=== PATIENT | female | born 1930 | race Caucasian/White ===

== ENCOUNTER → 2017-01-12 | Outpatient (CLI) | payer MEDICARE, BC | LOC: MW.CHIM 09:27 | PROVIDERS: ATTEND Internal Medicine | DX: I10 Essential (primary) hypertension (principal); E11.9 Type 2 diabetes mellitus without complications; E78.5 Hyperlipidemia, unspecified; F41.9 Anxiety disorder, unspecified | CPT/HCPCS: 36415; 80053; 80061; 83036; 85025; 99214 ==

== ENCOUNTER 2018-12-24 08:25 | Emergency (ER) | payer MEDICARE, BC ==
--- NOTE | 2018-12-24 08:47 | EDM.PDOC ---
ED HPI GENERAL MEDICAL PROBLEM - General Stated Complaint: BACK PAIN Time Seen by Provider: 12/24/18 08:33 Source of Information: Reports: Patient History Limitations: Reports: No Limitations - History of Present Illness INITIAL COMMENTS - FREE TEXT/NARRATIVE: History of present illness: []Patient changed her clock during the daylight savings change and accidentally set her alarm for midnight. She woke up when it went off and stood up to get to her alarm clock and fell backwards. Patient did not lose consciousness states she has right hip pain, bruising of her back and pain in her mid back upwards. Numbness or tingling or any other injuries. Patient takes a baby aspirin daily. Review of systems: As per history of present illness and below otherwise all systems reviewed and negative. Past medical history: As per history of present illness and as reviewed below otherwise noncontributory. Surgical history: As per history of present illness and as reviewed below otherwise noncontributory. Social history: No reported history of drug or alcohol abuse. Family history: As per history of present illness and as reviewed below otherwise noncontributory. Physical exam: General: Well developed, well nourished in NAD HEENT: Atraumatic, normocephalic, pupils reactive, negative for conjunctival pallor or scleral icterus, mucous membranes moist, throat clear, neck supple, nontender, trachea midline. Lungs: Clear to auscultation, breath sounds equal bilaterally, chest nontender. Heart: S1S2, regular, negative for clicks, rubs, or JVD. Abdomen: NABS, Soft, nondistended, nontender no rebound or guarding. Negative for masses or hepatosplenomegaly. Negative for costovertebral tenderness. Back has tenderness throughout there is a large ecchymotic area of the right lateral abdomen and multiple ecchymotic areas on her anterior lower abdomen from insulin injections Pelvis: Stable nontender. Genitourinary: Deferred. Rectal: Deferred. Extremities: Right hip tenderness to palpation she has full range of motion, right thigh with 4 x 4 ecchymotic area there is thigh tenderness, negative for cords or calf pain. Neurovascular unremarkable. Neuro: Awake, alert, oriented. Cranial nerves II through XII unremarkable. Cerebellum unremarkable. Motor and sensory unremarkable throughout. Exam nonfocal. Skin:warm and dry Diagnostics: T, L-spine and hip x-rays all negative, CBC, chemistry Therapeutics: None ED Course: Impression: Fall with right hip, mid and low back contusions Prescriptions: None Plan: Tylenol for pain Definitive disposition and diagnosis as appropriate pending reevaluation and review of above. Right Hip Pain Score (Numeric/FACES): 9 - Related Data Allergies Allergy/AdvReac Type Severity Reaction Status Date / Time No Known Allergies Allergy Verified 12/24/18 08:38 Home Meds: Home Meds Aspirin [[place] Aspirin EC] 81 mg PO DAILY 10/13/16 [History] Losartan/Hydrochlorothiazide [Losartan-HCTZ 100-12.5 MG] 1 tab PO DAILY [History] Sertraline HCl 100 mg PO DAILY 10/13/16 [History] Simvastatin [Zocor] 20 mg PO BEDTIME 10/13/16 [History] Spironolactone [Aldactone] 25 mg PO DAILY 10/13/16 [History] metFORMIN HCl [Metformin HCl] 1,000 mg PO BID 10/13/16 [History] traMADol [Ultram] 50 mg PO Q4H PRN #20 tablet 10/18/16 [Rx] Insulin Aspart [NovoLOG] 16 units SUBCUT TID 12/24/18 [History] Insulin Detemir [Levemir Flextouch] 30 units SUBCUT BEDTIME 12/24/18 [History] Naproxen Sodium [Aleve] 220 mg PO ASDIRECTED 12/24/18 [History] Past Medical History HEENT History: Reports: Other (See Below) Other HEENT History: wears glasses Cardiovascular History: Reports: High Cholesterol, Hypertension [employer]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: Musculoskeletal History: Reports: Osteoarthritis Psychiatric History: Reports: Depression Endocrine/Metabolic History: Reports: Diabetes, Type II Oncologic (Cancer) History: Reports: Basal Cell Carcinoma Dermatologic History: Reports: Other (See Below) Other Dermatologic History: basal cell carcinoma to face - Infectious Disease History Infectious Disease History: Reports: Chicken Pox - Past Surgical History Head Surgeries/Procedures: Reports: None HEENT Surgical History: Reports: Cataract Surgery, Tonsillectomy GI Surgical History: Reports: Appendectomy Female Surgical History: Reports: Hysterectomy Neurological Surgical History: Reports: Lumbar Spine Musculoskeletal Surgical History: Reports: Arthroscopic Knee Social & Family History - Family History Family Medical History: Noncontributory - Caffeine Use Caffeine Use: Reports: Coffee ED ROS GENERAL - Review of Systems Review Of Systems: ROS reveals no pertinent complaints other than HPI. ED EXAM,LOWER BACK PAIN/INJURY - Physical Exam Exam: See Below (See history of present illness) Course - Vital Signs Last Recorded V/S: Last Vital Signs Temp 97.7 F 12/24/18 08:41 Pulse 90 12/24/18 08:41 Resp 16 12/24/18 08:41 BP 140/89 12/24/18 08:41 Pulse Ox 95 12/24/18 08:41 - Orders/Labs/Meds Labs: Laboratory Tests 12/24/18 12/24/18 12/24/18 Range/Units 09:00 09:00 09:00 WBC 8.54 (4.0-11.0) K/uL RBC 4.23 L (4.30-5.90) M/uL Hgb 12.9 (12.0-16.0) g/dL Hct 36.8 (36.0-46.0) % MCV 87.0 (80.0-98.0) fL MCH 30.5 (27.0-32.0) pg MCHC 35.1 (31.0-37.0) g/dL RDW Std Deviation 44.3 (28.0-62.0) fl RDW Coeff of Renard 14 (11.0-15.0) % Plt Count 136 L (150-400) K/uL MPV 9.30 (7.40-12.00) fL Neut % (Auto) 68.8 (48.0-80.0) % Lymph % (Auto) 17.6 (16.0-40.0) % Rooks % (Auto) 11.0 (0.0-15.0) % Eos % (Auto) 2.5 (0.0-7.0) % Baso % (Auto) 0.1 (0.0-1.5) % Neut # (Auto) 5.9 H (1.4-5.7) K/uL Lymph # (Auto) 1.5 (0.6-2.4) K/uL Rooks # (Auto) 0.9 H (0.0-0.8) K/uL Eos # (Auto) 0.2 (0.0-0.7) K/uL Baso # (Auto) 0.0 (0.0-0.1) K/uL Nucleated RBC % 0.0 /100WBC Nucleated RBCs # 0 K/uL INR 1.02 APTT 26.6 (18.6-31.3) SEC Sodium 133 L (136-145) mmol/L Potassium 4.3 (3.5-5.1) mmol/L Chloride 97 L (98-107) mmol/L Carbon Dioxide 27.4 (21.0-32.0) mmol/L BUN 24 H (7.0-18.0) mg/dL Creatinine 1.0 (0.6-1.0) mg/dL Est Cr Clr Drug Dosing 29.91 mL/min Estimated GFR (MDRD) 52.4 ml/min Glucose 125 H (74-106) mg/dL Calcium 9.6 (8.5-10.1) mg/dL Total Bilirubin 0.4 (0.2-1.0) mg/dL AST 19 (15-37) IU/L ALT 26 (14-63) IU/L Alkaline Phosphatase 95 (46-116) U/L Total Protein 7.2 (6.4-8.2) g/dL Albumin 3.8 (3.4-5.0) g/dL Globulin 3.4 (2.6-4.0) g/dL Albumin/Globulin Ratio 1.1 (0.9-1.6) Departure - Departure Time of Disposition: 10:16 Disposition: Home, Self-Care 01 Condition: Good Clinical Impression: Fall Qualifiers: Encounter type: initial encounter Qualified Code(s): W19.XXXA - Unspecified fall, initial encounter Contusion of right hip Qualifiers: Encounter type: initial encounter Qualified Code(s): S70.01XA - Contusion of right hip, initial encounter Back contusion Qualifiers: Encounter type: initial encounter Laterality: unspecified laterality Qualified Code(s): S20.229A - Contusion of unspecified back wall of thorax, initial encounter - Discharge Information *PRESCRIPTION DRUG MONITORING PROGRAM REVIEWED*: No *COPY OF PRESCRIPTION DRUG MONITORING REPORT IN PATIENT MEGHA[place]: No Instructions: Back Pain, Adult, [id number] Referrals: PCP,Unknown [Primary Care Provider] - Forms: ED Department Discharge Additional Instructions: The following information is given to patients seen in the emergency department who are being discharged to home. This information is to outline your options for follow-up care. We provide all patients seen in our emergency department with a follow-up referral. The need for follow-up, as well as the timing and circumstances, are variable depending upon the specifics of your emergency department visit. If you don't have a primary care physician on staff, we will provide you with a referral. We always advise you to contact your personal physician following an emergency department visit to inform them of the circumstance of the visit and for follow-up with them and/or the need for any referrals to a consulting specialist. The emergency department will also refer you to a specialist when appropriate. This referral assures that you have the opportunity for follow-up care with a specialist. All of these measure are taken in an effort to provide you with optimal care, which includes your follow-up. Under all circumstances we always encourage you to contact your private physician who remains a resource for coordinating your care. When calling for follow-up care, please make the office aware that this follow-up is from your recent emergency room visit. If for any reason you are refused follow-up, please contact the [facility] Emergency Department at and asked to speak to the emergency department charge nurse. Tylenol or ibuprofen for pain, follow up with primary care [facility] [address] [place] [id number]
--- NOTE | 2018-12-24 10:09 | CR ---
EXAMINATION: Pelvis and right hip HISTORY: Fall COMPARISON: CT dated 02/02/2013 TECHNIQUE: AP and lateral views FINDINGS: The visualized osseous structures appear osteopenic. Severe joint space narrowing noted at the left hip and moderately at the right hip most prominent at the superior medial axis. Mild subchondral sclerosis and cystic change noted bilaterally. Mild sclerotic and degenerative changes noted at the SI joints. Iliopectineal lines appear intact. No definite fracture or acute osseous abnormality is noted. Pelvic phleboliths. IMPRESSION: 1. Moderate degenerative changes within the hips bilaterally without acute findings. 2. Osteopenia.
--- NOTE | 2018-12-24 10:11 | CR ---
EXAMINATION: Thoracic and lumbar spine HISTORY: Pain COMPARISON: None TECHNIQUE: AP and lateral views FINDINGS: Thoracic spine: Mild kyphosis of the thoracic spine. Several minimal wedge deformities are noted within the midthoracic spine. No definite evidence of a fracture or acute osseous abnormality. Bone mineralization is notably osteopenic. Osteophyte formation is noted. Lumbar spine: Minimal anterolisthesis is noted of L2 on L3, L3 on L4, and L4 on L5. 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 Vertebral body heights otherwise appear maintained. Bone mineralization is osteopenic. Mild marginal osteophytes are noted. Facet arthritic changes noted throughout the lumbar spine. Mild vascular calcifications. IMPRESSION: 1. Moderate degenerative changes noted within the thoracic and lumbar spine without definite acute osseous abnormality. 2. Osteopenia.
[2018-12-24 10:33] VITALS: BP 103/83
== END 2018-12-24 10:27 | disposition home or self-care (01) ==
LOC: MW.ED 08:25
DX: S70.01XA Contusion of right hip, initial encounter (principal); S20.229A Contusion of unspecified back wall of thorax, initial encounter; E11.9 Type 2 diabetes mellitus without complications; Z79.4 Long term (current) use of insulin; I10 Essential (primary) hypertension; E78.00 Pure hypercholesterolemia, unspecified; F32.9 Major depressive disorder, single episode, unspecified; Z79.899 Other long term (current) drug therapy; Z79.82 Long term (current) use of aspirin; W19.XXXA Unspecified fall, initial encounter
CPT/HCPCS: 36415; 72070; 72070-26; 72100; 72100-26; 73502-26-RT; 73502-RT; 80053; 85025; 85610; 85730; 99283-25

== ENCOUNTER 2019-03-11 09:00 | Emergency (ER) | payer MEDICARE, BC ==
--- NOTE | 2019-03-11 09:33 | EDM.PDOC ---
ED HPI GENERAL MEDICAL PROBLEM - General Chief Complaint: ENT Problem Stated Complaint: BLOODY NOSE FOR 20+ MINS Time Seen by Provider: 03/11/19 09:30 - History of Present Illness INITIAL COMMENTS - FREE TEXT/NARRATIVE: HISTORY AND PHYSICAL: History of present illness: Patient's an 88-year-old white female with multiple medical problems including hypertension presents with a concern of left-sided epistaxis patient has had this intermittently in the past. No Reported trauma patient is currently on aspirin she denies any other anticoagulants or bleeding diastases Review of systems: As per history of present illness and below otherwise all systems reviewed and negative. Past medical history: As per history of present illness and as reviewed below otherwise noncontributory. Surgical history: As per history of present illness and as reviewed below otherwise noncontributory. Social history: No reported history of drug or alcohol abuse. Family history: As per history of present illness and as reviewed below otherwise noncontributory. Physical exam: HEENT: Atraumatic, normocephalic, pupils reactive, negative for conjunctival pallor or scleral icterus, mucous membranes moist, throat clear, neck supple, nontender, trachea midline. Small active bleeding from her left nares noted source not identified Lungs: Clear to auscultation, breath sounds equal bilaterally, chest nontender. Heart: S1S2, regular, negative for clicks, rubs, or JVD. Abdomen: Soft, nondistended, nontender. Negative for masses or hepatosplenomegaly. Negative for costovertebral tenderness. Pelvis: Stable nontender. Genitourinary: Deferred. Rectal: Deferred. Extremities: Atraumatic, negative for cords or calf pain. Neurovascular unremarkable. Neuro: Awake, alert, oriented. Cranial nerves II through XII unremarkable. Cerebellum unremarkable. Motor and sensory unremarkable throughout. Exam nonfocal. Diagnostics: None Therapeutics: Clots were cleared via blowing 5.5 cm Rhino Rocket was placed in her left nares with good hemostasis no evidence of posterior bleeding the patient tolerated procedure well mustache dressing was applied Impression: #1 hypertension #2 left-sided epistaxis status post Rhino Rocket placement Definitive disposition and diagnosis as appropriate pending reevaluation and review of above. - Related Data Allergies Allergy/AdvReac Type Severity Reaction Status Date / Time No Known Allergies Allergy Verified 03/11/19 09:05 Home Meds: Home Meds Aspirin [[place] Aspirin EC] 81 mg PO DAILY 10/13/16 [History] Losartan/Hydrochlorothiazide [Losartan-HCTZ 100-12.5 MG] 1 tab PO DAILY [History] Sertraline HCl 100 mg PO DAILY 10/13/16 [History] Simvastatin [Zocor] 20 mg PO BEDTIME 10/13/16 [History] Spironolactone [Aldactone] 25 mg PO DAILY 10/13/16 [History] metFORMIN HCl [Metformin HCl] 1,000 mg PO BID 10/13/16 [History] Insulin Aspart [NovoLOG] 12 units SUBCUT TID 12/24/18 [History] Insulin Detemir [Levemir Flextouch] 26 units SUBCUT BEDTIME 12/24/18 [History] Naproxen Sodium [Aleve] 220 mg PO ASDIRECTED 12/24/18 [History] Past Medical History HEENT History: Reports: Other (See Below) Other HEENT History: wears glasses Cardiovascular History: Reports: High Cholesterol, Hypertension [employer]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: Musculoskeletal History: Reports: Osteoarthritis Psychiatric History: Reports: Depression Endocrine/Metabolic History: Reports: Diabetes, Type II Oncologic (Cancer) History: Reports: Basal Cell Carcinoma Dermatologic History: Reports: Other (See Below) Other Dermatologic History: basal cell carcinoma to face - Infectious Disease History Infectious Disease History: Reports: Chicken Pox, Measles, Mumps - Past Surgical History Head Surgeries/Procedures: Reports: None HEENT Surgical History: Reports: Cataract Surgery, Tonsillectomy GI Surgical History: Reports: Appendectomy Female Surgical History: Reports: Hysterectomy Neurological Surgical History: Reports: Lumbar Spine Musculoskeletal Surgical History: Reports: Arthroscopic Knee Social & Family History - Family History Family Medical History: Noncontributory - Tobacco Use Smoking Status *Q: Never Smoker - Caffeine Use Caffeine Use: Reports: Coffee - Recreational Drug Use Recreational Drug Use: No ED ROS GENERAL - Review of Systems Review Of Systems: ROS reveals no pertinent complaints other than HPI. ED EXAM, GENERAL - Physical Exam Exam: See Below (See dictation) Course - Vital Signs Last Recorded V/S: Last Vital Signs Temp 36.3 C 03/11/19 09:03 Pulse 95 03/11/19 09:49 Resp 20 03/11/19 09:03 BP 169/79 H 03/11/19 09:49 Pulse Ox 95 03/11/19 09:49 Departure - Departure Time of Disposition: 10:09 Disposition: Home, Self-Care 01 Condition: Good Clinical Impression: Epistaxis Hypertension Qualifiers: Hypertension type: essential hypertension Qualified Code(s): I10 - Essential ( primary) hypertension - Discharge Information Referrals: PCP,Unknown [Primary Care Provider] - Forms: ED Department Discharge Additional Instructions: The following information is given to patients seen in the emergency department who are being discharged to home. This information is to outline your options for follow-up care. We provide all patients seen in our emergency department with a follow-up referral. The need for follow-up, as well as the timing and circumstances, are variable depending upon the specifics of your emergency department visit. If you don't have a primary care physician on staff, we will provide you with a referral. We always advise you to contact your personal physician following an emergency department visit to inform them of the circumstance of the visit and for follow-up with them and/or the need for any referrals to a consulting specialist. The emergency department will also refer you to a specialist when appropriate. This referral assures that you have the opportunity for followup care with a specialist. All of these measure are taken in an effort to provide you with optimal care, which includes your followup. Under all circumstances we always encourage you to contact your private physician who remains a resource for coordinating your care. When calling for followup care, please make the office aware that this follow-up is from your recent emergency room visit. If for any reason you are refused follow-up, please contact the [facility] emergency department at and asked to speak to the emergency department charge nurse. Bernice Enriquez as directed reevaluation 24-48 hours as discussed for removal Augmentin as prescribed continue current medications and return as needed as discussed
[2019-03-11 09:51] VITALS: BP 169/79
== END 2019-03-11 10:29 | disposition home or self-care (01) ==
LOC: MW.ED 09:00
DX: R04.0 Epistaxis (principal); I10 Essential (primary) hypertension; E78.00 Pure hypercholesterolemia, unspecified; F32.9 Major depressive disorder, single episode, unspecified; E11.9 Type 2 diabetes mellitus without complications; Z79.4 Long term (current) use of insulin; Z79.899 Other long term (current) drug therapy
CPT/HCPCS: 99283

== ENCOUNTER 2019-03-12 20:30 | Emergency (ER) | payer MEDICARE, BC ==
--- NOTE | 2019-03-12 20:50 | EDM.PDOC ---
ED HPI GENERAL MEDICAL PROBLEM - General Chief Complaint: General Stated Complaint: DIZZINESS Time Seen by Provider: 03/12/19 20:49 Source of Information: Reports: Patient History Limitations: Reports: No Limitations - History of Present Illness INITIAL COMMENTS - FREE TEXT/NARRATIVE: HISTORY AND PHYSICAL: History of present illness: Patient is an 88-year-old female who presents to the emergency room with complaints of dizziness x 24 hours. She was seen in the emergency room yesterday on 03/11/19 for left naris epistaxis. She did have a Rhino Rocket placed at that time for manage bleeding. Patient is vague with her symptoms. Denies any injury, trauma or falls. Also mentions concern of some mild erythema that she has noticed to her lower extremities over the past several years. She denies any numbness, tingling or paresthesias. Patient is a type II diabetic, history of hypertension and basal cell carcinoma. Patient denies any fever, chills, headache, change in vision, syncope or near syncope. Denies any chest pain, back pain, shortness of breath or cough. Denies any abdominal pain, nausea, vomiting, diarrhea, constipation or dysuria. Has not noted any blood in urine or stool. Patient has been eating and drinking appropriately. Review of systems: As per history of present illness and below otherwise all systems reviewed and negative. Past medical history: As per history of present illness and as reviewed below otherwise noncontributory. Surgical history: As per history of present illness and as reviewed below otherwise noncontributory. Social history: See social history for further information Family history: As per history of present illness and as reviewed below otherwise noncontributory. Physical exam: General: Well-developed and well-nourished 88-year-old female. Alert and oriented. Nontoxic appearing and in no acute distress. HEENT: Atraumatic, normocephalic, pupils equal and reactive bilaterally, negative for conjunctival pallor or scleral icterus, mucous membranes moist, TMs normal bilaterally, throat clear, neck supple, nontender, trachea midline. No drooling or trismus noted. No meningeal signs. No hot potato voice noted. Lungs: Clear to auscultation, breath sounds equal bilaterally, chest nontender. Heart: S1S2, regular rate and rhythm without overt murmur Abdomen: Soft, nondistended, nontender. Skin: Intact, warm, dry. No lesions or rashes noted. Extremities: Atraumatic, moves all extremities per self without difficulty or deficits, negative for cords or calf pain. Strong pedal pulses bilaterally. Mild pitting LE edema bilaterally. Neurovascular unremarkable. Neuro: Awake, alert, oriented. Cranial nerves II through XII unremarkable. Cerebellum unremarkable. Motor and sensory unremarkable throughout. Exam nonfocal. Notes: Rhino Rocket was placed over 24 hours ago. This was removed without any difficulty. No post removal bleeding noted. Patient is agreeable to lab work and imaging at this time. Physical examination is within normal limits. She does have some mild erythema to her bilateral shins/ankle. Does not appear to be cellulitic, more diabetic related. No diabetic foot ulcers or open sores noted to either foot. EKG shows sinus rhythm, rate of 87. Patient reports that since the Rhino Rocket was removed the dizziness has improved. She states "it still comes and goes" but is very nonspecific. Dr Caballero reviewed diagnostics. Disposition accordingly. Diagnostics: CBC, CMP, UA, troponin, EKG, one view chest, head CT Therapeutics: IV fluids Impression: Encounter for nasal packing removal Dizziness Plan: 1. Increase your oral fluids. Change positions slowly. 2. Take your prescribed medications as directed. 3. Follow-up with your primary care provider as we discussed. Return to the ED as needed and as discussed. Definitive disposition and diagnosis as appropriate pending reevaluation and review of above. no pain Pain Score (Numeric/FACES): 0 - Related Data Allergies Allergy/AdvReac Type Severity Reaction Status Date / Time No Known Allergies Allergy Verified 03/13/19 20:50 Home Meds: Home Meds Aspirin [[place] Aspirin EC] 81 mg PO DAILY 10/13/16 [History] Losartan/Hydrochlorothiazide [Losartan-HCTZ 100-12.5 MG] 1 tab PO DAILY [History] Sertraline HCl 100 mg PO DAILY 10/13/16 [History] Simvastatin [Zocor] 20 mg PO BEDTIME 10/13/16 [History] Spironolactone [Aldactone] 25 mg PO DAILY 10/13/16 [History] metFORMIN HCl [Metformin HCl] 1,000 mg PO BID 10/13/16 [History] Insulin Aspart [NovoLOG] 12 units SUBCUT TID 12/24/18 [History] Insulin Detemir [Levemir Flextouch] 26 units SUBCUT BEDTIME 12/24/18 [History] Naproxen Sodium [Aleve] 220 mg PO ASDIRECTED 12/24/18 [History] Past Medical History HEENT History: Reports: Impaired Vision, Other (See Below) Other HEENT History: wears glasses Cardiovascular History: Reports: High Cholesterol, 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: Musculoskeletal History: Reports: Osteoarthritis Psychiatric History: Reports: Depression Endocrine/Metabolic History: Reports: Diabetes, Type II Oncologic (Cancer) History: Reports: Basal Cell Carcinoma Dermatologic History: Reports: Other (See Below) Other Dermatologic History: basal cell carcinoma to face - Infectious Disease History Infectious Disease History: Reports: Chicken Pox, Measles, Mumps - Past Surgical History Head Surgeries/Procedures: Reports: None HEENT Surgical History: Reports: Cataract Surgery, Tonsillectomy GI Surgical History: Reports: Appendectomy Female Surgical History: Reports: Hysterectomy Neurological Surgical History: Reports: Lumbar Spine Musculoskeletal Surgical History: Reports: Arthroscopic Knee Social & Family History - Family History Family Medical History: Noncontributory - Tobacco Use Smoking Status *Q: Never Smoker - Caffeine Use Caffeine Use: Reports: Coffee - Recreational Drug Use Recreational Drug Use: No ED ROS GENERAL - Review of Systems Review Of Systems: ROS reveals no pertinent complaints other than HPI. ED EXAM, GENERAL - Physical Exam Exam: See Below (See dictation) Course - Vital Signs Last Recorded V/S: Last Vital Signs Temp 97.2 F 03/12/19 22:35 Pulse 83 03/12/19 22:35 Resp 18 03/12/19 22:35 BP 166/68 H 03/12/19 22:35 Pulse Ox 96 03/12/19 22:35 - Orders/Labs/Meds Labs: Laboratory Tests 03/12/19 03/12/19 Range/Units 20:50 20:50 WBC 9.75 (4.0-11.0) K/uL RBC 4.23 L (4.30-5.90) M/uL Hgb 12.9 (12.0-16.0) g/dL Hct 37.3 (36.0-46.0) % MCV 88.2 (80.0-98.0) fL MCH 30.5 (27.0-32.0) pg MCHC 34.6 (31.0-37.0) g/dL RDW Std Deviation 47.0 (28.0-62.0) fl RDW Coeff of Renard 15 (11.0-15.0) % Plt Count 138 L (150-400) K/uL MPV 9.40 (7.40-12.00) fL Neut % (Auto) 60.5 (48.0-80.0) % Lymph % (Auto) 22.5 (16.0-40.0) % [place] % (Auto) 14.7 (0.0-15.0) % Eos % (Auto) 2.2 (0.0-7.0) % Baso % (Auto) 0.1 (0.0-1.5) % Neut # (Auto) 5.9 H (1.4-5.7) K/uL Lymph # (Auto) 2.2 (0.6-2.4) K/uL [place] # (Auto) 1.4 H (0.0-0.8) K/uL Eos # (Auto) 0.2 (0.0-0.7) K/uL Baso # (Auto) 0.0 (0.0-0.1) K/uL Nucleated RBC % 0.0 /100WBC Nucleated RBCs # 0 K/uL Sodium 130 L (136-145) mmol/L Potassium 4.9 (3.5-5.1) mmol/L Chloride 94 L (98-107) mmol/L Carbon Dioxide 28.8 (21.0-32.0) mmol/L BUN 36 H (7.0-18.0) mg/dL Creatinine 1.4 H (0.6-1.0) mg/dL Est Cr Clr Drug Dosing TNP Estimated GFR (MDRD) 35.6 ml/min Glucose 100 (74-106) mg/dL Calcium 10.4 H (8.5-10.1) mg/dL Total Bilirubin 0.4 (0.2-1.0) mg/dL AST 16 (15-37) IU/L ALT 19 (14-63) IU/L Alkaline Phosphatase 62 (46-116) U/L Troponin I < 0.050 (0.000-0.056) ng/mL Total Protein 7.5 (6.4-8.2) g/dL Albumin 3.9 (3.4-5.0) g/dL Globulin 3.6 (2.6-4.0) g/dL Albumin/Globulin Ratio 1.1 (0.9-1.6) Meds: Medications Discontinued Medications Generic Name Dose Route Start Last Admin Trade Name Dionisioq PRN Reason Stop Dose Admin Sodium Chloride 1,000 mls @ 125 mls/hr 03/12/19 20:55 03/12/19 21:07 Normal Saline IV 03/13/19 04:54 125 mls/hr STAT ONE Administration Departure - Departure Time of Disposition: 22:30 Disposition: Home, Self-Care 01 Clinical Impression: Encounter for removal of nasal packing, Dizziness - Discharge Information Instructions: Dehydration, Elderly, [id number] Referrals: PCP,None [Primary Care Provider] - Forms: ED Department Discharge Additional Instructions: The following information is given to patients seen in the emergency department who are being discharged to home. This information is to outline your options for follow-up care. We provide all patients seen in our emergency department with a follow-up referral. The need for follow-up, as well as the timing and circumstances, are variable depending upon the specifics of your emergency department visit. If you don't have a primary care physician on staff, we will provide you with a referral. We always advise you to contact your personal physician following an emergency department visit to inform them of the circumstance of the visit and for follow-up with them and/or the need for any referrals to a consulting specialist. The emergency department will also refer you to a specialist when appropriate. This referral assures that you have the opportunity for follow-up care with a specialist. All of these measure are taken in an effort to provide you with optimal care, which includes your follow-up. Under all circumstances we always encourage you to contact your private physician who remains a resource for coordinating your care. When calling for follow-up care, please make the office aware that this follow-up is from your recent emergency room visit. If for any reason you are refused follow-up, please contact the [facility] Emergency Department at and asked to speak to the emergency department charge nurse. [facility] [address] [place] [id number] [facility] [address] [place] [id number] 1. Increase your oral fluids. Change positions slowly. 2. Take your prescribed medications as directed. 3. Follow-up with your primary care provider as we discussed. Return to the ED as needed and as discussed.
[2019-03-12] MEDS ORDERED: Sodium Chloride 0.9% 1,000 ML IV ONE (20:55)
[2019-03-12 21:22] LABS: CHLORIDE,CL 94 mmol/L (98-107); SODIUM,NA 130 mmol/L (136-145)
--- NOTE | 2019-03-12 21:40 | CR ---
INDICATION: lightheaded/dizziness TECHNIQUE: Chest 1 view. COMPARISON: None. FINDINGS: Cardiovascular and mediastinum: Heart size and vasculature are normal in caliber and appearance. Mediastinum is within normal limits. Lungs and pleural space: Lungs are clear. No sign of infiltrate or mass. No sign of pleural effusion. No pneumothorax. Bones and soft tissues: No significant findings. IMPRESSION: Unremarkable chest. Dictated by: Lokehs Mojica MD @ 03/12/2019 21:39:09 (Electronically Signed)
--- NOTE | 2019-03-12 21:55 | CT ---
INDICATION: Lightheaded, dizziness TECHNIQUE: Head CT without contrast. COMPARISON: None FINDINGS: CSF spaces: Within normal limits for age. Brain parenchyma: There are nonspecific low attenuation white matter changes consistent with chronic microvascular disease. No sign of mass, hemorrhage, or midline shift. Skull base and calvarium: Partial opacification of the left maxillary sinus. Mastoid air cells are normally aerated. The visualized orbits are grossly unremarkable. No skull fractures. There is intracranial atherosclerosis. IMPRESSION: 1. No acute findings. 2. Nonspecific white matter disease, typical of chronic microvascular disease. 3. Partial opacification left maxillary sinus. Consider sinus CT for further evaluation if clinically indicated. Please note that all CT scans at this facility use dose modulation, iterative reconstruction, and/or weight-based dosing when appropriate to reduce radiation dose to as low as reasonably achievable. Dictated by Mere Hopper MD @ Mar 12 2019 9:50PM Signed by Dr. Mere Hopper @ Mar 12 2019 9:53PM
[2019-03-12 22:43] VITALS: BP 166/68
== END 2019-03-12 22:35 | disposition home or self-care (01) ==
LOC: MW.ED 20:30
DX: R42 Dizziness and giddiness (principal); Z48.00 Encounter for change or removal of nonsurgical wound dressing; E11.9 Type 2 diabetes mellitus without complications; I10 Essential (primary) hypertension; E78.00 Pure hypercholesterolemia, unspecified; Z79.4 Long term (current) use of insulin; Z79.899 Other long term (current) drug therapy; Z79.82 Long term (current) use of aspirin
CPT/HCPCS: 36415; 70450; 71045; 80053; 84484; 85025; 93005; 96360; 96361; 99284; J7040

== ENCOUNTER 2019-03-13 20:39 | Observation (INO) | payer MEDICARE, BC ==
--- NOTE | 2019-03-13 21:30 | EDM.PDOC ---
ED HPI GENERAL MEDICAL PROBLEM - General Chief Complaint: General Stated Complaint: NAUSIA,LIGHT HEADED Time Seen by Provider: 03/13/19 20:53 - History of Present Illness INITIAL COMMENTS - FREE TEXT/NARRATIVE: HISTORY AND PHYSICAL: History of present illness: Patient is an 88-year-old white female who presents for the third time in 3 days to the emergency department her initial visit was for epistaxis she received a Rhino Rocket at that time with good bleeding control and return the following day with vague symptoms including generalized weakness restless legs insomnia but was without chest pain shortness of breath or other complaints she had an extensive workup including CT scan and comprehensive labs she was discharged home with IV fluids. She presents today with similar symptoms yesterday particularly related to these restless legs and difficulty sleeping no reported fever chills she does complain of some vague weakness in dizziness that is hard to qualify. There's been no chest pain shortness of breath palpitations other concerns reported today Review of systems: As per history of present illness and below otherwise all systems reviewed and negative. Past medical history: As per history of present illness and as reviewed below otherwise noncontributory. Surgical history: As per history of present illness and as reviewed below otherwise noncontributory. Social history: No reported history of drug or alcohol abuse. Family history: As per history of present illness and as reviewed below otherwise noncontributory. Physical exam: HEENT: Atraumatic, normocephalic, pupils reactive, negative for conjunctival pallor or scleral icterus, mucous membranes moist, throat clear, neck supple, nontender, trachea midline. Lungs: Clear to auscultation, breath sounds equal bilaterally, chest nontender. Heart: S1S2, regular, negative for clicks, rubs, or JVD. Abdomen: Soft, nondistended, nontender. Negative for masses or hepatosplenomegaly. Negative for costovertebral tenderness. Pelvis: Stable nontender. Genitourinary: Deferred. Rectal: Deferred. Extremities: Atraumatic, negative for cords or calf pain. Neurovascular unremarkable. Neuro: Awake, alert, oriented. Cranial nerves II through XII unremarkable. Cerebellum unremarkable. Motor and sensory unremarkable throughout. Exam nonfocal. Diagnostics: CBC CMP UA EKG Therapeutics: None Impression: #1 medical screening exam #2 rule restless leg syndrome Definitive disposition and diagnosis as appropriate pending reevaluation and review of above. Generalized Pain Score (Numeric/FACES): 2 - Related Data Allergies Allergy/AdvReac Type Severity Reaction Status Date / Time No Known Allergies Allergy Verified 03/13/19 20:50 Home Meds: Home Meds Aspirin [[place] Aspirin EC] 81 mg PO DAILY 10/13/16 [History] Losartan/Hydrochlorothiazide [Losartan-HCTZ 100-12.5 MG] 1 tab PO DAILY [History] Sertraline HCl 100 mg PO DAILY 10/13/16 [History] Simvastatin [Zocor] 20 mg PO BEDTIME 10/13/16 [History] Spironolactone [Aldactone] 25 mg PO DAILY 10/13/16 [History] metFORMIN HCl [Metformin HCl] 1,000 mg PO BID 10/13/16 [History] Insulin Aspart [NovoLOG] 12 units SUBCUT TID 12/24/18 [History] Insulin Detemir [Levemir Flextouch] 26 units SUBCUT BEDTIME 12/24/18 [History] Naproxen Sodium [Aleve] 220 mg PO ASDIRECTED 12/24/18 [History] Past Medical History HEENT History: Reports: Impaired Vision, Other (See Below) Other HEENT History: wears glasses Cardiovascular History: Reports: High Cholesterol, 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: Musculoskeletal History: Reports: Osteoarthritis Psychiatric History: Reports: Depression Endocrine/Metabolic History: Reports: Diabetes, Type II Oncologic (Cancer) History: Reports: Basal Cell Carcinoma Dermatologic History: Reports: Other (See Below) Other Dermatologic History: basal cell carcinoma to face - Infectious Disease History Infectious Disease History: Reports: Chicken Pox, Measles, Mumps - Past Surgical History Head Surgeries/Procedures: Reports: None HEENT Surgical History: Reports: Cataract Surgery, Tonsillectomy GI Surgical History: Reports: Appendectomy Female Surgical History: Reports: Hysterectomy Neurological Surgical History: Reports: Lumbar Spine Musculoskeletal Surgical History: Reports: Arthroscopic Knee Social & Family History - Family History Family Medical History: Noncontributory - Tobacco Use Smoking Status *Q: Never Smoker - Caffeine Use Caffeine Use: Reports: Coffee - Recreational Drug Use Recreational Drug Use: No ED ROS GENERAL - Review of Systems Review Of Systems: ROS reveals no pertinent complaints other than HPI. ED EXAM, GENERAL - Physical Exam Exam: See Below (See dictation) Course - Vital Signs Last Recorded V/S: Last Vital Signs Temp 36.6 C 03/13/19 20:50 Pulse 136 H 03/13/19 20:50 Resp 18 03/13/19 20:50 BP 122/77 03/13/19 20:50 Pulse Ox 91 L 03/13/19 20:50 - Orders/Labs/Meds Orders: Active Orders 24 hr Category Date Time Status EKG 12 Lead [EKG Documentation Completion] [RC] STAT Care 03/13/19 21:05 Active Sodium Chloride 0.9% [Normal Saline] 1,000 ml Med 03/13/19 22:15 Active IV ASDIRECTED Medication Orders Sodium Chloride (Normal Saline) 1,000 mls @ 125 mls/hr IV ASDIRECTED SHEYLA Labs: Laboratory Tests 03/13/19 03/13/19 03/13/19 Range/Units 21:13 21:18 21:18 WBC 7.37 (4.0-11.0) K/uL RBC 3.96 L (4.30-5.90) M/uL Hgb 11.8 L (12.0-16.0) g/dL Hct 34.4 L (36.0-46.0) % MCV 86.9 (80.0-98.0) fL MCH 29.8 (27.0-32.0) pg MCHC 34.3 (31.0-37.0) g/dL RDW Std Deviation 44.7 (28.0-62.0) fl RDW Coeff of Renard 14 (11.0-15.0) % Plt Count 113 L (150-400) K/uL MPV 9.10 (7.40-12.00) fL Neut % (Auto) 61.9 (48.0-80.0) % Lymph % (Auto) 23.2 (16.0-40.0) % [place] % (Auto) 12.5 (0.0-15.0) % Eos % (Auto) 2.3 (0.0-7.0) % Baso % (Auto) 0.1 (0.0-1.5) % Neut # (Auto) 4.6 (1.4-5.7) K/uL Lymph # (Auto) 1.7 (0.6-2.4) K/uL [place] # (Auto) 0.9 H (0.0-0.8) K/uL Eos # (Auto) 0.2 (0.0-0.7) K/uL Baso # (Auto) 0.0 (0.0-0.1) K/uL Nucleated RBC % 0.0 /100WBC Nucleated RBCs # 0 K/uL Sodium 124 L (136-145) mmol/L Potassium 4.5 (3.5-5.1) mmol/L Chloride 90 L (98-107) mmol/L Carbon Dioxide 26.8 (21.0-32.0) mmol/L BUN 29 H (7.0-18.0) mg/dL Creatinine 1.1 H (0.6-1.0) mg/dL Est Cr Clr Drug Dosing 32.42 mL/min Estimated GFR (MDRD) 47.0 ml/min Glucose 147 H (74-106) mg/dL Calcium 9.7 (8.5-10.1) mg/dL Total Bilirubin 0.5 (0.2-1.0) mg/dL AST 18 (15-37) IU/L ALT 21 (14-63) IU/L Alkaline Phosphatase 58 (46-116) U/L Total Protein 7.1 (6.4-8.2) g/dL Albumin 4.1 (3.4-5.0) g/dL Globulin 3.0 (2.6-4.0) g/dL Albumin/Globulin Ratio 1.4 (0.9-1.6) Urine Color YELLOW Urine Appearance CLEAR Urine pH 5.5 (5.0-8.0) Ur Specific [place] 1.010 (1.001-1.035) Urine Protein NEGATIVE (NEGATIVE) mg/dL Urine Glucose (UA) NEGATIVE (NEGATIVE) mg/dL Urine Ketones NEGATIVE (NEGATIVE) mg/dL Urine Occult Blood NEGATIVE (NEGATIVE) Urine Nitrite NEGATIVE (NEGATIVE) Urine Bilirubin NEGATIVE (NEGATIVE) Urine Urobilinogen 0.2 (<2.0) EU/dL Ur Leukocyte Esterase NEGATIVE (NEGATIVE) Urine RBC 0-1 (0-2/HPF) Urine WBC 0-1 (0-5/HPF) Ur Epithelial Cells RARE (NONE-FEW) Urine Bacteria RARE (NEGATIVE) Urine Mucus LIGHT (NONE-MOD) Meds: Medications Generic Name Dose Route Start Last Admin Trade Name Freq PRN Reason Stop Dose Admin Sodium Chloride 1,000 mls @ 125 mls/hr 03/13/19 22:15 Normal Saline IV ASDIRECTED SHEYLA Departure - Departure Time of Disposition: 22:12 Disposition: Refer to Observation Condition: Good Clinical Impression: Hyponatremia - Discharge Information Referrals: Kat Chung DO [Primary Care Provider] - Forms: ED Department Discharge - My Orders Last 24 Hours: My Active Orders 03/13/19 21:05 EKG 12 Lead [EKG Documentation Completion] [RC] STAT 03/13/19 22:15 Sodium Chloride 0.9% [Normal Saline] 1,000 ml IV ASDIRECTED - Assessment/Plan Last 24 Hours: My Active Orders 03/13/19 21:05 EKG 12 Lead [EKG Documentation Completion] [RC] STAT 03/13/19 22:15 Sodium Chloride 0.9% [Normal Saline] 1,000 ml IV ASDIRECTED
[2019-03-13] MEDS: Sodium Chloride 0.9% 1,000 ML IV SCH (22:23)
--- NOTE | 2019-03-13 23:54 | PCM.HP ---
H&P History of Present Illness - General Date of Service: 03/13/19 Admit Problem/Dx: Admission Diagnosis/Problem Admission Diagnosis/Problem Hyponatremia - History of Present Illness Initial Comments - Free Text/Narative: 88 yo female with pmh of DM, HTN who presents to the ED with complaint of legs having unusual sensation with bugs crawling on them as well as feeling of unsteadiness. She denies any fevers, shortness of breath or chills. Patient reports the symptoms stopped like someone turned on a light switch once she got IV fluids. Generalized Pain Score (Numeric/FACES): 2 - Related Data Allergies/Adverse Reactions: Allergies Allergy/AdvReac Type Severity Reaction Status Date / Time No Known Allergies Allergy Verified 03/13/19 20:50 Home Medications: Home Meds Aspirin [[place] Aspirin EC] 81 mg PO DAILY 10/13/16 [History] Losartan/Hydrochlorothiazide [Losartan-HCTZ 100-12.5 MG] 1 tab PO DAILY [History] Sertraline HCl 100 mg PO DAILY 10/13/16 [History] Simvastatin [Zocor] 20 mg PO BEDTIME 10/13/16 [History] Spironolactone [Aldactone] 25 mg PO DAILY 10/13/16 [History] metFORMIN HCl [Metformin HCl] 1,000 mg PO BID 10/13/16 [History] Insulin Aspart [NovoLOG] 12 units SUBCUT TID 12/24/18 [History] Insulin Detemir [Levemir Flextouch] 26 units SUBCUT BEDTIME 12/24/18 [History] Naproxen Sodium [Aleve] 220 mg PO ASDIRECTED 12/24/18 [History] Past Medical History HEENT History: Reports: Impaired Vision, Other (See Below) Other HEENT History: wears glasses Cardiovascular History: Reports: High Cholesterol, Hypertension 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: Musculoskeletal History: Reports: Osteoarthritis Psychiatric History: Reports: Depression Endocrine/Metabolic History: Reports: Diabetes, Type II Oncologic (Cancer) History: Reports: Basal Cell Carcinoma Dermatologic History: Reports: Other (See Below) Other Dermatologic History: basal cell carcinoma to face - Infectious Disease History Infectious Disease History: Reports: Chicken Pox, Measles, Mumps - Past Surgical History Head Surgeries/Procedures: Reports: None HEENT Surgical History: Reports: Cataract Surgery, Tonsillectomy GI Surgical History: Reports: Appendectomy Female Surgical History: Reports: Hysterectomy Neurological Surgical History: Reports: Lumbar Spine Musculoskeletal Surgical History: Reports: Arthroscopic Knee Social & Family History - Family History Family Medical History: Noncontributory - Tobacco Use Smoking Status *Q: Never Smoker - Caffeine Use Caffeine Use: Reports: Coffee - Recreational Drug Use Recreational Drug Use: No H&P Review of Systems - Review of Systems: Review Of Systems: ROS reveals no pertinent complaints other than HPI. Exam - Exam Exam: See Below - Vital Signs Vital Signs: Last Vital Signs Temp 36.1 C 03/13/19 23:00 Pulse 89 03/13/19 23:00 Resp 18 03/13/19 23:00 BP 208/81 H 03/13/19 23:00 Pulse Ox 96 03/13/19 23:00 Weight: 65.771 kg - Exam General: Alert, Oriented HEENT: Mucosa Moist & [place] Neck: Supple Lungs: Clear to Auscultation, Normal Respiratory Effort Cardiovascular: Regular Rate, Regular Rhythm GI/Abdominal Exam: Normal Bowel Sounds, Soft, Non-Tender Extremities: Normal Inspection, Non-Tender, No Pedal Edema Neurological: Cranial Nerves Intact, Strength Equal Bilateral. No: Focal Deficit - Patient Data Lab Results Last 24 hrs: Laboratory Results - last 24 hr 03/13/19 03/13/19 03/13/19 Range/Units 21:13 21:18 21:18 WBC 7.37 (4.0-11.0) K/uL RBC 3.96 L (4.30-5.90) M/uL Hgb 11.8 L (12.0-16.0) g/dL Hct 34.4 L (36.0-46.0) % MCV 86.9 (80.0-98.0) fL MCH 29.8 (27.0-32.0) pg MCHC 34.3 (31.0-37.0) g/dL RDW Std Deviation 44.7 (28.0-62.0) fl RDW Coeff of [place] 14 (11.0-15.0) % Plt Count 113 L (150-400) K/uL MPV 9.10 (7.40-12.00) fL Neut % (Auto) 61.9 (48.0-80.0) % Lymph % (Auto) 23.2 (16.0-40.0) % [place] % (Auto) 12.5 (0.0-15.0) % Eos % (Auto) 2.3 (0.0-7.0) % Baso % (Auto) 0.1 (0.0-1.5) % Neut # (Auto) 4.6 (1.4-5.7) K/uL Lymph # (Auto) 1.7 (0.6-2.4) K/uL [place] # (Auto) 0.9 H (0.0-0.8) K/uL Eos # (Auto) 0.2 (0.0-0.7) K/uL Baso # (Auto) 0.0 (0.0-0.1) K/uL Nucleated RBC % 0.0 /100WBC Nucleated RBCs # 0 K/uL Sodium 124 L (136-145) mmol/L Potassium 4.5 (3.5-5.1) mmol/L Chloride 90 L (98-107) mmol/L Carbon Dioxide 26.8 (21.0-32.0) mmol/L BUN 29 H (7.0-18.0) mg/dL Creatinine 1.1 H (0.6-1.0) mg/dL Est Cr Clr Drug Dosing 32.42 mL/min Estimated GFR (MDRD) 47.0 ml/min Glucose 147 H (74-106) mg/dL Calcium 9.7 (8.5-10.1) mg/dL Total Bilirubin 0.5 (0.2-1.0) mg/dL AST 18 (15-37) IU/L ALT 21 (14-63) IU/L Alkaline Phosphatase 58 (46-116) U/L Total Protein 7.1 (6.4-8.2) g/dL Albumin 4.1 (3.4-5.0) g/dL Globulin 3.0 (2.6-4.0) g/dL Albumin/Globulin Ratio 1.4 (0.9-1.6) Urine Color YELLOW Urine Appearance CLEAR Urine pH 5.5 (5.0-8.0) Ur Specific [place] 1.010 (1.001-1.035) Urine Protein NEGATIVE (NEGATIVE) mg/dL Urine Glucose (UA) NEGATIVE (NEGATIVE) mg/dL Urine Ketones NEGATIVE (NEGATIVE) mg/dL Urine Occult Blood NEGATIVE (NEGATIVE) Urine Nitrite NEGATIVE (NEGATIVE) Urine Bilirubin NEGATIVE (NEGATIVE) Urine Urobilinogen 0.2 (<2.0) EU/dL Ur Leukocyte Esterase NEGATIVE (NEGATIVE) Urine RBC 0-1 (0-2/HPF) Urine WBC 0-1 (0-5/HPF) Ur Epithelial Cells RARE (NONE-FEW) Urine Bacteria RARE (NEGATIVE) Urine Mucus LIGHT (NONE-MOD) Result Diagrams: 03/14/19 05:35 03/15/19 06:00 Problem List Initiated/Reviewed/Updated: Yes Orders Last 24hrs: Active Orders 24 hr Category Date Time Status Patient Status [ADT] Stat ADT 03/13/19 22:14 Active EKG 12 Lead [EKG Documentation Completion] [RC] STAT Care 03/13/19 21:05 Active Sodium Chloride 0.9% [Normal Saline] 1,000 ml Med 03/13/19 22:15 Active IV ASDIRECTED Medication Orders Sodium Chloride (Normal Saline) 1,000 mls @ 125 mls/hr IV ASDIRECTED SHEYLA Last Admin: 03/13/19 22:23 Dose: 125 mls/hr Assessment/Plan Comment:: 88 yo female admitted with hyponatremia. We will d/c HCTZ and hydrate with IV fluids. Will trend BMPs.
[2019-03-14] MEDS: Insulin Detemir 100 Units/ML 3 ML Pen SUBCUT SCH ×2 (01:08→20:35)
[2019-03-14] MEDS: Sodium Chloride 0.9% 1,000 ML IV SCH ×3 (06:41→22:35)
[2019-03-14] MEDS: Insulin Aspart 100 Units/ML 3 ML Pen SUBCUT SCH ×2 (06:43→13:16)
[2019-03-14] MEDS: Spironolactone 25 MG Tab PO SCH (08:24)
[2019-03-14] MEDS: Losartan 50 MG Tab PO SCH (08:24)
[2019-03-14] MEDS ORDERED: Ondansetron 4 MG/2 ML SDV IVPUSH ONE (08:28)
[2019-03-14] MEDS: Sertraline 100 MG Tab PO SCH (08:57)
--- NOTE | 2019-03-14 10:41 | PCM.PN ---
- General Info Date of Service: 03/14/19 Subjective Update: States that her "butterfly" sensation in her legs has improved. She endorses nausea, but no vomiting or pain. - Review of Systems General: Reports: Other (see hpi) - Patient Data Vitals - Most Recent: Last Vital Signs Temp 36.3 C 03/14/19 08:00 Pulse 87 03/14/19 08:00 Resp 14 03/14/19 08:00 BP 130/80 03/14/19 08:24 Pulse Ox 97 03/14/19 08:00 Weight - Most Recent: 65.771 kg I&O - Last 24 Hours: Intake & Output 03/13/19 03/14/19 03/14/19 22:59 06:59 14:59 Intake Total 1017 Output Total 1900 Balance -883 Lab Results Last 24 Hours: Laboratory Results - last 24 hr 03/13/19 03/13/19 03/13/19 Range/Units 21:13 21:18 21:18 WBC 7.37 (4.0-11.0) K/uL RBC 3.96 L (4.30-5.90) M/uL Hgb 11.8 L (12.0-16.0) g/dL Hct 34.4 L (36.0-46.0) % MCV 86.9 (80.0-98.0) fL MCH 29.8 (27.0-32.0) pg MCHC 34.3 (31.0-37.0) g/dL RDW Std Deviation 44.7 (28.0-62.0) fl RDW Coeff of [place] 14 (11.0-15.0) % Plt Count 113 L (150-400) K/uL MPV 9.10 (7.40-12.00) fL Neut % (Auto) 61.9 (48.0-80.0) % Lymph % (Auto) 23.2 (16.0-40.0) % [place] % (Auto) 12.5 (0.0-15.0) % Eos % (Auto) 2.3 (0.0-7.0) % Baso % (Auto) 0.1 (0.0-1.5) % Neut # (Auto) 4.6 (1.4-5.7) K/uL Lymph # (Auto) 1.7 (0.6-2.4) K/uL [place] # (Auto) 0.9 H (0.0-0.8) K/uL Eos # (Auto) 0.2 (0.0-0.7) K/uL Baso # (Auto) 0.0 (0.0-0.1) K/uL Nucleated RBC % 0.0 /100WBC Nucleated RBCs # 0 K/uL Sodium 124 L (136-145) mmol/L Potassium 4.5 (3.5-5.1) mmol/L Chloride 90 L (98-107) mmol/L Carbon Dioxide 26.8 (21.0-32.0) mmol/L BUN 29 H (7.0-18.0) mg/dL Creatinine 1.1 H (0.6-1.0) mg/dL Est Cr Clr Drug Dosing 32.42 mL/min Estimated GFR (MDRD) 47.0 ml/min Glucose 147 H (74-106) mg/dL POC Glucose (60-110) mg/dL Calcium 9.7 (8.5-10.1) mg/dL Total Bilirubin 0.5 (0.2-1.0) mg/dL AST 18 (15-37) IU/L ALT 21 (14-63) IU/L Alkaline Phosphatase 58 (46-116) U/L Total Protein 7.1 (6.4-8.2) g/dL Albumin 4.1 (3.4-5.0) g/dL Globulin 3.0 (2.6-4.0) g/dL Albumin/Globulin Ratio 1.4 (0.9-1.6) Vitamin B12 (193-986) pg/mL Folate (8.60-58.90) ng/mL TSH 3rd Generation (0.36-3.74) uIU/mL Urine Color YELLOW Urine Appearance CLEAR Urine pH 5.5 (5.0-8.0) Ur Specific [place] 1.010 (1.001-1.035) Urine Protein NEGATIVE (NEGATIVE) mg/dL Urine Glucose (UA) NEGATIVE (NEGATIVE) mg/dL Urine Ketones NEGATIVE (NEGATIVE) mg/dL Urine Occult Blood NEGATIVE (NEGATIVE) Urine Nitrite NEGATIVE (NEGATIVE) Urine Bilirubin NEGATIVE (NEGATIVE) Urine Urobilinogen 0.2 (<2.0) EU/dL Ur Leukocyte Esterase NEGATIVE (NEGATIVE) Urine RBC 0-1 (0-2/HPF) Urine WBC 0-1 (0-5/HPF) Ur Epithelial Cells RARE (NONE-FEW) Urine Bacteria RARE (NEGATIVE) Urine Mucus LIGHT (NONE-MOD) 03/13/19 03/14/19 03/14/19 Range/Units 23:44 05:35 05:35 WBC 7.59 (4.0-11.0) K/uL RBC 3.98 L (4.30-5.90) M/uL Hgb 11.9 L (12.0-16.0) g/dL Hct 34.9 L (36.0-46.0) % MCV 87.7 (80.0-98.0) fL MCH 29.9 (27.0-32.0) pg MCHC 34.1 (31.0-37.0) g/dL RDW Std Deviation 44.4 (28.0-62.0) fl RDW Coeff of [place] 14 (11.0-15.0) % Plt Count 114 L (150-400) K/uL MPV 9.40 (7.40-12.00) fL Neut % (Auto) 65.4 (48.0-80.0) % Lymph % (Auto) 18.8 (16.0-40.0) % [place] % (Auto) 13.7 (0.0-15.0) % Eos % (Auto) 2.0 (0.0-7.0) % Baso % (Auto) 0.1 (0.0-1.5) % Neut # (Auto) 5.0 (1.4-5.7) K/uL Lymph # (Auto) 1.4 (0.6-2.4) K/uL [place] # (Auto) 1.0 H (0.0-0.8) K/uL Eos # (Auto) 0.2 (0.0-0.7) K/uL Baso # (Auto) 0.0 (0.0-0.1) K/uL Nucleated RBC % 0.0 /100WBC Nucleated RBCs # 0 K/uL Sodium 127 L (136-145) mmol/L Potassium 4.5 (3.5-5.1) mmol/L Chloride 94 L (98-107) mmol/L Carbon Dioxide 26.3 (21.0-32.0) mmol/L BUN 21 H (7.0-18.0) mg/dL Creatinine 0.9 (0.6-1.0) mg/dL Est Cr Clr Drug Dosing 39.56 mL/min Estimated GFR (MDRD) 59.2 ml/min Glucose 124 H (74-106) mg/dL POC Glucose 125 H (60-110) mg/dL Calcium 9.2 (8.5-10.1) mg/dL Total Bilirubin (0.2-1.0) mg/dL AST (15-37) IU/L ALT (14-63) IU/L Alkaline Phosphatase (46-116) U/L Total Protein (6.4-8.2) g/dL Albumin (3.4-5.0) g/dL Globulin (2.6-4.0) g/dL Albumin/Globulin Ratio (0.9-1.6) Vitamin B12 (193-986) pg/mL Folate (8.60-58.90) ng/mL TSH 3rd Generation (0.36-3.74) uIU/mL Urine Color Urine Appearance Urine pH (5.0-8.0) Ur Specific [place] (1.001-1.035) Urine Protein (NEGATIVE) mg/dL Urine Glucose (UA) (NEGATIVE) mg/dL Urine Ketones (NEGATIVE) mg/dL Urine Occult Blood (NEGATIVE) Urine Nitrite (NEGATIVE) Urine Bilirubin (NEGATIVE) Urine Urobilinogen (<2.0) EU/dL Ur Leukocyte Esterase (NEGATIVE) Urine RBC (0-2/HPF) Urine WBC (0-5/HPF) Ur Epithelial Cells (NONE-FEW) Urine Bacteria (NEGATIVE) Urine Mucus (NONE-MOD) 03/14/19 03/14/19 Range/Units 05:35 06:15 WBC (4.0-11.0) K/uL RBC (4.30-5.90) M/uL Hgb (12.0-16.0) g/dL Hct (36.0-46.0) % MCV (80.0-98.0) fL MCH (27.0-32.0) pg MCHC (31.0-37.0) g/dL RDW Std Deviation (28.0-62.0) fl RDW Coeff of [place] (11.0-15.0) % Plt Count (150-400) K/uL MPV (7.40-12.00) fL Neut % (Auto) (48.0-80.0) % Lymph % (Auto) (16.0-40.0) % [place] % (Auto) (0.0-15.0) % Eos % (Auto) (0.0-7.0) % Baso % (Auto) (0.0-1.5) % Neut # (Auto) (1.4-5.7) K/uL Lymph # (Auto) (0.6-2.4) K/uL [place] # (Auto) (0.0-0.8) K/uL Eos # (Auto) (0.0-0.7) K/uL Baso # (Auto) (0.0-0.1) K/uL Nucleated RBC % /100WBC Nucleated RBCs # K/uL Sodium (136-145) mmol/L Potassium (3.5-5.1) mmol/L Chloride (98-107) mmol/L Carbon Dioxide (21.0-32.0) mmol/L BUN (7.0-18.0) mg/dL Creatinine (0.6-1.0) mg/dL Est Cr Clr Drug Dosing mL/min Estimated GFR (MDRD) ml/min Glucose (74-106) mg/dL POC Glucose 126 H (60-110) mg/dL Calcium (8.5-10.1) mg/dL Total Bilirubin (0.2-1.0) mg/dL AST (15-37) IU/L ALT (14-63) IU/L Alkaline Phosphatase (46-116) U/L Total Protein (6.4-8.2) g/dL Albumin (3.4-5.0) g/dL Globulin (2.6-4.0) g/dL Albumin/Globulin Ratio (0.9-1.6) Vitamin B12 555 (193-986) pg/mL Folate 62.20 H (8.60-58.90) ng/mL TSH 3rd Generation 1.77 (0.36-3.74) uIU/mL Urine Color Urine Appearance Urine pH (5.0-8.0) Ur Specific [place] (1.001-1.035) Urine Protein (NEGATIVE) mg/dL Urine Glucose (UA) (NEGATIVE) mg/dL Urine Ketones (NEGATIVE) mg/dL Urine Occult Blood (NEGATIVE) Urine Nitrite (NEGATIVE) Urine Bilirubin (NEGATIVE) Urine Urobilinogen (<2.0) EU/dL Ur Leukocyte Esterase (NEGATIVE) Urine RBC (0-2/HPF) Urine WBC (0-5/HPF) Ur Epithelial Cells (NONE-FEW) Urine Bacteria (NEGATIVE) Urine Mucus (NONE-MOD) Med Orders - Current: Current Medications Sodium Chloride (Normal Saline) 1,000 mls @ 125 mls/hr IV ASDIRECTED [facility] [place] Last Admin: 03/14/19 06:41 Dose: 125 mls/hr Insulin Aspart (Novolog) 12 unit SUBCUT TID [facility] [place] Last Admin: 03/14/19 06:43 Dose: 12 units Insulin Detemir (Levemir) 26 unit SUBCUT BEDTIME [facility] [place] Last Admin: 03/14/19 01:08 Dose: 26 units Losartan Potassium (Cozaar) 50 mg PO DAILY [facility] [place] Last Admin: 03/14/19 08:24 Dose: 50 mg Sertraline HCl (Zoloft) 100 mg PO DAILY [facility] [place] Last Admin: 03/14/19 08:57 Dose: 100 mg Simvastatin (Zocor) 20 mg PO BEDTIME [facility]YLA Spironolactone (Aldactone) 25 mg PO DAILY [facility] [place] Last Admin: 03/14/19 08:24 Dose: 25 mg Discontinued Medications Insulin Detemir (Levemir) 26 unit SUBCUT BEDTIME [facility] [place] Ondansetron HCl (Zofran) 4 mg IVPUSH ONETIME ONE Stop: 03/14/19 08:29 Last Admin: 03/14/19 08:57 Dose: 4 mg - Exam General: Alert, Oriented Neck: Supple Lungs: Clear to Auscultation, Normal Respiratory Effort Cardiovascular: Regular Rate, Regular Rhythm GI/Abdominal Exam: Normal Bowel Sounds, Soft, Non-Tender, No Organomegaly, No Distention, No Abnormal Bruit, No Mass, Pelvis Stable Peripheral Pulses: 2+: Dorsalis Pedis (L), Dorsalis Pedis (R) Skin: Warm, Dry, Intact Neurological: No New Focal Deficit Psy/Mental Status: Alert, Normal Affect, Normal Mood - Problem List Review Problem List Initiated/Reviewed/Updated: Yes - My Orders Last 24 Hours: My Active Orders 03/14/19 09:00 Sertraline [Zoloft] 100 mg PO DAILY 03/14/19 21:00 Simvastatin [Zocor] 20 mg PO BEDTIME - Plan Plan:: Assessment: #1. Hyponatremia #2. Hypertension #3. Normocytic anemia #4. Thrombocytopenia #5. T2DM Plan: #1. Continue IVNS 125ml/h #2. PT consult #3. Losartan 50mg PO daily #4. SCD for DVT Prophylaxis, will hold off on anticoagulation given thrombocytopenia. Encourage ambulation.
[2019-03-14] MEDS ORDERED: Insulin Detemir 100 Units/ML 3 ML Pen SUBCUT SCH (21:00)
[2019-03-14] MEDS ORDERED: Simvastatin 20 MG Tab PO SCH (21:00)
[2019-03-15] MEDS: Sodium Chloride 0.9% 1,000 ML IV SCH (06:00)
[2019-03-15 06:39] LABS: CHLORIDE,CL 103 mmol/L (98-107); SODIUM,NA 134 mmol/L (136-145)
[2019-03-15] MEDS: Losartan 50 MG Tab PO SCH (08:20)
[2019-03-15] MEDS: Spironolactone 25 MG Tab PO SCH (08:21)
[2019-03-15] MEDS: Sertraline 100 MG Tab PO SCH (08:21)
[2019-03-15] MEDS: Insulin Aspart 100 Units/ML 3 ML Pen SUBCUT SCH ×2 (08:24→12:29)
--- NOTE | 2019-03-15 11:59 | PCM.DCSUM1 ---
Discharge Summary - Discharge Data Discharge Date: 03/15/19 Discharge Disposition: Home, Self-Care 01 Condition: Good - Patient Summary/Data Consults: Consultations 03/14/19 10:57 Consult to Physical Therapy [PT Evaluation and Treatment] [CONS] Routine Hospital Course: 88 yo female with past medical history of diabetes and hypertension who was admitted for hyponatremia and dehydration. She presents to the ED with complaint of legs having unusual sensation with bugs crawling on them as well as feeling of unsteadiness. These symptoms resolved when she received IV fluids in the ED. Her sodium on admission was 124. She was given normal saline and after two days her sodium increased to 134. Today she is requesting discharge. She is to follow up with Dr. Singh. She was instructed to stop taking the losartan/HCTZ combination pill and to just take Losartan 100mg daily which was prescribed to her. - Discharge Plan Prescriptions/Med Rec: Losartan [Cozaar] 100 mg PO DAILY #30 tab Home Medications: Home Meds Aspirin [[place] Aspirin EC] 81 mg PO DAILY 10/13/16 [History] Sertraline HCl 100 mg PO DAILY 10/13/16 [History] Simvastatin [Zocor] 20 mg PO BEDTIME 10/13/16 [History] Spironolactone [Aldactone] 25 mg PO DAILY 10/13/16 [History] metFORMIN HCl [Metformin HCl] 1,000 mg PO BID 10/13/16 [History] Insulin Aspart [NovoLOG] 12 units SUBCUT TID 12/24/18 [History] Insulin Detemir [Levemir Flextouch] 26 units SUBCUT BEDTIME 12/24/18 [History] Naproxen Sodium [Aleve] 220 mg PO ASDIRECTED 12/24/18 [History] Losartan [Cozaar] 100 mg PO DAILY #30 tab 03/15/19 [Rx] Patient Handouts: Hyponatremia, [id number] Referrals: Kat Chung DO [Primary Care Provider] - 03/26/19 2:30 pm - Discharge Summary/Plan Comment DC Time >30 min.: No - Patient Data Vitals - Most Recent: Last Vital Signs Temp 36.7 C 03/15/19 07:30 Pulse 82 03/15/19 07:30 Resp 16 03/15/19 07:30 BP 179/77 H 03/15/19 08:20 Pulse Ox 94 L 03/15/19 07:30 Weight - Most Recent: 65.771 kg I&O - Last 24 hours: Intake & Output 03/14/19 03/15/19 03/15/19 22:59 06:59 14:59 Intake Total 1625 1620 120 Output Total 2350 2350 Balance -725 -730 120 Lab Results - Last 24 hrs: Laboratory Results - last 24 hr 03/14/19 03/14/19 03/15/19 Range/Units 16:58 20:24 06:00 Sodium 134 L (136-145) mmol/L Potassium 4.4 (3.5-5.1) mmol/L Chloride 103 (98-107) mmol/L Carbon Dioxide 25.3 (21.0-32.0) mmol/L BUN 15 (7.0-18.0) mg/dL Creatinine 0.8 (0.6-1.0) mg/dL Est Cr Clr Drug Dosing 44.51 mL/min Estimated GFR (MDRD) > 60.0 ml/min Glucose 94 (74-106) mg/dL POC Glucose 105 164 H (60-110) mg/dL Calcium 8.8 (8.5-10.1) mg/dL 03/15/19 03/15/19 03/15/19 Range/Units 06:21 08:17 11:30 Sodium (136-145) mmol/L Potassium (3.5-5.1) mmol/L Chloride (98-107) mmol/L Carbon Dioxide (21.0-32.0) mmol/L BUN (7.0-18.0) mg/dL Creatinine (0.6-1.0) mg/dL Est Cr Clr Drug Dosing mL/min Estimated GFR (MDRD) ml/min Glucose (74-106) mg/dL POC Glucose 95 160 H 122 H (60-110) mg/dL Calcium (8.5-10.1) mg/dL Med Orders - Current: Current Medications Sodium Chloride (Normal Saline) 1,000 mls @ 125 mls/hr IV ASDIRECTED [facility] Last Admin: 03/15/19 06:00 Dose: 125 mls/hr Insulin Aspart (Novolog) 12 unit SUBCUT TID@0700,1200,1700 [facility] Last Admin: 03/15/19 08:24 Dose: 12 unit Insulin Detemir (Levemir) 26 unit SUBCUT BEDTIME [facility] Last Admin: 03/14/19 20:35 Dose: Not Given Losartan Potassium (Cozaar) 50 mg PO DAILY [facility] Last Admin: 03/15/19 08:20 Dose: 50 mg Sertraline HCl (Zoloft) 100 mg PO DAILY [facility] Last Admin: 03/15/19 08:21 Dose: 100 mg Simvastatin (Zocor) 20 mg PO BEDTIME [facility] Last Admin: 03/14/19 20:20 Dose: 20 mg Spironolactone (Aldactone) 25 mg PO DAILY [facility] Last Admin: 03/15/19 08:21 Dose: 25 mg Discontinued Medications Insulin Aspart (Novolog) 12 unit SUBCUT TID [facility] Last Admin: 03/14/19 13:16 Dose: 12 units Insulin Detemir (Levemir) 26 unit SUBCUT BEDTIME [facility] Last Admin: 03/14/19 20:30 Dose: 26 units Ondansetron HCl (Zofran) 4 mg IVPUSH ONETIME ONE Stop: 03/14/19 08:29 Last Admin: 03/14/19 08:57 Dose: 4 mg
[2019-03-15 12:15] VITALS: BP 144/65
== END 2019-03-15 13:30 | disposition home or self-care (01) ==
LOC: MW.ED 20:39 → MW.MS 22:14
PROVIDERS: ADMIT Internal Medicine; ATTEND Internal Medicine
DX: E87.1 Hypo-osmolality and hyponatremia (principal); E86.0 Dehydration; I10 Essential (primary) hypertension; E11.9 Type 2 diabetes mellitus without complications; C44.91 Basal cell carcinoma of skin, unspecified; M19.90 Unspecified osteoarthritis, unspecified site; Z79.82 Long term (current) use of aspirin; Z79.4 Long term (current) use of insulin; Z79.899 Other long term (current) drug therapy
CPT/HCPCS: 36415; 80048; 80053; 81001; 82607; 82746; 82962; 84443; 85025; 93005; 96361; 96374; 97161; 99285; A9270; G0378; J1815; J2405; J7040; 99284

== ENCOUNTER 2019-03-18 14:56 | Observation (INO) | payer MEDICARE, BC ==
[2019-03-18 15:21] LABS: CHLORIDE,CL 89 mmol/L (98-107); SODIUM,NA 123 mmol/L (136-145)
[2019-03-18] MEDS ORDERED: Ondansetron 4 MG/2 ML SDV IVPUSH PRN (17:12)
[2019-03-18] MEDS ORDERED: Ondansetron 4 MG Tab.DIS PO PRN (17:12)
[2019-03-18] MEDS ORDERED: Ibuprofen 400 MG Tab PO PRN (17:12)
[2019-03-18] MEDS ORDERED: Magnesium Sulfate/Water 2 GM in Premix Bag 1 BAG IV ONE (17:39)
--- NOTE | 2019-03-18 17:54 | PCM.HP ---
H&P History of Present Illness - General Date of Service: 03/18/19 Admit Problem/Dx: Admission Diagnosis/Problem Admission Diagnosis/Problem Hyponatremia - History of Present Illness Initial Comments - Free Text/Narative: Uziel is an 88 y/o female with history of insulin dependent diabetes mellitus and hypertension who presented to primary care clinic for a post- hospitalization follow-up for hyponatremia. She states she has been feeling weak , headaches and more confused than normal. In addition, has been noticing swelling in her legs. Denies any dyspnea, chest pain, abdominal pain. Endorses some nausea but no vomiting or diarrhea. States she has been taking her medications as indicated but upon further questioning it seems that she continued taking her combined losartan/HCTZ medication after discharge even though she was instructed to stop taking that medication. States she takes levememir 26 units SQ QHS and novolog 12 units SQ TID with meals. States that her usual morning BG is in the 120-180's. Denies any syncopal episodes but does state that she occasionally has BG in the 60's. CMP done in clinic showed hyponatremia of 123 and BG was in the 140's. - Related Data Allergies/Adverse Reactions: Allergies Allergy/AdvReac Type Severity Reaction Status Date / Time No Known Allergies Allergy Verified 03/13/19 20:50 Home Medications: Home Meds Aspirin [[place] Aspirin EC] 81 mg PO DAILY 10/13/16 [History] Sertraline HCl 100 mg PO DAILY 10/13/16 [History] Simvastatin [Zocor] 20 mg PO BEDTIME 10/13/16 [History] Spironolactone [Aldactone] 25 mg PO DAILY 10/13/16 [History] Insulin Aspart [NovoLOG] 0 units SUBCUT TID 12/24/18 [History] Insulin Detemir [Levemir Flextouch] 0 units SUBCUT BEDTIME 12/24/18 [History] Celecoxib 200 mg PO DAILY 03/18/19 [History] Losartan/Hydrochlorothiazide [Hyzaar 100-12.5 Tablet] 1 tab PO DAILY 03/18/19 [ History] rOPINIRole [Requip] 0.25 mg PO BEDTIME 03/18/19 [History] Past Medical History HEENT History: Reports: Impaired Vision, Other (See Below) Other HEENT History: wears glasses Cardiovascular History: Reports: High Cholesterol, Hypertension 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: Musculoskeletal History: Reports: Osteoarthritis Psychiatric History: Reports: Depression Endocrine/Metabolic History: Reports: Diabetes, Type II Oncologic (Cancer) History: Reports: Basal Cell Carcinoma Dermatologic History: Reports: Other (See Below) Other Dermatologic History: basal cell carcinoma to face - Infectious Disease History Infectious Disease History: Reports: Chicken Pox, Measles, Mumps - Past Surgical History Head Surgeries/Procedures: Reports: None HEENT Surgical History: Reports: Cataract Surgery, Tonsillectomy GI Surgical History: Reports: Appendectomy Female Surgical History: Reports: Hysterectomy Neurological Surgical History: Reports: Lumbar Spine Musculoskeletal Surgical History: Reports: Arthroscopic Knee Social & Family History - Family History Family Medical History: Noncontributory - Tobacco Use Smoking Status *Q: Never Smoker - Caffeine Use Caffeine Use: Reports: Coffee Caffeine Use Comment: 1 bottle [employer] Mocha daily - Recreational Drug Use Recreational Drug Use: No H&P Review of Systems - Review of Systems: Review Of Systems: ROS reveals no pertinent complaints other than HPI. Exam - Exam Exam: See Below - Vital Signs Vital Signs: Last Vital Signs Temp 36.4 C 03/18/19 16:13 Pulse 85 03/18/19 16:13 Resp 18 03/18/19 16:13 BP 190/96 H 03/18/19 16:13 Pulse Ox 94 L 03/18/19 16:13 Weight: 75.659 kg - Exam General: Alert, Oriented, Cooperative HEENT: Mucosa Moist & Bearden Lungs: Clear to Auscultation, Normal Respiratory Effort Cardiovascular: Regular Rate, Regular Rhythm GI/Abdominal Exam: Normal Bowel Sounds, Non-Tender, No Distention Extremities: Other (2+ pedal edema up to knees) Skin: Warm, Dry Neuro Extensive - Mental Status: Alert, Oriented x3 - Patient Data Lab Results Last 24 hrs: Laboratory Results - last 24 hr 03/18/19 Range/Units 14:48 Sodium 123 L (136-145) mmol/L Potassium 4.1 (3.5-5.1) mmol/L Chloride 89 L (98-107) mmol/L Carbon Dioxide 25.2 (21.0-32.0) mmol/L BUN 15 (7.0-18.0) mg/dL Creatinine 0.9 (0.6-1.0) mg/dL Est Cr Clr Drug Dosing TNP Estimated GFR (MDRD) 59.2 ml/min Glucose 147 H (74-106) mg/dL Calcium 10.1 (8.5-10.1) mg/dL Magnesium 1.7 L (1.8-2.4) mg/dL Total Bilirubin 0.5 (0.2-1.0) mg/dL AST 24 (15-37) IU/L ALT 24 (14-63) IU/L Alkaline Phosphatase 57 (46-116) U/L Total Protein 7.4 (6.4-8.2) g/dL Albumin 4.1 (3.4-5.0) g/dL Globulin 3.3 (2.6-4.0) g/dL Albumin/Globulin Ratio 1.2 (0.9-1.6) Result Diagrams: 03/18/19 14:48 03/18/19 14:48 Problem List Initiated/Reviewed/Updated: Yes Orders Last 24hrs: Active Orders 24 hr Category Date Time Status Patient Status [ADT] Routine ADT 03/18/19 17:12 Active Blood Glucose Check, Bedside [RC] WITHMEALSANDBED Care 03/18/19 17:12 Active Intake and Output Strict [RC] ASDIRECTED Care 03/18/19 17:34 Active Intake and Output [RC] QSHIFT Care 03/18/19 17:14 Active Oxygen Therapy [RC] PRN Care 03/18/19 17:12 Active Up With Assistance [RC] ASDIRECTED Care 03/18/19 17:12 Active VTE/DVT Education [RC] PER UNIT ROUTINE Care 03/18/19 17:12 Active Vital Signs [RC] Q4H Care 03/18/19 17:12 Active [place] [employer] Diet [DIET] Diet 03/18/19 Breakfast Active Fluid Restriction [DIET] Diet 03/19/19 Breakfast Active Echo Comp wo Cont [US] Routine Exams 03/18/19 17:37 Ordered CBC WITH AUTO DIFF [HEME] Routine Lab 03/18/19 17:30 Ordered COMPREHENSIVE METABOLIC PN,CMP [CHEM] AM Lab 03/19/19 05:11 Ordered MAGNESIUM [CHEM] AM Lab 03/19/19 05:11 Ordered POTASSIUM,URINE RANDOM [URCHEM] Routine Lab 03/18/19 17:31 Ordered SODIUM,URINE RANDOM [URCHEM] Routine Lab 03/18/19 17:31 Ordered UREA NITROGEN, URINE Routine Lab 03/18/19 17:31 Ordered Acetaminophen [Tylenol] Med 03/18/19 17:12 Active 650 mg PO Q4H PRN Aspirin [Halfprin] Med 03/19/19 09:00 Active 81 mg PO DAILY Enoxaparin [Lovenox] Med 03/18/19 17:15 Active 40 mg SUBCUT Q24H Ibuprofen [Motrin] Med 03/18/19 17:12 Active 400 mg PO Q6H PRN Magnesium Sulfate/Water [Magnesium Sulfate in Water Med 03/18/19 17:39 Active Premix] 2 gm Premix Bag 1 bag IV ONETIME Ondansetron [Zofran ODT] Med 03/18/19 17:12 Active 4 mg PO Q4H PRN Ondansetron [Zofran] Med 03/18/19 17:12 Active 4 mg IVPUSH Q4H PRN Sertraline [Zoloft] Med 03/19/19 09:00 Active 100 mg PO DAILY Simvastatin [Zocor] Med 03/18/19 21:00 Active 20 mg PO BEDTIME rOPINIRole [Requip] Med 03/18/19 21:00 Active 0.25 mg PO BEDTIME Resuscitation Status Routine Resus Stat 03/18/19 17:12 Ordered Medication Orders Acetaminophen (Tylenol) 650 mg PO Q4H PRN PRN Reason: Pain (Mild 1-3)/fever Aspirin (Halfprin) 81 mg PO DAILY [facility] Enoxaparin Sodium (Lovenox) 40 mg SUBCUT Q24H [facility] Magnesium Sulfate 2 gm/ Premix 50 mls @ 25 mls/hr IV ONETIME ONE Stop: 03/18/19 19:38 Ibuprofen (Motrin) 400 mg PO Q6H PRN PRN Reason: Pain (mild 1-3) Ondansetron HCl (Zofran Odt) 4 mg PO Q4H PRN PRN Reason: nausea, able to take PO Ondansetron HCl (Zofran) 4 mg IVPUSH Q4H PRN PRN Reason: Nausea Ropinirole HCl (Requip) 0.25 mg PO BEDTIME [facility] Sertraline HCl (Zoloft) 100 mg PO DAILY [facility] Simvastatin (Zocor) 20 mg PO BEDTIME [facility] Assessment/Plan Comment:: A: 1. Hyponatremia 2. Headache, confusion due to above 3. Insulin dependent diabetes mellitus 4. Hypertension 5. Thrombocytopenia P: 1. Admit as observation to medical floor. 2. Vitals, I/O's per floor routine. 3. Activity: up with assistance 4. Diet: Diabetic, fluid restriction 5. DVT prophylaxis: Lovenox 6. Code Status: DNR/DNI 1. Hyponatremia, suspect that it may be due to fluid overload since patient looks fluid overloaded and serum osmolality is 260. Will fluid restrict to 1500 mls/day. Repeat BMP in 4 hours and recheck tomorrow. Ordered urine studies. 2. IDDM- will resume her home insulin at lower dose and monitor her BG. 3. Hypertension- ordered labetalol 20 mg IV once. Will resume her blood pressure medication tomorrow since patient states she took her medications this morning. Dispo:1-2 days
[2019-03-18] MEDS: Enoxaparin 40 MG/0.4 ML Syringe SUBCUT SCH (18:16)
[2019-03-18] MEDS ORDERED: Labetalol 100 MG/20 ML MDV IVPUSH ONE (18:27)
[2019-03-18] MEDS: Acetaminophen 325 MG Tab PO PRN (20:59)
[2019-03-18] MEDS: Simvastatin 20 MG Tab PO SCH (21:00)
[2019-03-18] MEDS: rOPINIRole 0.5 MG Tab PO SCH (21:07)
[2019-03-18] MEDS: Insulin Detemir 100 Units/ML 3 ML Pen SUBCUT SCH (21:14)
[2019-03-19] MEDS: Insulin Aspart 100 Units/ML 3 ML Pen SUBCUT SCH ×3 (08:06→18:24)
[2019-03-19] MEDS: Losartan 50 MG Tab PO SCH (09:25)
[2019-03-19] MEDS: Sertraline 100 MG Tab PO SCH (09:26)
[2019-03-19] MEDS: Aspirin 81 MG Tab.EC PO SCH (09:26)
[2019-03-19] MEDS: Insulin Detemir 100 Units/ML 3 ML Pen SUBCUT SCH (09:26)
--- NOTE | 2019-03-19 11:45 | PCM.PN ---
- General Info Date of Service: 03/19/19 Subjective Update: No acute events overnight. Patient states she slept well. States she feels better this morning. No nausea or vomiting. Denies chest pain, dyspnea, abdominal pain, dysuria, diarrhea. - Patient Data Vitals - Most Recent: Last Vital Signs Temp 97.9 C H 03/19/19 11:10 Pulse 77 03/19/19 11:10 Resp 16 03/19/19 11:10 BP 142/64 H 03/19/19 11:10 Pulse Ox 94 L 03/19/19 11:10 Weight - Most Recent: 75.659 kg I&O - Last 24 Hours: Intake & Output 03/18/19 03/19/19 03/19/19 22:59 06:59 14:59 Intake Total 100 1480 Output Total 2000 Balance 100 -520 Lab Results Last 24 Hours: Laboratory Results - last 24 hr 03/18/19 03/18/19 03/18/19 Range/Units 14:48 14:48 18:10 WBC 8.29 (4.0-11.0) K/uL RBC 4.09 L (4.30-5.90) M/uL Hgb 12.6 (12.0-16.0) g/dL Hct 35.7 L (36.0-46.0) % MCV 87.3 (80.0-98.0) fL MCH 30.8 (27.0-32.0) pg MCHC 35.3 (31.0-37.0) g/dL RDW Std Deviation 44.2 (28.0-62.0) fl RDW Coeff of Renard 14 (11.0-15.0) % Plt Count 119 L (150-400) K/uL MPV 9.40 (7.40-12.00) fL Neut % (Auto) 71.0 (48.0-80.0) % Lymph % (Auto) 15.7 L (16.0-40.0) % Moca % (Auto) 11.5 (0.0-15.0) % Eos % (Auto) 1.7 (0.0-7.0) % Baso % (Auto) 0.1 (0.0-1.5) % Neut # (Auto) 5.9 H (1.4-5.7) K/uL Lymph # (Auto) 1.3 (0.6-2.4) K/uL Moca # (Auto) 1.0 H (0.0-0.8) K/uL Eos # (Auto) 0.1 (0.0-0.7) K/uL Baso # (Auto) 0.0 (0.0-0.1) K/uL Nucleated RBC % 0.0 /100WBC Nucleated RBCs # 0 K/uL Sodium 123 L (136-145) mmol/L Potassium 4.1 (3.5-5.1) mmol/L Chloride 89 L (98-107) mmol/L Carbon Dioxide 25.2 (21.0-32.0) mmol/L BUN 15 (7.0-18.0) mg/dL Creatinine 0.9 (0.6-1.0) mg/dL Est Cr Clr Drug Dosing TNP Estimated GFR (MDRD) 59.2 ml/min Glucose 147 H (74-106) mg/dL POC Glucose 150 H (60-110) mg/dL Calcium 10.1 (8.5-10.1) mg/dL Magnesium 1.7 L (1.8-2.4) mg/dL Total Bilirubin 0.5 (0.2-1.0) mg/dL AST 24 (15-37) IU/L ALT 24 (14-63) IU/L Alkaline Phosphatase 57 (46-116) U/L Total Protein 7.4 (6.4-8.2) g/dL Albumin 4.1 (3.4-5.0) g/dL Globulin 3.3 (2.6-4.0) g/dL Albumin/Globulin Ratio 1.2 (0.9-1.6) Ur Random Sodium (40.0-220.0) mmol/L Ur Random Potassium mmol/L 03/18/19 03/18/19 03/18/19 Range/Units 20:03 20:50 21:04 WBC (4.0-11.0) K/uL RBC (4.30-5.90) M/uL Hgb (12.0-16.0) g/dL Hct (36.0-46.0) % MCV (80.0-98.0) fL MCH (27.0-32.0) pg MCHC (31.0-37.0) g/dL RDW Std Deviation (28.0-62.0) fl RDW Coeff of Renard (11.0-15.0) % Plt Count (150-400) K/uL MPV (7.40-12.00) fL Neut % (Auto) (48.0-80.0) % Lymph % (Auto) (16.0-40.0) % Moca % (Auto) (0.0-15.0) % Eos % (Auto) (0.0-7.0) % Baso % (Auto) (0.0-1.5) % Neut # (Auto) (1.4-5.7) K/uL Lymph # (Auto) (0.6-2.4) K/uL Moca # (Auto) (0.0-0.8) K/uL Eos # (Auto) (0.0-0.7) K/uL Baso # (Auto) (0.0-0.1) K/uL Nucleated RBC % /100WBC Nucleated RBCs # K/uL Sodium 123 L (136-145) mmol/L Potassium 3.9 (3.5-5.1) mmol/L Chloride 89 L (98-107) mmol/L Carbon Dioxide 23.3 (21.0-32.0) mmol/L BUN 13 (7.0-18.0) mg/dL Creatinine 1.0 (0.6-1.0) mg/dL Est Cr Clr Drug Dosing 34.23 Estimated GFR (MDRD) 52.4 ml/min Glucose 241 H (74-106) mg/dL POC Glucose 232 H (60-110) mg/dL Calcium 10.1 (8.5-10.1) mg/dL Magnesium (1.8-2.4) mg/dL Total Bilirubin (0.2-1.0) mg/dL AST (15-37) IU/L ALT (14-63) IU/L Alkaline Phosphatase (46-116) U/L Total Protein (6.4-8.2) g/dL Albumin (3.4-5.0) g/dL Globulin (2.6-4.0) g/dL Albumin/Globulin Ratio (0.9-1.6) Ur Random Sodium 43.0 (40.0-220.0) mmol/L Ur Random Potassium 16.7 mmol/L 03/19/19 03/19/19 03/19/19 Range/Units 04:45 04:45 06:03 WBC 8.17 (4.0-11.0) K/uL RBC 4.02 L (4.30-5.90) M/uL Hgb 12.3 (12.0-16.0) g/dL Hct 35.2 L (36.0-46.0) % MCV 87.6 (80.0-98.0) fL MCH 30.6 (27.0-32.0) pg MCHC 34.9 (31.0-37.0) g/dL RDW Std Deviation 44.6 (28.0-62.0) fl RDW Coeff of Renard 14 (11.0-15.0) % Plt Count 138 L (150-400) K/uL MPV 9.70 (7.40-12.00) fL Neut % (Auto) 62.7 (48.0-80.0) % Lymph % (Auto) 22.9 (16.0-40.0) % Moca % (Auto) 12.1 (0.0-15.0) % Eos % (Auto) 2.2 (0.0-7.0) % Baso % (Auto) 0.1 (0.0-1.5) % Neut # (Auto) 5.1 (1.4-5.7) K/uL Lymph # (Auto) 1.9 (0.6-2.4) K/uL Moca # (Auto) 1.0 H (0.0-0.8) K/uL Eos # (Auto) 0.2 (0.0-0.7) K/uL Baso # (Auto) 0.0 (0.0-0.1) K/uL Nucleated RBC % 0.0 /100WBC Nucleated RBCs # 0 K/uL Sodium 126 L (136-145) mmol/L Potassium 4.1 (3.5-5.1) mmol/L Chloride 92 L (98-107) mmol/L Carbon Dioxide 26.2 (21.0-32.0) mmol/L BUN 12 (7.0-18.0) mg/dL Creatinine 0.9 (0.6-1.0) mg/dL Est Cr Clr Drug Dosing 38.03 Estimated GFR (MDRD) 59.2 ml/min Glucose 116 H (74-106) mg/dL POC Glucose 140 H (60-110) mg/dL Calcium 9.7 (8.5-10.1) mg/dL Magnesium 1.9 (1.8-2.4) mg/dL Total Bilirubin 0.4 (0.2-1.0) mg/dL AST 24 (15-37) IU/L ALT 25 (14-63) IU/L Alkaline Phosphatase 54 (46-116) U/L Total Protein 7.1 (6.4-8.2) g/dL Albumin 3.9 (3.4-5.0) g/dL Globulin 3.2 (2.6-4.0) g/dL Albumin/Globulin Ratio 1.2 (0.9-1.6) Ur Random Sodium (40.0-220.0) mmol/L Ur Random Potassium mmol/L 03/19/19 Range/Units 10:59 WBC (4.0-11.0) K/uL RBC (4.30-5.90) M/uL Hgb (12.0-16.0) g/dL Hct (36.0-46.0) % MCV (80.0-98.0) fL MCH (27.0-32.0) pg MCHC (31.0-37.0) g/dL RDW Std Deviation (28.0-62.0) fl RDW Coeff of Renard (11.0-15.0) % Plt Count (150-400) K/uL MPV (7.40-12.00) fL Neut % (Auto) (48.0-80.0) % Lymph % (Auto) (16.0-40.0) % Moca % (Auto) (0.0-15.0) % Eos % (Auto) (0.0-7.0) % Baso % (Auto) (0.0-1.5) % Neut # (Auto) (1.4-5.7) K/uL Lymph # (Auto) (0.6-2.4) K/uL Moca # (Auto) (0.0-0.8) K/uL Eos # (Auto) (0.0-0.7) K/uL Baso # (Auto) (0.0-0.1) K/uL Nucleated RBC % /100WBC Nucleated RBCs # K/uL Sodium (136-145) mmol/L Potassium (3.5-5.1) mmol/L Chloride (98-107) mmol/L Carbon Dioxide (21.0-32.0) mmol/L BUN (7.0-18.0) mg/dL Creatinine (0.6-1.0) mg/dL Est Cr Clr Drug Dosing Estimated GFR (MDRD) ml/min Glucose (74-106) mg/dL POC Glucose 209 H (60-110) mg/dL Calcium (8.5-10.1) mg/dL Magnesium (1.8-2.4) mg/dL Total Bilirubin (0.2-1.0) mg/dL AST (15-37) IU/L ALT (14-63) IU/L Alkaline Phosphatase (46-116) U/L Total Protein (6.4-8.2) g/dL Albumin (3.4-5.0) g/dL Globulin (2.6-4.0) g/dL Albumin/Globulin Ratio (0.9-1.6) Ur Random Sodium (40.0-220.0) mmol/L Ur Random Potassium mmol/L Med Orders - Current: Current Medications Acetaminophen (Tylenol) 650 mg PO Q4H PRN PRN Reason: Pain (Mild 1-3)/fever Last Admin: 03/18/19 20:59 Dose: 650 mg Aspirin (Halfprin) 81 mg PO DAILY [facility] Last Admin: 03/19/19 09:26 Dose: 81 mg Enoxaparin Sodium (Lovenox) 40 mg SUBCUT Q24H [facility] Last Admin: 03/18/19 18:16 Dose: 40 mg Ibuprofen (Motrin) 400 mg PO Q6H PRN PRN Reason: Pain (mild 1-3) Insulin Aspart (Novolog) 0 unit SUBCUT TIDAC [facility]; Protocol Last Admin: 03/19/19 08:06 Dose: Not Given Insulin Detemir (Levemir) 20 unit SUBCUT DAILY [facility] Last Admin: 03/19/19 09:26 Dose: 20 units Losartan Potassium (Cozaar) 100 mg PO DAILY [facility] Last Admin: 03/19/19 09:25 Dose: 100 mg Ondansetron HCl (Zofran Odt) 4 mg PO Q4H PRN PRN Reason: nausea, able to take PO Ondansetron HCl (Zofran) 4 mg IVPUSH Q4H PRN PRN Reason: Nausea Ropinirole HCl (Requip) 0.25 mg PO BEDTIME [facility] Last Admin: 03/18/19 21:07 Dose: 0.25 mg Sertraline HCl (Zoloft) 100 mg PO DAILY [facility] Last Admin: 03/19/19 09:26 Dose: 100 mg Simvastatin (Zocor) 20 mg PO BEDTIME [facility] Last Admin: 03/18/19 21:00 Dose: 20 mg Discontinued Medications Magnesium Sulfate 2 gm/ Premix 50 mls @ 25 mls/hr IV ONETIME ONE Stop: 03/18/19 19:38 Last Admin: 03/18/19 18:19 Dose: 25 mls/hr Labetalol HCl (Normodyne) 0 mg IVPUSH ONETIME ONE; Protocol Stop: 03/18/19 18:28 Last Admin: 03/18/19 18:59 Dose: 10 mg - Exam General: Alert, Oriented, Cooperative, No Acute Distress Lungs: Clear to Auscultation, Normal Respiratory Effort. No: Crackles, Wheezing Cardiovascular: Regular Rate, Regular Rhythm GI/Abdominal Exam: Normal Bowel Sounds, Soft, Non-Tender, No Distention Extremities: Other (mild lower extremity edema bilaterally, greater on rigth leg ) Skin: Warm, Dry - Problem List Review Problem List Initiated/Reviewed/Updated: Yes - My Orders Last 24 Hours: My Active Orders 03/18/19 17:12 Patient Status [ADT] Routine Blood Glucose Check, Bedside [RC] WITHMEALSANDBED Oxygen Therapy [RC] PRN Up With Assistance [RC] ASDIRECTED VTE/DVT Education [RC] PER UNIT ROUTINE Vital Signs [RC] Q4H Acetaminophen [Tylenol] 650 mg PO Q4H PRN Ibuprofen [Motrin] 400 mg PO Q6H PRN Ondansetron [Zofran ODT] 4 mg PO Q4H PRN Ondansetron [Zofran] 4 mg IVPUSH Q4H PRN Resuscitation Status Routine 03/18/19 17:15 Enoxaparin [Lovenox] 40 mg SUBCUT Q24H 03/18/19 17:34 Intake and Output Strict [RC] Q12H 03/18/19 20:03 UREA NITROGEN, URINE Routine 03/18/19 21:00 Insulin Detemir [Levemir] 20 unit SUBCUT DAILY Simvastatin [Zocor] 20 mg PO BEDTIME rOPINIRole [Requip] 0.25 mg PO BEDTIME 03/19/19 Echo Comp wo Cont [US] Routine 03/19/19 07:30 Insulin Aspart [NovoLOG] See Protocol SUBCUT TIDAC 03/19/19 09:00 Aspirin [Halfprin] 81 mg PO DAILY Losartan [Cozaar] 100 mg PO DAILY Sertraline [Zoloft] 100 mg PO DAILY 03/19/19 Breakfast Fluid Restriction [DIET] - Plan Plan:: A: 1. Hypotonic hypervolemic Hyponatremia, improved 2. Headache, confusion resolved 3. Insulin dependent diabetes mellitus, stable 4. Hypertension, stable 5. Thrombocytopenia, stable P: 1. Hyponatremia, improving. Continue fluid restriction and continue to monitor. 2. IDDM, stable. Continue Levemir 20 U SQ QHS and ISS. 3. Hypertension-Continue losartan 100 mg PO daily. Dispo:likely dc tomorrow
[2019-03-19] MEDS: Enoxaparin 40 MG/0.4 ML Syringe SUBCUT SCH (18:45)
[2019-03-19] MEDS: Acetaminophen 325 MG Tab PO PRN (20:08)
[2019-03-19] MEDS: Simvastatin 20 MG Tab PO SCH (20:10)
[2019-03-19] MEDS: rOPINIRole 0.5 MG Tab PO SCH (20:11)
[2019-03-20] MEDS: Insulin Aspart 100 Units/ML 3 ML Pen SUBCUT SCH ×3 (06:30→16:47)
[2019-03-20] MEDS: Aspirin 81 MG Tab.EC PO SCH (08:47)
[2019-03-20] MEDS: Sertraline 100 MG Tab PO SCH (08:47)
[2019-03-20] MEDS: Losartan 50 MG Tab PO SCH (08:47)
[2019-03-20] MEDS: Insulin Detemir 100 Units/ML 3 ML Pen SUBCUT SCH (08:57)
--- NOTE | 2019-03-20 12:24 | PCM.PN ---
- General Info Date of Service: 03/20/19 Subjective Update: No acute events overnight. feeling better this morning. Has been ambulating and eating her meals. Denies any nausea, vomiting. No chest pain or dyspnea. - Patient Data Vitals - Most Recent: Last Vital Signs Temp 36.8 C 03/20/19 11:41 Pulse 77 03/20/19 11:41 Resp 18 03/20/19 11:41 BP 143/59 H 03/20/19 11:41 Pulse Ox 93 L 03/20/19 11:41 Weight - Most Recent: 72.263 kg I&O - Last 24 Hours: Intake & Output 03/19/19 03/20/19 03/20/19 22:59 06:59 14:59 Intake Total 650 470 Output Total 1550 1200 Balance -900 -730 Lab Results Last 24 Hours: Laboratory Results - last 24 hr 03/18/19 03/19/19 03/20/19 Range/Units 20:03 18:20 04:43 Sodium 129 L (136-145) mmol/L Potassium 4.3 (3.5-5.1) mmol/L Chloride 96 L (98-107) mmol/L Carbon Dioxide 27.4 (21.0-32.0) mmol/L BUN 18 (7.0-18.0) mg/dL Creatinine 1.0 (0.6-1.0) mg/dL Est Cr Clr Drug Dosing 34.23 mL/min Estimated GFR (MDRD) 52.4 ml/min Glucose 129 H (74-106) mg/dL POC Glucose 111 H (60-110) mg/dL Calcium 8.9 (8.5-10.1) mg/dL Ur Urea Nitrogen Conc 173 mg/dL 03/20/19 03/20/19 03/20/19 Range/Units 06:20 08:45 11:36 Sodium (136-145) mmol/L Potassium (3.5-5.1) mmol/L Chloride (98-107) mmol/L Carbon Dioxide (21.0-32.0) mmol/L BUN (7.0-18.0) mg/dL Creatinine (0.6-1.0) mg/dL Est Cr Clr Drug Dosing mL/min Estimated GFR (MDRD) ml/min Glucose (74-106) mg/dL POC Glucose 149 H 277 H 166 H (60-110) mg/dL Calcium (8.5-10.1) mg/dL Ur Urea Nitrogen Conc mg/dL Med Orders - Current: Current Medications Acetaminophen (Tylenol) 650 mg PO Q4H PRN PRN Reason: Pain (Mild 1-3)/fever Last Admin: 03/19/19 20:08 Dose: 650 mg Aspirin (Halfprin) 81 mg PO DAILY [facility] Last Admin: 03/20/19 08:47 Dose: 81 mg Enoxaparin Sodium (Lovenox) 40 mg SUBCUT Q24H [facility] Last Admin: 03/19/19 18:45 Dose: 40 mg Ibuprofen (Motrin) 400 mg PO Q6H PRN PRN Reason: Pain (mild 1-3) Insulin Aspart (Novolog) 0 unit SUBCUT TIDAC [facility]; Protocol Last Admin: 03/20/19 12:10 Dose: 1 units Insulin Detemir (Levemir) 20 unit SUBCUT DAILY [facility] Last Admin: 03/20/19 08:57 Dose: 20 units Losartan Potassium (Cozaar) 100 mg PO DAILY [facility] Last Admin: 03/20/19 08:47 Dose: 100 mg Ondansetron HCl (Zofran Odt) 4 mg PO Q4H PRN PRN Reason: nausea, able to take PO Last Admin: 03/19/19 20:09 Dose: 4 mg Ondansetron HCl (Zofran) 4 mg IVPUSH Q4H PRN PRN Reason: Nausea Last Admin: 03/19/19 22:55 Dose: 4 mg Ropinirole HCl (Requip) 0.25 mg PO BEDTIME [facility] Last Admin: 03/19/19 20:11 Dose: 0.25 mg Sertraline HCl (Zoloft) 100 mg PO DAILY [facility] Last Admin: 03/20/19 08:47 Dose: 100 mg Simvastatin (Zocor) 20 mg PO BEDTIME [facility] Last Admin: 03/19/19 20:10 Dose: 20 mg Discontinued Medications Magnesium Sulfate 2 gm/ Premix 50 mls @ 25 mls/hr IV ONETIME ONE Stop: 03/18/19 19:38 Last Admin: 03/18/19 18:19 Dose: 25 mls/hr Labetalol HCl (Normodyne) 0 mg IVPUSH ONETIME ONE; Protocol Stop: 03/18/19 18:28 Last Admin: 03/18/19 18:59 Dose: 10 mg - Exam General: Alert, Oriented, Cooperative, No Acute Distress Lungs: Clear to Auscultation, Normal Respiratory Effort. No: Crackles, Wheezing Cardiovascular: Regular Rate, Regular Rhythm GI/Abdominal Exam: Normal Bowel Sounds, Soft, Non-Tender Extremities: Pedal Edema Skin: Warm, Dry - Problem List Review Problem List Initiated/Reviewed/Updated: Yes - Plan Plan:: A: 1. Hypotonic hypervolemic Hyponatremia, improving 2. Hypertension, stable 3. Insulin dependent diabetes mellitus, stable P: 1. Hyponatremia, improving. Continue fluid restriction and continue to monitor. 2. IDDM, stable. Continue Levemir 20 U SQ QHS and ISS. 3. Hypertension-Continue losartan 100 mg PO daily. Dispo:plan to [place] tomorrow on home health.
[2019-03-20] MEDS: Acetaminophen 325 MG Tab PO PRN ×2 (13:48→22:50)
[2019-03-20] MEDS: Enoxaparin 40 MG/0.4 ML Syringe SUBCUT SCH (17:15)
[2019-03-20] MEDS: Simvastatin 20 MG Tab PO SCH (20:18)
[2019-03-20] MEDS: rOPINIRole 0.5 MG Tab PO SCH (20:21)
[2019-03-21] MEDS: Acetaminophen 325 MG Tab PO PRN ×2 (04:40→14:17)
[2019-03-21] MEDS: Insulin Aspart 100 Units/ML 3 ML Pen SUBCUT SCH ×3 (07:23→17:52)
[2019-03-21] MEDS: Losartan 50 MG Tab PO SCH (09:35)
[2019-03-21] MEDS: Aspirin 81 MG Tab.EC PO SCH (09:36)
[2019-03-21] MEDS: Sertraline 100 MG Tab PO SCH (09:36)
[2019-03-21] MEDS: Insulin Detemir 100 Units/ML 3 ML Pen SUBCUT SCH (09:37)
--- NOTE | 2019-03-21 12:15 | PCM.DCSUM1 ---
<Stephanie VioletBryn - Last Filed: 03/21/19 13:06> Discharge Summary - Hospital Course Free Text/Narrative:: Uziel Montes De Oca is a 88 y/o female who was admitted directly from clinic after she was complaining of confusion, weakness and found to be hyponatremic with Na level 123. She was fluid restricted to 2 L/day and her hyponatremia improved. Her symptoms resolved during this hospitalization. She was advised to stop taking her losartan/HCTZ medication at home and take only Losartan 100 mg PO daily. In addition, she was advised to drink a maximum of 2 L/day of fluid. She was discharged home on home health since she is a fall risk and is using a walker. In addition, she lives by herself and needs assistance with medications. She will need physical therapy for strengthening. Dr. Lay will continue to follow-up the patient at home after discharge. - Discharge Data Discharge Date: 03/21/19 Discharge Disposition: Home, Self-Care 01 Condition: Good - Patient Instructions Diet: Diabetic Diet - Discharge Plan *PRESCRIPTION DRUG MONITORING PROGRAM REVIEWED*: Not Applicable *COPY OF PRESCRIPTION DRUG MONITORING REPORT IN PATIENT MEGHANA: Not Applicable Prescriptions/Med Rec: Losartan [Cozaar] 100 mg PO DAILY #60 tablet Home Medications: Home Meds Aspirin [[place] Aspirin EC] 81 mg PO DAILY 10/13/16 [History] Sertraline HCl 100 mg PO DAILY 10/13/16 [History] Simvastatin [Zocor] 20 mg PO BEDTIME 10/13/16 [History] Insulin Aspart [NovoLOG] 0 units SUBCUT TID 12/24/18 [History] Insulin Detemir [Levemir Flextouch] 0 units SUBCUT BEDTIME 12/24/18 [History] Celecoxib 200 mg PO DAILY 03/18/19 [History] rOPINIRole [Requip] 0.25 mg PO BEDTIME 03/18/19 [History] Losartan [Cozaar] 100 mg PO DAILY #60 tablet 03/21/19 [Rx] Patient Handouts: Losartan tablets, Hyponatremia, [id number] Referrals: Kat Chung DO [Resident] - 04/07/19 2:30 pm - Discharge Summary/Plan Comment DC Time >30 min.: No - Patient Data Vitals - Most Recent: Last Vital Signs Temp 36.4 C 03/21/19 12:00 Pulse 49 L 03/21/19 12:00 Resp 20 03/21/19 12:00 BP 149/49 H 03/21/19 12:00 Pulse Ox 96 03/21/19 12:00 Weight - Most Recent: 72.376 kg I&O - Last 24 hours: Intake & Output 03/20/19 03/21/19 03/21/19 22:59 06:59 14:59 Intake Total 1500 800 Output Total 1000 750 Balance 500 50 Lab Results - Last 24 hrs: Laboratory Results - last 24 hr 03/20/19 03/20/19 03/20/19 Range/Units 13:44 16:30 20:01 Sodium (136-145) mmol/L Potassium (3.5-5.1) mmol/L Chloride (98-107) mmol/L Carbon Dioxide (21.0-32.0) mmol/L BUN (7.0-18.0) mg/dL Creatinine (0.6-1.0) mg/dL Est Cr Clr Drug Dosing mL/min Estimated GFR (MDRD) ml/min Glucose (74-106) mg/dL POC Glucose 227 H 152 H 161 H (60-110) mg/dL Calcium (8.5-10.1) mg/dL 03/21/19 03/21/19 03/21/19 Range/Units 04:48 07:15 12:03 Sodium 131 L (136-145) mmol/L Potassium 4.6 (3.5-5.1) mmol/L Chloride 97 L (98-107) mmol/L Carbon Dioxide 27.0 (21.0-32.0) mmol/L BUN 22 H (7.0-18.0) mg/dL Creatinine 0.9 (0.6-1.0) mg/dL Est Cr Clr Drug Dosing 38.03 mL/min Estimated GFR (MDRD) 59.2 ml/min Glucose 151 H (74-106) mg/dL POC Glucose 148 H 176 H (60-110) mg/dL Calcium 9.6 (8.5-10.1) mg/dL Med Orders - Current: Current Medications Acetaminophen (Tylenol) 650 mg PO Q4H PRN PRN Reason: Pain (Mild 1-3)/fever Last Admin: 03/21/19 04:40 Dose: 650 mg Aspirin (Halfprin) 81 mg PO DAILY [facility] Last Admin: 03/21/19 09:36 Dose: 81 mg Enoxaparin Sodium (Lovenox) 40 mg SUBCUT Q24H [facility] Last Admin: 03/20/19 17:15 Dose: 40 mg Ibuprofen (Motrin) 400 mg PO Q6H PRN PRN Reason: Pain (mild 1-3) Insulin Aspart (Novolog) 0 unit SUBCUT TIDAC [facility]; Protocol Last Admin: 03/21/19 07:23 Dose: Not Given Insulin Detemir (Levemir) 20 unit SUBCUT DAILY [facility] Last Admin: 03/21/19 09:37 Dose: 20 units Losartan Potassium (Cozaar) 100 mg PO DAILY [facility] Last Admin: 03/21/19 09:35 Dose: 100 mg Ondansetron HCl (Zofran Odt) 4 mg PO Q4H PRN PRN Reason: nausea, able to take PO Last Admin: 03/19/19 20:09 Dose: 4 mg Ondansetron HCl (Zofran) 4 mg IVPUSH Q4H PRN PRN Reason: Nausea Last Admin: 03/19/19 22:55 Dose: 4 mg Ropinirole HCl (Requip) 0.25 mg PO BEDTIME [facility] Last Admin: 03/20/19 20:21 Dose: 0.25 mg Sertraline HCl (Zoloft) 100 mg PO DAILY [facility] Last Admin: 03/21/19 09:36 Dose: 100 mg Simvastatin (Zocor) 20 mg PO BEDTIME [facility] Last Admin: 03/20/19 20:18 Dose: 20 mg Discontinued Medications Magnesium Sulfate 2 gm/ Premix 50 mls @ 25 mls/hr IV ONETIME ONE Stop: 03/18/19 19:38 Last Admin: 03/18/19 18:19 Dose: 25 mls/hr Labetalol HCl (Normodyne) 0 mg IVPUSH ONETIME ONE; Protocol Stop: 03/18/19 18:28 Last Admin: 03/18/19 18:59 Dose: 10 mg <Blake Tucker - Last Filed: 03/21/19 21:03> - Patient Data Vitals - Most Recent: Last Vital Signs Temp 36.3 C 03/21/19 17:00 Pulse 63 03/21/19 17:00 Resp 16 03/21/19 17:00 BP 159/83 H 03/21/19 17:00 Pulse Ox 98 03/21/19 17:00 I&O - Last 24 hours: Intake & Output 03/21/19 03/21/19 03/21/19 06:59 14:59 22:59 Intake Total 800 550 Output Total 750 1250 Balance 50 -700 Lab Results - Last 24 hrs: Laboratory Results - last 24 hr 03/21/19 03/21/19 03/21/19 Range/Units 04:48 07:15 12:03 Sodium 131 L (136-145) mmol/L Potassium 4.6 (3.5-5.1) mmol/L Chloride 97 L (98-107) mmol/L Carbon Dioxide 27.0 (21.0-32.0) mmol/L BUN 22 H (7.0-18.0) mg/dL Creatinine 0.9 (0.6-1.0) mg/dL Est Cr Clr Drug Dosing 38.03 mL/min Estimated GFR (MDRD) 59.2 ml/min Glucose 151 H (74-106) mg/dL POC Glucose 148 H 176 H (60-110) mg/dL Calcium 9.6 (8.5-10.1) mg/dL 03/21/19 Range/Units 17:30 Sodium (136-145) mmol/L Potassium (3.5-5.1) mmol/L Chloride (98-107) mmol/L Carbon Dioxide (21.0-32.0) mmol/L BUN (7.0-18.0) mg/dL Creatinine (0.6-1.0) mg/dL Est Cr Clr Drug Dosing mL/min Estimated GFR (MDRD) ml/min Glucose (74-106) mg/dL POC Glucose 140 H (60-110) mg/dL Calcium (8.5-10.1) mg/dL Med Orders - Current: Current Medications Acetaminophen (Tylenol) 650 mg PO Q4H PRN PRN Reason: Pain (Mild 1-3)/fever Last Admin: 03/21/19 14:17 Dose: 650 mg Aspirin (Halfprin) 81 mg PO DAILY [facility] Last Admin: 03/21/19 09:36 Dose: 81 mg Enoxaparin Sodium (Lovenox) 40 mg SUBCUT Q24H [facility] Last Admin: 03/21/19 18:00 Dose: 40 mg Ibuprofen (Motrin) 400 mg PO Q6H PRN PRN Reason: Pain (mild 1-3) Insulin Aspart (Novolog) 0 unit SUBCUT TIDAC [facility]; Protocol Last Admin: 03/21/19 17:52 Dose: Not Given Insulin Detemir (Levemir) 20 unit SUBCUT DAILY [facility] Last Admin: 03/21/19 09:37 Dose: 20 units Losartan Potassium (Cozaar) 100 mg PO DAILY [facility] Last Admin: 03/21/19 09:35 Dose: 100 mg Ondansetron HCl (Zofran Odt) 4 mg PO Q4H PRN PRN Reason: nausea, able to take PO Last Admin: 03/19/19 20:09 Dose: 4 mg Ondansetron HCl (Zofran) 4 mg IVPUSH Q4H PRN PRN Reason: Nausea Last Admin: 03/19/19 22:55 Dose: 4 mg Ropinirole HCl (Requip) 0.25 mg PO BEDTIME [facility] Last Admin: 03/20/19 20:21 Dose: 0.25 mg Sertraline HCl (Zoloft) 100 mg PO DAILY [facility] Last Admin: 03/21/19 09:36 Dose: 100 mg Simvastatin (Zocor) 20 mg PO BEDTIME [facility] Last Admin: 03/20/19 20:18 Dose: 20 mg Discontinued Medications Magnesium Sulfate 2 gm/ Premix 50 mls @ 25 mls/hr IV ONETIME ONE Stop: 03/18/19 19:38 Last Admin: 03/18/19 18:19 Dose: 25 mls/hr Labetalol HCl (Normodyne) 0 mg IVPUSH ONETIME ONE; Protocol Stop: 03/18/19 18:28 Last Admin: 03/18/19 18:59 Dose: 10 mg - Free Text/Narrative Note: I have examined the patient. I have discussed findings and treatment plan with the resident. I agree with the assessment and plan outlined in the following resident's note.
[2019-03-21 17:47] VITALS: BP 159/83
[2019-03-21] MEDS: Enoxaparin 40 MG/0.4 ML Syringe SUBCUT SCH (18:00)
--- NOTE | 2019-03-21 18:44 | ECHO ---
The echocardiogram report can be seen in this patient's EMR (Electronic Medical Record) in the REPORTS section. The echocardiogram report has also been scanned into PACS and can be seen there as well. LORRIE
== END 2019-03-21 21:18 | disposition home or self-care (01) ==
LOC: MW.CHRC 14:56 → UNDOADMOB 15:57 → MW.MS 15:57
PROVIDERS: ADMIT Internal Medicine; ATTEND Internal Medicine
DX: E87.1 Hypo-osmolality and hyponatremia (principal); E11.9 Type 2 diabetes mellitus without complications; I10 Essential (primary) hypertension; D69.6 Thrombocytopenia, unspecified; R41.0 Disorientation, unspecified; R51 Headache; E78.00 Pure hypercholesterolemia, unspecified; M19.90 Unspecified osteoarthritis, unspecified site; C44.91 Basal cell carcinoma of skin, unspecified; Z79.82 Long term (current) use of aspirin; Z79.4 Long term (current) use of insulin; Z79.1 Long term (current) use of non-steroidal anti-inflammatories (NSAID); Z79.899 Other long term (current) drug therapy
CPT/HCPCS: 36415; 80048; 80053; 82962; 83735; 84133; 84300; 84540; 85025; 93306; 96365; 96372; 96375; A4217; A9270; G0378; J1650; J1815; J2405; J3475; J3490

== ENCOUNTER 2019-08-08 13:36 | Emergency (ER) | payer MEDICARE ==
--- NOTE | 2019-08-08 14:19 | EDM.PDOC ---
ED HPI GENERAL MEDICAL PROBLEM - General Chief Complaint: General Stated Complaint: HYPERTENSION Time Seen by Provider: 08/08/19 14:19 Source of Information: Reports: Patient - History of Present Illness INITIAL COMMENTS - FREE TEXT/NARRATIVE: HISTORY AND PHYSICAL: History of present illness: [Patient presents with elevated blood pressure, noted by her home health nurse over 200 systolic, on initial arrival her blood pressure was 150s over 90s, and re-check and monitoring 160/106 was obtained as she had recently stopped her beta carrie her primary care heart rate is slightly tachycardic at 102 no fever nausea vomiting chills sweats no chest pain shortness breath headache dizziness palpitation no bowel or urine symptoms ] Review of systems: As per history of present illness and below otherwise all systems reviewed and negative. Past medical history: As per history of present illness and as reviewed below otherwise noncontributory. Surgical history: As per history of present illness and as reviewed below otherwise noncontributory. Social history: No reported history of drug or alcohol abuse. Family history: As per history of present illness and as reviewed below otherwise noncontributory. Physical exam: HEENT: Atraumatic, normocephalic, pupils reactive, negative for conjunctival pallor or scleral icterus, mucous membranes moist, throat clear, neck supple, nontender, trachea midline. Lungs: Clear to auscultation, breath sounds equal bilaterally, chest nontender. Heart: S1S2, regular, negative for clicks, rubs, or JVD. Abdomen: Soft, nondistended, nontender. Negative for masses or hepatosplenomegaly. Negative for costovertebral tenderness. Pelvis: Stable nontender. Genitourinary: Deferred. Rectal: Deferred. Extremities: Atraumatic, negative for cords or calf pain. Neurovascular unremarkable. Neuro: Awake, alert, oriented. Cranial nerves II through XII unremarkable. Cerebellum unremarkable. Motor and sensory unremarkable throughout. Exam nonfocal. Diagnostics: [BC BMP EKG ] Therapeutics:Toprol all 25 mg by mouth ] Impression: [] hypertension Recent medication adjustment Definitive disposition and diagnosis as appropriate pending reevaluation and review of above. - Related Data Allergies Allergy/AdvReac Type Severity Reaction Status Date / Time No Known Allergies Allergy Verified 08/08/19 13:47 Home Meds: Home Meds Aspirin [[place] Aspirin EC] 81 mg PO DAILY 10/13/16 [History] Sertraline HCl 100 mg PO DAILY 10/13/16 [History] Simvastatin [Zocor] 20 mg PO BEDTIME 10/13/16 [History] Insulin Aspart [NovoLOG] 0 units SUBCUT TID 12/24/18 [History] Insulin Detemir [Levemir Flextouch] 0 units SUBCUT BEDTIME 12/24/18 [History] Celecoxib 200 mg PO DAILY 03/18/19 [History] rOPINIRole [Requip] 0.25 mg PO BEDTIME 03/18/19 [History] Losartan [Cozaar] 100 mg PO DAILY #60 tablet 03/21/19 [Rx] Furosemide 1 tab PO DAILY 08/08/19 [History] amLODIPine [Norvasc] 2.5 mg PO DAILY 08/08/19 [History] metFORMIN [Glucophage] 500 mg PO BIDMEALS 08/08/19 [History] Past Medical History HEENT History: Reports: Impaired Vision, Other (See Below) Other HEENT History: wears glasses Cardiovascular History: Reports: High Cholesterol, Hypertension [employer]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: Musculoskeletal History: Reports: Osteoarthritis Psychiatric History: Reports: Depression Endocrine/Metabolic History: Reports: Diabetes, Type II Oncologic (Cancer) History: Reports: Basal Cell Carcinoma Dermatologic History: Reports: Other (See Below) Other Dermatologic History: basal cell carcinoma to face - Infectious Disease History Infectious Disease History: Reports: Chicken Pox, Measles, Mumps - Past Surgical History Head Surgeries/Procedures: Reports: None HEENT Surgical History: Reports: Cataract Surgery, Tonsillectomy GI Surgical History: Reports: Appendectomy Female Surgical History: Reports: Hysterectomy, Salpingo-Oophorectomy Neurological Surgical History: Reports: Lumbar Spine Musculoskeletal Surgical History: Reports: Arthroscopic Knee Social & Family History - Family History Family Medical History: Noncontributory - Tobacco Use Smoking Status *Q: Never Smoker - Caffeine Use Caffeine Use: Reports: Coffee Caffeine Use Comment: 1 bottle [employer] Mocha daily - Recreational Drug Use Recreational Drug Use: No ED ROS GENERAL - Review of Systems Review Of Systems: See Below ED EXAM, GENERAL - Physical Exam Exam: See Below Course - Vital Signs Last Recorded V/S: Last Vital Signs Temp 97.2 F 08/08/19 15:07 Pulse 94 08/08/19 15:07 Resp 16 08/08/19 15:07 BP 172/95 H 08/08/19 15:08 Pulse Ox 95 08/08/19 15:07 - Orders/Labs/Meds Orders: Active Orders 24 hr Category Date Time Status EKG Documentation Completion [RC] STAT Care 08/08/19 14:19 Active Labs: Laboratory Tests 08/08/19 08/08/19 Range/Units 14:48 14:48 WBC 6.66 (4.0-11.0) K/uL RBC 4.45 (4.30-5.90) M/uL Hgb 13.2 (12.0-16.0) g/dL Hct 39.2 (36.0-46.0) % MCV 88.1 (80.0-98.0) fL MCH 29.7 (27.0-32.0) pg MCHC 33.7 (31.0-37.0) g/dL RDW Std Deviation 47.4 (28.0-62.0) fl RDW Coeff of Renard 15 (11.0-15.0) % Plt Count 114 L (150-400) K/uL MPV 9.40 (7.40-12.00) fL Neut % (Auto) 66.5 (48.0-80.0) % Lymph % (Auto) 20.6 (16.0-40.0) % [place] % (Auto) 11.0 (0.0-15.0) % Eos % (Auto) 1.7 (0.0-7.0) % Baso % (Auto) 0.2 (0.0-1.5) % Neut # (Auto) 4.4 (1.4-5.7) K/uL Lymph # (Auto) 1.4 (0.6-2.4) K/uL [place] # (Auto) 0.7 (0.0-0.8) K/uL Eos # (Auto) 0.1 (0.0-0.7) K/uL Baso # (Auto) 0.0 (0.0-0.1) K/uL Nucleated RBC % 0.0 /100WBC Nucleated RBCs # 0 K/uL Sodium 139 (136-145) mmol/L Potassium 3.3 L (3.5-5.1) mmol/L Chloride 101 (98-107) mmol/L Carbon Dioxide 29.2 (21.0-32.0) mmol/L BUN 20 H (7.0-18.0) mg/dL Creatinine 1.0 (0.6-1.0) mg/dL Est Cr Clr Drug Dosing 35.66 mL/min Estimated GFR (MDRD) 52.4 ml/min Glucose 173 H (74-106) mg/dL Calcium 9.2 (8.5-10.1) mg/dL Meds: Medications Discontinued Medications Generic Name Dose Route Start Last Admin Trade Name Afsaneh PRN Reason Stop Dose Admin Metoprolol Succinate 25 mg 08/08/19 15:06 Toprol Xl PO 08/08/19 15:07 ONETIME ONE Departure - Departure Time of Disposition: 15:27 Disposition: Home, Self-Care 01 Condition: Good Clinical Impression: Hypertension - Discharge Information Referrals: Kat Chung DO [Primary Care Provider] - Forms: ED Department Discharge Additional Instructions: Medication as prescribed Return if symptoms persist or worsen Follow-up with primary care in 2 weeks sooner as needed [facility] [address] [place] [address] The following information is given to patients seen in the emergency department who are being discharged to home. This information is to outline your options for follow-up care. We provide all patients seen in our emergency department with a follow-up referral. The need for follow-up, as well as the timing and circumstances, are variable depending upon the specifics of your emergency department visit. If you don't have a primary care physician on staff, we will provide you with a referral. We always advise you to contact your personal physician following an emergency department visit to inform them of the circumstance of the visit and for follow-up with them and/or the need for any referrals to a consulting specialist. The emergency department will also refer you to a specialist when appropriate. This referral assures that you have the opportunity for follow-up care with a specialist. All of these measure are taken in an effort to provide you with optimal care, which includes your follow-up. Under all circumstances we always encourage you to contact your private physician who remains a resource for coordinating your care. When calling for follow-up care, please make the office aware that this follow-up is from your recent emergency room visit. If for any reason you are refused follow-up, please contact the [facility] emergency department at and asked to speak to the emergency department charge nurse. - My Orders Last 24 Hours: My Active Orders 08/08/19 14:19 EKG Documentation Completion [RC] STAT - Assessment/Plan Last 24 Hours: My Active Orders 08/08/19 14:19 EKG Documentation Completion [RC] STAT
[2019-08-08] MEDS ORDERED: Metoprolol Succinate 25 MG Tab.ER PO ONE (15:06)
[2019-08-08 15:07] LABS: CARBON DIOXIDE,CO2 29.2 mmol/L (21.0-32.0); POTASSIUM,K 3.3 mmol/L (3.5-5.1)
[2019-08-08 15:32] VITALS: BP 158/61
[2019-08-08 15:34] VITALS: PULSE 86
== END 2019-08-08 15:41 | disposition home or self-care (01) ==
LOC: MW.ED 13:36
DX: I10 Essential (primary) hypertension (principal); E11.9 Type 2 diabetes mellitus without complications; E78.00 Pure hypercholesterolemia, unspecified; Z79.82 Long term (current) use of aspirin; Z79.899 Other long term (current) drug therapy
CPT/HCPCS: 36415; 80048; 85025; 93005; 99283; A9270

== ENCOUNTER 2019-09-30 18:42 | Emergency (ER) | payer MEDICARE, BC ==
[2019-09-30 19:03] VITALS: PULSE 77
--- NOTE | 2019-09-30 19:24 | EDM.PDOC ---
ED HPI GENERAL MEDICAL PROBLEM - General Chief Complaint: General Stated Complaint: HIGH BLOOD PRESSURE Time Seen by Provider: 09/30/19 19:11 - History of Present Illness INITIAL COMMENTS - FREE TEXT/NARRATIVE: HISTORY AND PHYSICAL: History of present illness: Patient is an 88-year-old female with a history of hypertension type 2 diabetes and hypercholesterolemia who follows in our family practice clinic and was told by her provider in the clinic that if she ever had a blood pressure of greater than 180 systolic that she should come to the ER. The patient took one blood pressure reading at home this evening and it was 203 systolic so she comes here as she was directed to do so. The patient had a normal day today without any fevers chills cough chest pain or shortness of breath and has no abdominal pain vomiting or diarrhea. She states compliance with her medication and has no weakness numbness or tingling in her extremities no lightheadedness and is eating and urinating normally. She has absolutely no systemic complaints and says that she only came here because she was told to do so if her blood pressure was greater than 180. She has an appointment week with her provider. Review of systems: As per history of present illness and below otherwise all systems reviewed and negative. Past medical history: As per history of present illness and as reviewed below otherwise noncontributory. Surgical history: As per history of present illness and as reviewed below otherwise noncontributory. Social history: No reported history of drug or alcohol abuse. Family history: As per history of present illness and as reviewed below otherwise noncontributory. Physical exam: : Well-developed well-nourished elderly female who is nontoxic and vital signs are noted by me HEENT: Atraumatic, normocephalic, pupils reactive, negative for conjunctival pallor or scleral icterus, mucous membranes moist, throat clear, neck supple, nontender, trachea midline. Lungs: Clear to auscultation, breath sounds equal bilaterally, chest nontender. Heart: S1S2, regular, and rhythm no overt murmurs Abdomen: Soft, nondistended, nontender. Negative for masses or hepatosplenomegaly. Pelvis: Stable nontender. Genitourinary: Deferred. Rectal: Deferred. Extremities: Atraumatic, negative for cords or calf pain. Neurovascular unremarkable. Trace to 1+ dependent edema in the ankles and lower legs but not pretibially and there is no leg asymmetry Neuro: Awake, alert, oriented. Cranial nerves II through XII unremarkable. Cerebellum unremarkable. Motor and sensory unremarkable throughout. Exam nonfocal. Diagnostics: She was offered labs and EKG and declines at this time Therapeutics: none Discussed with the patient that she needs to elevate her legs better than she has been doing and the family concurs that she does not put them up very high but only on a milk crate and most of the time she spends in a recliner during the daytime. I did offer her a work-up here but have told her that because her systolic blood pressure is 160 here and she has no symptoms that that work-up would not contribute to any change in her medications at this time and that she needs to connect with her provider in the clinic for medication adjustment as is appropriate going forward. I advised them to continue to monitor her blood pressure and return to the ER as needed Impression: medical screening exam Definitive disposition and diagnosis as appropriate pending reevaluation and review of above. - Related Data Allergies Allergy/AdvReac Type Severity Reaction Status Date / Time No Known Allergies Allergy Verified 09/30/19 19:02 Home Meds: Home Meds Aspirin [[place] Aspirin EC] 81 mg PO DAILY 10/13/16 [History] Sertraline HCl 100 mg PO DAILY 10/13/16 [History] Simvastatin [Zocor] 20 mg PO BEDTIME 10/13/16 [History] Insulin Aspart [NovoLOG] 12 units SUBCUT TID 12/24/18 [History] Insulin Detemir [Levemir Flextouch] 27 units SUBCUT BEDTIME 12/24/18 [History] Celecoxib 200 mg PO DAILY 03/18/19 [History] rOPINIRole [Requip] 0.25 mg PO BEDTIME 03/18/19 [History] Losartan [Cozaar] 100 mg PO DAILY #60 tablet 03/21/19 [Rx] Furosemide 1 tab PO DAILY 08/08/19 [History] amLODIPine [Norvasc] 2.5 mg PO DAILY 08/08/19 [History] metFORMIN [Glucophage] 500 mg PO BIDMEALS 08/08/19 [History] Past Medical History HEENT History: Reports: Impaired Vision, Other (See Below) Other HEENT History: wears glasses Cardiovascular History: Reports: High Cholesterol, Hypertension 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: Musculoskeletal History: Reports: Osteoarthritis Psychiatric History: Reports: Depression Endocrine/Metabolic History: Reports: Diabetes, Type II Oncologic (Cancer) History: Reports: Basal Cell Carcinoma Dermatologic History: Reports: Other (See Below) Other Dermatologic History: basal cell carcinoma to face - Infectious Disease History Infectious Disease History: Reports: Chicken Pox, Measles, Mumps - Past Surgical History Head Surgeries/Procedures: Reports: None HEENT Surgical History: Reports: Cataract Surgery, Tonsillectomy GI Surgical History: Reports: Appendectomy Female Surgical History: Reports: Hysterectomy, Salpingo-Oophorectomy Neurological Surgical History: Reports: Lumbar Spine Musculoskeletal Surgical History: Reports: Arthroscopic Knee Social & Family History - Family History Family Medical History: Noncontributory - Tobacco Use Smoking Status *Q: Never Smoker - Caffeine Use Caffeine Use: Reports: Coffee Caffeine Use Comment: 1 bottle [place] Mocha daily - Recreational Drug Use Recreational Drug Use: No ED ROS GENERAL - Review of Systems Review Of Systems: Comprehensive ROS is negative, except as noted in HPI. ED EXAM, GENERAL - Physical Exam Exam: See Below (see dictation) Course - Vital Signs Last Recorded V/S: Last Vital Signs Temp 35.9 C 09/30/19 19:00 Pulse 77 09/30/19 19:00 Resp 18 09/30/19 19:00 BP 160/82 H 09/30/19 19:00 Pulse Ox 94 L 09/30/19 19:00 Departure - Departure Time of Disposition: 19:23 Disposition: Home, Self-Care 01 Condition: Good Clinical Impression: Encounter for medical screening examination - Discharge Information Referrals: Kat Chung DO [Primary Care Provider] - Additional Instructions: The following information is given to patients seen in the emergency department who are being discharged to home. This information is to outline your options for follow-up care. We provide all patients seen in our emergency department with a follow-up referral. The need for follow-up, as well as the timing and circumstances, are variable depending upon the specifics of your emergency department visit. If you don't have a primary care physician on staff, we will provide you with a referral. We always advise you to contact your personal physician following an emergency department visit to inform them of the circumstance of the visit and for follow-up with them and/or the need for any referrals to a consulting specialist. The emergency department will also refer you to a specialist when appropriate. This referral assures that you have the opportunity for followup care with a specialist. All of these measure are taken in an effort to provide you with optimal care, which includes your followup. Under all circumstances we always encourage you to contact your private physician who remains a resource for coordinating your care. When calling for followup care, please make the office aware that this follow-up is from your recent emergency room visit. If for any reason you are refused follow-up, please contact the [facility] emergency department at and ask to speak to the emergency department charge nurse. [facility] Primary care- Internal Medicine and Family [address] [address] Continue all the home medications and continue to monitor your blood pressures recording them and bring that record to your appointment this week with your provider to discuss your medications. Watch salt and sodium intake and elevate your legs as we discussed on your visit here. Return to ER as needed and as discussed Sepsis Event Note - Evaluation Sepsis Screening Result: No Definite Risk - Focused Exam Vital Signs: Vital Signs Temp Pulse Resp BP Pulse Ox 09/30/19 19:00 35.9 C 77 18 160/82 H 94 L Date Exam was Performed: 09/30/19 Time Exam was Performed: 19:19
[2019-09-30 19:38] VITALS: BP 165/57
== END 2019-09-30 19:35 | disposition home or self-care (01) ==
LOC: MW.ED 18:42
DX: Z01.30 Encounter for examination of blood pressure without abnormal findings (principal); I10 Essential (primary) hypertension; E11.9 Type 2 diabetes mellitus without complications; F32.9 Major depressive disorder, single episode, unspecified; Z79.4 Long term (current) use of insulin; Z79.899 Other long term (current) drug therapy
CPT/HCPCS: 99283

== ENCOUNTER 2020-04-01 01:39 | Emergency (ER) | payer MEDICARE ==
--- NOTE | 2020-04-01 02:04 | EDM.PDOC ---
ED HPI GENERAL MEDICAL PROBLEM - General Chief Complaint: ENT Problem Stated Complaint: NOSE BLEED Time Seen by Provider: 04/01/20 01:57 Source of Information: Reports: Patient History Limitations: Reports: No Limitations - History of Present Illness INITIAL COMMENTS - FREE TEXT/NARRATIVE: HISTORY AND PHYSICAL: History of present illness: This is an 89-year-old female with a history significant for hypertension and diabetes who presents to the ER today secondary to epistaxis which she reports started approximately 5 PM this evening. Patient reports that it is been persistent since. Patient denies any other symptomatology. Patient has any recent fevers, shakes, chills, nausea, vomiting, diarrhea. Patient reports that she had 1 prior episode of epistaxis that required ER intervention. Patient denies any other symptoms at this time. Review of systems: As per history of present illness and below otherwise all systems reviewed and negative. Past medical history: As per history of present illness and as reviewed below otherwise noncontributory. Surgical history: As per history of present illness and as reviewed below otherwise noncontributory. Social history: No reported history of drug or alcohol abuse. Family history: As per history of present illness and as reviewed below otherwise noncontributory. Physical exam: Constitutional: Patient is oriented to person, place, and time. Appears well- developed and well-nourished. No distress. HEENT: Moist mucous membranes Head: Normocephalic and atraumatic Eyes: Right eye exhibits no discharge. Left eye exhibits no discharge. No scleral icterus Neck: Normal range of motion. No tracheal deviation present. Cardiovascular: Normal rate and regular rhythm. Pulmonary: Effort normal, no respiratory distress. Abdominal: No distention Musculoskeletal: Normal range of motion Neurologic: Alert and oriented to person, place and time. Skin: Jaars, warm and dry. Psychiatric: Normal mood and affect. Behavior is normal. Judgment and thought content normal. Patient with active bleeding from her right naris. Blood clots were expelled by patient blowing her nose and nares visualized. Small amount of bleeding from Hesselbach's plexus was identified with no pulsatile bleeding identified. Pressure was applied. Nursing note and vital signs have been reviewed Diagnostics: Therapeutics: 4.5 cm epistat balloon inserted into right nares after being soaked in saline. Balloon inflated with approximately 2 cc of air. Adequate hemostasis obtained no further bleeding observed. Impression: Epistaxis Plan: Epistatic balloon started with hemostasis obtained. Patient be discharged home with Keflex x3 days and instructions to follow-up with her primary care physician in 3 days for removal of nasal balloon. Definitive disposition and diagnosis as appropriate pending reevaluation and review of above. - Related Data Allergies Allergy/AdvReac Type Severity Reaction Status Date / Time No Known Allergies Allergy Verified 04/01/20 01:46 Home Meds: Home Meds Aspirin [[place] Aspirin EC] 81 mg PO DAILY 10/13/16 [History] Sertraline HCl 100 mg PO DAILY 10/13/16 [History] Simvastatin [Zocor] 20 mg PO BEDTIME 10/13/16 [History] Insulin Aspart [NovoLOG] 12 units SUBCUT TID 12/24/18 [History] Insulin Detemir [Levemir Flextouch] 27 units SUBCUT BEDTIME 12/24/18 [History] Celecoxib 200 mg PO DAILY 03/18/19 [History] rOPINIRole [Requip] 0.25 mg PO BEDTIME 03/18/19 [History] Losartan [Cozaar] 100 mg PO DAILY #60 tablet 03/21/19 [Rx] Furosemide 1 tab PO DAILY 08/08/19 [History] amLODIPine [Norvasc] 2.5 mg PO DAILY 08/08/19 [History] metFORMIN [Glucophage] 500 mg PO BIDMEALS 08/08/19 [History] Past Medical History HEENT History: Reports: Impaired Vision, Other (See Below) Other HEENT History: wears glasses Cardiovascular History: Reports: High Cholesterol, Hypertension 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: Musculoskeletal History: Reports: Osteoarthritis Psychiatric History: Reports: Depression Endocrine/Metabolic History: Reports: Diabetes, Type II Oncologic (Cancer) History: Reports: Basal Cell Carcinoma Dermatologic History: Reports: Other (See Below) Other Dermatologic History: basal cell carcinoma to face - Infectious Disease History Infectious Disease History: Reports: Chicken Pox, Measles, Mumps - Past Surgical History Head Surgeries/Procedures: Reports: None HEENT Surgical History: Reports: Cataract Surgery, Tonsillectomy GI Surgical History: Reports: Appendectomy Female Surgical History: Reports: Hysterectomy, Salpingo-Oophorectomy Neurological Surgical History: Reports: Lumbar Spine Musculoskeletal Surgical History: Reports: Arthroscopic Knee Social & Family History - Family History Family Medical History: Noncontributory - Caffeine Use Caffeine Use: Reports: Coffee Caffeine Use Comment: 1 bottle Dory Vaughan daily ED ROS GENERAL - Review of Systems Review Of Systems: Comprehensive ROS is negative, except as noted in HPI. ED EXAM, GENERAL - Physical Exam Exam: See Below Course - Vital Signs Last Recorded V/S: Last Vital Signs Temp 97.4 F 04/01/20 01:40 Pulse 90 04/01/20 01:40 Resp 18 04/01/20 01:40 BP 136/65 04/01/20 01:40 Pulse Ox 93 L 04/01/20 01:40 Departure - Departure Time of Disposition: 02:30 Disposition: Home, Self-Care 01 Condition: Good Clinical Impression: Epistaxis not due to trauma - Discharge Information *PRESCRIPTION DRUG MONITORING PROGRAM REVIEWED*: Not Applicable *COPY OF PRESCRIPTION DRUG MONITORING REPORT IN PATIENT MEGHANA: Not Applicable Instructions: Nosebleed, Adult Additional Instructions: He was seen in the ER today secondary to bleeding from your right nares. We have placed an epistat balloon into your right nares and inflated it with approximately 2 cc of air to help stop the bleeding. The balloon should stay in for 2 to 3 days. You can see your doctor or return to the ER for removal of the balloon. You will be placed on Keflex twice a day in order to prevent sinus infection that could occur when the balloon is placed in the nares. The following information is given to patients seen in the emergency department who are being discharged to home. This information is to outline your options for follow-up care. We provide all patients seen in our emergency department with a follow-up referral. The need for follow-up, as well as the timing and circumstances, are variable depending upon the specifics of your emergency department visit. If you don't have a primary care physician on staff, we will provide you with a referral. We always advise you to contact your personal physician following an emergency department visit to inform them of the circumstance of the visit and for follow-up with them and/or the need for any referrals to a consulting specialist. The emergency department will also refer you to a specialist when appropriate. This referral assures that you have the opportunity for follow-up care with a specialist. All of these measure are taken in an effort to provide you with o ptimal care, which includes your follow-up. Under all circumstances we always encourage you to contact your private physician who remains a resource for coordinating your care. When calling for follow-up care, please make the office aware that this follow-up is from your recent emergency room visit. If for any reason you are refused follow-up, please contact the [facility] Emergency Department at and asked to speak to the emergency department charge nurse. Sepsis Event Note (ED) - Evaluation Sepsis Screening Result: No Definite Risk - Focused Exam Vital Signs: Vital Signs Temp Pulse Resp BP Pulse Ox 04/01/20 01:40 97.4 F 90 18 136/65 93 L
[2020-04-01] MEDS ORDERED: Cephalexin 500 MG Cap PO ONE (02:06)
[2020-04-01 02:42] VITALS: BP 140/80; PULSE 86
== END 2020-04-01 02:30 | disposition home or self-care (01) ==
LOC: MW.ED 01:39
DX: R04.0 Epistaxis (principal); I10 Essential (primary) hypertension; E11.9 Type 2 diabetes mellitus without complications; E78.00 Pure hypercholesterolemia, unspecified; M19.90 Unspecified osteoarthritis, unspecified site; F32.9 Major depressive disorder, single episode, unspecified; Z79.82 Long term (current) use of aspirin; Z79.4 Long term (current) use of insulin; Z79.899 Other long term (current) drug therapy
CPT/HCPCS: 30903; 99282; 99283-25

== ENCOUNTER 2020-04-04 07:49 | Emergency (ER) | payer MEDICARE ==
--- NOTE | 2020-04-04 07:58 | EDM.PDOC ---
ED HPI GENERAL MEDICAL PROBLEM - General Stated Complaint: NASAL ROCKET REMOVAL Time Seen by Provider: 04/04/20 07:54 Source of Information: Reports: Patient History Limitations: Reports: No Limitations - History of Present Illness INITIAL COMMENTS - FREE TEXT/NARRATIVE: 89-year-old female past medical history of basal cell carcinoma, hypertension, type 2 diabetes mellitus, hyperlipidemia, epistaxis presenting for nasal balloon removal, placed 3 days ago. No complaints at this time. No report of any new hemorrhage or epistaxis. - Related Data Allergies Allergy/AdvReac Type Severity Reaction Status Date / Time No Known Allergies Allergy Verified 04/01/20 01:46 Home Meds: Home Meds Aspirin [[place] Aspirin EC] 81 mg PO DAILY 10/13/16 [History] Sertraline HCl 100 mg PO DAILY 10/13/16 [History] Simvastatin [Zocor] 20 mg PO BEDTIME 10/13/16 [History] Insulin Aspart [NovoLOG] 12 units SUBCUT TID 12/24/18 [History] Insulin Detemir [Levemir Flextouch] 30 units SUBCUT BEDTIME 12/24/18 [History] Celecoxib 200 mg PO DAILY 03/18/19 [History] rOPINIRole [Requip] 0.25 mg PO BEDTIME 03/18/19 [History] Losartan [Cozaar] 100 mg PO DAILY #60 tablet 03/21/19 [Rx] Furosemide 1 tab PO DAILY 08/08/19 [History] metFORMIN [Glucophage] 1,000 mg PO BIDMEALS 08/08/19 [History] Metoprolol Succinate [Toprol XL] 25 mg PO DAILY 04/01/20 [History] Multivitamins [Tab-A-Bisi] 1 each PO DAILY 04/01/20 [History] cephALEXin [Keflex] 500 mg PO BID #9 cap 04/01/20 [Rx] Past Medical History HEENT History: Reports: Impaired Vision, Other (See Below) Other HEENT History: wears glasses Cardiovascular History: Reports: High Cholesterol, Hypertension Genitourinary History: Reports: None 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: Musculoskeletal History: Reports: Osteoarthritis Neurological History: Reports: None Psychiatric History: Reports: Depression Endocrine/Metabolic History: Reports: Diabetes, Type II Hematologic History: Reports: None Immunologic History: Reports: None Oncologic (Cancer) History: Reports: Basal Cell Carcinoma Dermatologic History: Reports: Other (See Below) Other Dermatologic History: basal cell carcinoma to face - Infectious Disease History Infectious Disease History: Reports: Chicken Pox, Measles, Mumps - Past Surgical History Head Surgeries/Procedures: Reports: None HEENT Surgical History: Reports: Cataract Surgery, Tonsillectomy GI Surgical History: Reports: Appendectomy Female Surgical History: Reports: Hysterectomy, Salpingo-Oophorectomy Neurological Surgical History: Reports: Lumbar Spine Musculoskeletal Surgical History: Reports: Arthroscopic Knee Social & Family History - Family History Family Medical History: Noncontributory - Caffeine Use Caffeine Use: Reports: Coffee Caffeine Use Comment: 1 bottle [place] Mocha daily ED ROS ENT - Review of Systems Review Of Systems: See Below Constitutional: Denies: Fever HEENT: Reports: Nosebleed Respiratory: Denies: Shortness of Breath Cardiovascular: Denies: Chest Pain GI/Abdominal: Denies: Nausea, Vomiting ED EXAM, ENT - Physical Exam Exam: See Below Text/Narrative:: Vital signs reviewed. Nursing notes reviewed. Constitutional: Awake, alert, non-distressed. Head: Normocephalic, atraumatic. Eyes: EOMI, conjunctiva normal, no discharge, no scleral icterus. Ears, Nose, Throat: Rhino Rocket in place to right naris, external ears normal Cardiovascular: 2+ radial pulse, capillary refill less than 2 seconds. Pulmonary: normal work of breathing, no accessory muscle use. Integumentary: Appropriate color for ethnicity, warm, dry, no pallor or jaundice, no rash. Neurologic: Alert, answering questions appropriately, normal speech, no facial droop, moving all extremities well. Psychiatric: Appropriate mood and affect, normal thought process. Course - Vital Signs Text/Narrative:: Patient presenting for Rhino Rocket removal. No complaints or complications. Rhino Rocket was removed without difficulty. No evidence of ongoing hemorrhage. Patient was provided with a foam nasal clamp in case epistaxis recurs in the future. I reiterated epistaxis control precautions and indications to come to the emergency department if needed. Discharged in good condition. Last Recorded V/S: Last Vital Signs Temp 35.9 C L 04/04/20 08:01 Pulse 78 04/04/20 08:01 Resp 20 04/04/20 08:01 BP 191/87 H 04/04/20 08:01 Pulse Ox 95 04/04/20 08:01 Departure - Departure Time of Disposition: 08:22 Disposition: Home, Self-Care 01 Condition: Good Clinical Impression: Epistaxis - Discharge Information *PRESCRIPTION DRUG MONITORING PROGRAM REVIEWED*: Not Applicable *COPY OF PRESCRIPTION DRUG MONITORING REPORT IN PATIENT MEGHANA: Not Applicable Instructions: Nosebleed, Adult Referrals: [facility] - [facility] Practice [Provider Group] - 1 Week (As needed) Additional Instructions: Thank you for choosing the [facility] emergency department in [place] for your medical needs today. It was a pleasure caring for you. You were seen in the emergency department for removal of your nosebleed control device. Examination of your nose looks normal at this point. Feel free to return to the emergency department if you experience recurrent severe nosebleeds. Please return the emergency department immediately if your symptoms worsen or if you feel worse. The following information is given to patients seen in the emergency department who are being discharged. This information is to outline your options for follow-up care. We provide all patients seen in our emergency department with a follow-up referral. The need for follow-up, as well as the timing and circumstances, are variable depending upon the specifics of your emergency department visit. If you don't have a primary care physician on staff, we will provide you with a referral. We always advise you to contact your personal physician following an emergency department visit to inform them of the circumstance of the visit and for follow-up with them and/or the need for any referrals to a consulting specialist. The emergency department will also refer you to a specialist when appropriate. This referral assures that you have the opportunity for follow-up care with a specialist. All of these measure are taken in an effort to provide you with optimal care, which includes your follow-up. Under all circumstances we always encourage you to contact your private physician who remains a resource for coordinating your care. When calling for follow-up care, please make the office aware that this follow-up is from your recent emergency room visit. If for any reason you are refused follow-up, please contact the [facility] Emergency Department at and asked to speak to the emergency department charge nurse. If you do not have a primary care physician that is caring for you, you can contact these clinics below to set up an appointment to establish care: [facility] - Primary Care [address] [place] [id number] [facility] [address] [place] [id number] Sepsis Event Note (ED) - Focused Exam Vital Signs: Vital Signs Temp Pulse Resp BP Pulse Ox 04/04/20 08:01 35.9 C L 78 20 191/87 H 95
[2020-04-04 08:59] VITALS: BP 174/80; PULSE 82
== END 2020-04-04 08:55 | disposition home or self-care (01) ==
LOC: MW.ED 07:49
DX: R04.0 Epistaxis (principal); I10 Essential (primary) hypertension; E11.9 Type 2 diabetes mellitus without complications; E78.00 Pure hypercholesterolemia, unspecified; M19.90 Unspecified osteoarthritis, unspecified site; F32.9 Major depressive disorder, single episode, unspecified; Z79.82 Long term (current) use of aspirin; Z79.899 Other long term (current) drug therapy; Z79.4 Long term (current) use of insulin
CPT/HCPCS: 99282; 99283-25

== ENCOUNTER 2020-05-08 07:47 | Emergency (ER) | payer MEDICARE, MEDICAID, OTHER, SELFPAY ==
[2020-05-08] MEDS ORDERED: Lactated Ringers 1,000 ML IV ONE (08:03)
--- NOTE | 2020-05-08 08:03 | EDM.PDOC ---
ED HPI GENERAL MEDICAL PROBLEM - General Chief Complaint: General Stated Complaint: ALTERED MENTAL STATUS Time Seen by Provider: 05/08/20 08:01 Source of Information: Reports: Patient History Limitations: Reports: No Limitations - History of Present Illness INITIAL COMMENTS - FREE TEXT/NARRATIVE: 89-year-old female with history of hyponatremia, HTN, UTI, type 2 diabetes presents with altered mental status. She took 14 units of her insulin this morning and could not remember how to turn on her TV and felt anxious and confused. She denies headache, vomiting, diarrhea, abdominal pain, dysuria, chest pain. She did feel sick to her stomach. ROS: A 10-point review of systems, other than pertinent positives and negatives as stated per HPI, is otherwise negative Past medical history: No additional pertinent history Past Surgical history: No additional pertinent history Social history: No additional pertinent history Family history: No additional pertinent history PHYSICAL EXAM General: AOx4, GCS = 15, No distress HEENT: dry mucous membrane Neck: supple, no meningismus, no Kernig or Brudzinski Cardiac: S1S2 RRR Respiratory: CTAB, no crackles or rales, no wheezing Abdomen: Soft, nontender, no rebound or guarding, nondistended, no pulsatile mass. Back: nontender Musculoskeletal: NVI distally, no deformity Neuro: No focal deficits, CN 2 - 12 WNL. - Related Data Allergies Allergy/AdvReac Type Severity Reaction Status Date / Time No Known Allergies Allergy Verified 04/01/20 01:46 Home Meds: Home Meds Aspirin [[place] Aspirin EC] 81 mg PO DAILY 10/13/16 [History] Sertraline HCl 100 mg PO DAILY 10/13/16 [History] Simvastatin [Zocor] 20 mg PO BEDTIME 10/13/16 [History] Insulin Aspart [NovoLOG] 12 units SUBCUT TID 12/24/18 [History] Insulin Detemir [Levemir Flextouch] 30 units SUBCUT BEDTIME 12/24/18 [History] Celecoxib 200 mg PO DAILY 03/18/19 [History] rOPINIRole [Requip] 0.25 mg PO BEDTIME 03/18/19 [History] Losartan [Cozaar] 100 mg PO DAILY #60 tablet 03/21/19 [Rx] Furosemide 1 tab PO DAILY 08/08/19 [History] metFORMIN [Glucophage] 1,000 mg PO BIDMEALS 08/08/19 [History] Metoprolol Succinate [Toprol XL] 25 mg PO DAILY 04/01/20 [History] Multivitamins [Tab-A-Bisi] 1 each PO DAILY 04/01/20 [History] cephALEXin [Keflex] 500 mg PO BID #9 cap 04/01/20 [Rx] Past Medical History HEENT History: Reports: Impaired Vision, Other (See Below) Other HEENT History: wears glasses Cardiovascular History: Reports: High Cholesterol, Hypertension Genitourinary History: Reports: None DAYCARE PROVIDER History: Reports: Musculoskeletal History: Reports: Osteoarthritis Neurological History: Reports: None Psychiatric History: Reports: Depression Endocrine/Metabolic History: Reports: Diabetes, Type II Hematologic History: Reports: None Immunologic History: Reports: None Oncologic (Cancer) History: Reports: Basal Cell Carcinoma Dermatologic History: Reports: Other (See Below) Other Dermatologic History: basal cell carcinoma to face - Infectious Disease History Infectious Disease History: Reports: Chicken Pox, Measles, Mumps - Past Surgical History Head Surgeries/Procedures: Reports: None HEENT Surgical History: Reports: Cataract Surgery, Tonsillectomy GI Surgical History: Reports: Appendectomy Female Surgical History: Reports: Hysterectomy, Salpingo-Oophorectomy Neurological Surgical History: Reports: Lumbar Spine Musculoskeletal Surgical History: Reports: Arthroscopic Knee Social & Family History - Family History Family Medical History: Noncontributory - Caffeine Use Caffeine Use: Reports: Coffee Other Caffeine Use: 1/day Caffeine Use Comment: 1 bottle [employer] Mocha daily ED ROS GENERAL - Review of Systems Review Of Systems: Comprehensive ROS is negative, except as noted in HPI. ED EXAM, GENERAL - Physical Exam Exam: See Below EKG INTERPRETATION EKG Interpretation Comments: Bpm, NSR, normal QRS interval, no STEMI. EKG and rhythm strip interpreted by me at Course - Vital Signs Last Recorded V/S: Last Vital Signs Temp 97.8 F 07/25/20 07:58 Pulse 85 05/08/20 10:20 Resp 18 05/08/20 10:13 BP 197/89 H 05/08/20 10:20 Pulse Ox 96 05/08/20 10:13 - Orders/Labs/Meds Orders: Active Orders 24 hr Category Date Time Status Cardiac Monitoring [RC] . DIRECTED Care 05/08/20 08:03 Active EKG Documentation Completion [RC] STAT Care 05/08/20 08:03 Active Sodium Chloride 0.9% [Saline Flush] Med 05/08/20 08:09 Active 10 ml FLUSH ASDIRECTED PRN Sodium Chloride 0.9% [Saline Flush] Med 05/08/20 08:09 Active 2.5 ml FLUSH ASDIRECTED PRN Saline Lock Insert [OM.PC] Stat Oth 05/08/20 08:03 Ordered Medication Orders Sodium Chloride (Saline Flush) 10 ml FLUSH ASDIRECTED PRN PRN Reason: Keep Vein Open Last Admin: 05/08/20 10:21 Dose: 10 ml Documented by: JULIANA Sodium Chloride (Saline Flush) 2.5 ml FLUSH ASDIRECTED PRN PRN Reason: Keep Vein Open Last Admin: 05/08/20 10:21 Dose: 2.5 ml Documented by: JULIANA Labs: Laboratory Tests 05/08/20 05/08/20 05/08/20 Range/Units 08:45 08:45 08:47 WBC 8.79 (4.0-11.0) K/uL RBC 4.34 (4.30-5.90) M/uL Hgb 13.0 (12.0-16.0) g/dL Hct 38.6 (36.0-46.0) % MCV 88.9 (80.0-98.0) fL MCH 30.0 (27.0-32.0) pg MCHC 33.7 (31.0-37.0) g/dL RDW Std Deviation 46.3 (28.0-62.0) fl RDW Coeff of Renard 14 (11.0-15.0) % Plt Count 154 (150-400) K/uL MPV 9.90 (7.40-12.00) fL Neut % (Auto) 67.6 (48.0-80.0) % Lymph % (Auto) 20.1 (16.0-40.0) % [place] % (Auto) 9.7 (0.0-15.0) % Eos % (Auto) 2.4 (0.0-7.0) % Baso % (Auto) 0.2 (0.0-1.5) % Neut # (Auto) 5.9 H (1.4-5.7) K/uL Lymph # (Auto) 1.8 (0.6-2.4) K/uL [place] # (Auto) 0.9 H (0.0-0.8) K/uL Eos # (Auto) 0.2 (0.0-0.7) K/uL Baso # (Auto) 0.0 (0.0-0.1) K/uL Nucleated RBC % 0.0 /100WBC Nucleated RBCs # 0 K/uL INR 0.97 Sodium (136-145) mmol/L Potassium (3.5-5.1) mmol/L Chloride (98-107) mmol/L Carbon Dioxide (21.0-32.0) mmol/L BUN (7.0-18.0) mg/dL Creatinine (0.6-1.0) mg/dL Est Cr Clr Drug Dosing mL/min Estimated GFR (MDRD) ml/min Glucose (74-106) mg/dL Calcium (8.5-10.1) mg/dL Phosphorus (2.6-4.7) mg/dL Magnesium (1.8-2.4) mg/dL Total Bilirubin (0.2-1.0) mg/dL AST (15-37) IU/L ALT (14-63) IU/L Alkaline Phosphatase (46-116) U/L Troponin I (0.000-0.056) ng/mL Total Protein (6.4-8.2) g/dL Albumin (3.4-5.0) g/dL Globulin (2.6-4.0) g/dL Albumin/Globulin Ratio (0.9-1.6) Urine Color YELLOW Urine Appearance CLEAR Urine pH 7.0 (5.0-8.0) Ur Specific [place] 1.015 (1.001-1.035) Urine Protein TRACE H (NEGATIVE) mg/dL Urine Glucose (UA) NEGATIVE (NEGATIVE) mg/dL Urine Ketones NEGATIVE (NEGATIVE) mg/dL Urine Occult Blood NEGATIVE (NEGATIVE) Urine Nitrite NEGATIVE (NEGATIVE) Urine Bilirubin NEGATIVE (NEGATIVE) Urine Urobilinogen 0.2 (<2.0) EU/dL Ur Leukocyte Esterase NEGATIVE (NEGATIVE) Urine RBC 0-1 (0-2/HPF) Urine WBC 0-1 (0-5/HPF) Ur Epithelial Cells RARE (NONE-FEW) Urine Bacteria RARE (NEGATIVE) 05/08/20 Range/Units 09:19 WBC (4.0-11.0) K/uL RBC (4.30-5.90) M/uL Hgb (12.0-16.0) g/dL Hct (36.0-46.0) % MCV (80.0-98.0) fL MCH (27.0-32.0) pg MCHC (31.0-37.0) g/dL RDW Std Deviation (28.0-62.0) fl RDW Coeff of Renard (11.0-15.0) % Plt Count (150-400) K/uL MPV (7.40-12.00) fL Neut % (Auto) (48.0-80.0) % Lymph % (Auto) (16.0-40.0) % [place] % (Auto) (0.0-15.0) % Eos % (Auto) (0.0-7.0) % Baso % (Auto) (0.0-1.5) % Neut # (Auto) (1.4-5.7) K/uL Lymph # (Auto) (0.6-2.4) K/uL [place] # (Auto) (0.0-0.8) K/uL Eos # (Auto) (0.0-0.7) K/uL Baso # (Auto) (0.0-0.1) K/uL Nucleated RBC % /100WBC Nucleated RBCs # K/uL INR Sodium 133 L (136-145) mmol/L Potassium 4.2 (3.5-5.1) mmol/L Chloride 96 L (98-107) mmol/L Carbon Dioxide 28.7 (21.0-32.0) mmol/L BUN 25 H (7.0-18.0) mg/dL Creatinine 1.1 H (0.6-1.0) mg/dL Est Cr Clr Drug Dosing 31.81 mL/min Estimated GFR (MDRD) 46.9 ml/min Glucose 89 (74-106) mg/dL Calcium 9.6 (8.5-10.1) mg/dL Phosphorus 2.8 (2.6-4.7) mg/dL Magnesium 1.8 (1.8-2.4) mg/dL Total Bilirubin 0.5 (0.2-1.0) mg/dL AST 30 (15-37) IU/L ALT 28 (14-63) IU/L Alkaline Phosphatase 53 (46-116) U/L Troponin I < 0.050 (0.000-0.056) ng/mL Total Protein 7.5 (6.4-8.2) g/dL Albumin 4.1 (3.4-5.0) g/dL Globulin 3.4 (2.6-4.0) g/dL Albumin/Globulin Ratio 1.2 (0.9-1.6) Urine Color Urine Appearance Urine pH (5.0-8.0) Ur Specific [place] (1.001-1.035) Urine Protein (NEGATIVE) mg/dL Urine Glucose (UA) (NEGATIVE) mg/dL Urine Ketones (NEGATIVE) mg/dL Urine Occult Blood (NEGATIVE) Urine Nitrite (NEGATIVE) Urine Bilirubin (NEGATIVE) Urine Urobilinogen (<2.0) EU/dL Ur Leukocyte Esterase (NEGATIVE) Urine RBC (0-2/HPF) Urine WBC (0-5/HPF) Ur Epithelial Cells (NONE-FEW) Urine Bacteria (NEGATIVE) Meds: Medications Generic Name Dose Route Start Last Admin Trade Name Freq PRN Reason Stop Dose Admin Sodium Chloride 10 ml 05/08/20 08:09 05/08/20 10:21 Saline Flush FLUSH 10 ml ASDIRECTED PRN Administration Keep Vein Open Sodium Chloride 2.5 ml 05/08/20 08:09 05/08/20 10:21 Saline Flush FLUSH 2.5 ml ASDIRECTED PRN Administration Keep Vein Open Discontinued Medications Generic Name Dose Route Start Last Admin Trade Name Freq PRN Reason Stop Dose Admin Lactated Ringer's 1,000 mls @ 999 mls/hr 05/08/20 08:03 05/08/20 08:45 Ringers, Lactated IV 05/08/20 09:03 999 mls/hr .BOLUS ONE Administration Metoprolol Tartrate 5 mg 05/08/20 10:12 05/08/20 10:20 Lopressor IVPUSH 05/08/20 10:13 5 mg ONETIME ONE Administration - Re-Assessments/Exams Free Text/Narrative Re-Assessment/Exam: 05/08/20 10:11 Blood pressure = 190/76, will give 5mg IV metoprolol. 05/08/20 10:52 After IV metoprolol 5mg and observation in the ER, patient improved clinically and is currently stable for discharge. I performed a repeat exam and did not appreciate new abnormal findings. Patient exhibits improved vital signs and has a normal gait. I advised the patient to return to the ER for reevaluation if symptoms worsened, including fever, worsening confusion, or any other worrisome symptoms. I instructed the patient to follow up with their PCP within 2-3 days. MEDICAL DECISION MAKING: I reviewed the patients past medical records, lab and radiographic findings. I discussed the case with the patient. My differential diagnosis included: Patient presented with altered mental status, her triage vital signs demonstrated markedly elevated blood pressure. Her blood glucose was normal, CT head was unremarkable, there is no signs of ICH or CVA, chest x- ray did not reveal any signs of infection, UA did not demonstrate UTI, electrolytes were unremarkable, including renal function, troponin was unremarkable with a nonischemic EKG, I do not suspect ACS or cardiac event. Her blood pressure improved after IV metoprolol in the ER. Departure - Departure Time of Disposition: 10:55 Disposition: Home, Self-Care 01 Condition: Good Clinical Impression: Hypertension, AMS (altered mental status) - Discharge Information *PRESCRIPTION DRUG MONITORING PROGRAM REVIEWED*: Not Applicable *COPY OF PRESCRIPTION DRUG MONITORING REPORT IN PATIENT [place]: Not Applicable Instructions: Preventing Hypertension Referrals: PCP,None [Primary Care Provider] - Forms: ED Department Discharge Additional Instructions: The following information is given to patients seen in the emergency department who are being discharged to home. This information is to outline your options for follow-up care. We provide all patients seen in our emergency department with a follow-up referral. The need for follow-up, as well as the timing and circumstances, are variable depending upon the specifics of your emergency department visit. If you don't have a primary care physician on staff, we will provide you with a referral. We always advise you to contact your personal physician following an emergency department visit to inform them of the circumstance of the visit and for follow-up with them and/or the need for any referrals to a consulting specialist. The emergency department will also refer you to a specialist when appropriate. This referral assures that you have the opportunity for follow-up care with a specialist. All of these measure are taken in an effort to provide you with optimal care, which includes your follow-up. Under all circumstances we always encourage you to contact your private physician who remains a resource for coordinating your care. When calling for follow-up care, please make the office aware that this follow-up is from your recent emergency room visit. If for any reason you are refused follow-up, please contact the [facility] Emergency Department at and asked to speak to the emergency department charge nurse. If you do not have a primary care doctor, please follow up with the clinics below within 3-5 days. [facility] - [facility] [address] [place] [id number] [address] Sepsis Event Note (ED) - Evaluation Sepsis Screening Result: No Definite Risk - Focused Exam Vital Signs: Vital Signs Temp Pulse Pulse Resp BP BP Pulse Ox 05/08/20 10:20 85 197/89 H 05/08/20 10:13 82 18 190/76 H 96 05/08/20 08:53 82 18 180/79 H 95 05/08/20 07:58 97.8 F 88 18 197/110 H 97 - My Orders Last 24 Hours: My Active Orders 05/08/20 08:03 Cardiac Monitoring [RC] . DIRECTED EKG Documentation Completion [RC] STAT Saline Lock Insert [OM.PC] Stat 05/08/20 08:09 Sodium Chloride 0.9% [Saline Flush] 10 ml FLUSH ASDIRECTED PRN Sodium Chloride 0.9% [Saline Flush] 2.5 ml FLUSH ASDIRECTED PRN - Assessment/Plan Last 24 Hours: My Active Orders 05/08/20 08:03 Cardiac Monitoring [RC] . DIRECTED EKG Documentation Completion [RC] STAT Saline Lock Insert [OM.PC] Stat 05/08/20 08:09 Sodium Chloride 0.9% [Saline Flush] 10 ml FLUSH ASDIRECTED PRN Sodium Chloride 0.9% [Saline Flush] 2.5 ml FLUSH ASDIRECTED PRN
[2020-05-08] MEDS ORDERED: Sodium Chloride 0.9% 2.5 ML Syringe FLUSH PRN (08:09)
[2020-05-08] MEDS ORDERED: Sodium Chloride 0.9% 10 ML Syringe FLUSH PRN (08:09)
--- NOTE | 2020-05-08 09:06 | CR ---
HISTORY: Nausea. TECHNIQUE: One view of the chest. COMPARISON: 03/12/2019. FINDINGS: Cardiac size and pulmonary vasculature are within normal limits. There is no acute lung infiltrate or pulmonary edema. No pneumothorax or pleural effusion. Degenerative changes of the spine and shoulders. IMPRESSION: No acute disease. Dictated by Mau Camp MD @ 05/08/2020 9:04:59 AM Dictated by: Mau Camp MD @ 05/08/2020 09:05:05 (Electronically Signed)
--- NOTE | 2020-05-08 09:53 | CT ---
HISTORY: Confusion. TECHNIQUE: Noncontrast head CT. COMPARISON: 03/12/2019. FINDINGS: There is no acute ischemic infarct or acute intracranial hemorrhage. Areas of white matter low attenuation are nonspecific but likely reflect sequelae of chronic small vessel ischemic changes. There is no mass effect or midline shift. No hydrocephalus. No extra-axial collection. Mastoid air cells are clear. Partial opacification of the left maxillary sinus may indicate chronic sinusitis given the higher attenuation within the sinus. Secretions within the left sphenoid sinus. No skull fracture. IMPRESSION: 1. No acute intracranial disease. 2. Mild generalized volume loss and chronic small vessel ischemic changes. 3. Chronic left maxillary sinusitis. Dictated by Mau Camp MD @ 05/08/2020 9:52:30 AM Please note that all CT scans at this facility use dose modulation, iterative reconstruction, and/or weight-based dosing when appropriate to reduce radiation dose to as low as reasonably achievable. Dictated by: Mau Camp MD @ 05/08/2020 09:52:35 (Electronically Signed)
[2020-05-08 09:59] LABS: BLOOD UREA NITROGEN,BUN 25 mg/dL (7.0-18.0); CARBON DIOXIDE,CO2 28.7 mmol/L (21.0-32.0); CHLORIDE,CL 96 mmol/L (98-107); GLUCOSE RANDOM 89 mg/dL (74-106); POTASSIUM,K 4.2 mmol/L (3.5-5.1); SODIUM,NA 133 mmol/L (136-145)
[2020-05-08] MEDS ORDERED: Metoprolol Tartrate 5 MG/5 ML SDV IVPUSH ONE (10:12)
[2020-05-08 11:17] VITALS: BP 197/92; PULSE 76
== END 2020-05-08 11:30 | disposition home or self-care (01) ==
LOC: MW.ED 07:47
DX: R41.82 Altered mental status, unspecified (principal); E78.00 Pure hypercholesterolemia, unspecified; I10 Essential (primary) hypertension; M19.90 Unspecified osteoarthritis, unspecified site; F32.9 Major depressive disorder, single episode, unspecified; E11.9 Type 2 diabetes mellitus without complications; Z79.82 Long term (current) use of aspirin; Z79.4 Long term (current) use of insulin; Z79.899 Other long term (current) drug therapy
CPT/HCPCS: 36415; 70450; 71045; 80053; 81001; 83735; 84100; 84484; 85025; 85610; 93005; 96361; 96374; 99285; J3490; J7120; 93010; 99283

== ENCOUNTER 2020-05-09 13:06 | Emergency (ER) | payer MEDICARE, MEDICAID, OTHER, SELFPAY ==
[2020-05-09] MEDS ORDERED: Sodium Chloride 0.9% 2.5 ML Syringe FLUSH PRN (13:13)
[2020-05-09] MEDS ORDERED: Sodium Chloride 0.9% 10 ML Syringe FLUSH PRN (13:13)
[2020-05-09 13:57] LABS: BLOOD UREA NITROGEN,BUN 23 mg/dL (7.0-18.0); CARBON DIOXIDE,CO2 27.5 mmol/L (21.0-32.0); CHLORIDE,CL 94 mmol/L (98-107); GLUCOSE RANDOM 81 mg/dL (74-106); POTASSIUM,K 3.6 mmol/L (3.5-5.1); SODIUM,NA 130 mmol/L (136-145)
--- NOTE | 2020-05-09 14:11 | CR ---
INDICATION: Unresponsive, possible aspiration. COMPARISON: 05/08/2020. TECHNIQUE: Single AP view of the chest. FINDINGS: The lung volumes are lower compared to the prior. Minimal lung base opacities may be atelectasis. No definite focal airspace consolidation. No pulmonary edema. No pneumothorax. A small pleural effusion would be difficult to exclude. Atherosclerotic changes. Cardiac and mediastinal contours are unchanged. Bones appear stable. IMPRESSION: Low lung volumes with areas of lower lobe atelectasis. Dictated by Paul Jordan MD @ May 09 2020 2:07PM (Electronically Signed)
[2020-05-09] MEDS ORDERED: Metoprolol Succinate 25 MG Tab.ER PO ONE (14:19)
[2020-05-09] MEDS ORDERED: Metoprolol Tartrate 25 MG Tab PO ONE (14:19)
[2020-05-09] MEDS ORDERED: Losartan 50 MG Tab PO ONE (14:20)
--- NOTE | 2020-05-09 14:31 | CT ---
HISTORY: Lethargy. TECHNIQUE: Noncontrast head CT. COMPARISON: 05/08/2020. FINDINGS: There is no acute intracranial hemorrhage or acute ischemic infarct. Areas of white matter low attenuation are nonspecific but likely reflect sequelae of chronic small vessel ischemic changes. There is no mass-effect or midline shift. No hydrocephalus. No extra-axial collection or hematoma. There is partial opacification of the left maxillary sinus with internal high attenuation which may indicate chronic sinusitis changes. Mastoid air cells are clear. No skull fracture. IMPRESSION: 1. No acute intracranial disease. 2. Chronic small vessel ischemic changes and chronic mild generalized volume loss. 3. Chronic partial opacification of the left maxillary sinus with internal higher attenuation suggesting chronic sinusitis changes. Dictated by Mau Camp MD @ 05/09/2020 2:29:08 PM Please note that all CT scans at this facility use dose modulation, iterative reconstruction, and/or weight-based dosing when appropriate to reduce radiation dose to as low as reasonably achievable. Dictated by: Mau Camp MD @ 05/09/2020 14:29:14 (Electronically Signed)
--- NOTE | 2020-05-09 14:51 | EDM.PDOC ---
ED HPI GENERAL MEDICAL PROBLEM - General Chief Complaint: Neuro Symptoms/Deficits Stated Complaint: LOW BLOOD SUGAR Time Seen by Provider: 05/09/20 13:13 Source of Information: Reports: Patient, EMS, Family, Old Records History Limitations: Reports: No Limitations - History of Present Illness INITIAL COMMENTS - FREE TEXT/NARRATIVE: This is an 89-year-old female with past medical history of type 2 diabetes mellitus, hypertension, hyponatremia presenting with altered mental status. She was actually seen in our emergency department yesterday with altered mental status. At that visit she had taken her insulin but could not figure out how to turn on her television and she felt anxious and confused. She was able to discharge home from the ED. This afternoon, the patient presents by EMS. Her family members found her slumped over and unresponsive, drooling on herself. They called 911. When paramedics arrived, her blood sugar was in the 60s. They established an IV and gave 5% dextrose and her mental status rapidly normalized. She denied any complaints. Patient's daughter states that the patient's grandson gave the patient some insulin but they are not sure if she actually ate a meal or not after receiving the insulin. Here in the emergency department, the patient has no complaints other than being tired. She denies any complaints of pain, shortness of breath, or recent illness. She cannot remember if she ate earlier today or if she took her morning medications. - Related Data Allergies Allergy/AdvReac Type Severity Reaction Status Date / Time No Known Allergies Allergy Verified 05/09/20 13:45 Home Meds: Home Meds Aspirin [[place] Aspirin EC] 81 mg PO DAILY 10/13/16 [History] Sertraline HCl 100 mg PO DAILY 10/13/16 [History] Simvastatin [Zocor] 20 mg PO BEDTIME 10/13/16 [History] Insulin Aspart [NovoLOG] 12 units SUBCUT TID 12/24/18 [History] Insulin Detemir [Levemir Flextouch] 30 units SUBCUT BEDTIME 12/24/18 [History] Celecoxib 200 mg PO DAILY 03/18/19 [History] rOPINIRole [Requip] 0.25 mg PO BEDTIME 03/18/19 [History] Losartan [Cozaar] 100 mg PO DAILY #60 tablet 03/21/19 [Rx] Furosemide 1 tab PO DAILY 08/08/19 [History] metFORMIN [Glucophage] 1,000 mg PO BIDMEALS 08/08/19 [History] Metoprolol Succinate [Toprol XL] 25 mg PO DAILY 04/01/20 [History] Multivitamins [Tab-A-Bisi] 1 each PO DAILY 04/01/20 [History] Past Medical History HEENT History: Reports: Impaired Vision, Other (See Below) Other HEENT History: wears glasses Cardiovascular History: Reports: High Cholesterol, Hypertension Respiratory History: Reports: None Genitourinary History: Reports: None [employer] History: Reports: Musculoskeletal History: Reports: Osteoarthritis Neurological History: Reports: None Psychiatric History: Reports: Depression Endocrine/Metabolic History: Reports: Diabetes, Type II Hematologic History: Reports: None Immunologic History: Reports: None Oncologic (Cancer) History: Reports: Basal Cell Carcinoma Dermatologic History: Reports: Other (See Below) Other Dermatologic History: basal cell carcinoma to face - Infectious Disease History Infectious Disease History: Reports: None - Past Surgical History Head Surgeries/Procedures: Reports: None HEENT Surgical History: Reports: Cataract Surgery, Tonsillectomy GI Surgical History: Reports: Appendectomy Female Surgical History: Reports: Hysterectomy, Salpingo-Oophorectomy Neurological Surgical History: Reports: Lumbar Spine Musculoskeletal Surgical History: Reports: Arthroscopic Knee Social & Family History - Family History Family Medical History: Noncontributory - Tobacco Use Smoking Status *Q: Never Smoker - Caffeine Use Caffeine Use: Reports: Coffee Other Caffeine Use: 1/day Caffeine Use Comment: 1 bottle Starbucks Mocha daily - Recreational Drug Use Recreational Drug Use: No ED ROS GENERAL - Review of Systems Review Of Systems: See Below Constitutional: Denies: Fever, Chills HEENT: Reports: No Symptoms. Denies: Vision Change Respiratory: Denies: Shortness of Breath Cardiovascular: Denies: Chest Pain Endocrine: Reports: Fatigue GI/Abdominal: Denies: Abdominal Pain, Nausea, Vomiting : Denies: Flank Pain Musculoskeletal: Denies: Back Pain Skin: Denies: Rash Neurological: Denies: Confusion, Headache, Seizure, Syncope, Weakness ED EXAM, NEURO - Physical Exam Exam: See Below Text/Narrative:: Vital signs reviewed. Nursing notes reviewed. Constitutional: Awake, alert, non-distressed. Head: Normocephalic, atraumatic. Eyes: EOMI, conjunctiva normal, no discharge, no scleral icterus. Ears, Nose, Throat: External ears and nose normal, moist oral mucosa. Cardiovascular: 2+ radial pulse, capillary refill less than 2 seconds. RRR no MRG Pulmonary: normal work of breathing, no accessory muscle use. CTA BL Abdomen/GI: Soft, nontender, nondistended, no guarding or rigidity, no masses. Musculoskeletal: No deformities. Integumentary: Appropriate color for ethnicity, warm, dry, no pallor or jaundice, no rash. Neurologic: Awake, alert, and oriented x3. Cranial nerves II through XII intact. No facial droop or dysarthria. No temporal artery tenderness. Supple neck. No pronator drift. Normal [id number] and [id number]. 5/5 strength in all extremities. Sensation intact to light touch x4. Able to sit, stand, and ambulate at baseline. Psychiatric: Appropriate mood and affect, normal thought process. EKG INTERPRETATION EKG Interpretation Comments: 12-Lead ECG Interpretation Acquired: 2:10 PM Rhythm: Sinus rhythm Rate: 69 bpm [place]: Normal Intervals: Normal Ectopy: PACs Ischemic Changes: None apparent RV Strain: No obvious RV strain pattern. ST Segments/T-Waves: No notable changes Interpretation: Unremarkable Course - Vital Signs Text/Narrative:: Patient hypertensive but hemodynamically stable, afebrile, well-appearing, looks nontoxic. Differential diagnosis includes but is not limited to: CVA, hepatic or hypertensive encephalopathy, hypo-/hyperglycemia, hypo-/hyperthermia, opiate overdose, alcohol intoxication, electrolyte abnormality, uremia, traumatic injury, toxic substances, intracerebral tumor, thyrotoxicosis, infection, psychiatric condition, seizure, sepsis, and many others. CBC shows mild leukocytosis. Lactate is normal which argues against a seizure. Renal panel shows mild hyponatremia, mild creatinine elevation which appears stable. Glucose 81. LFTs are normal, troponin is negative. Head CT and chest x-ray showed no acute findings. Patient has no evidence of altered mental status or a focal neurologic deficit here in the ED. Symptomatology is not consistent with a CVA or TIA. She seems to have returned to her baseline after being given IV dextrose by paramedics. I believe that the episode of hypoglycemia explains her transient change in mental status. She is back to normal now after being given dextrose. We did feed her a full meal and checked her glucose several times, it remained in the 80s. She has no complaints other than being tired. She denies any headache, chest discomfort, shortness of breath, or any pain. She has no notable electrolyte derangements (except mild hyponatremia), presentation not consistent with a seizure, and she does not display a toxidrome. I did speak with the patient's daughter who has no other concerns. I think we can safely plan to discharge her home. She has a primary care appointment scheduled for 2 days from now. I did instruct to the patient's daughter to hold her long-acting insulin until this follow-up primary care appointment but continue the rapid acting insulin. I also instructed the daughter to check on the patient several times next day or 2 until her appointment. Plan: Patient is stable to discharge home with outpatient primary care follow- up. Strict emergency department return precautions were provided, patient indicated understanding. All questions were answered prior to departure. Discharged in good condition. Last Recorded V/S: Last Vital Signs Temp 35.3 C L 05/09/20 13:06 Pulse 87 05/09/20 16:28 Resp 16 05/09/20 16:28 BP 254/103 H 05/09/20 16:28 Pulse Ox 91 L 05/09/20 16:28 - Orders/Labs/Meds Orders: Active Orders 24 hr Category Date Time Status Cardiac Monitoring [RC] . DIRECTED Care 05/09/20 13:13 Active EKG 12 Lead [EKG Documentation Completion] [RC] STAT Care 05/09/20 13:14 Active Pulse Oximetry [RC] ASDIRECTED Care 05/09/20 13:13 Active Saline Lock Insert [OM.PC] Stat Oth 05/09/20 13:13 Ordered Labs: Laboratory Tests 05/09/20 05/09/20 05/09/20 Range/Units 13:15 13:15 13:15 WBC 14.02 H (4.0-11.0) K/uL RBC 4.66 (4.30-5.90) M/uL Hgb 14.1 (12.0-16.0) g/dL Hct 41.8 (36.0-46.0) % MCV 89.7 (80.0-98.0) fL MCH 30.3 (27.0-32.0) pg MCHC 33.7 (31.0-37.0) g/dL RDW Std Deviation 46.4 (28.0-62.0) fl RDW Coeff of Renard 14 (11.0-15.0) % Plt Count 150 (150-400) K/uL MPV 9.20 (7.40-12.00) fL Neut % (Auto) 84.7 H (48.0-80.0) % Lymph % (Auto) 8.5 L (16.0-40.0) % Person % (Auto) 6.5 (0.0-15.0) % Eos % (Auto) 0.2 (0.0-7.0) % Baso % (Auto) 0.1 (0.0-1.5) % Neut # (Auto) 11.9 H (1.4-5.7) K/uL Lymph # (Auto) 1.2 (0.6-2.4) K/uL Person # (Auto) 0.9 H (0.0-0.8) K/uL Eos # (Auto) 0.0 (0.0-0.7) K/uL Baso # (Auto) 0.0 (0.0-0.1) K/uL Nucleated RBC % 0.0 /100WBC Nucleated RBCs # 0 K/uL Lactate 1.9 (0.20-2.00) mmol/L Sodium 130 L (136-145) mmol/L Potassium 3.6 (3.5-5.1) mmol/L Chloride 94 L (98-107) mmol/L Carbon Dioxide 27.5 (21.0-32.0) mmol/L BUN 23 H (7.0-18.0) mg/dL Creatinine 1.1 H (0.6-1.0) mg/dL Est Cr Clr Drug Dosing TNP Estimated GFR (MDRD) 46.9 ml/min Glucose 81 (74-106) mg/dL POC Glucose (60-110) mg/dL Calcium 9.8 (8.5-10.1) mg/dL Total Bilirubin 0.2 (0.2-1.0) mg/dL AST 34 (15-37) IU/L ALT 27 (14-63) IU/L Alkaline Phosphatase 53 (46-116) U/L Troponin I < 0.050 (0.000-0.056) ng/mL Total Protein 8.3 H (6.4-8.2) g/dL Albumin 4.2 (3.4-5.0) g/dL Globulin 4.1 H (2.6-4.0) g/dL Albumin/Globulin Ratio 1.0 (0.9-1.6) 05/09/20 Range/Units 15:24 WBC (4.0-11.0) K/uL RBC (4.30-5.90) M/uL Hgb (12.0-16.0) g/dL Hct (36.0-46.0) % MCV (80.0-98.0) fL MCH (27.0-32.0) pg MCHC (31.0-37.0) g/dL RDW Std Deviation (28.0-62.0) fl RDW Coeff of Renard (11.0-15.0) % Plt Count (150-400) K/uL MPV (7.40-12.00) fL Neut % (Auto) (48.0-80.0) % Lymph % (Auto) (16.0-40.0) % Person % (Auto) (0.0-15.0) % Eos % (Auto) (0.0-7.0) % Baso % (Auto) (0.0-1.5) % Neut # (Auto) (1.4-5.7) K/uL Lymph # (Auto) (0.6-2.4) K/uL Person # (Auto) (0.0-0.8) K/uL Eos # (Auto) (0.0-0.7) K/uL Baso # (Auto) (0.0-0.1) K/uL Nucleated RBC % /100WBC Nucleated RBCs # K/uL Lactate (0.20-2.00) mmol/L Sodium (136-145) mmol/L Potassium (3.5-5.1) mmol/L Chloride (98-107) mmol/L Carbon Dioxide (21.0-32.0) mmol/L BUN (7.0-18.0) mg/dL Creatinine (0.6-1.0) mg/dL Est Cr Clr Drug Dosing Estimated GFR (MDRD) ml/min Glucose (74-106) mg/dL POC Glucose 86 (60-110) mg/dL Calcium (8.5-10.1) mg/dL Total Bilirubin (0.2-1.0) mg/dL AST (15-37) IU/L ALT (14-63) IU/L Alkaline Phosphatase (46-116) U/L Troponin I (0.000-0.056) ng/mL Total Protein (6.4-8.2) g/dL Albumin (3.4-5.0) g/dL Globulin (2.6-4.0) g/dL Albumin/Globulin Ratio (0.9-1.6) Meds: Medications Discontinued Medications Generic Name Dose Route Start Last Admin Trade Name Freq PRN Reason Stop Dose Admin Losartan Potassium 100 mg 05/09/20 14:20 05/09/20 15:01 Cozaar PO 05/09/20 14:21 100 mg ONETIME ONE Administration Metoprolol Succinate 25 mg 05/09/20 14:19 05/09/20 15:02 Toprol Xl PO 05/09/20 14:20 25 mg ONETIME ONE Administration Metoprolol Tartrate 25 mg 05/09/20 14:19 Lopressor PO 05/09/20 14:20 ONETIME ONE Sodium Chloride 2.5 ml 05/09/20 13:13 05/09/20 15:04 Saline Flush FLUSH 2.5 ml ASDIRECTED PRN Administration Keep Vein Open Sodium Chloride 10 ml 05/09/20 13:13 05/09/20 15:03 Saline Flush FLUSH 10 ml ASDIRECTED PRN Administration Keep Vein Open Departure - Departure Time of Disposition: 16:10 Disposition: Home, Self-Care 01 Condition: Good Clinical Impression: Transient alteration of awareness, Hypoglycemia associated with diabetes, Hyponatremia Hypertension Qualifiers: Hypertension type: essential hypertension Qualified Code(s): I10 - Essential (primary) hypertension - Discharge Information *PRESCRIPTION DRUG MONITORING PROGRAM REVIEWED*: Not Applicable *COPY OF PRESCRIPTION DRUG MONITORING REPORT IN PATIENT MEGHANA: Not Applicable Instructions: Insulin Treatment for Diabetes Mellitus, Preventing Diabetes Mellitus Complications, Hypoglycemia, [id number] Referrals: [facility] - Family Practice [Provider Group] - 1 Week (For reevaluation of your insulin treatment regimen.) Forms: ED Department Discharge Additional Instructions: Thank you for choosing the [facility] emergency department in [place] for your medical needs today. It was a pleasure caring for you. You were seen in the emergency department for altered mental status. When the paramedics arrived, your blood sugar was low. I believe that your symptoms were due to low blood sugar. I would like for you to stay with your family members overnight so they can recheck your blood sugar every few hours and be sure that you are doing okay. I would also hold your long-acting insulin until your follow-up family medicine appointment in 2 days. Your new primary doctor may need to adjust your insulin dosing regimen to help minimize lows in your blood sugar measurements. Please return the emergency department immediately if your symptoms worsen or if you feel worse. The following information is given to patients seen in the emergency department who are being discharged. This information is to outline your options for follow-up care. We provide all patients seen in our emergency department with a follow-up referral. The need for follow-up, as well as the timing and circumstances, are variable depending upon the specifics of your emergency department visit. If you don't have a primary care physician on staff, we will provide you with a referral. We always advise you to contact your personal physician following an emergency department visit to inform them of the circumstance of the visit and for follow-up with them and/or the need for any referrals to a consulting specialist. The emergency department will also refer you to a specialist when appropriate. This referral assures that you have the opportunity for follow-up care with a specialist. All of these measure are taken in an effort to provide you with optimal care, which includes your follow-up. Under all circumstances we always encourage you to contact your private physician who remains a resource for coordinating your care. When calling for follow-up care, please make the office aware that this follow-up is from your recent emergency room visit. If for any reason you are refused follow-up, please contact the [facility] Emergency Department at and asked to speak to the emergency department charge nurse. If you do not have a primary care physician that is caring for you, you can contact these clinics below to set up an appointment to establish care: [facility] - Primary [facility] [address] [place] [address] [facility] [address] [place] [address] Sepsis Event Note (ED) - Evaluation Sepsis Screening Result: No Definite Risk - Focused Exam Vital Signs: Vital Signs Temp Pulse Pulse Resp BP BP Pulse Ox 05/09/20 16:28 87 16 254/103 H 91 L 05/09/20 16:22 86 212/104 H 90 L 05/09/20 16:07 91 194/103 H 96 05/09/20 15:46 189/82 H 05/09/20 15:31 202/110 H 05/09/20 15:16 174/82 H 05/09/20 15:02 82 193/128 H 05/09/20 15:01 193/128 H 05/09/20 15:00 82 193/128 H 96 05/09/20 14:19 80 198/99 H 98 05/09/20 14:04 73 192/85 H 94 L 05/09/20 13:39 58 L 167/69 H 94 L 05/09/20 13:24 60 18 181/77 H 95 05/09/20 13:06 35.3 C L 65 18 213/110 H 97 - My Orders Last 24 Hours: My Active Orders 05/09/20 13:13 Cardiac Monitoring [RC] . DIRECTED Pulse Oximetry [RC] ASDIRECTED Saline Lock Insert [OM.PC] Stat 05/09/20 13:14 EKG 12 Lead [EKG Documentation Completion] [RC] STAT - Assessment/Plan Last 24 Hours: My Active Orders 05/09/20 13:13 Cardiac Monitoring [RC] . DIRECTED Pulse Oximetry [RC] ASDIRECTED Saline Lock Insert [OM.PC] Stat 05/09/20 13:14 EKG 12 Lead [EKG Documentation Completion] [RC] STAT
[2020-05-09 19:15] VITALS: BP 254/103; PULSE 87
== END 2020-05-09 16:53 | disposition home or self-care (01) ==
LOC: MW.ED 13:06
DX: I10 Essential (primary) hypertension (principal); E11.649 Type 2 diabetes mellitus with hypoglycemia without coma; E87.1 Hypo-osmolality and hyponatremia; Z79.82 Long term (current) use of aspirin; Z79.4 Long term (current) use of insulin; Z79.899 Other long term (current) drug therapy; Z90.710 Acquired absence of both cervix and uterus; Z90.49 Acquired absence of other specified parts of digestive tract; Z98.890 Other specified postprocedural states
CPT/HCPCS: 36415; 70450; 71045; 80053; 82962; 83605; 84484; 85025; 93005; 99285; A9270; 93010; 99283

== ENCOUNTER 2020-05-10 09:58 | Inpatient (IN) | payer MEDICARE, OTHER ==
[2020-05-10] MEDS ORDERED: Acetaminophen 500 MG Tab PO ONE (10:11)
[2020-05-10] MEDS ORDERED: Sodium Chloride 0.9% 10 ML Syringe FLUSH PRN (10:11)
[2020-05-10] MEDS ORDERED: Sodium Chloride 0.9% 2.5 ML Syringe FLUSH PRN ×2 (10:11→13:44)
[2020-05-10] MEDS ORDERED: Lactated Ringers 1,000 ML IV ONE (10:42)
[2020-05-10 10:52] LABS: BLOOD UREA NITROGEN,BUN 31 mg/dL (7.0-18.0); CHLORIDE,CL 96 mmol/L (98-107); GLUCOSE RANDOM 175 mg/dL (74-106); POTASSIUM,K 4.2 mmol/L (3.5-5.1); SODIUM,NA 132 mmol/L (136-145)
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
--- NOTE | 2020-05-10 11:51 | CT ---
CT cervical spine Technique: Multiple axial sections through the cervical spine were obtained from above C1 inferiorly to the bottom of T2. Reconstructed sagittal and coronal images were reviewed. Findings: Diffuse disc space narrowing is noted throughout the cervical spine. Diffuse degenerative apophyseal change is noted throughout the cervical spine. Spondylolisthesis is noted at C3-4 and C4-5 as well as C7-T1 compatible with degenerative apophyseal change. Multiple levels of neural foraminal stenosis is seen. Mild central canal stenosis noted at C5-6. No acute fracture is appreciated. Minimal scoliosis is noted. Impression: 1. Osteopenia and diffuse degenerative change. 2. No acute fracture is appreciated. Diagnostic code #2 This report was dictated in MDT
--- NOTE | 2020-05-10 11:54 | CT ---
Head CT Technique: Multiple axial sections through the brain were obtained. Intravenous contrast was not utilized. Comparison: Prior head CT study of 05/08/20. Findings: Ventricles along with basal cisterns and sulci over the convexities are mildly prominent. Decreased density is scattered within portions of the periventricular white matter which I believe is most likely due to small vessel ischemic demyelination change. No evidence of intracranial hemorrhage. No midline shift or mass-effect is appreciated. Bone window settings were reviewed. Fairly prominent mucosal thickening is noted within the left maxillary sinus as well as mild mucosal thickening of the left sphenoid sinus. No air-fluid levels are seen within the paranasal sinuses. Slight opacification within a portion of the frontal sinuses is noted. No acute calvarial finding is appreciated. Mastoid sinuses are clear. Impression: 1. Chronic appearing sinusitis as noted above. 2. Senescent change as noted above. 3. Nothing acute is appreciated. Diagnostic code #2 This report was dictated in MDT
--- NOTE | 2020-05-10 11:58 | CT ---
CT abdomen and pelvis Technique: Multiple axial sections were obtained from above the dome of the diaphragm inferiorly through the pubic symphysis. Intravenous and oral contrast not utilized. Comparison: No prior CT abdomen or pelvis exam is available. Findings: Subcutaneous hematoma is noted lateral to the right hip. No other subcutaneous hematoma is seen. Visualized lung bases show nothing acute. Liver contains no focal abnormality. Spleen shows no focal abnormality. Adrenal glands show no nodule. Kidneys show no hydronephrosis or mass. Aorta shows atherosclerotic calcification without aneurysm. No retroperitoneal adenopathy or mesenteric abnormalities are seen. No pelvic mass or adenopathy is seen. Focal increased stool is noted within the rectum. Appendix is not visualized with certainty. Diffuse degenerative change is noted within the spine. Nothing acute is seen within the visualized osseous structures. Impression: 1. Soft tissue hematoma overlying the right hip. 2. Degenerative change throughout the spine. 3. No acute osseous finding. 4. No acute intra-abdominal anomaly is seen on noncontrast CT study of the abdomen and pelvis. Diagnostic code #2 This report was dictated in MDT
--- NOTE | 2020-05-10 12:07 | CT ---
CT chest Technique: Multiple axial sections through the chest were obtained. Intravenous contrast not utilized. Comparison: No prior chest imaging is available. Findings: Aorta shows atherosclerotic change without aneurysm. Coronary arteries show fairly prominent atherosclerotic calcification. No pericardial thickening is seen. Mediastinum and hilar region show no adenopathy. No axillary adenopathy is identified. No pneumothorax is seen. Calcified granuloma is noted within the right lung base. No acute parenchymal change is appreciated within either lung. No pleural effusions are appreciated. Bone window settings were reviewed. Degenerative change is noted throughout the spine. Mild kyphosis is present. Two old right lower rib fractures are seen which appear healed. No definite acute rib fracture is appreciated. No definite acute abnormality is seen within the thoracic spine. No fracture is seen within the sternum on the reconstructed sagittal images. Impression: 1. Degenerative change and other chronic findings as described above. 2. Nothing acute is appreciated on noncontrast CT study of the chest. Diagnostic code #2 This report was dictated in MDT
--- NOTE | 2020-05-10 13:09 | CR ---
Right shoulder: 3 views of the right shoulder were obtained. Comparison: No prior shoulder exam. Glenohumeral joint and acromioclavicular joint appears within normal limits for age. Osteopenia is seen. Granuloma is noted within the right upper chest. No acute fracture, dislocation or other bony abnormality is appreciated. Impression: 1. Findings as noted above. 2. Nothing acute is appreciated on 3 view right shoulder study. Diagnostic code #2 This report was dictated in MDT
[2020-05-10] MEDS ORDERED: rOPINIRole 0.5 MG Tab PO ONE (13:16)
[2020-05-10] MEDS ORDERED: Acetaminophen 325 MG Tab PO PRN (13:34)
[2020-05-10] MEDS ORDERED: Docusate Sodium 100 MG Cap PO PRN (13:34)
[2020-05-10] MEDS ORDERED: Ondansetron 4 MG/2 ML SDV IVPUSH PRN (13:34)
[2020-05-10 14:21] LABS: HEMOGLOBIN A1C 5.8 % (4.5-6.2)
--- NOTE | 2020-05-10 14:37 | PCM.HP.2 ---
H&P History of Present Illness - General Date of Service: 05/10/20 Admit Problem/Dx: Admission Diagnosis/Problem Admission Diagnosis/Problem Accidental fall Source of Information: Patient, Old Records History Limitations: Reports: No Limitations - History of Present Illness Initial Comments - Free Text/Narative: This 89 year old female with pmh of falls, DM type 2, HTN, and restless legs presented to the ED via EMS today after family found her on the floor in her home. She has been seen in the ED the last two days for concerns of falls, hypoglycemia and AMS. Today she comes in after falling. EMS reports house was unkept and dirty. Patient was sitting on the ground when they arrives. Uziel is unable to describe what has happened. She reports she thinks the walker is unstable and falls over, which causes her to fall over. She denies lightheadedness or dizziness. denies passing out or losing consciousness. She is unsure of what is happening with the falls. She reports recently her Levemir was stopped due to hypoglycemia. She denies fevers or chills. No chest pain or SOB. No palpitations. No abdominal pain, constipation, diarrhea, black or bloody BMs. She reports feet are restless, requip in ED helped. No focal neurological deficits. She denies smoking or alcohol use. In the ED leukocytosis noted at 13,080, lactic acid 3.0, repeat 1.3 after 1 L LR. Na 132, K+ 4.2 Cl 96, CPK 1067, troponin negative. BUN 31, Cr 1.4. COVID negative. Chest CT negative, head ct negative, abdomen pelvis CT negative, revealed R hip hematoma. Cervical neck CT negative as well. BP 140-180/70-80s in the ED. UA pending. Glucose 175. She will be admitted inpatient for falls, la ctic acidosis and dehydration. PCP, Dr Lay SP[joanna with daughter Julianne. Reports she is concerned about BS management. She feels Uziel may be forgetting she gave herself insulin and giving more or not taking it correctly. She is requesting possible at home continuous glucose monitoring. 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 - Related Data Allergies/Adverse Reactions: Allergies Allergy/AdvReac Type Severity Reaction Status Date / Time No Known Allergies Allergy Verified 05/10/20 14:17 Home Medications: Home Meds Aspirin [Mercer Aspirin EC] 81 mg PO DAILY 10/13/16 [History] Sertraline HCl 100 mg PO DAILY 10/13/16 [History] Simvastatin [Zocor] 20 mg PO BEDTIME 10/13/16 [History] Insulin Aspart [NovoLOG] 12 units SUBCUT TID 12/24/18 [History] Insulin Detemir [Levemir Flextouch] 30 units SUBCUT BEDTIME 12/24/18 [History] Celecoxib 200 mg PO DAILY 03/18/19 [History] rOPINIRole [Requip] 0.25 mg PO BEDTIME 03/18/19 [History] Losartan [Cozaar] 100 mg PO DAILY #60 tablet 03/21/19 [Rx] Furosemide 1 tab PO DAILY 08/08/19 [History] metFORMIN [Glucophage] 1,000 mg PO BIDMEALS 08/08/19 [History] Metoprolol Succinate [Toprol XL] 25 mg PO DAILY 04/01/20 [History] Multivitamins [Tab-A-Bisi] 1 each PO DAILY 04/01/20 [History] Past Medical History HEENT History: Reports: Impaired Vision, Other (See Below) Other HEENT History: wears glasses Cardiovascular History: Reports: High Cholesterol, Hypertension Respiratory History: Reports: None Genitourinary History: Reports: None 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: Musculoskeletal History: Reports: Osteoarthritis Neurological History: Reports: None, Other (See Below) (mild cognitive impairment) Psychiatric History: Reports: Depression Endocrine/Metabolic History: Reports: Diabetes, Type II Hematologic History: Reports: None Immunologic History: Reports: None Oncologic (Cancer) History: Reports: Basal Cell Carcinoma Dermatologic History: Reports: Other (See Below) Other Dermatologic History: basal cell carcinoma to face - Infectious Disease History Infectious Disease History: Reports: None - Past Surgical History Head Surgeries/Procedures: Reports: None HEENT Surgical History: Reports: Cataract Surgery, Tonsillectomy GI Surgical History: Reports: Appendectomy Female Surgical History: Reports: Hysterectomy, Salpingo-Oophorectomy Neurological Surgical History: Reports: Lumbar Spine Musculoskeletal Surgical History: Reports: Arthroscopic Knee Social & Family History - Family History Family Medical History: Noncontributory - Tobacco Use Smoking Status *Q: Unknown Ever Smoked - Caffeine Use Caffeine Use: Reports: Coffee Other Caffeine Use: 1/day Caffeine Use Comment: 1 bottle Dory Vaughan daily - Alcohol Use Alcohol Use History: No - Living Situation & Occupation Living situation: Reports: Alone Occupation: Retired H&P Review of Systems - Review of Systems: Review Of Systems: See Below General: Reports: Weakness (generalized) HEENT: Denies: Headaches, Sinus Congestion Pulmonary: Reports: No Symptoms. Denies: Shortness of Breath, Wheezing, Cough, Sputum Cardiovascular: Reports: Edema (pedal). Denies: Chest Pain, Palpitations, Lightheadedness, Syncope Gastrointestinal: Reports: No Symptoms. Denies: Abdominal Pain, Black Stool, Bloody Stool, Nausea, Vomiting Genitourinary: Reports: No Symptoms. Denies: Dysuria, Frequency, Burning Skin: Reports: Bruising, Wound Psychiatric: Reports: No Symptoms Neurological: Reports: No Symptoms Hematologic/Lymphatic: Reports: No Symptoms Immunologic: Reports: No Symptoms Exam - Exam Exam: See Below - Vital Signs Vital Signs: Last Vital Signs Temp 98.9 F 05/10/20 13:45 Pulse 92 05/10/20 13:45 Resp 18 05/10/20 13:45 BP 187/78 H 05/10/20 13:45 Pulse Ox 98 05/10/20 13:45 Weight: 83.915 kg - Exam General: Alert, Oriented, Cooperative HEENT: Conjunctiva Clear, Mucosa Moist & [place], Posterior Pharynx Clear, Other (bite loida to lower lip r lateral edge) Lungs: Clear to Auscultation, Normal Respiratory Effort Cardiovascular: Regular Rate, Regular Rhythm, Normal S1, Normal S2. No: Systolic Murmur GI/Abdominal Exam: Normal Bowel Sounds, Soft, Non-Tender, No Distention Back Exam: Normal Inspection, Full Range of Motion. No: CVA Tenderness (L), CVA Tenderness (R) Extremities: Normal Inspection, Normal Range of Motion, Non-Tender, Pedal Edema (+1 BLE) Skin: Ecchymosis (bruising noted to every limd, all stages of healing. Large bruise to R flank. New forming bruise to R hip, which is tender to palpation. Abrasion to R knee. and another large bruise to L bicep. More bruising noted to abdomen due to insulin injections. Many keratoses noted to trunk and legs.) - Patient Data Lab Results Last 24 hrs: Laboratory Results - last 24 hr 05/10/20 05/10/20 05/10/20 Range/Units 10:04 10:04 10:04 WBC 13.08 H (4.0-11.0) K/uL RBC 4.20 L (4.30-5.90) M/uL Hgb 12.6 (12.0-16.0) g/dL Hct 37.2 (36.0-46.0) % MCV 88.6 (80.0-98.0) fL MCH 30.0 (27.0-32.0) pg MCHC 33.9 (31.0-37.0) g/dL RDW Std Deviation 46.4 (28.0-62.0) fl RDW Coeff of Renard 14 (11.0-15.0) % Plt Count 172 (150-400) K/uL MPV 9.20 (7.40-12.00) fL Neut % (Auto) 81.8 H (48.0-80.0) % Lymph % (Auto) 9.2 L (16.0-40.0) % Overton % (Auto) 8.6 (0.0-15.0) % Eos % (Auto) 0.3 (0.0-7.0) % Baso % (Auto) 0.1 (0.0-1.5) % Neut # (Auto) 10.7 H (1.4-5.7) K/uL Lymph # (Auto) 1.2 (0.6-2.4) K/uL Overton # (Auto) 1.1 H (0.0-0.8) K/uL Eos # (Auto) 0.0 (0.0-0.7) K/uL Baso # (Auto) 0.0 (0.0-0.1) K/uL Nucleated RBC % 0.0 /100WBC Nucleated RBCs # 0 K/uL INR 0.99 Lactate 3.0 H* (0.20-2.00) mmol/L Sodium (136-145) mmol/L Potassium (3.5-5.1) mmol/L Chloride (98-107) mmol/L Carbon Dioxide (21.0-32.0) mmol/L BUN (7.0-18.0) mg/dL Creatinine (0.6-1.0) mg/dL Est Cr Clr Drug Dosing mL/min Estimated GFR (MDRD) ml/min Glucose (74-106) mg/dL Hemoglobin A1c (4.5-6.2) % Calcium (8.5-10.1) mg/dL Total Bilirubin (0.2-1.0) mg/dL AST (15-37) IU/L ALT (14-63) IU/L Alkaline Phosphatase (46-116) U/L Creatine Kinase (26-308) U/L Troponin I (0.000-0.056) ng/mL Total Protein (6.4-8.2) g/dL Albumin (3.4-5.0) g/dL Globulin (2.6-4.0) g/dL Albumin/Globulin Ratio (0.9-1.6) COVID-19 ([facility]) (NEGATIVE) 05/10/20 05/10/20 05/10/20 Range/Units 10:04 10:04 11:30 WBC (4.0-11.0) K/uL RBC (4.30-5.90) M/uL Hgb (12.0-16.0) g/dL Hct (36.0-46.0) % MCV (80.0-98.0) fL MCH (27.0-32.0) pg MCHC (31.0-37.0) g/dL RDW Std Deviation (28.0-62.0) fl RDW Coeff of Renard (11.0-15.0) % Plt Count (150-400) K/uL MPV (7.40-12.00) fL Neut % (Auto) (48.0-80.0) % Lymph % (Auto) (16.0-40.0) % [place] % (Auto) (0.0-15.0) % Eos % (Auto) (0.0-7.0) % Baso % (Auto) (0.0-1.5) % Neut # (Auto) (1.4-5.7) K/uL Lymph # (Auto) (0.6-2.4) K/uL Overton # (Auto) (0.0-0.8) K/uL Eos # (Auto) (0.0-0.7) K/uL Baso # (Auto) (0.0-0.1) K/uL Nucleated RBC % /100WBC Nucleated RBCs # K/uL INR Lactate (0.20-2.00) mmol/L Sodium 132 L (136-145) mmol/L Potassium 4.2 (3.5-5.1) mmol/L Chloride 96 L (98-107) mmol/L Carbon Dioxide 28.0 (21.0-32.0) mmol/L BUN 31 H (7.0-18.0) mg/dL Creatinine 1.4 H (0.6-1.0) mg/dL Est Cr Clr Drug Dosing 24.99 mL/min Estimated GFR (MDRD) 35.5 ml/min Glucose 175 H (74-106) mg/dL Hemoglobin A1c 5.8 (4.5-6.2) % Calcium 9.9 (8.5-10.1) mg/dL Total Bilirubin 0.4 (0.2-1.0) mg/dL AST 57 H (15-37) IU/L ALT 35 (14-63) IU/L Alkaline Phosphatase 47 (46-116) U/L Creatine Kinase 1067 H (26-308) U/L Troponin I < 0.050 (0.000-0.056) ng/mL Total Protein 7.5 (6.4-8.2) g/dL Albumin 3.7 (3.4-5.0) g/dL Globulin 3.8 (2.6-4.0) g/dL Albumin/Globulin Ratio 1.0 (0.9-1.6) COVID-19 ([facility]) NEGATIVE (NEGATIVE) 05/10/20 Range/Units 14:15 WBC (4.0-11.0) K/uL RBC (4.30-5.90) M/uL Hgb (12.0-16.0) g/dL Hct (36.0-46.0) % MCV (80.0-98.0) fL MCH (27.0-32.0) pg MCHC (31.0-37.0) g/dL RDW Std Deviation (28.0-62.0) fl RDW Coeff of Renard (11.0-15.0) % Plt Count (150-400) K/uL MPV (7.40-12.00) fL Neut % (Auto) (48.0-80.0) % Lymph % (Auto) (16.0-40.0) % [place] % (Auto) (0.0-15.0) % Eos % (Auto) (0.0-7.0) % Baso % (Auto) (0.0-1.5) % Neut # (Auto) (1.4-5.7) K/uL Lymph # (Auto) (0.6-2.4) K/uL Overton # (Auto) (0.0-0.8) K/uL Eos # (Auto) (0.0-0.7) K/uL Baso # (Auto) (0.0-0.1) K/uL Nucleated RBC % /100WBC Nucleated RBCs # K/uL INR Lactate 1.3 (0.20-2.00) mmol/L Sodium (136-145) mmol/L Potassium (3.5-5.1) mmol/L Chloride (98-107) mmol/L Carbon Dioxide (21.0-32.0) mmol/L BUN (7.0-18.0) mg/dL Creatinine (0.6-1.0) mg/dL Est Cr Clr Drug Dosing mL/min Estimated GFR (MDRD) ml/min Glucose (74-106) mg/dL Hemoglobin A1c (4.5-6.2) % Calcium (8.5-10.1) mg/dL Total Bilirubin (0.2-1.0) mg/dL AST (15-37) IU/L ALT (14-63) IU/L Alkaline Phosphatase (46-116) U/L Creatine Kinase (26-308) U/L Troponin I (0.000-0.056) ng/mL Total Protein (6.4-8.2) g/dL Albumin (3.4-5.0) g/dL Globulin (2.6-4.0) g/dL Albumin/Globulin Ratio (0.9-1.6) COVID-19 ([facility]) (NEGATIVE) Result Diagrams: 05/10/20 10:04 05/10/20 10:04 Sepsis Event Note - Evaluation Sepsis Screening Result: No Definite Risk - Focused Exam Vital Signs: Vital Signs Temp Pulse Resp BP Pulse Ox 05/10/20 13:45 98.9 F 92 18 187/78 H 98 05/10/20 13:07 91 17 164/80 H 96 05/10/20 12:18 83 16 189/90 H 96 05/10/20 11:18 90 18 185/82 H 95 05/10/20 10:00 97.5 F 96 16 145/75 H 96 Date Exam was Performed: 05/10/20 Time Exam was Performed: 15:12 - Problem List (1) Acute kidney injury SNOMED Code(s): 38009964, 08834275 ICD Code: N17.9 - ACUTE KIDNEY FAILURE, UNSPECIFIED Status: Acute Current Visit: Yes (2) Contusion of multiple sites SNOMED Code(s): 625736689 ICD Code: T07.XXXA - UNSPECIFIED MULTIPLE INJURIES, INITIAL ENCOUNTER Status: Acute Current Visit: Yes (3) Back contusion SNOMED Code(s): 85697365 ICD Code: S20.229A - CONTUSION OF UNSPECIFIED BACK WALL OF THORAX, INIT ENCNTR Status: Acute Current Visit: No Qualifiers: Encounter type: initial encounter Laterality: unspecified laterality Qualified Code(s): S20.229A - Contusion of unspecified back wall of thorax, initial encounter (4) Contusion of right hip SNOMED Code(s): 03477923 ICD Code: S70.01XA - CONTUSION OF RIGHT HIP, INITIAL ENCOUNTER Status: Acute Current Visit: No Qualifiers: Encounter type: initial encounter Qualified Code(s): S70.01XA - Contusion of right hip, initial encounter (5) HTN (hypertension) SNOMED Code(s): 80415090 ICD Code: I10 - ESSENTIAL (PRIMARY) HYPERTENSION Status: Chronic Current Visit: No Qualifiers: Hypertension type: essential hypertension Qualified Code(s): I10 - Essential (primary) hypertension (6) Type 2 diabetes mellitus SNOMED Code(s): 08965771 ICD Code: E11.9 - TYPE 2 DIABETES MELLITUS WITHOUT COMPLICATIONS Status: Chronic Current Visit: No Qualifiers: Diabetes mellitus shelter insulin use: with shelter use Diabetes mellitus complication status: without complication Qualified Code(s): E11.9 - Type 2 diabetes mellitus without complications; 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 Problem List Initiated/Reviewed/Updated: Yes Orders Last 24hrs: Active Orders 24 hr Category Date Time Status Admission Status [Patient Status] [ADT] Stat ADT 05/10/20 12:52 Active Antiembolic Devices [RC] PER UNIT ROUTINE Care 05/10/20 14:28 Ordered Blood Glucose Check, Bedside [RC] TIDAC Care 05/10/20 14:24 Ordered Height and Weight [RC] DAILY Care 05/10/20 13:34 Active Intake and Output Strict [RC] Q12H Care 05/10/20 16:00 Ordered Orthostatic Vital Signs [RC] ONETIME Care 05/10/20 14:21 Active Oxygen Therapy [RC] PRN Care 05/10/20 13:35 Active Telemetry Monitoring [Cardiac Monitoring] [RC] . Care 05/10/20 14:27 Ordered DIRECTED Up With Assistance [RC] ASDIRECTED Care 05/10/20 13:34 Active VTE/DVT Education [RC] PER UNIT ROUTINE Care 05/10/20 13:35 Active Vital Signs [RC] Q4H Care 05/10/20 13:35 Active Consult to DM [Consult to Diabetic Nurse Specialist] [ Cons 05/10/20 13:52 Active CONS] Routine OT Evaluation and Treatment [CONS] Routine Cons 05/10/20 13:34 Active PT Evaluation and Treatment [CONS] Routine Cons 05/10/20 13:34 Active [employer] Diet [DIET] Diet 05/10/20 Lunch Active Echo Comp wo Cont [US] Urgent Exams 05/10/20 14:26 Ordered BASIC METABOLIC PANEL,BMP [CHEM] AM Lab 05/11/20 05:11 Ordered BASIC METABOLIC PANEL,BMP [CHEM] AM Lab 05/12/20 05:11 Ordered BASIC METABOLIC PANEL,BMP [CHEM] AM Lab 05/13/20 05:11 Ordered CBC WITH AUTO DIFF [HEME] AM Lab 05/11/20 05:11 Ordered CBC WITH AUTO DIFF [HEME] AM Lab 05/12/20 05:11 Ordered CBC WITH AUTO DIFF [HEME] AM Lab 05/13/20 05:11 Ordered CPK [CREATINE KINASE,CK] [CHEM] AM Lab 05/11/20 05:11 Ordered MAGNESIUM [CHEM] AM Lab 05/11/20 05:11 Ordered MAGNESIUM [CHEM] AM Lab 05/12/20 05:11 Ordered MAGNESIUM [CHEM] AM Lab 05/13/20 05:11 Ordered PHOSPHORUS [CHEM] AM Lab 05/11/20 05:11 Ordered PHOSPHORUS [CHEM] AM Lab 05/12/20 05:11 Ordered PHOSPHORUS [CHEM] AM Lab 05/13/20 05:11 Ordered UA W/NORMA RFLX IF INDICATED [URIN] Stat Lab 05/10/20 10:14 Ordered Acetaminophen [Tylenol] Med 05/10/20 13:34 Active 650 mg PO Q4H PRN Aspirin [Halfprin] Med 05/11/20 09:00 Ordered 81 mg PO DAILY Docusate Sodium [Colace] Med 05/10/20 13:34 Active 100 mg PO BID PRN Insulin Aspart [NovoLOG] Med 05/10/20 17:00 Ordered See Protocol SUBCUT TIDAC Metoprolol Succinate [Toprol XL] Med 05/11/20 09:00 Ordered 25 mg PO DAILY Multivitamins [Tab-A-Bisi] Med 05/11/20 09:00 Ordered 1 tab PO DAILY Ondansetron [Zofran] Med 05/10/20 13:34 Active 4 mg IVPUSH Q4H PRN Sertraline [Zoloft] Med 05/11/20 09:00 Ordered 100 mg PO DAILY Simvastatin [Zocor] Med 05/10/20 21:00 Ordered 20 mg PO BEDTIME Sodium Chloride 0.9% [Normal Saline] 1,000 ml Med 05/10/20 14:30 Ordered IV Q10H Sodium Chloride 0.9% [Saline Flush] Med 05/10/20 13:44 Active 2.5 ml FLUSH ASDIRECTED PRN Saline Lock Insert [OM.PC] Stat Oth 05/10/20 10:11 Ordered VAZQUEZ Hose [Antiembolic Hose] [OM.PC] Routine Oth 05/10/20 14:28 Ordered Resuscitation Status Routine Resus Stat 05/10/20 14:13 Ordered Medication Orders Acetaminophen (Tylenol) 650 mg PO Q4H PRN PRN Reason: Pain (Mild 1-3)/fever Aspirin (Halfprin) 81 mg PO DAILY SHEYLA Docusate Sodium (Colace) 100 mg PO BID PRN PRN Reason: Constipation Sodium Chloride (Normal Saline) 1,000 mls @ 100 mls/hr IV Q10H SHEYLA Insulin Aspart (Novolog) 0 unit SUBCUT TIDAC SHEYLA; Protocol Metoprolol Succinate (Toprol Xl) 25 mg PO DAILY [facility] Multivitamins/Minerals/Vitamin C (Tab-A-Bisi) 1 tab PO DAILY [facility] Ondansetron HCl (Zofran) 4 mg IVPUSH Q4H PRN PRN Reason: Nausea Sertraline HCl (Zoloft) 100 mg PO DAILY [facility] Simvastatin (Zocor) 20 mg PO BEDTIME [facility] Sodium Chloride (Saline Flush) 2.5 ml FLUSH ASDIRECTED PRN PRN Reason: IV Use Assessment/Plan Comment:: This 89 year old female admitted with falls, CORA, lactic acidosis, and dehydration 1. Falls - Concerned about glucose management. A1c 5.8, fairly low. Last checked in February 17.2. Might be over treated. - Consult PT/OT to evaluate and treat - Consult SS to help with potential placement, at least short term for rehab - UA pending - Monitor on telemetry - Obtain ECHO 2. CORA/dehydration/rhabdomyolysis (mild) - Hold nephrotoxic medications - NS 100 overnight - Recheck labs in am - Hyponatremia is at baseline. 3. DM type 2: - A1c 5.8 - Concern for too aggressive of treatment, will stop insulin for now - SSI low with meals. - Monitor BS - Discussed with Jered that we may consider stopping insulin all together and using just Metformin - Consult DM educator 4. HTN: - Hold Losartan due to CORA - Continue Metoprolol - Hydralazine PRN for elevated BP - Monitor on telemetry VTE prophylaxis: Heparin Dispo: 2-3 days Code Status: DNR/DNI per patient Consults: PT/OT, DM educator, and social media marketing manager
[2020-05-10] MEDS ORDERED: hydrALAZINE 25 MG Tab PO PRN (14:50)
[2020-05-10] MEDS: Sodium Chloride 0.9% 1,000 ML IV SCH (15:01)
[2020-05-10] MEDS: Heparin Sodium 5,000 Units/ML Vial SUBCUT SCH (17:12)
[2020-05-10] MEDS: Nystatin Topical Powder 15 GM Bottle TOP SCH ×2 (17:14→23:48)
[2020-05-10] MEDS: Insulin Aspart 100 Units/ML 3 ML Pen SUBCUT SCH (18:08)
[2020-05-10] MEDS ORDERED: Calcium Carbonate 500 MG Tab.Chew PO PRN (18:47)
[2020-05-10] MEDS: cefTRIAXone 1 GM in Premix Bag 1 BAG IV SCH (20:24)
[2020-05-10] MEDS: Simvastatin 20 MG Tab PO SCH (20:24)
[2020-05-10] MEDS: Gabapentin 300 MG Cap PO SCH (20:24)
[2020-05-11] MEDS: Heparin Sodium 5,000 Units/ML Vial SUBCUT SCH ×3 (01:29→16:26)
[2020-05-11] MEDS: Sodium Chloride 0.9% 1,000 ML IV SCH ×2 (01:30→12:59)
[2020-05-11 06:26] LABS: CARBON DIOXIDE,CO2 27.3 mmol/L (21.0-32.0); POTASSIUM,K 3.9 mmol/L (3.5-5.1)
[2020-05-11] MEDS: Nystatin Topical Powder 15 GM Bottle TOP SCH ×3 (07:01→21:18)
[2020-05-11] MEDS: Insulin Aspart 100 Units/ML 3 ML Pen SUBCUT SCH ×3 (07:07→19:22)
[2020-05-11] MEDS ORDERED: Magnesium Sulfate/Water 2 GM in Premix Bag 1 BAG IV ONE (08:05)
[2020-05-11] MEDS: Aspirin 81 MG Tab.EC PO SCH (08:24)
[2020-05-11] MEDS: Metoprolol Succinate 25 MG Tab.ER PO SCH (08:24)
[2020-05-11] MEDS: Sertraline 100 MG Tab PO SCH (08:24)
[2020-05-11] MEDS: Multivitamin Tab PO SCH (08:24)
--- NOTE | 2020-05-11 10:58 | PCM.PN ---
- General Info Date of Service: 05/11/20 Admission Dx/Problem (Free Text): Admission Diagnosis/Problem Admission Diagnosis/Problem Accidental fall Subjective Update: Feeling ok this morning. Feels tired No chest pain or SOB. No urinary concerns. Muscles are sore, but no other concerns. Functional Status: Reports: Pain Controlled, Tolerating Diet, Ambulating, Urinating - Review of Systems General: Reports: Weakness (generalized), Fatigue HEENT: Reports: No Symptoms Pulmonary: Reports: No Symptoms. Denies: Shortness of Breath Cardiovascular: Reports: No Symptoms. Denies: Chest Pain Gastrointestinal: Reports: No Symptoms. Denies: Abdominal Pain, Nausea, Vomiting Genitourinary: Reports: No Symptoms. Denies: Dysuria, Frequency, Burning Musculoskeletal: Reports: No Symptoms Skin: Reports: No Symptoms Neurological: Reports: No Symptoms Psychiatric: Reports: No Symptoms - Patient Data Vitals - Most Recent: Last Vital Signs Temp 97.5 F 05/11/20 04:00 Pulse 97 05/11/20 08:24 Resp 18 05/11/20 04:00 BP 181/80 H 05/11/20 08:24 Pulse Ox 94 L 05/11/20 04:00 Orthostatic Blood Pressure [ 171/77 Standing] Orthostatic Blood Pressure [ 146/72 Sitting] Orthostatic Blood Pressure [ 172/78 Supine] Weight - Most Recent: 71 kg I&O - Last 24 Hours: Intake & Output 05/10/20 05/11/20 05/11/20 22:59 06:59 14:59 Intake Total 0 1531 Output Total 100 1700 Balance -100 -169 Lab Results Last 24 Hours: Laboratory Results - last 24 hr 05/10/20 05/10/20 05/10/20 Range/Units 10:04 11:30 14:15 WBC (4.0-11.0) K/uL RBC (4.30-5.90) M/uL Hgb (12.0-16.0) g/dL Hct (36.0-46.0) % MCV (80.0-98.0) fL MCH (27.0-32.0) pg MCHC (31.0-37.0) g/dL RDW Std Deviation (28.0-62.0) fl RDW Coeff of Renard (11.0-15.0) % Plt Count (150-400) K/uL MPV (7.40-12.00) fL Neut % (Auto) (48.0-80.0) % Lymph % (Auto) (16.0-40.0) % Gove % (Auto) (0.0-15.0) % Eos % (Auto) (0.0-7.0) % Baso % (Auto) (0.0-1.5) % Neut # (Auto) (1.4-5.7) K/uL Lymph # (Auto) (0.6-2.4) K/uL Gove # (Auto) (0.0-0.8) K/uL Eos # (Auto) (0.0-0.7) K/uL Baso # (Auto) (0.0-0.1) K/uL Nucleated RBC % /100WBC Nucleated RBCs # K/uL Lactate 1.3 (0.20-2.00) mmol/L Sodium (136-145) mmol/L Potassium (3.5-5.1) mmol/L Chloride (98-107) mmol/L Carbon Dioxide (21.0-32.0) mmol/L BUN (7.0-18.0) mg/dL Creatinine (0.6-1.0) mg/dL Est Cr Clr Drug Dosing mL/min Estimated GFR (MDRD) ml/min Glucose (74-106) mg/dL POC Glucose (60-110) mg/dL Hemoglobin A1c 5.8 (4.5-6.2) % Calcium (8.5-10.1) mg/dL Phosphorus (2.6-4.7) mg/dL Magnesium (1.8-2.4) mg/dL Creatine Kinase (26-308) U/L Urine Color Urine Appearance Urine pH (5.0-8.0) Ur Specific [place] (1.001-1.035) Urine Protein (NEGATIVE) mg/dL Urine Glucose (UA) (NEGATIVE) mg/dL Urine Ketones (NEGATIVE) mg/dL Urine Occult Blood (NEGATIVE) Urine Nitrite (NEGATIVE) Urine Bilirubin (NEGATIVE) Urine Urobilinogen (<2.0) EU/dL Ur Leukocyte Esterase (NEGATIVE) Urine RBC (0-2/HPF) Urine WBC (0-5/HPF) Ur Epithelial Cells (NONE-FEW) Urine Bacteria (NEGATIVE) COVID-19 (JEM) NEGATIVE (NEGATIVE) 05/10/20 05/10/20 05/10/20 Range/Units 15:00 16:10 18:06 WBC (4.0-11.0) K/uL RBC (4.30-5.90) M/uL Hgb (12.0-16.0) g/dL Hct (36.0-46.0) % MCV (80.0-98.0) fL MCH (27.0-32.0) pg MCHC (31.0-37.0) g/dL RDW Std Deviation (28.0-62.0) fl RDW Coeff of Renard (11.0-15.0) % Plt Count (150-400) K/uL MPV (7.40-12.00) fL Neut % (Auto) (48.0-80.0) % Lymph % (Auto) (16.0-40.0) % Gove % (Auto) (0.0-15.0) % Eos % (Auto) (0.0-7.0) % Baso % (Auto) (0.0-1.5) % Neut # (Auto) (1.4-5.7) K/uL Lymph # (Auto) (0.6-2.4) K/uL Gove # (Auto) (0.0-0.8) K/uL Eos # (Auto) (0.0-0.7) K/uL Baso # (Auto) (0.0-0.1) K/uL Nucleated RBC % /100WBC Nucleated RBCs # K/uL Lactate (0.20-2.00) mmol/L Sodium (136-145) mmol/L Potassium (3.5-5.1) mmol/L Chloride (98-107) mmol/L Carbon Dioxide (21.0-32.0) mmol/L BUN (7.0-18.0) mg/dL Creatinine (0.6-1.0) mg/dL Est Cr Clr Drug Dosing mL/min Estimated GFR (MDRD) ml/min Glucose (74-106) mg/dL POC Glucose 158 H 154 H (60-110) mg/dL Hemoglobin A1c (4.5-6.2) % Calcium (8.5-10.1) mg/dL Phosphorus (2.6-4.7) mg/dL Magnesium (1.8-2.4) mg/dL Creatine Kinase (26-308) U/L Urine Color YELLOW Urine Appearance CLEAR Urine pH 7.5 (5.0-8.0) Ur Specific [place] 1.015 (1.001-1.035) Urine Protein 100 H (NEGATIVE) mg/dL Urine Glucose (UA) NEGATIVE (NEGATIVE) mg/dL Urine Ketones NEGATIVE (NEGATIVE) mg/dL Urine Occult Blood TRACE-INTACT H (NEGATIVE) Urine Nitrite NEGATIVE (NEGATIVE) Urine Bilirubin NEGATIVE (NEGATIVE) Urine Urobilinogen 0.2 (<2.0) EU/dL Ur Leukocyte Esterase SMALL H (NEGATIVE) Urine RBC 0-4 (0-2/HPF) Urine WBC 4-8 (0-5/HPF) Ur Epithelial Cells FEW (NONE-FEW) Urine Bacteria FEW (NEGATIVE) COVID-19 (JEM) (NEGATIVE) 05/11/20 05/11/20 05/11/20 Range/Units 05:28 05:28 07:03 WBC 5.86 (4.0-11.0) K/uL RBC 3.75 L (4.30-5.90) M/uL Hgb 11.3 L (12.0-16.0) g/dL Hct 33.9 L (36.0-46.0) % MCV 90.4 (80.0-98.0) fL MCH 30.1 (27.0-32.0) pg MCHC 33.3 (31.0-37.0) g/dL RDW Std Deviation 47.4 (28.0-62.0) fl RDW Coeff of Renard 14 (11.0-15.0) % Plt Count 135 L (150-400) K/uL MPV 9.60 (7.40-12.00) fL Neut % (Auto) 68.5 (48.0-80.0) % Lymph % (Auto) 19.5 (16.0-40.0) % Gove % (Auto) 10.1 (0.0-15.0) % Eos % (Auto) 1.7 (0.0-7.0) % Baso % (Auto) 0.2 (0.0-1.5) % Neut # (Auto) 4.0 (1.4-5.7) K/uL Lymph # (Auto) 1.1 (0.6-2.4) K/uL [place] # (Auto) 0.6 (0.0-0.8) K/uL Eos # (Auto) 0.1 (0.0-0.7) K/uL Baso # (Auto) 0.0 (0.0-0.1) K/uL Nucleated RBC % 0.0 /100WBC Nucleated RBCs # 0 K/uL Lactate (0.20-2.00) mmol/L Sodium 134 L (136-145) mmol/L Potassium 3.9 (3.5-5.1) mmol/L Chloride 100 (98-107) mmol/L Carbon Dioxide 27.3 (21.0-32.0) mmol/L BUN 18 (7.0-18.0) mg/dL Creatinine 0.9 (0.6-1.0) mg/dL Est Cr Clr Drug Dosing 38.88 mL/min Estimated GFR (MDRD) 59.1 ml/min Glucose 158 H (74-106) mg/dL POC Glucose 157 H (60-110) mg/dL Hemoglobin A1c (4.5-6.2) % Calcium 8.5 (8.5-10.1) mg/dL Phosphorus 2.9 (2.6-4.7) mg/dL Magnesium 1.6 L (1.8-2.4) mg/dL Creatine Kinase 436 H (26-308) U/L Urine Color Urine Appearance Urine pH (5.0-8.0) Ur Specific [place] (1.001-1.035) Urine Protein (NEGATIVE) mg/dL Urine Glucose (UA) (NEGATIVE) mg/dL Urine Ketones (NEGATIVE) mg/dL Urine Occult Blood (NEGATIVE) Urine Nitrite (NEGATIVE) Urine Bilirubin (NEGATIVE) Urine Urobilinogen (<2.0) EU/dL Ur Leukocyte Esterase (NEGATIVE) Urine RBC (0-2/HPF) Urine WBC (0-5/HPF) Ur Epithelial Cells (NONE-FEW) Urine Bacteria (NEGATIVE) COVID-19 (JEM) (NEGATIVE) Med Orders - Current: Current Medications Acetaminophen (Tylenol) 650 mg PO Q4H PRN PRN Reason: Pain (Mild 1-3)/fever Last Admin: 05/10/20 20:24 Dose: 650 mg Documented by: Aspirin (Halfprin) 81 mg PO DAILY [facility] Last Admin: 05/11/20 08:24 Dose: 81 mg Documented by: Calcium Carbonate/Glycine (Tums) 500 mg PO Q4H PRN PRN Reason: Indigestion Last Admin: 05/10/20 19:20 Dose: 500 mg Documented by: Docusate Sodium (Colace) 100 mg PO BID PRN PRN Reason: Constipation Gabapentin (Neurontin) 300 mg PO BEDTIME [facility] Last Admin: 05/10/20 20:24 Dose: 300 mg Documented by: Heparin Sodium (Porcine) (Heparin Sodium) 5,000 units SUBCUT Q8H [facility] Last Admin: 05/11/20 07:03 Dose: 5,000 units Documented by: Hydralazine HCl (Apresoline) 25 mg PO Q6H PRN PRN Reason: SBP>180 Sodium Chloride (Normal Saline) 1,000 mls @ 100 mls/hr IV Q10H [facility] Last Admin: 05/11/20 01:30 Dose: 100 mls/hr Documented by: Ceftriaxone Sodium/Dextrose 1 (gm/ Premix) 50 mls @ 100 mls/hr IV Q24H [facility] Last Admin: 05/10/20 20:24 Dose: 100 mls/hr Documented by: Insulin Aspart (Novolog) 0 unit SUBCUT TIDAC [facility]; Protocol Last Admin: 05/11/20 07:07 Dose: 1 unit Documented by: Metoprolol Succinate (Toprol Xl) 25 mg PO DAILY [facility] Last Admin: 05/11/20 08:24 Dose: 25 mg Documented by: Multivitamins/Minerals/Vitamin C (Tab-A-Bisi) 1 tab PO DAILY [facility] Last Admin: 05/11/20 08:24 Dose: 1 tab Documented by: Nystatin (Nystop) 1 gm TOP TID [facility] Last Admin: 05/11/20 07:01 Dose: 1 gm Documented by: Ondansetron HCl (Zofran) 4 mg IVPUSH Q4H PRN PRN Reason: Nausea Sertraline HCl (Zoloft) 100 mg PO DAILY [facility] Last Admin: 05/11/20 08:24 Dose: 100 mg Documented by: Simvastatin (Zocor) 20 mg PO BEDTIME [facility] Last Admin: 05/10/20 20:24 Dose: 20 mg Documented by: Sodium Chloride (Saline Flush) 2.5 ml FLUSH ASDIRECTED PRN PRN Reason: IV Use Discontinued Medications Acetaminophen (Tylenol Extra Strength) 1,000 mg PO ONETIME ONE Stop: 05/10/20 10:12 Last Admin: 05/10/20 10:32 Dose: 1,000 mg Documented by: Lactated Ringer's (Ringers, Lactated) 1,000 mls @ 999 mls/hr IV .BOLUS ONE Stop: 05/10/20 11:42 Last Admin: 05/10/20 11:19 Dose: 999 mls/hr Documented by: Magnesium Sulfate 2 gm/ Premix 50 mls @ 50 mls/hr IV ONETIME ONE Stop: 05/11/20 09:04 Last Admin: 05/11/20 08:23 Dose: 50 mls/hr Documented by: Ropinirole HCl (Requip) 0.25 mg PO NOW ONE Stop: 05/10/20 13:17 Last Admin: 05/10/20 13:43 Dose: 0.25 mg Documented by: Sodium Chloride (Saline Flush) 10 ml FLUSH ASDIRECTED PRN PRN Reason: Keep Vein Open Last Admin: 05/10/20 10:33 Dose: 10 ml Documented by: Sodium Chloride (Saline Flush) 2.5 ml FLUSH ASDIRECTED PRN PRN Reason: Keep Vein Open Last Admin: 05/10/20 10:33 Dose: 2.5 ml Documented by: - Exam General: Alert, Oriented, Cooperative, No Acute Distress Lungs: Clear to Auscultation, Normal Respiratory Effort Cardiovascular: Regular Rate, Regular Rhythm GI/Abdominal Exam: Normal Bowel Sounds, Soft, Non-Tender Extremities: Normal Inspection, Normal Range of Motion, Non-Tender, Pedal Edema (+1 pitting edema) Neurological: No New Focal Deficit Psy/Mental Status: Alert, Normal Affect, Normal Mood Sepsis Event Note - Evaluation Sepsis Screening Result: No Definite Risk - Focused Exam Vital Signs: Vital Signs Temp Pulse Pulse Resp BP BP Pulse Ox 05/11/20 08:24 97 181/80 H 05/11/20 04:00 97.5 F 88 18 155/72 H 94 L 05/11/20 00:00 97.2 F 88 20 157/66 H 95 Date Exam was Performed: 05/11/20 Time Exam was Performed: 11:56 - Problem List & Annotations (1) Acute kidney injury SNOMED Code(s): 79792138, 41614294 Code(s): N17.9 - ACUTE KIDNEY FAILURE, UNSPECIFIED Status: Acute Current Visit: Yes (2) Contusion of multiple sites SNOMED Code(s): 548043959 Code(s): T07.XXXA - UNSPECIFIED MULTIPLE INJURIES, INITIAL ENCOUNTER Status: Acute Current Visit: Yes (3) Back contusion SNOMED Code(s): 71594046 Code(s): S20.229A - CONTUSION OF UNSPECIFIED BACK WALL OF THORAX, INIT ENCNTR Status: Acute Current Visit: No Qualifiers: Encounter type: initial encounter Laterality: unspecified laterality Qualified Code(s): S20.229A - Contusion of unspecified back wall of thorax, initial encounter (4) Contusion of right hip SNOMED Code(s): 26120441 Code(s): S70.01XA - CONTUSION OF RIGHT HIP, INITIAL ENCOUNTER Status: Acute Current Visit: No Qualifiers: Encounter type: initial encounter Qualified Code(s): S70.01XA - Contusion of right hip, initial encounter (5) HTN (hypertension) SNOMED Code(s): 46201066 Code(s): I10 - ESSENTIAL (PRIMARY) HYPERTENSION Status: Chronic Current Visit: No Qualifiers: Hypertension type: essential hypertension Qualified Code(s): I10 - Essential (primary) hypertension (6) Type 2 diabetes mellitus SNOMED Code(s): 31761238 Code(s): E11.9 - TYPE 2 DIABETES MELLITUS WITHOUT COMPLICATIONS Status: Chronic Current Visit: No Qualifiers: Diabetes mellitus continuous churn buttermaker insulin use: with half-way use Diabetes mellitus complication status: without complication Qualified Code(s): E11.9 - Type 2 diabetes mellitus without complications; 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 - Problem List Review Problem List Initiated/Reviewed/Updated: Yes - My Orders Last 24 Hours: My Active Orders 05/10/20 Lunch [employer] Diet [DIET] 05/10/20 13:34 Height and Weight [RC] DAILY Up With Assistance [RC] ASDIRECTED OT Evaluation and Treatment [CONS] Routine PT Evaluation and Treatment [CONS] Routine Acetaminophen [Tylenol] 650 mg PO Q4H PRN Docusate Sodium [Colace] 100 mg PO BID PRN Ondansetron [Zofran] 4 mg IVPUSH Q4H PRN 05/10/20 13:35 Oxygen Therapy [RC] PRN VTE/DVT Education [RC] PER UNIT ROUTINE Vital Signs [RC] Q4H 05/10/20 13:44 Sodium Chloride 0.9% [Saline Flush] 2.5 ml FLUSH ASDIRECTED PRN 05/10/20 13:52 Consult to DM [Consult to Diabetic Nurse Specialist] [CONS] Routine 05/10/20 14:13 Resuscitation Status Routine 05/10/20 14:24 Blood Glucose Check, Bedside [RC] TIDAC 05/10/20 14:26 Echo Comp wo Cont [US] Urgent 05/10/20 14:27 Telemetry Monitoring [Cardiac Monitoring] [RC] Q8H 05/10/20 14:28 Antiembolic Devices [RC] PER UNIT ROUTINE VAZQUEZ Hose [Antiembolic Hose] [OM.PC] Routine 05/10/20 14:30 Sodium Chloride 0.9% [Normal Saline] 1,000 ml IV Q10H 05/10/20 14:50 hydrALAZINE [Apresoline] 25 mg PO Q6H PRN 05/10/20 15:50 Consult to Case Management/Market Development Manager [CONS] Routine 05/10/20 16:00 Intake and Output Strict [RC] Q12H Heparin Sodium 5,000 units SUBCUT Q8H 05/10/20 16:17 Nystatin [Nystop] 1 gm TOP TID 05/10/20 17:00 Insulin Aspart [NovoLOG] See Protocol SUBCUT TIDAC 05/10/20 21:00 Simvastatin [Zocor] 20 mg PO BEDTIME 05/11/20 09:00 Aspirin [Halfprin] 81 mg PO DAILY Metoprolol Succinate [Toprol XL] 25 mg PO DAILY Multivitamins [Tab-A-Bisi] 1 tab PO DAILY Sertraline [Zoloft] 100 mg PO DAILY 05/11/20 10:56 Ambulate [RC] Q8HPRN 05/11/20 10:57 Up to Chair [RC] ASDIRECTED 05/12/20 05:11 BASIC METABOLIC PANEL,BMP [CHEM] AM CBC WITH AUTO DIFF [HEME] AM MAGNESIUM [CHEM] AM PHOSPHORUS [CHEM] AM 07/30/20 05:11 BASIC METABOLIC PANEL,BMP [CHEM] AM CBC WITH AUTO DIFF [HEME] AM MAGNESIUM [CHEM] AM PHOSPHORUS [CHEM] AM - Plan Plan:: This 89 year old female admitted with falls, CORA, lactic acidosis, and dehydration 1. Falls - Might be falling due to hypoglycemia. - Consult PT/OT to evaluate and treat - Consult SS to help with potential placement, at least short term for rehab - Monitor on telemetry - Obtain ECHO - PT reports she is stable, no skilled need currently. Would feel ok with return to home and Home health. 2. CORA/dehydration/rhabdomyolysis (mild) - Resolved. - CPK improved to 406, will stop IVFs. - CORA improved. Will monitor and restart medications. 3. DM type 2: - A1c 5.8 - Concern for too aggressive of treatment, will stop insulin for now - SSI low with meals. - Monitor BS - Discussed with Jered that we may consider stopping insulin all together and using just Metformin - Consult DM educator to discuss diet and treatment approach 4. UTI: - UC pending - Rocephin started last evening - Asymptomatic 5. HTN: - Restart Losartan in am. - Continue Metoprolol - Hydralazine PRN for elevated BP - Monitor on telemetry VTE prophylaxis: Heparin Dispo: 2-3 days Code Status: DNR/DNI per patient Consults: PT/OT, DM educator, and social media sr strategy manager
[2020-05-11] MEDS: Losartan 50 MG Tab PO SCH (14:35)
[2020-05-11] MEDS: Simvastatin 20 MG Tab PO SCH (21:10)
[2020-05-11] MEDS: Gabapentin 300 MG Cap PO SCH (21:10)
[2020-05-11] MEDS: cefTRIAXone 1 GM in Premix Bag 1 BAG IV SCH (21:11)
[2020-05-12] MEDS: Heparin Sodium 5,000 Units/ML Vial SUBCUT SCH ×2 (00:48→08:35)
[2020-05-12] MEDS: Nystatin Topical Powder 15 GM Bottle TOP SCH (06:05)
[2020-05-12 07:19] LABS: CARBON DIOXIDE,CO2 24.5 mmol/L (21.0-32.0); POTASSIUM,K 3.4 mmol/L (3.5-5.1)
[2020-05-12] MEDS: Insulin Aspart 100 Units/ML 3 ML Pen SUBCUT SCH ×2 (08:34→12:17)
[2020-05-12] MEDS: Sertraline 100 MG Tab PO SCH (08:35)
[2020-05-12] MEDS: Aspirin 81 MG Tab.EC PO SCH (08:35)
[2020-05-12] MEDS: Metoprolol Succinate 25 MG Tab.ER PO SCH (08:35)
[2020-05-12] MEDS: Losartan 50 MG Tab PO SCH (08:36)
[2020-05-12] MEDS: Multivitamin Tab PO SCH (08:36)
[2020-05-12] MEDS ORDERED: Losartan 50 MG Tab PO SCH (09:00)
--- NOTE | 2020-05-12 11:16 | PCM.DCSUM1 ---
Discharge Summary - Hospital Course Brief History: This 89 year old female with pmh of falls, DM type 2, HTN, and restless legs presented to the ED via EMS today after family found her on the floor in her home. She has been seen in the ED the last two days for concerns of falls, hypoglycemia and AMS. Today she comes in after falling. EMS reports house was unkept and dirty. Patient was sitting on the ground when they arrives. Uziel is unable to describe what has happened. She reports she thinks the walker is unstable and falls over, which causes her to fall over. She denies lightheadedness or dizziness. denies passing out or losing consciousness. She is unsure of what is happening with the falls. She reports recently her Levemir was stopped due to hypoglycemia. She denies fevers or chills. No chest pain or SOB. No palpitations. No abdominal pain, constipation, diarrhea, black or bloody BMs. She reports feet are restless, requip in ED helped. No focal neurological deficits. She denies smoking or alcohol use. In the ED leukocytosis noted at 13,080, lactic acid 3.0, repeat 1.3 after 1 L LR. Na 132, K+ 4.2 Cl 96, CPK 1067, troponin negative. BUN 31, Cr 1.4. COVID negative. Chest CT negative, head ct negative, abdomen pelvis CT negative, revealed R hip hematoma. Cervical neck CT negative as well. BP 140-180/70-80s in the ED. UA pending. Glucose 175. She will be admitted inpatient for falls, lactic acidosis and dehydration. PCP, Dr Lay Diagnosis: Stroke: No - Discharge Data Discharge Date: 05/12/20 Discharge Disposition: Home, W Home Health Agency 06 Condition: Good - Referral to Home Health Date of Face to Face Encounter: 05/12/20 Reason for Homebound Status: Uziel is homebound, needing the assistance of her daughter or a caregiver to get her to and from appointments. She is also in need of a walker to ambulate safely due to unsteady gait. Primary Care Physician: PCP None Skilled Need: Uziel is in need of longterm care to help monitor vital signs and blood sugars. She would benefit from medication set up to help with the ease of administration. She is is need of PT to evaluate and treat for recent falls and unsteady gait. She would also benefit from OT evaluation and treatment to monitor ability to complete ADLs and a home safety evaluation. - Discharge Diagnosis/Problem(s) (1) Acute kidney injury SNOMED Code(s): 16126102, 62572607 ICD Code: N17.9 - ACUTE KIDNEY FAILURE, UNSPECIFIED Status: Acute Current Visit: Yes (2) Contusion of multiple sites SNOMED Code(s): 508792776 ICD Code: T07.XXXA - UNSPECIFIED MULTIPLE INJURIES, INITIAL ENCOUNTER Status: Acute Current Visit: Yes (3) Back contusion SNOMED Code(s): 58607222 ICD Code: S20.229A - CONTUSION OF UNSPECIFIED BACK WALL OF THORAX, INIT ENCNTR Status: Acute Current Visit: No Qualifiers: Encounter type: initial encounter Laterality: unspecified laterality Qualified Code(s): S20.229A - Contusion of unspecified back wall of thorax, initial encounter (4) Contusion of right hip SNOMED Code(s): 49103581 ICD Code: S70.01XA - CONTUSION OF RIGHT HIP, INITIAL ENCOUNTER Status: Acute Current Visit: No Qualifiers: Encounter type: initial encounter Qualified Code(s): S70.01XA - Contusion of right hip, initial encounter (5) HTN (hypertension) SNOMED Code(s): 37485640 ICD Code: I10 - ESSENTIAL (PRIMARY) HYPERTENSION Status: Chronic Current Visit: No Qualifiers: Hypertension type: essential hypertension Qualified Code(s): I10 - Essential (primary) hypertension (6) Type 2 diabetes mellitus SNOMED Code(s): 62648353 ICD Code: E11.9 - TYPE 2 DIABETES MELLITUS WITHOUT COMPLICATIONS Status: Chronic Current Visit: No Qualifiers: Diabetes mellitus penitentiary insulin use: with penitentiary use Diabetes mellitus complication status: without complication Qualified Code(s): E11.9 - Type 2 diabetes mellitus without complications; Z79.4 - terminal worker (current) use of insulin - Patient Summary/Data Consults: Consultations 05/10/20 13:34 OT Evaluation and Treatment [CONS] Routine PT Evaluation and Treatment [CONS] Routine 05/10/20 13:52 Consult to DM [Consult to Diabetic Nurse Specialist] [CONS] Routine 05/10/20 15:50 Consult to Case Management/Nurse Case Management [CONS] Routine Hospital Course: Admitting Diagnoses: Fall Discharge Diagnoses: Fall Hypoglycemia Elmyra was admitted for frequent falls at home. Xrays were all negative. It is suspected that she is having frequently episodes os hypoglycemia at home and not noticing it. A1c was 5.8. Discussed with daughter and clinical document improvement educator, plan would be to stop all meal times insulin, decrease bedtime long acting to 5 units and continue Metformin. Due to renal function will cut metformin to 500 mg in am and 1000 mg at supper. I counseled daughter on this as well as patient. She was treated for UTI with 3 days of Rocephin UC negative. She was evaluated by PT during stay, they don't have concerns about ambulation, she is safe for return home. She will be discharged home today with new insulin regimen and Metformin dose change. She will be referred to Home Health to help monitor BS better as well asn PT/OT to complete home safety evaluate and monitor for needs at home. She is to return to ED or clinic if concerns should arise. - Patient Instructions Diet: Diabetic Diet Activity: No Strenuous Activities Driving: Do Not Drive Showering/Bathing: May Shower Notify Provider of: Fever, Increased Pain, Swelling and Redness, Drainage, Nausea and/or Vomiting - Discharge Plan *PRESCRIPTION DRUG MONITORING PROGRAM REVIEWED*: Not Applicable *COPY OF PRESCRIPTION DRUG MONITORING REPORT IN PATIENT MEGHANA: Not Applicable Prescriptions/Med Rec: Gabapentin [Neurontin] 300 mg PO BEDTIME #30 cap Home Medications: Home Meds Aspirin [[place] Aspirin EC] 81 mg PO DAILY 10/13/16 [History] Sertraline HCl 100 mg PO DAILY 10/13/16 [History] Simvastatin [Zocor] 20 mg PO BEDTIME 10/13/16 [History] Celecoxib 200 mg PO DAILY 03/18/19 [History] rOPINIRole [Requip] 0.25 mg PO BEDTIME 03/18/19 [History] Losartan [Cozaar] 100 mg PO DAILY #60 tablet 03/21/19 [Rx] Furosemide 1 tab PO DAILY 08/08/19 [History] Metoprolol Succinate [Toprol XL] 25 mg PO DAILY 04/01/20 [History] Multivitamins [Tab-A-Bisi] 1 each PO DAILY 04/01/20 [History] Gabapentin [Neurontin] 300 mg PO BEDTIME #30 cap 05/12/20 [Rx] Insulin Detemir [Levemir Flextouch] 5 units SUBCUT BEDTIME #0 05/12/20 [Rx] Nystatin [Nystop] 1 gm TOP TID bottle 05/12/20 [Rx] metFORMIN [Glucophage] 1,000 mg PO BIDMEALS #0 05/12/20 [Rx] Patient Handouts: Acute Kidney Injury, Adult, Fall Prevention in the Home, Adult, [id number], Preventing Hypoglycemia, Gabapentin capsules or tablets, Hypoglycemia Referrals: [facility] [Ordering Only Provider] - 05/24/20 1:00 pm (An appointment was made with Sol the special educator at 1pm. On the same day, you will see Dr. Saleh in the residence clinic at 2pm. Arrive 15 minutes early with a photo ID, insurance card, and a mask. ) - Discharge Summary/Plan Comment DC Time >30 min.: No - Patient Data Vitals - Most Recent: Last Vital Signs Temp 97.7 F 05/12/20 07:30 Pulse 81 05/12/20 08:35 Resp 18 05/12/20 07:30 BP 168/77 H 05/12/20 08:36 Pulse Ox 92 L 05/12/20 07:30 Orthostatic Blood Pressure [ 171/77 Standing] Orthostatic Blood Pressure [ 146/72 Sitting] Orthostatic Blood Pressure [ 172/78 Supine] Weight - Most Recent: 68.5 kg I&O - Last 24 hours: Intake & Output 05/11/20 05/12/20 05/12/20 22:59 06:59 14:59 Intake Total 1662 440 Output Total 1400 1400 Balance 262 -960 Lab Results - Last 24 hrs: Laboratory Results - last 24 hr 05/11/20 05/11/20 05/12/20 Range/Units 12:47 18:31 06:53 WBC 6.44 (4.0-11.0) K/uL RBC 3.80 L (4.30-5.90) M/uL Hgb 11.3 L (12.0-16.0) g/dL Hct 34.0 L (36.0-46.0) % MCV 89.5 (80.0-98.0) fL MCH 29.7 (27.0-32.0) pg MCHC 33.2 (31.0-37.0) g/dL RDW Std Deviation 46.3 (28.0-62.0) fl RDW Coeff of Renard 14 (11.0-15.0) % Plt Count 131 L (150-400) K/uL MPV 8.70 (7.40-12.00) fL Neut % (Auto) 68.3 (48.0-80.0) % Lymph % (Auto) 18.3 (16.0-40.0) % Eaton % (Auto) 11.5 (0.0-15.0) % Eos % (Auto) 1.7 (0.0-7.0) % Baso % (Auto) 0.2 (0.0-1.5) % Neut # (Auto) 4.4 (1.4-5.7) K/uL Lymph # (Auto) 1.2 (0.6-2.4) K/uL Eaton # (Auto) 0.7 (0.0-0.8) K/uL Eos # (Auto) 0.1 (0.0-0.7) K/uL Baso # (Auto) 0.0 (0.0-0.1) K/uL Nucleated RBC % 0.0 /100WBC Nucleated RBCs # 0 K/uL Sodium (136-145) mmol/L Potassium (3.5-5.1) mmol/L Chloride (98-107) mmol/L Carbon Dioxide (21.0-32.0) mmol/L BUN (7.0-18.0) mg/dL Creatinine (0.6-1.0) mg/dL Est Cr Clr Drug Dosing mL/min Estimated GFR (MDRD) ml/min Glucose (74-106) mg/dL POC Glucose 209 H 147 H (60-110) mg/dL Calcium (8.5-10.1) mg/dL Phosphorus (2.6-4.7) mg/dL Magnesium (1.8-2.4) mg/dL 05/12/20 05/12/20 Range/Units 06:53 07:41 WBC (4.0-11.0) K/uL RBC (4.30-5.90) M/uL Hgb (12.0-16.0) g/dL Hct (36.0-46.0) % MCV (80.0-98.0) fL MCH (27.0-32.0) pg MCHC (31.0-37.0) g/dL RDW Std Deviation (28.0-62.0) fl RDW Coeff of Renard (11.0-15.0) % Plt Count (150-400) K/uL MPV (7.40-12.00) fL Neut % (Auto) (48.0-80.0) % Lymph % (Auto) (16.0-40.0) % Eaton % (Auto) (0.0-15.0) % Eos % (Auto) (0.0-7.0) % Baso % (Auto) (0.0-1.5) % Neut # (Auto) (1.4-5.7) K/uL Lymph # (Auto) (0.6-2.4) K/uL Eaton # (Auto) (0.0-0.8) K/uL Eos # (Auto) (0.0-0.7) K/uL Baso # (Auto) (0.0-0.1) K/uL Nucleated RBC % /100WBC Nucleated RBCs # K/uL Sodium 137 (136-145) mmol/L Potassium 3.4 L (3.5-5.1) mmol/L Chloride 102 (98-107) mmol/L Carbon Dioxide 24.5 (21.0-32.0) mmol/L BUN 16 (7.0-18.0) mg/dL Creatinine 0.9 (0.6-1.0) mg/dL Est Cr Clr Drug Dosing 38.88 mL/min Estimated GFR (MDRD) 59.1 ml/min Glucose 191 H (74-106) mg/dL POC Glucose 187 H (60-110) mg/dL Calcium 8.1 L (8.5-10.1) mg/dL Phosphorus 2.6 (2.6-4.7) mg/dL Magnesium 1.7 L (1.8-2.4) mg/dL NORMA Results - Last 24 hrs: Microbiology 05/10/20 16:10 Urine Culture - Final Urine, Clean Catch MIXED MARCO ANTONIO 10,000-100,000 CFU/ML Med Orders - Current: Current Medications Acetaminophen (Tylenol) 650 mg PO Q4H PRN PRN Reason: Pain (Mild 1-3)/fever Last Admin: 05/10/20 20:24 Dose: 650 mg Documented by: Aspirin (Halfprin) 81 mg PO DAILY [facility] Last Admin: 05/12/20 08:35 Dose: 81 mg Documented by: Calcium Carbonate/Glycine (Tums) 500 mg PO Q4H PRN PRN Reason: Indigestion Last Admin: 05/10/20 19:20 Dose: 500 mg Documented by: Docusate Sodium (Colace) 100 mg PO BID PRN PRN Reason: Constipation Gabapentin (Neurontin) 300 mg PO BEDTIME [facility] Last Admin: 05/11/20 21:10 Dose: 300 mg Documented by: Heparin Sodium (Porcine) (Heparin Sodium) 5,000 units SUBCUT Q8H [facility] Last Admin: 05/12/20 08:35 Dose: 5,000 units Documented by: Ceftriaxone Sodium/Dextrose 1 (gm/ Premix) 50 mls @ 100 mls/hr IV Q24H [facility] Last Admin: 05/11/20 21:11 Dose: 100 mls/hr Documented by: Insulin Aspart (Novolog) 0 unit SUBCUT TIDAC [facility]; Protocol Last Admin: 05/12/20 08:34 Dose: 1 unit Documented by: Losartan Potassium (Cozaar) 100 mg PO DAILY [facility] Last Admin: 05/12/20 08:36 Dose: 100 mg Documented by: Metoprolol Succinate (Toprol Xl) 25 mg PO DAILY [facility] Last Admin: 05/12/20 08:35 Dose: 25 mg Documented by: Multivitamins/Minerals/Vitamin C (Tab-A-Bisi) 1 tab PO DAILY [facility] Last Admin: 05/12/20 08:36 Dose: 1 tab Documented by: Nystatin (Nystop) 1 gm TOP TID [facility] Last Admin: 05/12/20 06:05 Dose: 1 gm Documented by: Ondansetron HCl (Zofran) 4 mg IVPUSH Q4H PRN PRN Reason: Nausea Sertraline HCl (Zoloft) 100 mg PO DAILY [facility] Last Admin: 05/12/20 08:35 Dose: 100 mg Documented by: Simvastatin (Zocor) 20 mg PO BEDTIME [facility] Last Admin: 05/11/20 21:10 Dose: 20 mg Documented by: Sodium Chloride (Saline Flush) 2.5 ml FLUSH ASDIRECTED PRN PRN Reason: IV Use Discontinued Medications Acetaminophen (Tylenol Extra Strength) 1,000 mg PO ONETIME ONE Stop: 05/10/20 10:12 Last Admin: 05/10/20 10:32 Dose: 1,000 mg Documented by: Hydralazine HCl (Apresoline) 25 mg PO Q6H PRN PRN Reason: SBP>180 Last Admin: 05/11/20 13:14 Dose: 25 mg Documented by: Lactated Ringer's (Ringers, Lactated) 1,000 mls @ 999 mls/hr IV .BOLUS ONE Stop: 05/10/20 11:42 Last Admin: 05/10/20 11:19 Dose: 999 mls/hr Documented by: Sodium Chloride (Normal Saline) 1,000 mls @ 100 mls/hr IV Q10H [facility] Last Admin: 05/11/20 12:59 Dose: Not Given Documented by: Magnesium Sulfate 2 gm/ Premix 50 mls @ 50 mls/hr IV ONETIME ONE Stop: 05/11/20 09:04 Last Admin: 05/11/20 08:23 Dose: 50 mls/hr Documented by: Losartan Potassium (Cozaar) 100 mg PO DAILY [facility] Ropinirole HCl (Requip) 0.25 mg PO NOW ONE Stop: 05/10/20 13:17 Last Admin: 05/10/20 13:43 Dose: 0.25 mg Documented by: Sodium Chloride (Saline Flush) 10 ml FLUSH ASDIRECTED PRN PRN Reason: Keep Vein Open Last Admin: 05/10/20 10:33 Dose: 10 ml Documented by: Sodium Chloride (Saline Flush) 2.5 ml FLUSH ASDIRECTED PRN PRN Reason: Keep Vein Open Last Admin: 05/10/20 10:33 Dose: 2.5 ml Documented by: - Exam General: Reports: Alert, Oriented, Cooperative, No Acute Distress Lungs: Reports: Clear to Auscultation, Normal Respiratory Effort Cardiovascular: Reports: Regular Rate, Regular Rhythm GI/Abdominal Exam: Normal Bowel Sounds, Soft, Non-Tender, No Organomegaly Skin: Reports: Ecchymosis (bruising to R flank and R hip.) Wound/Incisions: Reports: Healing Well Neurological: Reports: No New Focal Deficit Psy/Mental Status: Reports: Alert, Normal Affect, Normal Mood
[2020-05-12 13:54] VITALS: BP 165/91; PULSE 94
--- NOTE | 2020-05-13 13:36 | ECHO ---
EXAM DATE: 05/10/20 PATIENT'S AGE: 89 The ECHO report has been scanned into [employer] and can be seen in this patient's EMR (Electronic Medical Record) under the REPORTS section. The report has also been scanned into PACS. LORRIE
== END 2020-05-12 13:00 | disposition home health service (06) | DRG 683 ==
LOC: MW.ED 09:58 → MW.MS 13:15
PROVIDERS: ADMIT Student in an Organized Health Care Education/Training Program; ATTEND Student in an Organized Health Care Education/Training Program
DX: N17.9 Acute kidney failure, unspecified (principal); T14.8XXA Other injury of unspecified body region, initial encounter; M62.82 Rhabdomyolysis; N39.0 Urinary tract infection, site not specified; T76.01XA Adult neglect or abandonment, suspected, initial encounter; E87.1 Hypo-osmolality and hyponatremia; E87.2 Acidosis; E11.649 Type 2 diabetes mellitus with hypoglycemia without coma; S70.01XA Contusion of right hip, initial encounter; F32.9 Major depressive disorder, single episode, unspecified; E11.9 Type 2 diabetes mellitus without complications; S20.229A Contusion of unspecified back wall of thorax, initial encounter; I10 Essential (primary) hypertension; G25.81 Restless legs syndrome; R29.6 Repeated falls; Z66 Do not resuscitate; Z20.828 Contact with and (suspected) exposure to other viral communicable diseases; E86.0 Dehydration; H54.7 Unspecified visual loss; E78.00 Pure hypercholesterolemia, unspecified; M19.90 Unspecified osteoarthritis, unspecified site; W19.XXXA Unspecified fall, initial encounter; Z91.81 History of falling; Z79.82 Long term (current) use of aspirin; Z79.899 Other long term (current) drug therapy; Z79.4 Long term (current) use of insulin; Z85.828 Personal history of other malignant neoplasm of skin; Z90.89 Acquired absence of other organs; Z98.49 Cataract extraction status, unspecified eye; Z90.710 Acquired absence of both cervix and uterus
CPT/HCPCS: 36415; 70450; 71250; 72125; 73030; 74176; 80053; 82550; 83036; 83605; 84484; 85025; 85610; 93005; 96360; 99285; A9270; J7120; U0002; 80048; 81001; 82962; 83735; 84100; 87086; 93306; 97161-GP; 99284; J0696; J1644; J1815-GY; J3475; J7030

== ENCOUNTER 2020-05-22 10:53 | Observation (INO) | payer MEDICARE, OTHER ==
[2020-05-22] MEDS ORDERED: Sodium Chloride 0.9% 10 ML Syringe FLUSH PRN (11:10)
--- NOTE | 2020-05-22 11:10 | EDM.PDOC ---
ED HPI GENERAL MEDICAL PROBLEM - General Stated Complaint: UPSET STOMACH/WEAK IN LEGS Time Seen by Provider: 05/22/20 10:54 Source of Information: Reports: Patient History Limitations: Reports: No Limitations - History of Present Illness INITIAL COMMENTS - FREE TEXT/NARRATIVE: HISTORY AND PHYSICAL: History of present illness: Patient is an 89-year-old female who presents to the emergency room with comp laints of generalized weakness and feeling unwell. Patient has a past medical history of type 2 diabetes, hypertension, restless leg syndrome and frequent falls. She was recently admitted to the hospital 05/10/2020 for episodes of hypoglycemia, CORA, unexplained falls and complaints of lightheadedness/dizziness. Patient states that they changed/decreased her insulin dosing. Since her discharge she has had generalized weakness and felt unwell. She attributes this to decrease in her insulin dosing. Patient continues to live at home alone, states she has not fallen since her discharge from the hospital but states "my body wants to because I am so weak". Per family checks on her several times per day. She reports that somebody who fills her pill boxes for her does have them set aside for each day. Today she only took a few of her medications from the pillbox, unsure of which ones she took and did not take them all as she has been directed. Patient denies any fever, chills, headache, change in vision, syncope or near syncope. Denies any chest pain, back pain, shortness of breath or cough. Denies any abdominal pain, diarrhea, constipation or dysuria. Has not noted any blood in urine or stool. Patient has been eating and drinking appropriately. Review of systems: As per history of present illness and below otherwise all systems reviewed and negative. Past medical history: As per history of present illness and as reviewed below otherwise noncontributory. Surgical history: As per history of present illness and as reviewed below otherwise noncontributory. Social history: See social history for further information Family history: As per history of present illness and as reviewed below otherwise noncontributory. Physical exam: General: Well-developed and well-nourished 89-year-old female. Alert and oriented. Nontoxic-appearing and in no acute distress. HEENT: Atraumatic, normocephalic, pupils equal and reactive bilaterally, negative for conjunctival pallor or scleral icterus, mucous membranes moist, TMs normal bilaterally, throat clear, neck supple, nontender, trachea midline. No drooling or trismus noted. No meningeal signs. No hot potato voice noted. Lungs: Clear to auscultation, breath sounds equal bilaterally, chest nontender. Heart: S1S2, regular rate and rhythm without overt murmur Abdomen: Soft, nondistended, nontender. Negative for masses or hepatosplenomegaly. Negative for costovertebral tenderness. Pelvis: Stable nontender. Skin: Various/scattered bruises noted to the knees bilaterally, appear to be in various healing stages - no new bruising/injury noted. Skin is otherwise intact, warm, dry. No lesions or rashes noted. Hematologic: No petechiae or purpra. Mucosa appropriate color and normal nail bed color and refill. Extremities: Atraumatic, moves all extremities per self without difficulty or deficits, negative for cords or calf pain. Neurovascular unremarkable. Neuro: Awake, alert, oriented. Cranial nerves II through XII unremarkable. Cerebellum unremarkable. Motor and sensory unremarkable throughout. Exam nonfocal. Notes: Patient has an EKG with a sinus rhythm and rate of 91. No acute or concerning findings with EKG. Chest x-ray shows no acute findings. Patient does have an elevated lactate and appears dehydrated. Patient does note that she does not take all of her pills. Today she took a few of the quantity that was set aside. Unsure which medication she had been taking. I do note in previous provider documentation that there was concern that she was taking too much insulin at some point. When patient was asked about her medication compliance she appears irritated. Patient did have an episode of vomiting while here. Zofran was given. She states she does feel improved after the emesis. States she continues to have an upset stomach, pointing to her epigastric area saying it feels like a "knot". I did contact Dr. Monterroso, hospitalist on-call, and she is agreeable to accepting this patient for observation status with telemetry. Patient was made aware and is agreeable/happy with the admission. Her vital signs have improved. Patient receiving IV fluids, to the 1 L bolus will set at 150 mL's per hour. Diagnostics: CBC, CMP, Troponin, EKG, CXR, CPK, UA, lactate Therapeutics: NS bolus then 150 mls/hr Impression: Dehydration Medication noncompliance Plan: Observation admission to telemetry Definitive disposition and diagnosis as appropriate pending reevaluation and review of above. - Related Data Allergies Allergy/AdvReac Type Severity Reaction Status Date / Time No Known Allergies Allergy Verified 05/22/20 11:16 Home Meds: Home Meds Aspirin [Wise Aspirin EC] 81 mg PO DAILY 10/13/16 [History] Sertraline HCl 100 mg PO DAILY 10/13/16 [History] Simvastatin [Zocor] 20 mg PO BEDTIME 10/13/16 [History] Celecoxib 200 mg PO DAILY 03/18/19 [History] rOPINIRole [Requip] 0.25 mg PO BEDTIME 03/18/19 [History] Losartan [Cozaar] 100 mg PO DAILY #60 tablet 03/21/19 [Rx] Furosemide 20 mg PO DAILY 08/08/19 [History] Metoprolol Succinate [Toprol XL] 25 mg PO DAILY 04/01/20 [History] Multivitamins [Tab-A-Bisi] 1 each PO DAILY 04/01/20 [History] Gabapentin [Neurontin] 300 mg PO BEDTIME #30 cap 05/12/20 [Rx] Insulin Detemir [Levemir Flextouch] 5 units SUBCUT BEDTIME #0 05/12/20 [Rx] Nystatin [Nystop] 1 gm TOP TID bottle 05/12/20 [Rx] metFORMIN [Glucophage] 1,000 mg PO BIDMEALS #0 05/12/20 [Rx] Past Medical History HEENT History: Reports: Impaired Vision, Other (See Below) Other HEENT History: wears glasses Cardiovascular History: Reports: High Cholesterol, Hypertension Respiratory History: Reports: None Genitourinary History: Reports: None 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: Musculoskeletal History: Reports: Osteoarthritis Neurological History: Reports: None Psychiatric History: Reports: Depression Endocrine/Metabolic History: Reports: Diabetes, Type II Hematologic History: Reports: None Immunologic History: Reports: None Oncologic (Cancer) History: Reports: Basal Cell Carcinoma Dermatologic History: Reports: Other (See Below) Other Dermatologic History: basal cell carcinoma to face - Infectious Disease History Infectious Disease History: Reports: None - Past Surgical History Head Surgeries/Procedures: Reports: None HEENT Surgical History: Reports: Cataract Surgery, Tonsillectomy GI Surgical History: Reports: Appendectomy Female Surgical History: Reports: Hysterectomy, Salpingo-Oophorectomy Neurological Surgical History: Reports: Lumbar Spine Musculoskeletal Surgical History: Reports: Arthroscopic Knee Social & Family History - Family History Family Medical History: Noncontributory - Caffeine Use Caffeine Use: Reports: Coffee Other Caffeine Use: 1/day Caffeine Use Comment: 1 bottle Dory Vaughan daily - Living Situation & Occupation Living situation: Reports: Alone Occupation: Retired ED ROS GENERAL - Review of Systems Review Of Systems: Comprehensive ROS is negative, except as noted in HPI. ED EXAM, GENERAL - Physical Exam Exam: See Below (See dictation) Course - Vital Signs Last Recorded V/S: Last Vital Signs Temp 96.9 F 05/22/20 11:14 Pulse 99 05/22/20 12:34 Resp 17 05/22/20 12:34 BP 160/78 H 05/22/20 12:34 Pulse Ox 88 L 05/22/20 12:34 - Orders/Labs/Meds Orders: Active Orders 24 hr Category Date Time Status Admission Status [Patient Status] [ADT] Stat ADT 05/22/20 12:36 Active Cardiac Monitoring [RC] . DIRECTED Care 05/22/20 11:10 Active Cardiac Monitoring [RC] . DIRECTED Care 05/22/20 12:36 Active EKG Documentation Completion [RC] STAT Care 05/22/20 11:10 Active Glucose [Blood Glucose Check, Bedside] [RC] ONETIME Care 05/22/20 11:12 Active CORONAVIRUS COVID-19 RAPID [MOLEC] Stat Lab 05/22/20 12:40 Received CULTURE BLOOD [BC] Stat Lab 05/22/20 12:16 Received CULTURE BLOOD [BC] Stat Lab 05/22/20 12:18 Results UA RFX NORMA AND CULT IF INDIC [URIN] Stat Lab 05/22/20 11:10 Ordered Sodium Chloride 0.9% [Normal Saline] 1,000 ml Med 05/22/20 12:03 Active IV STAT Sodium Chloride 0.9% [Saline Flush] Med 05/22/20 11:10 Active 10 ml FLUSH ASDIRECTED PRN Sodium Chloride 0.9% [Saline Flush] Med 05/22/20 11:10 Active 2.5 ml FLUSH ASDIRECTED PRN Blood Culture x2 Reflex Set [OM.PC] Stat Oth 05/22/20 12:10 Ordered Saline Lock Insert [OM.PC] Stat Oth 05/22/20 11:10 Ordered Medication Orders Sodium Chloride (Normal Saline) 1,000 mls @ 999 mls/hr IV STAT ONE Stop: 05/22/20 13:03 Last Admin: 05/22/20 12:20 Dose: 999 mls/hr Documented by: JOHN Sodium Chloride (Saline Flush) 10 ml FLUSH ASDIRECTED PRN PRN Reason: Keep Vein Open Last Admin: 05/22/20 12:20 Dose: 10 ml Documented by: JOHN Sodium Chloride (Saline Flush) 2.5 ml FLUSH ASDIRECTED PRN PRN Reason: Keep Vein Open Last Admin: 05/22/20 12:20 Dose: 2.5 ml Documented by: JOHN Labs: Laboratory Tests 05/22/20 05/22/20 05/22/20 Range/Units 11:16 11:55 11:55 WBC 10.19 (4.0-11.0) K/uL RBC 4.34 (4.30-5.90) M/uL Hgb 13.2 (12.0-16.0) g/dL Hct 38.4 (36.0-46.0) % MCV 88.5 (80.0-98.0) fL MCH 30.4 (27.0-32.0) pg MCHC 34.4 (31.0-37.0) g/dL RDW Std Deviation 46.9 (28.0-62.0) fl RDW Coeff of Renard 14 (11.0-15.0) % Plt Count 159 (150-400) K/uL MPV 9.40 (7.40-12.00) fL Neut % (Auto) 79.8 (48.0-80.0) % Lymph % (Auto) 12.8 L (16.0-40.0) % [place] % (Auto) 6.5 (0.0-15.0) % Eos % (Auto) 0.8 (0.0-7.0) % Baso % (Auto) 0.1 (0.0-1.5) % Neut # (Auto) 8.1 H (1.4-5.7) K/uL Lymph # (Auto) 1.3 (0.6-2.4) K/uL [place] # (Auto) 0.7 (0.0-0.8) K/uL Eos # (Auto) 0.1 (0.0-0.7) K/uL Baso # (Auto) 0.0 (0.0-0.1) K/uL Nucleated RBC % 0.0 /100WBC Nucleated RBCs # 0 K/uL Lactate 3.5 H* (0.20-2.00) mmol/L Sodium (136-145) mmol/L Potassium (3.5-5.1) mmol/L Chloride (98-107) mmol/L Carbon Dioxide (21.0-32.0) mmol/L BUN (7.0-18.0) mg/dL Creatinine (0.6-1.0) mg/dL Est Cr Clr Drug Dosing mL/min Estimated GFR (MDRD) ml/min Glucose (74-106) mg/dL POC Glucose 193 H (60-110) mg/dL Calcium (8.5-10.1) mg/dL Total Bilirubin (0.2-1.0) mg/dL AST (15-37) IU/L ALT (14-63) IU/L Alkaline Phosphatase (46-116) U/L Creatine Kinase (26-308) U/L Troponin I (0.000-0.056) ng/mL Total Protein (6.4-8.2) g/dL Albumin (3.4-5.0) g/dL Globulin (2.6-4.0) g/dL Albumin/Globulin Ratio (0.9-1.6) 05/22/20 Range/Units 11:55 WBC (4.0-11.0) K/uL RBC (4.30-5.90) M/uL Hgb (12.0-16.0) g/dL Hct (36.0-46.0) % MCV (80.0-98.0) fL MCH (27.0-32.0) pg MCHC (31.0-37.0) g/dL RDW Std Deviation (28.0-62.0) fl RDW Coeff of Renard (11.0-15.0) % Plt Count (150-400) K/uL MPV (7.40-12.00) fL Neut % (Auto) (48.0-80.0) % Lymph % (Auto) (16.0-40.0) % [place] % (Auto) (0.0-15.0) % Eos % (Auto) (0.0-7.0) % Baso % (Auto) (0.0-1.5) % Neut # (Auto) (1.4-5.7) K/uL Lymph # (Auto) (0.6-2.4) K/uL [place] # (Auto) (0.0-0.8) K/uL Eos # (Auto) (0.0-0.7) K/uL Baso # (Auto) (0.0-0.1) K/uL Nucleated RBC % /100WBC Nucleated RBCs # K/uL Lactate (0.20-2.00) mmol/L Sodium 128 L (136-145) mmol/L Potassium 3.8 (3.5-5.1) mmol/L Chloride 91 L (98-107) mmol/L Carbon Dioxide 26.6 (21.0-32.0) mmol/L BUN 19 H (7.0-18.0) mg/dL Creatinine 1.1 H (0.6-1.0) mg/dL Est Cr Clr Drug Dosing 31.81 mL/min Estimated GFR (MDRD) 46.9 ml/min Glucose 183 H (74-106) mg/dL POC Glucose (60-110) mg/dL Calcium 9.8 (8.5-10.1) mg/dL Total Bilirubin 0.5 (0.2-1.0) mg/dL AST 22 (15-37) IU/L ALT 23 (14-63) IU/L Alkaline Phosphatase 61 (46-116) U/L Creatine Kinase 79 (26-308) U/L Troponin I < 0.050 (0.000-0.056) ng/mL Total Protein 7.7 (6.4-8.2) g/dL Albumin 4.0 (3.4-5.0) g/dL Globulin 3.7 (2.6-4.0) g/dL Albumin/Globulin Ratio 1.1 (0.9-1.6) Meds: Medications Generic Name Dose Route Start Last Admin Trade Name Freq PRN Reason Stop Dose Admin Sodium Chloride 1,000 mls @ 999 mls/hr 05/22/20 12:03 05/22/20 12:20 Normal Saline IV 05/22/20 13:03 999 mls/hr STAT ONE Administration Sodium Chloride 10 ml 05/22/20 11:10 05/22/20 12:20 Saline Flush FLUSH 10 ml ASDIRECTED PRN Administration Keep Vein Open Sodium Chloride 2.5 ml 05/22/20 11:10 05/22/20 12:20 Saline Flush FLUSH 2.5 ml ASDIRECTED PRN Administration Keep Vein Open Discontinued Medications Generic Name Dose Route Start Last Admin Trade Name Freq PRN Reason Stop Dose Admin Ondansetron HCl 4 mg 05/22/20 12:02 05/22/20 12:20 Zofran IVPUSH 05/22/20 12:03 4 mg ONETIME ONE Administration Departure - Departure Time of Disposition: 12:58 Disposition: Refer to Observation Clinical Impression: Dehydration, Noncompliance with medication regimen - Discharge Information Sepsis Event Note (ED) - Focused Exam Vital Signs: Vital Signs Temp Pulse Resp BP Pulse Ox 05/22/20 12:34 99 17 160/78 H 88 L 05/22/20 12:21 79 18 202/95 H 95 05/22/20 11:14 96.9 F 94 18 190/101 H 95 - My Orders Last 24 Hours: My Active Orders 05/22/20 11:10 Cardiac Monitoring [RC] . DIRECTED EKG Documentation Completion [RC] STAT UA RFX NORMA AND CULT IF INDIC [URIN] Stat Sodium Chloride 0.9% [Saline Flush] 10 ml FLUSH ASDIRECTED PRN Sodium Chloride 0.9% [Saline Flush] 2.5 ml FLUSH ASDIRECTED PRN Saline Lock Insert [OM.PC] Stat 05/22/20 11:12 Glucose [Blood Glucose Check, Bedside] [RC] ONETIME 05/22/20 12:03 Sodium Chloride 0.9% [Normal Saline] 1,000 ml IV STAT 05/22/20 12:10 Blood Culture x2 Reflex Set [OM.PC] Stat 05/22/20 12:16 CULTURE BLOOD [BC] Stat 05/22/20 12:18 CULTURE BLOOD [BC] Stat 05/22/20 12:36 Admission Status [Patient Status] [ADT] Stat Cardiac Monitoring [RC] . DIRECTED 05/22/20 12:40 CORONAVIRUS COVID-19 RAPID [MOLEC] Stat - Assessment/Plan Last 24 Hours: My Active Orders 05/22/20 11:10 Cardiac Monitoring [RC] . DIRECTED EKG Documentation Completion [RC] STAT UA RFX NORMA AND CULT IF INDIC [URIN] Stat Sodium Chloride 0.9% [Saline Flush] 10 ml FLUSH ASDIRECTED PRN Sodium Chloride 0.9% [Saline Flush] 2.5 ml FLUSH ASDIRECTED PRN Saline Lock Insert [OM.PC] Stat 05/22/20 11:12 Glucose [Blood Glucose Check, Bedside] [RC] ONETIME 05/22/20 12:03 Sodium Chloride 0.9% [Normal Saline] 1,000 ml IV STAT 05/22/20 12:10 Blood Culture x2 Reflex Set [OM.PC] Stat 05/22/20 12:16 CULTURE BLOOD [BC] Stat 05/22/20 12:18 CULTURE BLOOD [BC] Stat 05/22/20 12:36 Admission Status [Patient Status] [ADT] Stat Cardiac Monitoring [RC] . DIRECTED 05/22/20 12:40 CORONAVIRUS COVID-19 RAPID [MOLEC] Stat
[2020-05-22] MEDS ORDERED: Ondansetron 4 MG/2 ML SDV IVPUSH ONE ×2 (12:02→13:31)
[2020-05-22] MEDS ORDERED: Sodium Chloride 0.9% 1,000 ML IV ONE ×2 (12:03→13:18)
--- NOTE | 2020-05-22 12:15 | CR ---
INDICATION: Weakness TECHNIQUE: Chest 1 view. COMPARISON: 09 May 2000 FINDINGS: Cardiovascular and mediastinum: Heart size and vasculature are normal in caliber and appearance. Mediastinum is within normal limits. Lungs and pleural space: Lungs are clear. No sign of infiltrate or mass. No sign of pleural effusion. No pneumothorax. Bones and soft tissues: No significant findings. IMPRESSION: Unremarkable chest. Dictated by Charles Roque MD @ May 22 2020 12:14PM Signed by Dr. Charles Roque @ May 22 2020 12:14PM
[2020-05-22] MEDS: Sodium Chloride 0.9% 2.5 ML Syringe FLUSH PRN ×2 (12:20→14:24)
[2020-05-22 12:27] LABS: BLOOD UREA NITROGEN,BUN 19 mg/dL (7.0-18.0); CARBON DIOXIDE,CO2 26.6 mmol/L (21.0-32.0); CHLORIDE,CL 91 mmol/L (98-107); GLUCOSE RANDOM 183 mg/dL (74-106); POTASSIUM,K 3.8 mmol/L (3.5-5.1); SODIUM,NA 128 mmol/L (136-145)
--- NOTE | 2020-05-22 13:32 | PCM.HP.2 ---
<Chaitanya Gillis M - Last Filed: 05/22/20 14:35> H&P History of Present Illness - General Date of Service: 05/22/20 Admit Problem/Dx: Admission Diagnosis/Problem Admission Diagnosis/Problem Dehydration Source of Information: Patient History Limitations: Reports: No Limitations - History of Present Illness Initial Comments - Free Text/Narative: 89-year-old female presents complaining of nausea, vomiting and abdominal pain. She has a PMH of DM type 2, HTN and restless leg syndrome. Patient reports feeling like she has a "knot in her stomach" that comes and goes. She has had an "upset stomach" for about 1 week. When the pain is present it is mostly in the epigastric area. She tried taking antacids which did not help. She just started vomiting this morning. She reports not eating or drinking very much for the past few days. Her last bowel movement was this morning and appeared normal. Patient denies any fevers, chills, sore throat, cough, SOB, chest pain, diarrhea, pain on urination, blood in stool, blood in urine, numbness or tingling in extremities. In the ER, CBC unremarkable, CXR was negative, COVID19 test negative. CMP showed sodium level 128 and creatinine of 1.1. Lactate level was 3.5 and troponin was negative. Patient given IV zofran x 2 and IV 1 L NS bolus. Patient admitted for further evaluation and treatment. - Related Data Allergies/Adverse Reactions: Allergies Allergy/AdvReac Type Severity Reaction Status Date / Time No Known Allergies Allergy Verified 05/22/20 11:16 Home Medications: Home Meds Aspirin [[place] Aspirin EC] 81 mg PO DAILY 10/13/16 [History] Sertraline HCl 100 mg PO DAILY 10/13/16 [History] Simvastatin [Zocor] 20 mg PO BEDTIME 10/13/16 [History] Celecoxib 200 mg PO DAILY 03/18/19 [History] rOPINIRole [Requip] 0.25 mg PO BEDTIME 03/18/19 [History] Losartan [Cozaar] 100 mg PO DAILY #60 tablet 03/21/19 [Rx] Furosemide 20 mg PO DAILY 08/08/19 [History] Metoprolol Succinate [Toprol XL] 25 mg PO DAILY 04/01/20 [History] Multivitamins [Tab-A-Bisi] 1 each PO DAILY 04/01/20 [History] Gabapentin [Neurontin] 300 mg PO BEDTIME #30 cap 05/12/20 [Rx] Insulin Detemir [Levemir Flextouch] 5 units SUBCUT BEDTIME #0 05/12/20 [Rx] Nystatin [Nystop] 1 gm TOP TID bottle 05/12/20 [Rx] metFORMIN HCl [Metformin HCl] 1,000 mg PO WITHDINNER 05/22/20 [History] metFORMIN [Glucophage] 500 mg PO WITHBREAKFAST 05/22/20 [History] Past Medical History HEENT History: Reports: Impaired Vision, Other (See Below) Other HEENT History: wears glasses Cardiovascular History: Reports: High Cholesterol, Hypertension Respiratory History: Reports: None Gastrointestinal History: Reports: None Genitourinary History: Reports: None 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: Musculoskeletal History: Reports: Osteoarthritis Neurological History: Reports: None Psychiatric History: Reports: Depression Endocrine/Metabolic History: Reports: Diabetes, Type II Hematologic History: Reports: None Immunologic History: Reports: None Oncologic (Cancer) History: Reports: Basal Cell Carcinoma Dermatologic History: Reports: Other (See Below) Other Dermatologic History: basal cell carcinoma to face - Infectious Disease History Infectious Disease History: Reports: None - Past Surgical History Head Surgeries/Procedures: Reports: None HEENT Surgical History: Reports: Cataract Surgery, Tonsillectomy GI Surgical History: Reports: Appendectomy Female Surgical History: Reports: Hysterectomy, Salpingo-Oophorectomy Neurological Surgical History: Reports: Lumbar Spine Musculoskeletal Surgical History: Reports: Arthroscopic Knee Social & Family History - Family History Family Medical History: Noncontributory - Tobacco Use Smoking Status *Q: Never Smoker - Caffeine Use Caffeine Use: Reports: Coffee Other Caffeine Use: 1/day Caffeine Use Comment: 1 bottle Starbucks Mocha daily - Living Situation & Occupation Living situation: Reports: Alone Occupation: Retired H&P Review of Systems - Review of Systems: Review Of Systems: Comprehensive ROS is negative, except as noted in HPI. Exam - Exam Exam: See Below - Vital Signs Vital Signs: Last Vital Signs Temp 36.1 C 05/22/20 11:14 Pulse 99 05/22/20 12:34 Resp 17 05/22/20 12:34 BP 160/78 H 05/22/20 12:34 Pulse Ox 88 L 08/08/20 12:34 Weight: 86.183 kg - Exam General: Alert, Oriented, Cooperative, Mild Distress HEENT: Conjunctiva Clear, EOMI, Hearing Intact, Pupils Equal, Pupils Reactive Neck: Supple, Trachea Midline Lungs: Clear to Auscultation, Normal Respiratory Effort Cardiovascular: Regular Rate, Regular Rhythm GI/Abdominal Exam: Normal Bowel Sounds, Soft, Non-Tender, No Distention, No Mass Extremities: Normal Inspection, Other (trace pitting edema b/l) Skin: Warm, Dry, Intact Neurological: Cranial Nerves Intact, Strength Equal Bilateral, Normal Speech, Normal Tone Neuro Extensive - Mental Status: Alert, Oriented x3, Normal Mood/Affect Psychiatric: Alert, Normal Affect, Normal Mood - Patient Data Lab Results Last 24 hrs: Laboratory Results - last 24 hr 05/22/20 05/22/20 05/22/20 Range/Units 11:16 11:55 11:55 WBC 10.19 (4.0-11.0) K/uL RBC 4.34 (4.30-5.90) M/uL Hgb 13.2 (12.0-16.0) g/dL Hct 38.4 (36.0-46.0) % MCV 88.5 (80.0-98.0) fL MCH 30.4 (27.0-32.0) pg MCHC 34.4 (31.0-37.0) g/dL RDW Std Deviation 46.9 (28.0-62.0) fl RDW Coeff of Renard 14 (11.0-15.0) % Plt Count 159 (150-400) K/uL MPV 9.40 (7.40-12.00) fL Neut % (Auto) 79.8 (48.0-80.0) % Lymph % (Auto) 12.8 L (16.0-40.0) % Long % (Auto) 6.5 (0.0-15.0) % Eos % (Auto) 0.8 (0.0-7.0) % Baso % (Auto) 0.1 (0.0-1.5) % Neut # (Auto) 8.1 H (1.4-5.7) K/uL Lymph # (Auto) 1.3 (0.6-2.4) K/uL Long # (Auto) 0.7 (0.0-0.8) K/uL Eos # (Auto) 0.1 (0.0-0.7) K/uL Baso # (Auto) 0.0 (0.0-0.1) K/uL Nucleated RBC % 0.0 /100WBC Nucleated RBCs # 0 K/uL Lactate 3.5 H* (0.20-2.00) mmol/L Sodium (136-145) mmol/L Potassium (3.5-5.1) mmol/L Chloride (98-107) mmol/L Carbon Dioxide (21.0-32.0) mmol/L BUN (7.0-18.0) mg/dL Creatinine (0.6-1.0) mg/dL Est Cr Clr Drug Dosing mL/min Estimated GFR (MDRD) ml/min Glucose (74-106) mg/dL POC Glucose 193 H (60-110) mg/dL Calcium (8.5-10.1) mg/dL Total Bilirubin (0.2-1.0) mg/dL AST (15-37) IU/L ALT (14-63) IU/L Alkaline Phosphatase (46-116) U/L Creatine Kinase (26-308) U/L Troponin I (0.000-0.056) ng/mL Total Protein (6.4-8.2) g/dL Albumin (3.4-5.0) g/dL Globulin (2.6-4.0) g/dL Albumin/Globulin Ratio (0.9-1.6) COVID-19 (JEM) (NEGATIVE) 05/22/20 05/22/20 Range/Units 11:55 12:40 WBC (4.0-11.0) K/uL RBC (4.30-5.90) M/uL Hgb (12.0-16.0) g/dL Hct (36.0-46.0) % MCV (80.0-98.0) fL MCH (27.0-32.0) pg MCHC (31.0-37.0) g/dL RDW Std Deviation (28.0-62.0) fl RDW Coeff of Renard (11.0-15.0) % Plt Count (150-400) K/uL MPV (7.40-12.00) fL Neut % (Auto) (48.0-80.0) % Lymph % (Auto) (16.0-40.0) % Long % (Auto) (0.0-15.0) % Eos % (Auto) (0.0-7.0) % Baso % (Auto) (0.0-1.5) % Neut # (Auto) (1.4-5.7) K/uL Lymph # (Auto) (0.6-2.4) K/uL Long # (Auto) (0.0-0.8) K/uL Eos # (Auto) (0.0-0.7) K/uL Baso # (Auto) (0.0-0.1) K/uL Nucleated RBC % /100WBC Nucleated RBCs # K/uL Lactate (0.20-2.00) mmol/L Sodium 128 L (136-145) mmol/L Potassium 3.8 (3.5-5.1) mmol/L Chloride 91 L (98-107) mmol/L Carbon Dioxide 26.6 (21.0-32.0) mmol/L BUN 19 H (7.0-18.0) mg/dL Creatinine 1.1 H (0.6-1.0) mg/dL Est Cr Clr Drug Dosing 31.81 mL/min Estimated GFR (MDRD) 46.9 ml/min Glucose 183 H (74-106) mg/dL POC Glucose (60-110) mg/dL Calcium 9.8 (8.5-10.1) mg/dL Total Bilirubin 0.5 (0.2-1.0) mg/dL AST 22 (15-37) IU/L ALT 23 (14-63) IU/L Alkaline Phosphatase 61 (46-116) U/L Creatine Kinase 79 (26-308) U/L Troponin I < 0.050 (0.000-0.056) ng/mL Total Protein 7.7 (6.4-8.2) g/dL Albumin 4.0 (3.4-5.0) g/dL Globulin 3.7 (2.6-4.0) g/dL Albumin/Globulin Ratio 1.1 (0.9-1.6) COVID-19 (JEM) NEGATIVE (NEGATIVE) Result Diagrams: 05/22/20 11:55 05/22/20 11:55 Kirk Results Last 24 hrs: Microbiology 05/22/20 12:18 Anaerobic Blood Culture - Final Blood - Venous - Lab Draw Sepsis Event Note - Evaluation Sepsis Screening Result: No Definite Risk - Focused Exam Vital Signs: Vital Signs Temp Pulse Resp BP Pulse Ox 05/22/20 12:34 99 17 160/78 H 88 L 05/22/20 12:21 79 18 202/95 H 95 05/22/20 11:14 36.1 C 94 18 190/101 H 95 Date Exam was Performed: 05/22/20 Time Exam was Performed: 14:35 Problem List Initiated/Reviewed/Updated: Yes Orders Last 24hrs: Active Orders 24 hr Category Date Time Status Admission Status [Patient Status] [ADT] Stat ADT 05/22/20 12:36 Active Cardiac Monitoring [RC] . DIRECTED Care 05/22/20 11:10 Active Cardiac Monitoring [RC] . DIRECTED Care 05/22/20 12:36 Active EKG Documentation Completion [RC] STAT Care 05/22/20 11:10 Active Glucose [Blood Glucose Check, Bedside] [RC] ONETIME Care 05/22/20 11:12 Active CULTURE BLOOD [BC] Stat Lab 05/22/20 12:16 Received CULTURE BLOOD [BC] Stat Lab 05/22/20 12:18 Results UA RFX KIRK AND CULT IF INDIC [URIN] Stat Lab 05/22/20 11:10 Ordered Sodium Chloride 0.9% [Normal Saline] 1,000 ml Med 05/22/20 13:18 Active IV STAT Sodium Chloride 0.9% [Saline Flush] Med 05/22/20 11:10 Active 10 ml FLUSH ASDIRECTED PRN Sodium Chloride 0.9% [Saline Flush] Med 05/22/20 11:10 Active 2.5 ml FLUSH ASDIRECTED PRN Blood Culture x2 Reflex Set [OM.PC] Stat Oth 05/22/20 12:10 Ordered Saline Lock Insert [OM.PC] Stat Oth 05/22/20 11:10 Ordered Medication Orders Sodium Chloride (Normal Saline) 1,000 mls @ 150 mls/hr IV STAT ONE Stop: 05/22/20 19:57 Sodium Chloride (Saline Flush) 10 ml FLUSH ASDIRECTED PRN PRN Reason: Keep Vein Open Last Admin: 05/22/20 12:20 Dose: 10 ml Documented by: JOHN Sodium Chloride (Saline Flush) 2.5 ml FLUSH ASDIRECTED PRN PRN Reason: Keep Vein Open Last Admin: 05/22/20 12:20 Dose: 2.5 ml Documented by: JOHN Assessment/Plan Comment:: Assessment and Plan: 1. Nausea, vomiting and abdominal pain: - Admit to med/surg. Patient on telemetry. Patient received IV NS 1L bolus in ER. Will start IV LR maintenance fluids @ 120 cc/hr. IV zofran prn and keep patient NPO for now. Will start IV PPI qd. Lactate level 3.5 on admission, will repeat within 6 hours. Urinalysis pending. 2. Hypertension: - Patient unsure of which medications she took today. Will give IV labetalol 10 mg prn and continue to monitor. Will resume her metoprolol and losartan starting tomorrow. 3. CORA secondary to dehydration: - Patient on IV fluids, will monitor. 4. Hyponatremia: - Patient on IV fluids, will monitor and recheck with AM labs. 5. Prediabetes: - Since patient is NPO, will give long-acting insulin 2 units at bedtime. At home she takes levemir 5 units at bedtime. Blood glucose checks q6h. 6. DVT prophylaxis: SCD's for now. 7. Past medical history of HTN and restless legs syndrome: - Continue home medications with the exception of losartan secondary to #2. <Yudelka Monterroso - Last Filed: 05/24/20 19:11> H&P History of Present Illness - General Admit Problem/Dx: Admission Diagnosis/Problem Admission Diagnosis/Problem Dehydration - History of Present Illness Initial Comments - Free Text/Narative: I performed a history and physical exam of the patient and discussed management with resident. I have reviewed the residents note and agree with documented findings and plan unless otherwise specified in my note. Exam - Vital Signs Vital Signs: Last Vital Signs Temp 36.6 C 05/24/20 08:00 Pulse 73 05/24/20 09:04 Resp 16 05/24/20 08:00 BP 158/67 H 05/24/20 09:04 Pulse Ox 93 L 05/24/20 08:00 - Patient Data Lab Results Last 24 hrs: Laboratory Results - last 24 hr 05/23/20 05/24/20 05/24/20 Range/Units 20:42 05:55 05:55 WBC 6.39 (4.0-11.0) K/uL RBC 3.74 L (4.30-5.90) M/uL Hgb 11.4 L (12.0-16.0) g/dL Hct 34.2 L (36.0-46.0) % MCV 91.4 (80.0-98.0) fL MCH 30.5 (27.0-32.0) pg MCHC 33.3 (31.0-37.0) g/dL RDW Std Deviation 48.2 (28.0-62.0) fl RDW Coeff of Renard 15 (11.0-15.0) % Plt Count 118 L (150-400) K/uL MPV 9.60 (7.40-12.00) fL Neut % (Auto) 67.5 (48.0-80.0) % Lymph % (Auto) 19.9 (16.0-40.0) % Long % (Auto) 10.3 (0.0-15.0) % Eos % (Auto) 2.0 (0.0-7.0) % Baso % (Auto) 0.3 (0.0-1.5) % Neut # (Auto) 4.3 (1.4-5.7) K/uL Lymph # (Auto) 1.3 (0.6-2.4) K/uL Long # (Auto) 0.7 (0.0-0.8) K/uL Eos # (Auto) 0.1 (0.0-0.7) K/uL Baso # (Auto) 0.0 (0.0-0.1) K/uL Sodium 137 (136-145) mmol/L Potassium 3.8 (3.5-5.1) mmol/L Chloride 102 (98-107) mmol/L Carbon Dioxide 32.0 (21.0-32.0) mmol/L BUN 12 (7.0-18.0) mg/dL Creatinine 1.1 H (0.6-1.0) mg/dL Est Cr Clr Drug Dosing 26.03 mL/min Estimated GFR (MDRD) 46.9 ml/min Glucose 161 H (74-106) mg/dL POC Glucose 241 H (60-110) mg/dL Calcium 8.7 (8.5-10.1) mg/dL Phosphorus 2.7 (2.6-4.7) mg/dL Magnesium 1.5 L (1.8-2.4) mg/dL 05/24/20 Range/Units 06:19 WBC (4.0-11.0) K/uL RBC (4.30-5.90) M/uL Hgb (12.0-16.0) g/dL Hct (36.0-46.0) % MCV (80.0-98.0) fL MCH (27.0-32.0) pg MCHC (31.0-37.0) g/dL RDW Std Deviation (28.0-62.0) fl RDW Coeff of Renard (11.0-15.0) % Plt Count (150-400) K/uL MPV (7.40-12.00) fL Neut % (Auto) (48.0-80.0) % Lymph % (Auto) (16.0-40.0) % Long % (Auto) (0.0-15.0) % Eos % (Auto) (0.0-7.0) % Baso % (Auto) (0.0-1.5) % Neut # (Auto) (1.4-5.7) K/uL Lymph # (Auto) (0.6-2.4) K/uL Long # (Auto) (0.0-0.8) K/uL Eos # (Auto) (0.0-0.7) K/uL Baso # (Auto) (0.0-0.1) K/uL Sodium (136-145) mmol/L Potassium (3.5-5.1) mmol/L Chloride (98-107) mmol/L Carbon Dioxide (21.0-32.0) mmol/L BUN (7.0-18.0) mg/dL Creatinine (0.6-1.0) mg/dL Est Cr Clr Drug Dosing mL/min Estimated GFR (MDRD) ml/min Glucose (74-106) mg/dL POC Glucose 170 H (60-110) mg/dL Calcium (8.5-10.1) mg/dL Phosphorus (2.6-4.7) mg/dL Magnesium (1.8-2.4) mg/dL Result Diagrams: 05/24/20 05:55 05/24/20 05:55 Kirk Results Last 24 hrs: Microbiology 05/22/20 12:18 Aerobic Blood Culture - Preliminary Blood - Venous - Lab Draw NO GROWTH AFTER 2 DAYS Anaerobic Blood Culture - Final 05/22/20 12:16 Aerobic Blood Culture - Preliminary Blood - Venous NO GROWTH AFTER 2 DAYS Anaerobic Blood Culture - Preliminary NO GROWTH AFTER 2 DAYS Sepsis Event Note - Focused Exam Vital Signs: Vital Signs Temp Pulse Pulse Resp BP BP Pulse Ox 05/24/20 09:04 73 158/67 H 05/24/20 08:00 36.6 C 73 16 158/67 H 93 L Date Exam was Performed: 05/24/20 Time Exam was Performed: 19:11 - Problem List (1) Nausea & vomiting SNOMED Code(s): 40648957 ICD Code: R11.2 - NAUSEA WITH VOMITING, UNSPECIFIED Status: Acute (2) Dehydration SNOMED Code(s): 51157761 ICD Code: E86.0 - DEHYDRATION Status: Acute (3) HTN (hypertension) SNOMED Code(s): 32527335 ICD Code: I10 - ESSENTIAL (PRIMARY) HYPERTENSION Status: Chronic Qualifiers: Hypertension type: essential hypertension Qualified Code(s): I10 - Essential (primary) hypertension (4) Type 2 diabetes mellitus SNOMED Code(s): 38047282 ICD Code: E11.9 - TYPE 2 DIABETES MELLITUS WITHOUT COMPLICATIONS Status: Chronic Qualifiers: Diabetes mellitus supervisor long goods insulin use: with supervisor long goods use Diabetes mellitus complication status: without complication Qualified Code(s): E11.9 - Type 2 diabetes mellitus without complications; Z79.4 - detention (current) use of insulin Orders Last 24hrs: Active Orders 24 hr Category Date Time Status Blood Glucose Check, Bedside [RC] TIDAC Care 05/23/20 19:03 Active Ready for Discharge [RC] PER UNIT ROUTINE Care 05/24/20 10:59 Active
[2020-05-22] MEDS ORDERED: Acetaminophen 325 MG Tab PO PRN (13:33)
[2020-05-22] MEDS ORDERED: Ondansetron 4 MG/2 ML SDV IVPUSH PRN (13:33)
[2020-05-22] MEDS ORDERED: Ondansetron 4 MG Tab.DIS PO PRN (13:33)
[2020-05-22] MEDS ORDERED: Metoprolol Succinate 25 MG Tab.ER PO ONE (13:48)
[2020-05-22] MEDS ORDERED: Magnesium Sulfate/Water 2 GM in Premix Bag 1 BAG IV ONE (14:06)
[2020-05-22] MEDS ORDERED: Labetalol 100 MG/20 ML MDV IVPUSH ONE (14:10)
[2020-05-22] MEDS: Lactated Ringers 1,000 ML IV SCH (15:22)
[2020-05-22] MEDS: Pantoprazole 40 MG in Sodium Chloride 0.9% 10 ML IV SCH (16:16)
[2020-05-22] MEDS ORDERED: Insulin Aspart 100 Units/ML 3 ML Pen SUBCUT SCH (17:00)
[2020-05-22] MEDS ORDERED: Prochlorperazine 5 MG in Sodium Chloride 0.9% 50 ML IV ONE (19:03)
[2020-05-22] MEDS ORDERED: amLODIPine 5 MG Tab PO STA (19:10)
[2020-05-22] MEDS ORDERED: Lactated Ringers 500 ML IV ONE (19:11)
[2020-05-22] MEDS: Simvastatin 20 MG Tab PO SCH (20:50)
[2020-05-22] MEDS: Gabapentin 300 MG Cap PO SCH (20:50)
[2020-05-22] MEDS: rOPINIRole 0.5 MG Tab PO SCH (20:57)
[2020-05-22] MEDS: Insulin Detemir 100 Units/ML 3 ML Pen SUBCUT SCH (21:09)
[2020-05-22] MEDS ORDERED: Labetalol 100 MG/20 ML MDV IVPUSH STA (21:40)
[2020-05-22] MEDS ORDERED: Labetalol 100 MG/20 ML MDV IVPUSH PRN (21:45)
[2020-05-22] MEDS ORDERED: Heparin Sodium 5,000 Units/ML Vial SUBCUT SCH (22:00)
[2020-05-22] MEDS ORDERED: Lactated Ringers 1,000 ML IV SCH (22:30)
[2020-05-23] MEDS: Lactated Ringers 1,000 ML IV SCH ×3 (01:29→19:12)
[2020-05-23 07:20] LABS: CARBON DIOXIDE,CO2 32.4 mmol/L (21.0-32.0); POTASSIUM,K 3.3 mmol/L (3.5-5.1)
[2020-05-23] MEDS: Furosemide 20 MG Tab PO SCH (09:26)
[2020-05-23] MEDS ORDERED: Potassium Chloride Riders 40 MEQ in Premix Bag 1 BAG IV SCH (09:45)
[2020-05-23] MEDS: Sertraline 100 MG Tab PO SCH (10:56)
[2020-05-23] MEDS: Losartan 50 MG Tab PO SCH (10:57)
[2020-05-23] MEDS: Metoprolol Succinate 25 MG Tab.ER PO SCH (10:58)
[2020-05-23] MEDS: Aspirin 81 MG Tab.EC PO SCH (10:58)
[2020-05-23] MEDS: Pantoprazole 40 MG in Sodium Chloride 0.9% 10 ML IV SCH (10:59)
--- NOTE | 2020-05-23 12:05 | PCM.PN ---
- General Info Date of Service: 05/23/20 Admission Dx/Problem (Free Text): Admission Diagnosis/Problem Admission Diagnosis/Problem Dehydration Subjective Update: nausea has improved, no more vomiting, feels much better - Review of Systems General: Reports: Weakness. Denies: Fever, Fatigue, Malaise Pulmonary: Denies: Shortness of Breath, Pleuritic Chest Pain Cardiovascular: Denies: Chest Pain, Palpitations Gastrointestinal: Reports: Nausea. Denies: Abdominal Pain, Constipation, Decreased Appetite, Diarrhea, Difficulty Swallowing, Vomiting Genitourinary: Denies: Dysuria, Frequency, Burning - Patient Data Vitals - Most Recent: Last Vital Signs Temp 36.4 C 05/23/20 08:00 Pulse 91 05/23/20 10:58 Resp 18 05/23/20 08:00 BP 112/72 05/23/20 10:58 Pulse Ox 93 L 05/23/20 08:00 Weight - Most Recent: 86.183 kg I&O - Last 24 Hours: Intake & Output 05/22/20 05/23/20 05/23/20 22:59 06:59 14:59 Intake Total 551 2455 Output Total 1100 1600 Balance -549 855 Lab Results Last 24 Hours: Laboratory Results - last 24 hr 05/22/20 05/22/20 05/22/20 Range/Units 11:16 11:55 11:55 WBC (4.0-11.0) K/uL RBC (4.30-5.90) M/uL Hgb (12.0-16.0) g/dL Hct (36.0-46.0) % MCV (80.0-98.0) fL MCH (27.0-32.0) pg MCHC (31.0-37.0) g/dL RDW Std Deviation (28.0-62.0) fl RDW Coeff of Renard (11.0-15.0) % Plt Count (150-400) K/uL MPV (7.40-12.00) fL Neut % (Auto) (48.0-80.0) % Lymph % (Auto) (16.0-40.0) % [place] % (Auto) (0.0-15.0) % Eos % (Auto) (0.0-7.0) % Baso % (Auto) (0.0-1.5) % Neut # (Auto) (1.4-5.7) K/uL Lymph # (Auto) (0.6-2.4) K/uL [place] # (Auto) (0.0-0.8) K/uL Eos # (Auto) (0.0-0.7) K/uL Baso # (Auto) (0.0-0.1) K/uL Lactate 3.5 H* (0.20-2.00) mmol/L Sodium 128 L (136-145) mmol/L Potassium 3.8 (3.5-5.1) mmol/L Chloride 91 L (98-107) mmol/L Carbon Dioxide 26.6 (21.0-32.0) mmol/L BUN 19 H (7.0-18.0) mg/dL Creatinine 1.1 H (0.6-1.0) mg/dL Est Cr Clr Drug Dosing 31.81 mL/min Estimated GFR (MDRD) 46.9 ml/min Glucose 183 H (74-106) mg/dL POC Glucose 193 H (60-110) mg/dL Calcium 9.8 (8.5-10.1) mg/dL Phosphorus (2.6-4.7) mg/dL Magnesium (1.8-2.4) mg/dL Total Bilirubin 0.5 (0.2-1.0) mg/dL AST 22 (15-37) IU/L ALT 23 (14-63) IU/L Alkaline Phosphatase 61 (46-116) U/L Creatine Kinase 79 (26-308) U/L Troponin I < 0.050 (0.000-0.056) ng/mL Total Protein 7.7 (6.4-8.2) g/dL Albumin 4.0 (3.4-5.0) g/dL Globulin 3.7 (2.6-4.0) g/dL Albumin/Globulin Ratio 1.1 (0.9-1.6) Lipase (73-393) U/L Urine Color Urine Appearance Urine pH (5.0-8.0) Ur Specific [place] (1.001-1.035) Urine Protein (NEGATIVE) mg/dL Urine Glucose (UA) (NEGATIVE) mg/dL Urine Ketones (NEGATIVE) mg/dL Urine Occult Blood (NEGATIVE) Urine Nitrite (NEGATIVE) Urine Bilirubin (NEGATIVE) Urine Urobilinogen (<2.0) EU/dL Ur Leukocyte Esterase (NEGATIVE) Urine RBC (0-2/HPF) Urine WBC (0-5/HPF) Ur Epithelial Cells (NONE-FEW) Amorphous Sediment (NEGATIVE) Urine Bacteria (NEGATIVE) Urine Mucus (NONE-MOD) COVID-19 (JEM) (NEGATIVE) 05/22/20 05/22/20 05/22/20 Range/Units 11:55 11:55 12:40 WBC (4.0-11.0) K/uL RBC (4.30-5.90) M/uL Hgb (12.0-16.0) g/dL Hct (36.0-46.0) % MCV (80.0-98.0) fL MCH (27.0-32.0) pg MCHC (31.0-37.0) g/dL RDW Std Deviation (28.0-62.0) fl RDW Coeff of Renard (11.0-15.0) % Plt Count (150-400) K/uL MPV (7.40-12.00) fL Neut % (Auto) (48.0-80.0) % Lymph % (Auto) (16.0-40.0) % [place] % (Auto) (0.0-15.0) % Eos % (Auto) (0.0-7.0) % Baso % (Auto) (0.0-1.5) % Neut # (Auto) (1.4-5.7) K/uL Lymph # (Auto) (0.6-2.4) K/uL [place] # (Auto) (0.0-0.8) K/uL Eos # (Auto) (0.0-0.7) K/uL Baso # (Auto) (0.0-0.1) K/uL Lactate (0.20-2.00) mmol/L Sodium (136-145) mmol/L Potassium (3.5-5.1) mmol/L Chloride (98-107) mmol/L Carbon Dioxide (21.0-32.0) mmol/L BUN (7.0-18.0) mg/dL Creatinine (0.6-1.0) mg/dL Est Cr Clr Drug Dosing mL/min Estimated GFR (MDRD) ml/min Glucose (74-106) mg/dL POC Glucose (60-110) mg/dL Calcium (8.5-10.1) mg/dL Phosphorus 3.3 (2.6-4.7) mg/dL Magnesium 1.6 L (1.8-2.4) mg/dL Total Bilirubin (0.2-1.0) mg/dL AST (15-37) IU/L ALT (14-63) IU/L Alkaline Phosphatase (46-116) U/L Creatine Kinase (26-308) U/L Troponin I (0.000-0.056) ng/mL Total Protein (6.4-8.2) g/dL Albumin (3.4-5.0) g/dL Globulin (2.6-4.0) g/dL Albumin/Globulin Ratio (0.9-1.6) Lipase 112 (73-393) U/L Urine Color Urine Appearance Urine pH (5.0-8.0) Ur Specific [place] (1.001-1.035) Urine Protein (NEGATIVE) mg/dL Urine Glucose (UA) (NEGATIVE) mg/dL Urine Ketones (NEGATIVE) mg/dL Urine Occult Blood (NEGATIVE) Urine Nitrite (NEGATIVE) Urine Bilirubin (NEGATIVE) Urine Urobilinogen (<2.0) EU/dL Ur Leukocyte Esterase (NEGATIVE) Urine RBC (0-2/HPF) Urine WBC (0-5/HPF) Ur Epithelial Cells (NONE-FEW) Amorphous Sediment (NEGATIVE) Urine Bacteria (NEGATIVE) Urine Mucus (NONE-MOD) COVID-19 (JEM) NEGATIVE (NEGATIVE) 05/22/20 05/22/20 05/22/20 Range/Units 14:50 15:16 15:16 WBC (4.0-11.0) K/uL RBC (4.30-5.90) M/uL Hgb (12.0-16.0) g/dL Hct (36.0-46.0) % MCV (80.0-98.0) fL MCH (27.0-32.0) pg MCHC (31.0-37.0) g/dL RDW Std Deviation (28.0-62.0) fl RDW Coeff of Renard (11.0-15.0) % Plt Count (150-400) K/uL MPV (7.40-12.00) fL Neut % (Auto) (48.0-80.0) % Lymph % (Auto) (16.0-40.0) % [place] % (Auto) (0.0-15.0) % Eos % (Auto) (0.0-7.0) % Baso % (Auto) (0.0-1.5) % Neut # (Auto) (1.4-5.7) K/uL Lymph # (Auto) (0.6-2.4) K/uL [place] # (Auto) (0.0-0.8) K/uL Eos # (Auto) (0.0-0.7) K/uL Baso # (Auto) (0.0-0.1) K/uL Lactate 2.8 H* (0.20-2.00) mmol/L Sodium (136-145) mmol/L Potassium (3.5-5.1) mmol/L Chloride (98-107) mmol/L Carbon Dioxide (21.0-32.0) mmol/L BUN (7.0-18.0) mg/dL Creatinine (0.6-1.0) mg/dL Est Cr Clr Drug Dosing mL/min Estimated GFR (MDRD) ml/min Glucose (74-106) mg/dL POC Glucose (60-110) mg/dL Calcium (8.5-10.1) mg/dL Phosphorus (2.6-4.7) mg/dL Magnesium (1.8-2.4) mg/dL Total Bilirubin (0.2-1.0) mg/dL AST (15-37) IU/L ALT (14-63) IU/L Alkaline Phosphatase (46-116) U/L Creatine Kinase (26-308) U/L Troponin I < 0.050 (0.000-0.056) ng/mL Total Protein (6.4-8.2) g/dL Albumin (3.4-5.0) g/dL Globulin (2.6-4.0) g/dL Albumin/Globulin Ratio (0.9-1.6) Lipase (73-393) U/L Urine Color YELLOW Urine Appearance CLEAR Urine pH 7.5 (5.0-8.0) Ur Specific [place] 1.025 (1.001-1.035) Urine Protein 100 H (NEGATIVE) mg/dL Urine Glucose (UA) NEGATIVE (NEGATIVE) mg/dL Urine Ketones NEGATIVE (NEGATIVE) mg/dL Urine Occult Blood NEGATIVE (NEGATIVE) Urine Nitrite NEGATIVE (NEGATIVE) Urine Bilirubin NEGATIVE (NEGATIVE) Urine Urobilinogen 0.2 (<2.0) EU/dL Ur Leukocyte Esterase NEGATIVE (NEGATIVE) Urine RBC NONE SEEN (0-2/HPF) Urine WBC 0-1 (0-5/HPF) Ur Epithelial Cells FEW (NONE-FEW) Amorphous Sediment LIGHT (NEGATIVE) Urine Bacteria FEW (NEGATIVE) Urine Mucus LIGHT (NONE-MOD) COVID-19 (JEM) (NEGATIVE) 05/22/20 05/22/20 05/22/20 Range/Units 15:33 20:43 21:08 WBC (4.0-11.0) K/uL RBC (4.30-5.90) M/uL Hgb (12.0-16.0) g/dL Hct (36.0-46.0) % MCV (80.0-98.0) fL MCH (27.0-32.0) pg MCHC (31.0-37.0) g/dL RDW Std Deviation (28.0-62.0) fl RDW Coeff of Renard (11.0-15.0) % Plt Count (150-400) K/uL MPV (7.40-12.00) fL Neut % (Auto) (48.0-80.0) % Lymph % (Auto) (16.0-40.0) % [place] % (Auto) (0.0-15.0) % Eos % (Auto) (0.0-7.0) % Baso % (Auto) (0.0-1.5) % Neut # (Auto) (1.4-5.7) K/uL Lymph # (Auto) (0.6-2.4) K/uL [place] # (Auto) (0.0-0.8) K/uL Eos # (Auto) (0.0-0.7) K/uL Baso # (Auto) (0.0-0.1) K/uL Lactate 3.1 H* (0.20-2.00) mmol/L Sodium (136-145) mmol/L Potassium (3.5-5.1) mmol/L Chloride (98-107) mmol/L Carbon Dioxide (21.0-32.0) mmol/L BUN (7.0-18.0) mg/dL Creatinine (0.6-1.0) mg/dL Est Cr Clr Drug Dosing mL/min Estimated GFR (MDRD) ml/min Glucose (74-106) mg/dL POC Glucose 213 H 199 H (60-110) mg/dL Calcium (8.5-10.1) mg/dL Phosphorus (2.6-4.7) mg/dL Magnesium (1.8-2.4) mg/dL Total Bilirubin (0.2-1.0) mg/dL AST (15-37) IU/L ALT (14-63) IU/L Alkaline Phosphatase (46-116) U/L Creatine Kinase (26-308) U/L Troponin I (0.000-0.056) ng/mL Total Protein (6.4-8.2) g/dL Albumin (3.4-5.0) g/dL Globulin (2.6-4.0) g/dL Albumin/Globulin Ratio (0.9-1.6) Lipase (73-393) U/L Urine Color Urine Appearance Urine pH (5.0-8.0) Ur Specific [place] (1.001-1.035) Urine Protein (NEGATIVE) mg/dL Urine Glucose (UA) (NEGATIVE) mg/dL Urine Ketones (NEGATIVE) mg/dL Urine Occult Blood (NEGATIVE) Urine Nitrite (NEGATIVE) Urine Bilirubin (NEGATIVE) Urine Urobilinogen (<2.0) EU/dL Ur Leukocyte Esterase (NEGATIVE) Urine RBC (0-2/HPF) Urine WBC (0-5/HPF) Ur Epithelial Cells (NONE-FEW) Amorphous Sediment (NEGATIVE) Urine Bacteria (NEGATIVE) Urine Mucus (NONE-MOD) COVID-19 (JEM) (NEGATIVE) 05/23/20 05/23/20 05/23/20 Range/Units 01:40 03:29 06:23 WBC 9.65 (4.0-11.0) K/uL RBC 3.81 L (4.30-5.90) M/uL Hgb 11.7 L (12.0-16.0) g/dL Hct 33.9 L (36.0-46.0) % MCV 89.0 (80.0-98.0) fL MCH 30.7 (27.0-32.0) pg MCHC 34.5 (31.0-37.0) g/dL RDW Std Deviation 43.9 (28.0-62.0) fl RDW Coeff of Renard 14 (11.0-15.0) % Plt Count 129 L (150-400) K/uL MPV 10.10 (7.40-12.00) fL Neut % (Auto) 71.1 (48.0-80.0) % Lymph % (Auto) 18.7 (16.0-40.0) % [place] % (Auto) 9.5 (0.0-15.0) % Eos % (Auto) 0.6 (0.0-7.0) % Baso % (Auto) 0.1 (0.0-1.5) % Neut # (Auto) 6.9 H (1.4-5.7) K/uL Lymph # (Auto) 1.8 (0.6-2.4) K/uL [place] # (Auto) 0.9 H (0.0-0.8) K/uL Eos # (Auto) 0.1 (0.0-0.7) K/uL Baso # (Auto) 0.0 (0.0-0.1) K/uL Lactate 1.7 (0.20-2.00) mmol/L Sodium (136-145) mmol/L Potassium (3.5-5.1) mmol/L Chloride (98-107) mmol/L Carbon Dioxide (21.0-32.0) mmol/L BUN (7.0-18.0) mg/dL Creatinine (0.6-1.0) mg/dL Est Cr Clr Drug Dosing mL/min Estimated GFR (MDRD) ml/min Glucose (74-106) mg/dL POC Glucose 184 H (60-110) mg/dL Calcium (8.5-10.1) mg/dL Phosphorus (2.6-4.7) mg/dL Magnesium (1.8-2.4) mg/dL Total Bilirubin (0.2-1.0) mg/dL AST (15-37) IU/L ALT (14-63) IU/L Alkaline Phosphatase (46-116) U/L Creatine Kinase (26-308) U/L Troponin I (0.000-0.056) ng/mL Total Protein (6.4-8.2) g/dL Albumin (3.4-5.0) g/dL Globulin (2.6-4.0) g/dL Albumin/Globulin Ratio (0.9-1.6) Lipase (73-393) U/L Urine Color Urine Appearance Urine pH (5.0-8.0) Ur Specific [place] (1.001-1.035) Urine Protein (NEGATIVE) mg/dL Urine Glucose (UA) (NEGATIVE) mg/dL Urine Ketones (NEGATIVE) mg/dL Urine Occult Blood (NEGATIVE) Urine Nitrite (NEGATIVE) Urine Bilirubin (NEGATIVE) Urine Urobilinogen (<2.0) EU/dL Ur Leukocyte Esterase (NEGATIVE) Urine RBC (0-2/HPF) Urine WBC (0-5/HPF) Ur Epithelial Cells (NONE-FEW) Amorphous Sediment (NEGATIVE) Urine Bacteria (NEGATIVE) Urine Mucus (NONE-MOD) COVID-19 (JEM) (NEGATIVE) 05/23/20 05/23/20 Range/Units 06:23 10:23 WBC (4.0-11.0) K/uL RBC (4.30-5.90) M/uL Hgb (12.0-16.0) g/dL Hct (36.0-46.0) % MCV (80.0-98.0) fL MCH (27.0-32.0) pg MCHC (31.0-37.0) g/dL RDW Std Deviation (28.0-62.0) fl RDW Coeff of Renard (11.0-15.0) % Plt Count (150-400) K/uL MPV (7.40-12.00) fL Neut % (Auto) (48.0-80.0) % Lymph % (Auto) (16.0-40.0) % [place] % (Auto) (0.0-15.0) % Eos % (Auto) (0.0-7.0) % Baso % (Auto) (0.0-1.5) % Neut # (Auto) (1.4-5.7) K/uL Lymph # (Auto) (0.6-2.4) K/uL [place] # (Auto) (0.0-0.8) K/uL Eos # (Auto) (0.0-0.7) K/uL Baso # (Auto) (0.0-0.1) K/uL Lactate (0.20-2.00) mmol/L Sodium 134 L (136-145) mmol/L Potassium 3.3 L (3.5-5.1) mmol/L Chloride 97 L (98-107) mmol/L Carbon Dioxide 32.4 H (21.0-32.0) mmol/L BUN 16 (7.0-18.0) mg/dL Creatinine 1.1 H (0.6-1.0) mg/dL Est Cr Clr Drug Dosing 26.03 mL/min Estimated GFR (MDRD) 46.9 ml/min Glucose 133 H (74-106) mg/dL POC Glucose 191 H (60-110) mg/dL Calcium 8.9 (8.5-10.1) mg/dL Phosphorus (2.6-4.7) mg/dL Magnesium 1.9 (1.8-2.4) mg/dL Total Bilirubin 0.4 (0.2-1.0) mg/dL AST 20 (15-37) IU/L ALT 18 (14-63) IU/L Alkaline Phosphatase 50 (46-116) U/L Creatine Kinase (26-308) U/L Troponin I (0.000-0.056) ng/mL Total Protein 6.2 L (6.4-8.2) g/dL Albumin 3.1 L (3.4-5.0) g/dL Globulin 3.1 (2.6-4.0) g/dL Albumin/Globulin Ratio 1.0 (0.9-1.6) Lipase (73-393) U/L Urine Color Urine Appearance Urine pH (5.0-8.0) Ur Specific [place] (1.001-1.035) Urine Protein (NEGATIVE) mg/dL Urine Glucose (UA) (NEGATIVE) mg/dL Urine Ketones (NEGATIVE) mg/dL Urine Occult Blood (NEGATIVE) Urine Nitrite (NEGATIVE) Urine Bilirubin (NEGATIVE) Urine Urobilinogen (<2.0) EU/dL Ur Leukocyte Esterase (NEGATIVE) Urine RBC (0-2/HPF) Urine WBC (0-5/HPF) Ur Epithelial Cells (NONE-FEW) Amorphous Sediment (NEGATIVE) Urine Bacteria (NEGATIVE) Urine Mucus (NONE-MOD) COVID-19 (JEM) (NEGATIVE) Kirk Results Last 24 Hours: Microbiology 05/22/20 12:18 Anaerobic Blood Culture - Final Blood - Venous - Lab Draw Med Orders - Current: Current Medications Acetaminophen (Tylenol) 650 mg PO Q4H PRN PRN Reason: Pain (Mild 1-3)/fever Last Admin: 05/22/20 20:24 Dose: 650 mg Documented by: Aspirin (Halfprin) 81 mg PO DAILY [facility] Last Admin: 05/23/20 10:58 Dose: 81 mg Documented by: Furosemide (Lasix) 20 mg PO DAILY [facility] Last Admin: 05/23/20 09:26 Dose: Not Given Documented by: Gabapentin (Neurontin) 300 mg PO BEDTIME [facility] Last Admin: 05/22/20 20:50 Dose: 300 mg Documented by: Lactated Ringer's (Ringers, Lactated) 1,000 mls @ 120 mls/hr IV ASDIRECTED [facility] Last Admin: 05/23/20 11:00 Dose: 120 mls/hr Documented by: Pantoprazole Sodium 40 mg/ (Sodium Chloride) 10 mls @ 300 mls/hr IV DAILY [facility] Last Admin: 05/23/20 10:59 Dose: 300 mls/hr Documented by: Potassium Chloride 40 meq/ (Premix) 100 mls @ 25 mls/hr IV ONETIME [facility] Last Admin: 05/23/20 10:59 Dose: 25 mls/hr Documented by: Insulin Detemir (Levemir) 2 unit SUBCUT BEDTIME [facility] Last Admin: 05/22/20 21:09 Dose: 2 units Documented by: Labetalol HCl (Normodyne) 10 mg IVPUSH Q4H PRN; Protocol PRN Reason: Hypertension Losartan Potassium (Cozaar) 100 mg PO DAILY [facility] Last Admin: 05/23/20 10:57 Dose: 100 mg Documented by: Metoprolol Succinate (Toprol Xl) 25 mg PO DAILY [facility] Last Admin: 05/23/20 10:58 Dose: 25 mg Documented by: Ondansetron HCl (Zofran Odt) 4 mg PO Q4H PRN PRN Reason: nausea, able to take PO Ondansetron HCl (Zofran) 4 mg IVPUSH Q4H PRN PRN Reason: Nausea Last Admin: 05/22/20 16:54 Dose: 4 mg Documented by: Ropinirole HCl (Requip) 0.25 mg PO BEDTIME [facility] Last Admin: 05/22/20 20:57 Dose: 0.25 mg Documented by: Sertraline HCl (Zoloft) 100 mg PO DAILY [facility] Last Admin: 05/23/20 10:56 Dose: 100 mg Documented by: Simvastatin (Zocor) 20 mg PO BEDTIME [facility] Last Admin: 05/22/20 20:50 Dose: 20 mg Documented by: Sodium Chloride (Saline Flush) 10 ml FLUSH ASDIRECTED PRN PRN Reason: Keep Vein Open Last Admin: 05/22/20 12:20 Dose: 10 ml Documented by: Sodium Chloride (Saline Flush) 2.5 ml FLUSH ASDIRECTED PRN PRN Reason: Keep Vein Open Last Admin: 05/22/20 14:24 Dose: 2.5 ml Documented by: Discontinued Medications Amlodipine Besylate (Norvasc) 5 mg PO ONETIME STA Stop: 05/22/20 19:11 Last Admin: 05/22/20 19:51 Dose: 5 mg Documented by: Heparin Sodium (Porcine) (Heparin Sodium) 5,000 units SUBCUT Q8H [facility] Sodium Chloride (Normal Saline) 1,000 mls @ 999 mls/hr IV STAT ONE Stop: 05/22/20 13:03 Last Admin: 05/22/20 12:20 Dose: 999 mls/hr Documented by: Sodium Chloride (Normal Saline) 1,000 mls @ 150 mls/hr IV STAT ONE Stop: 05/22/20 19:57 Last Admin: 05/22/20 15:17 Dose: Not Given Documented by: Magnesium Sulfate 2 gm/ Premix 50 mls @ 50 mls/hr IV ONETIME ONE Stop: 05/22/20 15:05 Last Admin: 05/22/20 14:27 Dose: 50 mls/hr Documented by: Prochlorperazine Edisylate 5 (mg/ Sodium Chloride) 51 mls @ 150 mls/hr IV ONETIME ONE Stop: 05/22/20 19:23 Last Admin: 05/22/20 20:25 Dose: 150 mls/hr Documented by: Lactated Ringer's (Ringers, Lactated) 500 mls @ 999 mls/hr IV .BOLUS ONE Stop: 05/22/20 19:41 Last Admin: 05/22/20 19:51 Dose: 999 mls/hr Documented by: Lactated Ringer's (Ringers, Lactated) 1,000 mls @ 999 mls/hr IV ASDIRECTED [facility] Last Admin: 05/22/20 22:36 Dose: 999 mls/hr Documented by: Insulin Aspart (Novolog) 0 unit SUBCUT TIDAC [facility]; Protocol Labetalol HCl (Normodyne) 10 mg IVPUSH ONETIME ONE; Protocol Stop: 05/22/20 14:11 Last Admin: 05/22/20 14:17 Dose: 10 mg Documented by: Labetalol HCl (Normodyne) 20 mg IVPUSH NOW STA; Protocol Stop: 05/22/20 21:41 Last Admin: 05/22/20 22:20 Dose: 20 mg Documented by: Metoprolol Succinate (Toprol Xl) 25 mg PO ONETIME ONE Stop: 05/22/20 13:49 Last Admin: 05/22/20 15:16 Dose: Not Given Documented by: Ondansetron HCl (Zofran) 4 mg IVPUSH ONETIME ONE Stop: 05/22/20 12:03 Last Admin: 05/22/20 12:20 Dose: 4 mg Documented by: Ondansetron HCl (Zofran) 4 mg IVPUSH ONETIME ONE Stop: 05/22/20 13:32 Last Admin: 05/22/20 13:36 Dose: 4 mg Documented by: - Exam General: Alert, Oriented Neck: Supple Lungs: Clear to Auscultation, Normal Respiratory Effort Cardiovascular: Regular Rate, Regular Rhythm GI/Abdominal Exam: Normal Bowel Sounds, Soft, Non-Tender Sepsis Event Note - Evaluation Sepsis Screening Result: No Definite Risk - Focused Exam Vital Signs: Vital Signs Temp Pulse Pulse Resp BP BP Pulse Ox 05/23/20 10:58 91 112/72 05/23/20 10:57 112/72 05/23/20 08:00 36.4 C 91 18 112/72 93 L 05/23/20 04:00 36.5 C 83 17 170/75 H 92 L 05/23/20 00:15 170/80 H Date Exam was Performed: 05/23/20 Time Exam was Performed: 12:01 - Problem List & Annotations (1) Nausea & vomiting SNOMED Code(s): 17388011 Code(s): R11.2 - NAUSEA WITH VOMITING, UNSPECIFIED Status: Acute Current Visit: Yes (2) Dehydration SNOMED Code(s): 99211760 Code(s): E86.0 - DEHYDRATION Status: Acute Current Visit: Yes (3) HTN (hypertension) SNOMED Code(s): 16453634 Code(s): I10 - ESSENTIAL (PRIMARY) HYPERTENSION Status: Chronic Current Visit: No Qualifiers: Hypertension type: essential hypertension Qualified Code(s): I10 - Essential (primary) hypertension (4) Type 2 diabetes mellitus SNOMED Code(s): 61941627 Code(s): E11.9 - TYPE 2 DIABETES MELLITUS WITHOUT COMPLICATIONS Status: Chronic Current Visit: No Qualifiers: Diabetes mellitus roasterman insulin use: with fdc use Diabetes mellitus complication status: without complication Qualified Code(s): E11.9 - Type 2 diabetes mellitus without complications; Z79.4 - roasterman (current) use of insulin - Problem List Review Problem List Initiated/Reviewed/Updated: Yes - My Orders Last 24 Hours: My Active Orders 05/22/20 13:36 Telemetry Monitoring [Cardiac Monitoring] [RC] Q8H 05/22/20 21:45 Labetalol [Normodyne] 10 mg IVPUSH Q4H PRN 05/23/20 Breakfast Clear Liquid Diet [DIET] 05/23/20 09:45 Potassium Chloride Riders [KCL 40 MEQ in Water 100 ML] 40 meq Premix Bag 1 bag IV ONETIME - Plan Plan:: Assessment and Plan: 1. Nausea, vomiting and abdominal pain: Resolved - cont IV LR maintenance fluids @ 120 cc/hr. IV zofran prn and start Clear liquid diet, lactate has resolved, UA noted 2. Hypertension: - resume her metoprolol and losartan 3. CORA secondary to dehydration: - Patient on IV fluids, will monitor. 4. Hyponatremia: - improving, cont IV fluids 5. Prediabetes: - blood suagrs have been higher, will start SSI, cont bed time Levemir 6. DVT prophylaxis: SCD's for now. 7. Past medical history of HTN and restless legs syndrome: - Continue home medications with the exception of losartan secondary to #2.
[2020-05-23] MEDS: Insulin Aspart 100 Units/ML 3 ML Pen SUBCUT SCH (17:40)
[2020-05-23] MEDS: Simvastatin 20 MG Tab PO SCH (20:48)
[2020-05-23] MEDS: Gabapentin 300 MG Cap PO SCH (20:49)
[2020-05-23] MEDS: rOPINIRole 0.5 MG Tab PO SCH (20:50)
[2020-05-23] MEDS: Insulin Detemir 100 Units/ML 3 ML Pen SUBCUT SCH (20:58)
[2020-05-23] MEDS ORDERED: Carboxymethylcellulose Sodium 0.5% Ophth Soln 0.4 ML UD Box of 30 EYEBOTH PRN (23:09)
[2020-05-24] MEDS: Lactated Ringers 1,000 ML IV SCH (03:50)
[2020-05-24 06:18] LABS: POTASSIUM,K 3.8 mmol/L (3.5-5.1)
[2020-05-24] MEDS ORDERED: Magnesium Sulfate/Water 2 GM in Premix Bag 1 BAG IV ONE ×2 (07:08→09:54)
[2020-05-24 08:22] VITALS: BP 158/67; PULSE 73
[2020-05-24] MEDS: Insulin Aspart 100 Units/ML 3 ML Pen SUBCUT SCH (08:55)
[2020-05-24] MEDS: Pantoprazole 40 MG in Sodium Chloride 0.9% 10 ML IV SCH (08:57)
[2020-05-24] MEDS: Furosemide 20 MG Tab PO SCH (09:02)
[2020-05-24] MEDS: Aspirin 81 MG Tab.EC PO SCH (09:02)
[2020-05-24] MEDS: Sertraline 100 MG Tab PO SCH (09:03)
[2020-05-24] MEDS: Metoprolol Succinate 25 MG Tab.ER PO SCH (09:04)
[2020-05-24] MEDS: Losartan 50 MG Tab PO SCH (09:04)
--- NOTE | 2020-05-24 11:09 | PCM.DCSUM1 ---
<Chaitanya Gillis - Last Filed: 05/24/20 13:14> Discharge Summary - Hospital Course Free Text/Narrative:: 89-year-old female admitted for nausea, vomiting, abdominal pain and dehydration. She has a PMH of DM type II, HTN and restless legs syndrome. On admission, lactate was 3.5. CXR negative and COVID19 test negative, UA was negative, troponin was negative and blood cultures also returned negative. Patient was started on IV fluids, Zofran prn nausea, Compazine and IV PPI. Lactate level normalized. Patient noted significant improvement and denied having any nausea, vomiting or abdominal pain on day of discharge. Tolerating oral diet well. She was discharged in stable condition. Resume home health on discharge. - Discharge Data Discharge Date: 05/24/20 Discharge Disposition: Home, Home Health Agency 06 Condition: Stable - Referral to Home Health Date of Face to Face Encounter: 05/24/20 Reason for Homebound Status: Resume home health. Primary Care Physician: PCP: Dr. Lay Skilled Need: Resume [facility]. - Patient Instructions Diet: Diabetic Diet Activity: As Tolerated Notify Provider of: Fever, Increased Pain, Swelling and Redness, Drainage, Nausea and/or Vomiting - Discharge Plan *PRESCRIPTION DRUG MONITORING PROGRAM REVIEWED*: Not Applicable *COPY OF PRESCRIPTION DRUG MONITORING REPORT IN PATIENT MEGHANA: Not Applicable Home Medications: Home Meds Aspirin [[place] Aspirin EC] 81 mg PO DAILY 10/13/16 [History] Sertraline HCl 100 mg PO DAILY 10/13/16 [History] Simvastatin [Zocor] 20 mg PO BEDTIME 10/13/16 [History] Celecoxib 200 mg PO DAILY 03/18/19 [History] rOPINIRole [Requip] 0.25 mg PO BEDTIME 03/18/19 [History] Losartan [Cozaar] 100 mg PO DAILY #60 tablet 03/21/19 [Rx] Furosemide 20 mg PO DAILY 08/08/19 [History] Metoprolol Succinate [Toprol XL] 25 mg PO DAILY 04/01/20 [History] Multivitamins [Tab-A-Bisi] 1 each PO DAILY 04/01/20 [History] Gabapentin [Neurontin] 300 mg PO BEDTIME #30 cap 05/12/20 [Rx] Insulin Detemir [Levemir Flextouch] 5 units SUBCUT BEDTIME #0 05/12/20 [Rx] Nystatin [Nystop] 1 gm TOP TID bottle 05/12/20 [Rx] metFORMIN HCl [Metformin HCl] 1,000 mg PO WITHDINNER 05/22/20 [History] metFORMIN [Glucophage] 500 mg PO WITHBREAKFAST 05/22/20 [History] Oxygen Therapy Mode: Room Air Patient Handouts: Nausea and Vomiting, Adult, [id number], Dehydration, Adult, [id number] Referrals: Delfino Aiken MD [Resident] - 06/01/20 2:00 pm (Please arrive 15 minutes early and bring your insurance cards, identification and your own facemask.) Neena Burgos RN [Registered Nurse] - 06/03/20 1:00 pm (Please arrive 15 minutes prior to your appointment. Please bring your own mask insurance cards and photo idenification) - Discharge Summary/Plan Comment DC Time >30 min.: No - Patient Data Vitals - Most Recent: Last Vital Signs Temp 36.6 C 05/24/20 08:00 Pulse 73 05/24/20 09:04 Resp 16 05/24/20 08:00 BP 158/67 H 05/24/20 09:04 Pulse Ox 93 L 05/24/20 08:00 Weight - Most Recent: 86.183 kg I&O - Last 24 hours: Intake & Output 05/23/20 05/24/20 05/24/20 22:59 06:59 14:59 Intake Total 2545 1818 60 Output Total 1100 1750 Balance 1445 68 60 Lab Results - Last 24 hrs: Laboratory Results - last 24 hr 05/23/20 05/23/20 05/23/20 Range/Units 13:35 17:09 20:42 WBC (4.0-11.0) K/uL RBC (4.30-5.90) M/uL Hgb (12.0-16.0) g/dL Hct (36.0-46.0) % MCV (80.0-98.0) fL MCH (27.0-32.0) pg MCHC (31.0-37.0) g/dL RDW Std Deviation (28.0-62.0) fl RDW Coeff of Renard (11.0-15.0) % Plt Count (150-400) K/uL MPV (7.40-12.00) fL Neut % (Auto) (48.0-80.0) % Lymph % (Auto) (16.0-40.0) % [place] % (Auto) (0.0-15.0) % Eos % (Auto) (0.0-7.0) % Baso % (Auto) (0.0-1.5) % Neut # (Auto) (1.4-5.7) K/uL Lymph # (Auto) (0.6-2.4) K/uL [place] # (Auto) (0.0-0.8) K/uL Eos # (Auto) (0.0-0.7) K/uL Baso # (Auto) (0.0-0.1) K/uL Sodium (136-145) mmol/L Potassium (3.5-5.1) mmol/L Chloride (98-107) mmol/L Carbon Dioxide (21.0-32.0) mmol/L BUN (7.0-18.0) mg/dL Creatinine (0.6-1.0) mg/dL Est Cr Clr Drug Dosing mL/min Estimated GFR (MDRD) ml/min Glucose (74-106) mg/dL POC Glucose 185 H 182 H 241 H (60-110) mg/dL Calcium (8.5-10.1) mg/dL Phosphorus (2.6-4.7) mg/dL Magnesium (1.8-2.4) mg/dL 05/24/20 05/24/20 05/24/20 Range/Units 05:55 05:55 06:19 WBC 6.39 (4.0-11.0) K/uL RBC 3.74 L (4.30-5.90) M/uL Hgb 11.4 L (12.0-16.0) g/dL Hct 34.2 L (36.0-46.0) % MCV 91.4 (80.0-98.0) fL MCH 30.5 (27.0-32.0) pg MCHC 33.3 (31.0-37.0) g/dL RDW Std Deviation 48.2 (28.0-62.0) fl RDW Coeff of Renard 15 (11.0-15.0) % Plt Count 118 L (150-400) K/uL MPV 9.60 (7.40-12.00) fL Neut % (Auto) 67.5 (48.0-80.0) % Lymph % (Auto) 19.9 (16.0-40.0) % [place] % (Auto) 10.3 (0.0-15.0) % Eos % (Auto) 2.0 (0.0-7.0) % Baso % (Auto) 0.3 (0.0-1.5) % Neut # (Auto) 4.3 (1.4-5.7) K/uL Lymph # (Auto) 1.3 (0.6-2.4) K/uL [place] # (Auto) 0.7 (0.0-0.8) K/uL Eos # (Auto) 0.1 (0.0-0.7) K/uL Baso # (Auto) 0.0 (0.0-0.1) K/uL Sodium 137 (136-145) mmol/L Potassium 3.8 (3.5-5.1) mmol/L Chloride 102 (98-107) mmol/L Carbon Dioxide 32.0 (21.0-32.0) mmol/L BUN 12 (7.0-18.0) mg/dL Creatinine 1.1 H (0.6-1.0) mg/dL Est Cr Clr Drug Dosing 26.03 mL/min Estimated GFR (MDRD) 46.9 ml/min Glucose 161 H (74-106) mg/dL POC Glucose 170 H (60-110) mg/dL Calcium 8.7 (8.5-10.1) mg/dL Phosphorus 2.7 (2.6-4.7) mg/dL Magnesium 1.5 L (1.8-2.4) mg/dL NORMA Results - Last 24 hrs: Microbiology 05/22/20 12:18 Aerobic Blood Culture - Preliminary Blood - Venous - Lab Draw NO GROWTH AFTER 1 DAY Anaerobic Blood Culture - Final 05/22/20 12:16 Aerobic Blood Culture - Preliminary Blood - Venous NO GROWTH AFTER 1 DAY Anaerobic Blood Culture - Preliminary NO GROWTH AFTER 1 DAY Med Orders - Current: Current Medications Acetaminophen (Tylenol) 650 mg PO Q4H PRN PRN Reason: Pain (Mild 1-3)/fever Last Admin: 05/22/20 20:24 Dose: 650 mg Documented by: Artificial Tears (Refresh Plus 0.5%) 0 each EYEBOTH BID PRN PRN Reason: Dry Eyes Last Admin: 05/23/20 23:37 Dose: 1 drop Documented by: Aspirin (Halfprin) 81 mg PO DAILY [facility] Last Admin: 05/24/20 09:02 Dose: 81 mg Documented by: Furosemide (Lasix) 20 mg PO DAILY [facility] Last Admin: 05/24/20 09:02 Dose: 20 mg Documented by: Gabapentin (Neurontin) 300 mg PO BEDTIME [facility] Last Admin: 05/23/20 20:49 Dose: 300 mg Documented by: Pantoprazole Sodium 40 mg/ (Sodium Chloride) 10 mls @ 300 mls/hr IV DAILY [facility] Last Admin: 05/24/20 08:57 Dose: 300 mls/hr Documented by: Insulin Aspart (Novolog) 0 unit SUBCUT TIDAC [facility]; Protocol Last Admin: 05/24/20 08:55 Dose: 1 unit Documented by: Insulin Detemir (Levemir) 2 unit SUBCUT BEDTIME [facility] Last Admin: 05/23/20 20:58 Dose: 2 units Documented by: Labetalol HCl (Normodyne) 10 mg IVPUSH Q4H PRN; Protocol PRN Reason: Hypertension Last Admin: 05/23/20 23:48 Dose: 10 mg Documented by: Losartan Potassium (Cozaar) 100 mg PO DAILY [facility] Last Admin: 05/24/20 09:04 Dose: 100 mg Documented by: Metoprolol Succinate (Toprol Xl) 25 mg PO DAILY [facility] Last Admin: 05/24/20 09:04 Dose: 25 mg Documented by: Ondansetron HCl (Zofran Odt) 4 mg PO Q4H PRN PRN Reason: nausea, able to take PO Ondansetron HCl (Zofran) 4 mg IVPUSH Q4H PRN PRN Reason: Nausea Last Admin: 05/22/20 16:54 Dose: 4 mg Documented by: Ropinirole HCl (Requip) 0.25 mg PO BEDTIME [facility] Last Admin: 05/23/20 20:50 Dose: 0.25 mg Documented by: Sertraline HCl (Zoloft) 100 mg PO DAILY [facility] Last Admin: 08/10/20 09:03 Dose: 100 mg Documented by: Simvastatin (Zocor) 20 mg PO BEDTIME [facility] Last Admin: 05/23/20 20:48 Dose: 20 mg Documented by: Sodium Chloride (Saline Flush) 10 ml FLUSH ASDIRECTED PRN PRN Reason: Keep Vein Open Last Admin: 05/22/20 12:20 Dose: 10 ml Documented by: Sodium Chloride (Saline Flush) 2.5 ml FLUSH ASDIRECTED PRN PRN Reason: Keep Vein Open Last Admin: 05/22/20 14:24 Dose: 2.5 ml Documented by: Discontinued Medications Amlodipine Besylate (Norvasc) 5 mg PO ONETIME STA Stop: 05/22/20 19:11 Last Admin: 05/22/20 19:51 Dose: 5 mg Documented by: Heparin Sodium (Porcine) (Heparin Sodium) 5,000 units SUBCUT Q8H [facility] Sodium Chloride (Normal Saline) 1,000 mls @ 999 mls/hr IV STAT ONE Stop: 05/22/20 13:03 Last Admin: 05/22/20 12:20 Dose: 999 mls/hr Documented by: Sodium Chloride (Normal Saline) 1,000 mls @ 150 mls/hr IV STAT ONE Stop: 05/22/20 19:57 Last Admin: 05/22/20 15:17 Dose: Not Given Documented by: Lactated Ringer's (Ringers, Lactated) 1,000 mls @ 100 mls/hr IV ASDIRECTED [facility] Last Admin: 05/24/20 03:50 Dose: 100 mls/hr Documented by: Magnesium Sulfate 2 gm/ Premix 50 mls @ 50 mls/hr IV ONETIME ONE Stop: 05/22/20 15:05 Last Admin: 05/22/20 14:27 Dose: 50 mls/hr Documented by: Prochlorperazine Edisylate 5 (mg/ Sodium Chloride) 51 mls @ 150 mls/hr IV ONETIME ONE Stop: 05/22/20 19:23 Last Admin: 05/22/20 20:25 Dose: 150 mls/hr Documented by: Lactated Ringer's (Ringers, Lactated) 500 mls @ 999 mls/hr IV .BOLUS ONE Stop: 05/22/20 19:41 Last Admin: 05/22/20 19:51 Dose: 999 mls/hr Documented by: Lactated Ringer's (Ringers, Lactated) 1,000 mls @ 999 mls/hr IV ASDIRECTED [facility] Last Admin: 05/22/20 22:36 Dose: 999 mls/hr Documented by: Potassium Chloride 40 meq/ (Premix) 100 mls @ 25 mls/hr IV ONETIME [facility] Last Admin: 05/23/20 10:59 Dose: 25 mls/hr Documented by: Magnesium Sulfate 2 gm/ Premix 50 mls @ 50 mls/hr IV ONETIME ONE Stop: 05/24/20 08:07 Last Admin: 05/24/20 09:05 Dose: 50 mls/hr Documented by: Magnesium Sulfate 2 gm/ Premix 50 mls @ 50 mls/hr IV ONETIME ONE Stop: 05/24/20 10:53 Last Admin: 05/24/20 10:52 Dose: 50 mls/hr Documented by: [facility]) [facility]; Protocol Labetalol HCl (Normodyne) 10 mg IVPUSH ONETIME ONE; Protocol Stop: 05/22/20 14:11 Last Admin: 05/22/20 14:17 Dose: 10 mg Documented by: Labetalol HCl (Normodyne) 20 mg IVPUSH NOW STA; Protocol Stop: 05/22/20 21:41 Last Admin: 05/22/20 22:20 Dose: 20 mg Documented by: Metoprolol Succinate (Toprol Xl) 25 mg PO ONETIME ONE Stop: 05/22/20 13:49 Last Admin: 05/22/20 15:16 Dose: Not Given Documented by: Ondansetron HCl (Zofran) 4 mg IVPUSH ONETIME ONE Stop: 05/22/20 12:03 Last Admin: 05/22/20 12:20 Dose: 4 mg Documented by: Ondansetron HCl (Zofran) 4 mg IVPUSH ONETIME ONE Stop: 05/22/20 13:32 Last Admin: 05/22/20 13:36 Dose: 4 mg Documented by: <Yudelka Monterroso - Last Filed: 05/24/20 19:07> Discharge Summary - Hospital Course Free Text/Narrative:: I have seen and evaluated the patient and agree with the residents note unless specified in my note - Referral to Home Health Primary Care Physician: PCP None - Discharge Diagnosis/Problem(s) (1) Nausea & vomiting SNOMED Code(s): 04576539 ICD Code: R11.2 - NAUSEA WITH VOMITING, UNSPECIFIED Status: Acute (2) Dehydration SNOMED Code(s): 35963504 ICD Code: E86.0 - DEHYDRATION Status: Acute (3) HTN (hypertension) SNOMED Code(s): 27379602 ICD Code: I10 - ESSENTIAL (PRIMARY) HYPERTENSION Status: Chronic Qualifiers: Hypertension type: essential hypertension Qualified Code(s): I10 - Essential (primary) hypertension (4) Type 2 diabetes mellitus SNOMED Code(s): 07053222 ICD Code: E11.9 - TYPE 2 DIABETES MELLITUS WITHOUT COMPLICATIONS Status: Chronic Qualifiers: Diabetes mellitus prison insulin use: with prison use Diabetes mellitus complication status: without complication Qualified Code(s): E11.9 - Type 2 diabetes mellitus without complications; Z79.4 - snf (current) use of insulin - Patient Data Vitals - Most Recent: Last Vital Signs Temp 36.6 C 05/24/20 08:00 Pulse 73 05/24/20 09:04 Resp 16 05/24/20 08:00 BP 158/67 H 05/24/20 09:04 Pulse Ox 93 L 05/24/20 08:00 I&O - Last 24 hours: Intake & Output 05/24/20 05/24/20 05/24/20 06:59 14:59 22:59 Intake Total 1818 60 Output Total 1750 Balance 68 60 Lab Results - Last 24 hrs: Laboratory Results - last 24 hr 05/23/20 05/24/20 05/24/20 Range/Units 20:42 05:55 05:55 WBC 6.39 (4.0-11.0) K/uL RBC 3.74 L (4.30-5.90) M/uL Hgb 11.4 L (12.0-16.0) g/dL Hct 34.2 L (36.0-46.0) % MCV 91.4 (80.0-98.0) fL MCH 30.5 (27.0-32.0) pg MCHC 33.3 (31.0-37.0) g/dL RDW Std Deviation 48.2 (28.0-62.0) fl RDW Coeff of Renard 15 (11.0-15.0) % Plt Count 118 L (150-400) K/uL MPV 9.60 (7.40-12.00) fL Neut % (Auto) 67.5 (48.0-80.0) % Lymph % (Auto) 19.9 (16.0-40.0) % [place] % (Auto) 10.3 (0.0-15.0) % Eos % (Auto) 2.0 (0.0-7.0) % Baso % (Auto) 0.3 (0.0-1.5) % Neut # (Auto) 4.3 (1.4-5.7) K/uL Lymph # (Auto) 1.3 (0.6-2.4) K/uL [place] # (Auto) 0.7 (0.0-0.8) K/uL Eos # (Auto) 0.1 (0.0-0.7) K/uL Baso # (Auto) 0.0 (0.0-0.1) K/uL Sodium 137 (136-145) mmol/L Potassium 3.8 (3.5-5.1) mmol/L Chloride 102 (98-107) mmol/L Carbon Dioxide 32.0 (21.0-32.0) mmol/L BUN 12 (7.0-18.0) mg/dL Creatinine 1.1 H (0.6-1.0) mg/dL Est Cr Clr Drug Dosing 26.03 mL/min Estimated GFR (MDRD) 46.9 ml/min Glucose 161 H (74-106) mg/dL POC Glucose 241 H (60-110) mg/dL Calcium 8.7 (8.5-10.1) mg/dL Phosphorus 2.7 (2.6-4.7) mg/dL Magnesium 1.5 L (1.8-2.4) mg/dL 05/24/20 Range/Units 06:19 WBC (4.0-11.0) K/uL RBC (4.30-5.90) M/uL Hgb (12.0-16.0) g/dL Hct (36.0-46.0) % MCV (80.0-98.0) fL MCH (27.0-32.0) pg MCHC (31.0-37.0) g/dL RDW Std Deviation (28.0-62.0) fl RDW Coeff of Renard (11.0-15.0) % Plt Count (150-400) K/uL MPV (7.40-12.00) fL Neut % (Auto) (48.0-80.0) % Lymph % (Auto) (16.0-40.0) % [place] % (Auto) (0.0-15.0) % Eos % (Auto) (0.0-7.0) % Baso % (Auto) (0.0-1.5) % Neut # (Auto) (1.4-5.7) K/uL Lymph # (Auto) (0.6-2.4) K/uL [place] # (Auto) (0.0-0.8) K/uL Eos # (Auto) (0.0-0.7) K/uL Baso # (Auto) (0.0-0.1) K/uL Sodium (136-145) mmol/L Potassium (3.5-5.1) mmol/L Chloride (98-107) mmol/L Carbon Dioxide (21.0-32.0) mmol/L BUN (7.0-18.0) mg/dL Creatinine (0.6-1.0) mg/dL Est Cr Clr Drug Dosing mL/min Estimated GFR (MDRD) ml/min Glucose (74-106) mg/dL POC Glucose 170 H (60-110) mg/dL Calcium (8.5-10.1) mg/dL Phosphorus (2.6-4.7) mg/dL Magnesium (1.8-2.4) mg/dL [facility] Results - Last 24 hrs: Microbiology 05/22/20 12:18 Aerobic Blood Culture - Preliminary Blood - Venous - Lab Draw NO GROWTH AFTER 2 DAYS Anaerobic Blood Culture - Final 05/22/20 12:16 Aerobic Blood Culture - Preliminary Blood - Venous NO GROWTH AFTER 2 DAYS Anaerobic Blood Culture - Preliminary NO GROWTH AFTER 2 DAYS Med Orders - Current: Current Medications Discontinued Medications Acetaminophen (Tylenol) 650 mg PO Q4H PRN PRN Reason: Pain (Mild 1-3)/fever Last Admin: 05/22/20 20:24 Dose: 650 mg Documented by: Amlodipine Besylate (Norvasc) 5 mg PO ONETIME STA Stop: 05/22/20 19:11 Last Admin: 05/22/20 19:51 Dose: 5 mg Documented by: Artificial Tears (Refresh Plus 0.5%) 0 each EYEBOTH BID PRN PRN Reason: Dry Eyes Last Admin: 05/23/20 23:37 Dose: 1 drop Documented by: Aspirin (Halfprin) 81 mg PO DAILY [facility] Last Admin: 05/24/20 09:02 Dose: 81 mg Documented by: Furosemide (Lasix) 20 mg PO DAILY [facility] Last Admin: 05/24/20 09:02 Dose: 20 mg Documented by: Gabapentin (Neurontin) 300 mg PO BEDTIME [facility] Last Admin: 05/23/20 20:49 Dose: 300 mg Documented by: Heparin Sodium (Porcine) (Heparin Sodium) 5,000 units SUBCUT Q8H [facility] Sodium Chloride (Normal Saline) 1,000 mls @ 999 mls/hr IV STAT ONE Stop: 05/22/20 13:03 Last Admin: 05/22/20 12:20 Dose: 999 mls/hr Documented by: Sodium Chloride (Normal Saline) 1,000 mls @ 150 mls/hr IV STAT ONE Stop: 05/22/20 19:57 Last Admin: 05/22/20 15:17 Dose: Not Given Documented by: Lactated Ringer's (Ringers, Lactated) 1,000 mls @ 100 mls/hr IV ASDIRECTED [facility] Last Admin: 05/24/20 03:50 Dose: 100 mls/hr Documented by: Magnesium Sulfate 2 gm/ Premix 50 mls @ 50 mls/hr IV ONETIME ONE Stop: 05/22/20 15:05 Last Admin: 05/22/20 14:27 Dose: 50 mls/hr Documented by: Pantoprazole Sodium 40 mg/ (Sodium Chloride) 10 mls @ 300 mls/hr IV DAILY [facility] Last Admin: 05/24/20 08:57 Dose: 300 mls/hr Documented by: Prochlorperazine Edisylate 5 (mg/ Sodium Chloride) 51 mls @ 150 mls/hr IV ONETIME ONE Stop: 05/22/20 19:23 Last Admin: 05/22/20 20:25 Dose: 150 mls/hr Documented by: Lactated Ringer's (Ringers, Lactated) 500 mls @ 999 mls/hr IV .BOLUS ONE Stop: 05/22/20 19:41 Last Admin: 05/22/20 19:51 Dose: 999 mls/hr Documented by: Lactated Ringer's (Ringers, Lactated) 1,000 mls @ 999 mls/hr IV ASDIRECTED [facility] Last Admin: 05/22/20 22:36 Dose: 999 mls/hr Documented by: Potassium Chloride 40 meq/ (Premix) 100 mls @ 25 mls/hr IV ONETIME [facility] Last Admin: 05/23/20 10:59 Dose: 25 mls/hr Documented by: Magnesium Sulfate 2 gm/ Premix 50 mls @ 50 mls/hr IV ONETIME ONE Stop: 05/24/20 08:07 Last Admin: 05/24/20 09:05 Dose: 50 mls/hr Documented by: Magnesium Sulfate 2 gm/ Premix 50 mls @ 50 mls/hr IV ONETIME ONE Stop: 05/24/20 10:53 Last Admin: 05/24/20 10:52 Dose: 50 mls/hr Documented by: Insulin Aspart (Novolog) 0 unit SUBCUT TIDAC [facility]; Protocol Insulin Aspart (Novolog) 0 unit SUBCUT TIDAC [facility]; Protocol Last Admin: 05/24/20 08:55 Dose: 1 unit Documented by: Insulin Detemir (Levemir) 2 unit SUBCUT BEDTIME [facility] Last Admin: 05/23/20 20:58 Dose: 2 units Documented by: Labetalol HCl (Normodyne) 10 mg IVPUSH ONETIME ONE; Protocol Stop: 05/22/20 14:11 Last Admin: 05/22/20 14:17 Dose: 10 mg Documented by: Labetalol HCl (Normodyne) 20 mg IVPUSH NOW STA; Protocol Stop: 05/22/20 21:41 Last Admin: 05/22/20 22:20 Dose: 20 mg Documented by: Labetalol HCl (Normodyne) 10 mg IVPUSH Q4H PRN; Protocol PRN Reason: Hypertension Last Admin: 05/23/20 23:48 Dose: 10 mg Documented by: Losartan Potassium (Cozaar) 100 mg PO DAILY [facility] Last Admin: 05/24/20 09:04 Dose: 100 mg Documented by: Metoprolol Succinate (Toprol Xl) 25 mg PO ONETIME ONE Stop: 05/22/20 13:49 Last Admin: 05/22/20 15:16 Dose: Not Given Documented by: Metoprolol Succinate (Toprol Xl) 25 mg PO DAILY [facility] Last Admin: 05/24/20 09:04 Dose: 25 mg Documented by: Ondansetron HCl (Zofran) 4 mg IVPUSH ONETIME ONE Stop: 05/22/20 12:03 Last Admin: 05/22/20 12:20 Dose: 4 mg Documented by: Ondansetron HCl (Zofran) 4 mg IVPUSH ONETIME ONE Stop: 05/22/20 13:32 Last Admin: 05/22/20 13:36 Dose: 4 mg Documented by: Ondansetron HCl (Zofran Odt) 4 mg PO Q4H PRN PRN Reason: nausea, able to take PO Ondansetron HCl (Zofran) 4 mg IVPUSH Q4H PRN PRN Reason: Nausea Last Admin: 05/22/20 16:54 Dose: 4 mg Documented by: Ropinirole HCl (Requip) 0.25 mg PO BEDTIME [facility] Last Admin: 05/23/20 20:50 Dose: 0.25 mg Documented by: Sertraline HCl (Zoloft) 100 mg PO DAILY [facility] Last Admin: 05/24/20 09:03 Dose: 100 mg Documented by: Simvastatin (Zocor) 20 mg PO BEDTIME [facility] Last Admin: 05/23/20 20:48 Dose: 20 mg Documented by: Sodium Chloride (Saline Flush) 10 ml FLUSH ASDIRECTED PRN PRN Reason: Keep Vein Open Last Admin: 05/22/20 12:20 Dose: 10 ml Documented by: Sodium Chloride (Saline Flush) 2.5 ml FLUSH ASDIRECTED PRN PRN Reason: Keep Vein Open Last Admin: 05/22/20 14:24 Dose: 2.5 ml Documented by:
== END 2020-05-24 12:52 | disposition home health service (06) ==
LOC: MW.ED 10:53 → MW.MS 12:41
PROVIDERS: ADMIT Student in an Organized Health Care Education/Training Program; ATTEND Student in an Organized Health Care Education/Training Program
DX: R11.2 Nausea with vomiting, unspecified (principal); E86.0 Dehydration; E87.1 Hypo-osmolality and hyponatremia; R10.9 Unspecified abdominal pain; N17.9 Acute kidney failure, unspecified; I10 Essential (primary) hypertension; E11.9 Type 2 diabetes mellitus without complications; G25.81 Restless legs syndrome; E78.00 Pure hypercholesterolemia, unspecified; F32.9 Major depressive disorder, single episode, unspecified; Z20.828 Contact with and (suspected) exposure to other viral communicable diseases; Z79.82 Long term (current) use of aspirin; Z79.899 Other long term (current) drug therapy; Z79.4 Long term (current) use of insulin; Z91.14 Patient's other noncompliance with medication regimen
CPT/HCPCS: 36415; 71045; 80048; 80053; 81001; 82550; 82962; 83605; 83690; 83735; 84100; 84484; 85025; 87040; 93005; 96361; 96365; 96366; 96367; 96374; 96375; 96376; 99285; A9270; C9113; G0378; J0780; J1815; J2405; J3475; J3480; J3490; J7030; J7050; J7120; U0002; 99283

== ENCOUNTER 2020-05-28 22:09 | Emergency (ER) | payer MEDICARE, OTHER ==
--- NOTE | 2020-05-28 22:20 | EDM.PDOC ---
ED HPI GENERAL MEDICAL PROBLEM - General Chief Complaint: Gastrointestinal Problem Stated Complaint: vomiting Time Seen by Provider: 05/28/20 22:10 - History of Present Illness INITIAL COMMENTS - FREE TEXT/NARRATIVE: Patient is an 89-year-old female with a history of hypertension and a quite recent admission for nausea vomiting and abdominal pain. She was seen initially on May 22. She presented to the ER per the documentation her labs are notable for an elevated lactate but a normal white count she was afebrile she was noted to be hyponatremic. She was given IV fluids antinausea medicine. Her lactic acid cleared her urinalysis returned normal. She improved with rehydration and antinausea medication and was subsequently discharged. She had a negative COVID test during that admission. Patient reports that she felt well after coming home until yesterday. Yesterday she developed nausea and generalized stomach upset. However, she did not have any vomiting until today but she reports multiple episodes of emesis today she reports yellow and green emesis she denies any blood she denies any black material or coffee grounds. She had a normal bowel movement yesterday. She denies fevers she denies any abdominal pain. She denies chest pain shortness of breath or cough. She denies fever. Patient reports history of multiple prior abdominal surgeries including hysterectomy appendectomy she was diagnosed with cholecystitis in the past but ended up being treated without surgery at that time. She denies any right upper quadrant abdominal pain. Patient reports that the home health nurse had her taking all of her medications in the morning including her bedtime medicine. She wonders if this may be contributing to her presentation. Patient reports intolerance to solids and liquids today. No clear exacerbating or alleviating factors radiation or other associated symptoms. Headache Pain Score (Numeric/FACES): 6 - Related Data Allergies Allergy/AdvReac Type Severity Reaction Status Date / Time No Known Allergies Allergy Verified 05/28/20 22:28 Home Meds: Home Meds Aspirin [[place] Aspirin EC] 81 mg PO DAILY 10/13/16 [History] Sertraline HCl 100 mg PO DAILY 10/13/16 [History] Simvastatin [Zocor] 20 mg PO BEDTIME 10/13/16 [History] Celecoxib 200 mg PO DAILY 03/18/19 [History] rOPINIRole [Requip] 0.25 mg PO BEDTIME 03/18/19 [History] Losartan [Cozaar] 100 mg PO DAILY #60 tablet 03/21/19 [Rx] Furosemide 20 mg PO DAILY 08/08/19 [History] Metoprolol Succinate [Toprol XL] 25 mg PO DAILY 04/01/20 [History] Multivitamins [Tab-A-Bisi] 1 each PO DAILY 04/01/20 [History] Gabapentin [Neurontin] 300 mg PO BEDTIME #30 cap 05/12/20 [Rx] Insulin Detemir [Levemir Flextouch] 5 units SUBCUT BEDTIME #0 05/12/20 [Rx] Nystatin [Nystop] 1 gm TOP TID bottle 05/12/20 [Rx] metFORMIN HCl [Metformin HCl] 1,000 mg PO WITHDINNER 05/22/20 [History] metFORMIN [Glucophage] 500 mg PO WITHBREAKFAST 05/22/20 [History] Past Medical History HEENT History: Reports: Impaired Vision, Other (See Below) Other HEENT History: wears glasses Cardiovascular History: Reports: High Cholesterol, Hypertension Respiratory History: Reports: None Gastrointestinal History: Reports: None Genitourinary History: Reports: None [employer] History: Reports: Musculoskeletal History: Reports: Osteoarthritis Neurological History: Reports: None Psychiatric History: Reports: Depression Endocrine/Metabolic History: Reports: Diabetes, Type II Hematologic History: Reports: None Immunologic History: Reports: None Oncologic (Cancer) History: Reports: Basal Cell Carcinoma Dermatologic History: Reports: Other (See Below) Other Dermatologic History: basal cell carcinoma to face - Infectious Disease History Infectious Disease History: Reports: None - Past Surgical History Head Surgeries/Procedures: Reports: None HEENT Surgical History: Reports: Cataract Surgery, Tonsillectomy GI Surgical History: Reports: Appendectomy Female Surgical History: Reports: Hysterectomy, Salpingo-Oophorectomy Neurological Surgical History: Reports: Lumbar Spine Musculoskeletal Surgical History: Reports: Arthroscopic Knee Social & Family History - Family History Family Medical History: Noncontributory - Caffeine Use Caffeine Use: Reports: Coffee Other Caffeine Use: 1/day Caffeine Use Comment: 1 bottle Jackies Morenay daily - Living Situation & Occupation Living situation: Reports: Alone Occupation: Retired ED ROS GENERAL - Review of Systems Review Of Systems: See Below Free Text/Narrative/Comment: General: No fever. Skin: No rash. Eyes: No vision problems. ENT: No sore throat. Neck: No neck stiffness. Respiratory: No shortness of breath. Cardiac: No chest pain. Gastrointestinal: Per HPI Urinary: No dysuria. Musculoskeletal: No myalgias/arthralgias. Neurologic: No headache. ED EXAM, GENERAL - Physical Exam Exam: See Below Free Text/Narrative:: General Appearance: No acute distress, appears comfortable Skin: No rash HEENT: Normocephalic/atraumatic, sclera anicteric, dry mucous membranes Neck: Normal range of motion Chest and Lungs: Bilateral breath sounds, clear to auscultation Cardiovascular: Regular rate and rhythm, no murmur Abdomen: Soft, non-tender, nondistended Back: Normal Musculoskeletal: No edema or tenderness Neurologic: Awake, alert, no obvious deficits, moving all extremities Psychiatric: Appropriate, cooperative EKG INTERPRETATION EKG Interpretation Comments: EKG obtained at 2238 demonstrates normal sinus rhythm with a rate of 93 solitary PVC otherwise normal axis and intervals no acute ischemia Course - Vital Signs Last Recorded V/S: Last Vital Signs Temp 98.5 F 05/28/20 22:23 Pulse 82 05/29/20 02:40 Resp 18 05/29/20 02:40 BP 128/56 L 05/29/20 02:40 Pulse Ox 95 05/28/20 22:23 - Orders/Labs/Meds Orders: Active Orders 24 hr Category Date Time Status Accu Check [Blood Glucose Check, Bedside] [] ONETIME Care 05/28/20 22:25 Active EKG 12 Lead [EKG Documentation Completion] [RC] STAT Care 05/28/20 22:25 Active Sodium Chloride 0.9% [Saline Flush] Med 05/28/20 22:23 Active 10 ml FLUSH ASDIRECTED PRN Sodium Chloride 0.9% [Saline Flush] Med 05/28/20 22:23 Active 2.5 ml FLUSH ASDIRECTED PRN Saline Lock Insert [OM.PC] Stat Oth 05/28/20 22:24 Ordered Medication Orders Sodium Chloride (Saline Flush) 10 ml FLUSH ASDIRECTED PRN PRN Reason: Keep Vein Open Sodium Chloride (Saline Flush) 2.5 ml FLUSH ASDIRECTED PRN PRN Reason: Keep Vein Open Labs: Laboratory Tests 05/28/20 05/28/20 05/28/20 Range/Units 22:20 22:20 22:20 WBC 11.16 H (4.0-11.0) K/uL RBC 4.45 (4.30-5.90) M/uL Hgb 13.8 (12.0-16.0) g/dL Hct 39.4 (36.0-46.0) % MCV 88.5 (80.0-98.0) fL MCH 31.0 (27.0-32.0) pg MCHC 35.0 (31.0-37.0) g/dL RDW Std Deviation 46.6 (28.0-62.0) fl RDW Coeff of Renard 14 (11.0-15.0) % Plt Count 161 (150-400) K/uL MPV 9.30 (7.40-12.00) fL Neut % (Auto) 79.5 (48.0-80.0) % Lymph % (Auto) 13.4 L (16.0-40.0) % Hopkins % (Auto) 6.4 (0.0-15.0) % Eos % (Auto) 0.6 (0.0-7.0) % Baso % (Auto) 0.1 (0.0-1.5) % Neut # (Auto) 8.9 H (1.4-5.7) K/uL Lymph # (Auto) 1.5 (0.6-2.4) K/uL Hopkins # (Auto) 0.7 (0.0-0.8) K/uL Eos # (Auto) 0.1 (0.0-0.7) K/uL Baso # (Auto) 0.0 (0.0-0.1) K/uL Nucleated RBC % 0.0 /100WBC Nucleated RBCs # 0 K/uL Lactate 2.7 H* (0.20-2.00) mmol/L Sodium 128 L (136-145) mmol/L Potassium 3.4 L (3.5-5.1) mmol/L Chloride 88 L (98-107) mmol/L Carbon Dioxide 29.7 (21.0-32.0) mmol/L BUN 14 (7.0-18.0) mg/dL Creatinine 1.1 H (0.6-1.0) mg/dL Est Cr Clr Drug Dosing 31.81 mL/min Estimated GFR (MDRD) 46.9 ml/min Glucose 287 H (74-106) mg/dL POC Glucose (60-110) mg/dL Calcium 9.9 (8.5-10.1) mg/dL Magnesium 1.1 L (1.8-2.4) mg/dL Total Bilirubin 0.5 (0.2-1.0) mg/dL AST 33 (15-37) IU/L ALT 25 (14-63) IU/L Alkaline Phosphatase 79 (46-116) U/L Troponin I < 0.050 (0.000-0.056) ng/mL Total Protein 7.9 (6.4-8.2) g/dL Albumin 3.9 (3.4-5.0) g/dL Globulin 4.0 (2.6-4.0) g/dL Albumin/Globulin Ratio 1.0 (0.9-1.6) Lipase 120 (73-393) U/L Urine Color Urine Appearance Urine pH (5.0-8.0) Ur Specific [place] (1.001-1.035) Urine Protein (NEGATIVE) mg/dL Urine Glucose (UA) (NEGATIVE) mg/dL Urine Ketones (NEGATIVE) mg/dL Urine Occult Blood (NEGATIVE) Urine Nitrite (NEGATIVE) Urine Bilirubin (NEGATIVE) Urine Urobilinogen (<2.0) EU/dL Ur Leukocyte Esterase (NEGATIVE) Urine RBC (0-2/HPF) Urine WBC (0-5/HPF) Ur Epithelial Cells (NONE-FEW) Urine Bacteria (NEGATIVE) 05/28/20 05/29/20 Range/Units 22:48 00:20 WBC (4.0-11.0) K/uL RBC (4.30-5.90) M/uL Hgb (12.0-16.0) g/dL Hct (36.0-46.0) % MCV (80.0-98.0) fL MCH (27.0-32.0) pg MCHC (31.0-37.0) g/dL RDW Std Deviation (28.0-62.0) fl RDW Coeff of Renard (11.0-15.0) % Plt Count (150-400) K/uL MPV (7.40-12.00) fL Neut % (Auto) (48.0-80.0) % Lymph % (Auto) (16.0-40.0) % Hopkins % (Auto) (0.0-15.0) % Eos % (Auto) (0.0-7.0) % Baso % (Auto) (0.0-1.5) % Neut # (Auto) (1.4-5.7) K/uL Lymph # (Auto) (0.6-2.4) K/uL Hopkins # (Auto) (0.0-0.8) K/uL Eos # (Auto) (0.0-0.7) K/uL Baso # (Auto) (0.0-0.1) K/uL Nucleated RBC % /100WBC Nucleated RBCs # K/uL Lactate (0.20-2.00) mmol/L Sodium (136-145) mmol/L Potassium (3.5-5.1) mmol/L Chloride (98-107) mmol/L Carbon Dioxide (21.0-32.0) mmol/L BUN (7.0-18.0) mg/dL Creatinine (0.6-1.0) mg/dL Est Cr Clr Drug Dosing mL/min Estimated GFR (MDRD) ml/min Glucose (74-106) mg/dL POC Glucose 301 H (60-110) mg/dL Calcium (8.5-10.1) mg/dL Magnesium (1.8-2.4) mg/dL Total Bilirubin (0.2-1.0) mg/dL AST (15-37) IU/L ALT (14-63) IU/L Alkaline Phosphatase (46-116) U/L Troponin I (0.000-0.056) ng/mL Total Protein (6.4-8.2) g/dL Albumin (3.4-5.0) g/dL Globulin (2.6-4.0) g/dL Albumin/Globulin Ratio (0.9-1.6) Lipase (73-393) U/L Urine Color YELLOW Urine Appearance CLEAR Urine pH 8.0 (5.0-8.0) Ur Specific [place] 1.020 (1.001-1.035) Urine Protein 100 H (NEGATIVE) mg/dL Urine Glucose (UA) 250 H (NEGATIVE) mg/dL Urine Ketones NEGATIVE (NEGATIVE) mg/dL Urine Occult Blood TRACE-INTACT H (NEGATIVE) Urine Nitrite NEGATIVE (NEGATIVE) Urine Bilirubin NEGATIVE (NEGATIVE) Urine Urobilinogen 0.2 (<2.0) EU/dL Ur Leukocyte Esterase NEGATIVE (NEGATIVE) Urine RBC 0-2 (0-2/HPF) Urine WBC 0-1 (0-5/HPF) Ur Epithelial Cells FEW (NONE-FEW) Urine Bacteria RARE (NEGATIVE) Meds: Medications Generic Name Dose Route Start Last Admin Trade Name Freq PRN Reason Stop Dose Admin Sodium Chloride 10 ml 05/28/20 22:23 Saline Flush FLUSH ASDIRECTED PRN Keep Vein Open Sodium Chloride 2.5 ml 05/28/20 22:23 Saline Flush FLUSH ASDIRECTED PRN Keep Vein Open Discontinued Medications Generic Name Dose Route Start Last Admin Trade Name Freq PRN Reason Stop Dose Admin Famotidine 20 mg 05/28/20 22:34 05/28/20 22:39 Pepcid IVPUSH 05/28/20 22:35 20 mg ONETIME ONE Administration Sodium Chloride 1,000 mls @ 999 mls/hr 05/28/20 23:02 05/28/20 23:08 Normal Saline IV 05/29/20 00:02 999 mls/hr .Bolus ONE Administration Iopamidol 80 ml 05/28/20 23:34 05/28/20 23:34 Isovue-370 (76%) IVPUSH 05/28/20 23:35 80 ml ONETIME ONE Administration Ondansetron HCl 4 mg 05/28/20 22:34 05/28/20 22:40 Zofran IVPUSH 05/28/20 22:35 4 mg ONETIME ONE Administration Departure - Departure Time of Disposition: 03:44 Disposition: DC/Tfer to Acute Hospital 02 Condition: Good Clinical Impression: Cholecystitis - Discharge Information *PRESCRIPTION DRUG MONITORING PROGRAM REVIEWED*: Not Applicable *COPY OF PRESCRIPTION DRUG MONITORING REPORT IN PATIENT MEGHANA: Not Applicable Referrals: PCP,None [Primary Care Provider] - Forms: ED Department Discharge Sepsis Event Note (ED) - Focused Exam Vital Signs: Vital Signs Temp Pulse Resp BP Pulse Ox 05/29/20 02:40 82 18 128/56 L 05/28/20 23:45 175/58 H 05/28/20 23:10 98 18 205/101 H 05/28/20 22:23 98.5 F 106 H 20 191/110 H 95 - My Orders Last 24 Hours: My Active Orders 05/28/20 22:23 Sodium Chloride 0.9% [Saline Flush] 10 ml FLUSH ASDIRECTED PRN Sodium Chloride 0.9% [Saline Flush] 2.5 ml FLUSH ASDIRECTED PRN 05/28/20 22:24 Saline Lock Insert [OM.PC] Stat 05/28/20 22:25 Accu Check [Blood Glucose Check, Bedside] [RC] ONETIME EKG 12 Lead [EKG Documentation Completion] [RC] STAT - Assessment/Plan Last 24 Hours: My Active Orders 05/28/20 22:23 Sodium Chloride 0.9% [Saline Flush] 10 ml FLUSH ASDIRECTED PRN Sodium Chloride 0.9% [Saline Flush] 2.5 ml FLUSH ASDIRECTED PRN 05/28/20 22:24 Saline Lock Insert [OM.PC] Stat 05/28/20 22:25 Accu Check [Blood Glucose Check, Bedside] [RC] ONETIME EKG 12 Lead [EKG Documentation Completion] [RC] STAT Assessment:: 89-year-old female presenting with nausea vomiting and minimal abdominal pain. Given the lack of any abdominal pain mesenteric ischemia considered but felt very unlikely. Given the multiple prior surgeries small bowel obstruction certainly needs to be considered there is no significant right upper quadrant findings of biliary pathology is also possible. No lower abdominal tenderness or fever that would suggest diverticulitis. Patient had no CT imaging during her prior evaluation and so CT abdomen pelvis has been ordered. Patient had a recent negative coronavirus test. Low concern for primary cardiac process but given advanced age EKG and troponin ordered. Chest x-ray as well to evaluate for any signs of aspiration. Severe GERD is possible but this would certainly be a diagnosis of exclusion. CBC, CMP, chest x-ray, lactic acid, urinalysis, troponin Zofran and Pepcid for symptoms and will reassess. 0100: Labs with mild leukocytosis lactic acid minimally elevated but only to 2.5 patient again with hypochloremic hyponatremia with Na of 128 (pt was discharged with Na of 137 so this would be acute), and hypokalemia. I do NOT believe that the patient is septic at this time. CT scan with no signs of bowel obstruction possible changes in the region of the gallbladder and ultrasound is been ordered. Patient did have a very distended bladder. Immediately after the CT she voided over 1 L and post void residual was 31 ml. Given that she is not in acute retention though she does feel much better after urinating and I wonder if the large bladder volume was contributing to her symptoms her blood pressure has likewise normalized. Patient symptoms have essentially resolved at this point. We await ultrasound result. 0325: Pt's US is equivocal for acute cholecystitis. Her WBC is newly elevated from prior. However, no pericholecystic fluid or sonographic Cash's sign. Unfortunately we do not have the ability to do MRCP or HIDA scan, and if the patient were to prove to have an acute cholecystitis we are currently on diversion for all procedures as our operating rooms are down. Given this and the fact that she has re-presented with recurrent symptoms after an admission during which she was hydrated and electrolytes repleted I think it is prudent to consider the possibility of her biliary disease contributing to her presentation and for that reason we will explore transfer to a facility that is able to further evaluate this etiology and potentially provide definitive ma nagement if that is what is deemed necessary. In the meantime electrolytes are being repleted and IV fluid continues. Blood cultures will be drawn and abx administered. Unfortunately [facility] is on diversion right now. The next closest appropriate facility is [facility]. Patient discussed with Dr. Wren (hospitalist) at 0345 and patient was accepted for transfer to [facility] for further care and eval uation. The need for transfer was discussed with the patient and the patient agrees to transfer.
[2020-05-28] MEDS ORDERED: Sodium Chloride 0.9% 2.5 ML Syringe FLUSH PRN (22:23)
[2020-05-28] MEDS ORDERED: Sodium Chloride 0.9% 10 ML Syringe FLUSH PRN (22:23)
[2020-05-28] MEDS ORDERED: Ondansetron 4 MG/2 ML SDV IVPUSH ONE (22:34)
[2020-05-28] MEDS ORDERED: Famotidine 20 MG/2 ML SDV IVPUSH ONE (22:34)
[2020-05-28 22:58] LABS: BLOOD UREA NITROGEN,BUN 14 mg/dL (7.0-18.0); CARBON DIOXIDE,CO2 29.7 mmol/L (21.0-32.0); CHLORIDE,CL 88 mmol/L (98-107); GLUCOSE RANDOM 287 mg/dL (74-106); LIPASE 120 U/L (73-393); POTASSIUM,K 3.4 mmol/L (3.5-5.1); SODIUM,NA 128 mmol/L (136-145)
[2020-05-28] MEDS ORDERED: Sodium Chloride 0.9% 1,000 ML IV ONE (23:02)
[2020-05-28] MEDS ORDERED: Iopamidol 755 Mg/ML 100 ML Bottle IVPUSH ONE (23:34)
--- NOTE | 2020-05-29 00:22 | CT ---
Indication: Persistent vomiting, eval for small-bowel obstruction, history of cholecystitis Technique: Contrast enhanced axial CT imaging through the abdomen and pelvis. 80 mL Isovue 370 contrast agent was administered intravenously. Sagittal and coronal reconstructions are provided. Comparison: CT abdomen pelvis oral contrast 05/10/2020 Findings: The gallbladder is partially contracted, but demonstrates wall thickening and irregularity. There is no significant abnormality of the liver, spleen, pancreas, adrenal glands, and kidneys. The portal vein is patent. There is normal caliber of the abdominal aorta. There is no abdominal lymphadenopathy. The stomach and duodenum are unremarkable. There are no abnormally dilated small bowel loops. There is diverticulosis of the sigmoid colon. There is no colonic wall thickening. No inflammatory changes are demonstrated in the mesentery. There is no free intraperitoneal fluid or air. The urinary bladder is moderately distended. There are stable multilevel degenerative changes of the lumbar spine, with mild anterolisthesis at L2-3 and L3-4, presumably secondary to degenerative facet hypertrophy. Impression: 1. Gallbladder wall thickening and irregularity, without distension. Further evaluation is recommended with ultrasound. 2. Distended urinary bladder. Correlate with postvoid residual to exclude urinary retention. 3. Sigmoid diverticulosis without evidence of diverticulitis. 4. No evidence of small-bowel obstruction. Please note that all CT scans at this facility use dose modulation, iterative reconstruction, and/or weight-based dosing when appropriate to reduce radiation dose to as low as reasonably achievable. Dictated by Tomeka Lakhani MD @ May 29 2020 12:12AM Signed by Dr. Tomeka Lakhani @ May 29 2020 12:20AM
--- NOTE | 2020-05-29 03:07 | US ---
INDICATION: Nausea, vomiting. COMPARISON: CT of the abdomen and pelvis 05/28/2020. TECHNIQUE: Real time vizcarra scale imaging and color Doppler analysis was performed of the right upper quadrant. FINDINGS: Liver: The liver is normal in size measuring 17.4 cm in length. Normal echogenicity. No focal liver lesions. Gallbladder: There are shadowing stones within the gallbladder. The gallbladder is contracted. Wall thickness is increased measuring 5 mm. No pericholecystic fluid. Negative sonographic Cash sign. Bile ducts: The common bile duct measures 6 mm proximally and 8 mm distally. No intraductal filling defect is seen. Pancreas: Normal where seen. Right kidney: The right kidney measures 9.9 cm in length. No hydronephrosis, calculus, or mass. Vascular: Normal caliber abdominal aorta. Calcified atheromatous plaque is noted within the aorta. The IVC is patent. IMPRESSION: 1. Contracted gallbladder containing stones. Increased gallbladder wall thickness could be related to underdistention. The sonographic Cash sign was negative. Findings are equivocal for acute cholecystitis. 2. Mild dilation of the distal common bile duct to 8 mm. A distal obstructing stone is not excluded. Consider further evaluation with MRCP. Dictated by Anabel Trinidad MD @ May 29 2020 2:55AM Signed by Dr. Anabel Trinidad @ May 29 2020 3:05AM
[2020-05-29] MEDS ORDERED: Piperacillin/Tazobactam 3.375 GM in Sodium Chloride 0.9% 50 ML IV ONE (03:29)
[2020-05-29] MEDS ORDERED: Magnesium Sulfate (4.06 MEQ/ML) 5 GM/10 ML SDV IV ONE (03:31)
[2020-05-29] MEDS ORDERED: Magnesium Sulfate/Water 4 GM in Premix Bag 1 BAG IV ONE (03:45)
[2020-05-29 04:00] VITALS: BP 125/69; PULSE 98
== END 2020-05-29 04:30 ==
LOC: MW.ED 22:09
DX: K81.9 Cholecystitis, unspecified (principal); I10 Essential (primary) hypertension; E78.00 Pure hypercholesterolemia, unspecified; E11.9 Type 2 diabetes mellitus without complications; F32.9 Major depressive disorder, single episode, unspecified; Z79.4 Long term (current) use of insulin; Z79.82 Long term (current) use of aspirin; Z79.899 Other long term (current) drug therapy
CPT/HCPCS: 36415; 74177; 76705; 80053; 81001; 82962; 83605; 83690; 83735; 84484; 85025; 87040; 93005; 96361; 96365; 96368; 96375; 99285; J2405; J2543; J3475; J3490; J7030; J7050; Q9967; 99284

== ENCOUNTER 2020-06-07 14:34 | Emergency (ER) | payer MEDICARE ==
[2020-06-07] MEDS ORDERED: Ondansetron 4 MG/2 ML SDV IVPUSH ONE (14:39)
[2020-06-07] MEDS ORDERED: Famotidine 20 MG/2 ML SDV IVPUSH ONE (14:39)
[2020-06-07] MEDS ORDERED: Sodium Chloride 0.9% 2.5 ML Syringe FLUSH PRN (14:39)
[2020-06-07] MEDS ORDERED: Sodium Chloride 0.9% 10 ML Syringe FLUSH PRN (14:39)
--- NOTE | 2020-06-07 14:58 | EDM.PDOC ---
ED HPI GENERAL MEDICAL PROBLEM - General Chief Complaint: Gastrointestinal Problem Stated Complaint: VOMITING Time Seen by Provider: 06/07/20 14:40 - History of Present Illness INITIAL COMMENTS - FREE TEXT/NARRATIVE: History of present illness: History of present illness: Patient presents with nausea vomiting and chest discomfort for the past 2 days she has a history of some gallbladder sludging and poor motility she states that she is vomited multiple times and felt weak she denies any fever chills no cough no trouble breathing she is not had any leg pain or leg swelling there is been no dysuria nothing seems to make it better or worse. Patient has a history of multiple surgeries in the past including appendectomy. Review of systems: As per history of present illness and below otherwise all systems reviewed and n egative. Past medical history: As per history of present illness and as reviewed below otherwise noncontributory. Surgical history: As per history of present illness and as reviewed below otherwise noncontributory. Social history: No reported history of drug or alcohol abuse. Family history: As per history of present illness and as reviewed below otherwise noncontributory. Physical exam: HEENT: Atraumatic, normocephalic, pupils reactive, negative for conjunctival pallor or scleral icterus, mucous membranes moist, throat clear, neck supple, nontender, trachea midline. Lungs: Clear to auscultation, breath sounds equal bilaterally, chest nontender. Heart: S1S2, regular, negative for clicks, rubs, or JVD. Abdomen: Soft, nondistended, there is mild right upper quadrant tenderness with a negative Cash sign. Negative for masses or hepatosplenomegaly. Negative for costovertebral tenderness. Pelvis: Stable nontender. Genitourinary: Deferred. Rectal: Deferred. Extremities: Atraumatic, negative for cords or calf pain. Neurovascular unremarkable. Neuro: Awake, alert, oriented. Cranial nerves II through XII unremarkable. Cerebellum unremarkable. Motor and sensory unremarkable throughout. Exam nonfocal. Diagnostics: [] Therapeutics: [] Impression: Vomiting abdominal and chest pain. [] Plan: Patient will get medicines for her stomach fluids and labs will be drawn she will be reassessed. [] Definitive disposition and diagnosis as appropriate pending reevaluation and review of above. Review of systems: As per history of present illness and below otherwise all systems reviewed and negative. Past medical history: As per history of present illness and as reviewed below otherwise noncontributory. Surgical history: As per history of present illness and as reviewed below otherwise noncontributory. Social history: No reported history of drug or alcohol abuse. Family history: As per history of present illness and as reviewed below otherwise noncontributory. Physical exam: HEENT: Atraumatic, normocephalic, pupils reactive, negative for conjunctival pallor or scleral icterus, mucous membranes moist, throat clear, neck supple, nontender, trachea midline. Lungs: Clear to auscultation, breath sounds equal bilaterally, chest nontender. Heart: S1S2, regular, negative for clicks, rubs, or JVD. Abdomen: Soft, nondistended, nontender. Negative for masses or hepatos plenomegaly. Negative for costovertebral tenderness. Pelvis: Stable nontender. Genitourinary: Deferred. Rectal: Deferred. Extremities: Atraumatic, negative for cords or calf pain. Neurovascular unrema rkable. Neuro: Awake, alert, oriented. Cranial nerves II through XII unremarkable. Cerebellum unremarkable. Motor and sensory unremarkable throughout. Exam nonfocal. Diagnostics: [] Therapeutics: [] Impression: [] Plan: [] Definitive disposition and diagnosis as appropriate pending reevaluation and review of above. Abdomen Pain Score (Numeric/FACES): 6 - Related Data Allergies Allergy/AdvReac Type Severity Reaction Status Date / Time No Known Allergies Allergy Verified 06/07/20 14:36 Home Meds: Home Meds Aspirin [[place] Aspirin EC] 81 mg PO DAILY 10/13/16 [History] Sertraline HCl 100 mg PO DAILY 10/13/16 [History] Simvastatin [Zocor] 20 mg PO BEDTIME 10/13/16 [History] Celecoxib 200 mg PO DAILY 03/18/19 [History] rOPINIRole [Requip] 0.25 mg PO BEDTIME 03/18/19 [History] Losartan [Cozaar] 100 mg PO DAILY #60 tablet 03/21/19 [Rx] Furosemide 20 mg PO DAILY 08/08/19 [History] Metoprolol Succinate [Toprol XL] 25 mg PO DAILY 04/01/20 [History] Multivitamins [Tab-A-Bisi] 1 each PO DAILY 04/01/20 [History] Gabapentin [Neurontin] 300 mg PO BEDTIME #30 cap 05/12/20 [Rx] Insulin Detemir [Levemir Flextouch] 5 units SUBCUT BEDTIME #0 05/12/20 [Rx] Nystatin [Nystop] 1 gm TOP TID bottle 05/12/20 [Rx] metFORMIN HCl [Metformin HCl] 1,000 mg PO WITHDINNER 05/22/20 [History] metFORMIN [Glucophage] 500 mg PO WITHBREAKFAST 05/22/20 [History] Ondansetron [Zofran ODT] 4 mg PO Q6H PRN 5 Days #12 tab.dis 06/07/20 [Rx] Past Medical History HEENT History: Reports: Impaired Vision, Other (See Below) Other HEENT History: wears glasses Cardiovascular History: Reports: High Cholesterol, Hypertension Respiratory History: Reports: None Gastrointestinal History: Reports: None Genitourinary History: Reports: None [employer]IEF [employer]OM[employer] SERVICE History: Reports: Musculoskeletal History: Reports: Osteoarthritis Neurological History: Reports: None Psychiatric History: Reports: Depression Endocrine/Metabolic History: Reports: Diabetes, Type II Hematologic History: Reports: None Immunologic History: Reports: None Oncologic (Cancer) History: Reports: Basal Cell Carcinoma Dermatologic History: Reports: Other (See Below) Other Dermatologic History: basal cell carcinoma to face - Infectious Disease History Infectious Disease History: Reports: Chicken Pox, Measles - Past Surgical History Head Surgeries/Procedures: Reports: None HEENT Surgical History: Reports: Cataract Surgery, Tonsillectomy Cardiovascular Surgical History: Reports: None Respiratory Surgical History: Reports: None GI Surgical History: Reports: Appendectomy Female Surgical History: Reports: Hysterectomy, Salpingo-Oophorectomy Endocrine Surgical History: Reports: None Neurological Surgical History: Reports: Lumbar Spine Musculoskeletal Surgical History: Reports: Arthroscopic Knee Dermatological Surgical History: Reports: None Social & Family History - Family History Family Medical History: Noncontributory - Tobacco Use Smoking Status *Q: Never Smoker Second Hand Smoke Exposure: No - Caffeine Use Caffeine Use: Reports: None Other Caffeine Use: 1/day Caffeine Use Comment: 1 bottle [employer] Mocha daily - Recreational Drug Use Recreational Drug Use: No - Living Situation & Occupation Living situation: Reports: Alone Occupation: Retired ED ROS GENERAL - Review of Systems Review Of Systems: See Below ED EXAM, GENERAL - Physical Exam Exam: See Below EKG INTERPRETATION EKG Interpretation Comments: Normal sinus rhythm rate is 92 bpm [address]-T changes no specific ischemia read and interpreted by me Course - Vital Signs Text/Narrative:: Patient was reexamined at 5:10 PM she is feeling much better her abdomen was reexamined at soft there is no tenderness anywhere on the abdomen she has stable vital signs her labs do not indicate an acute cholecystitis. She will be discharged home on Zofran follow-up with the general surgeon and primary care. Return to the ED for returning or increasing abdominal pain Last Recorded V/S: Last Vital Signs Temp 36.1 C 06/07/20 14:39 Pulse 81 06/07/20 17:11 Resp 19 06/07/20 14:39 BP 153/89 H 06/07/20 17:11 Pulse Ox 93 L 06/07/20 17:11 - Orders/Labs/Meds Orders: Active Orders 24 hr Category Date Time Status Cardiac Monitoring [RC] . DIRECTED Care 06/07/20 14:39 Active EKG Documentation Completion [RC] STAT Care 06/07/20 14:39 Active Pulse Oximetry [RC] ASDIRECTED Care 06/07/20 14:39 Active Sodium Chloride 0.9% [Saline Flush] Med 06/07/20 14:39 Active 10 ml FLUSH ASDIRECTED PRN Sodium Chloride 0.9% [Saline Flush] Med 06/07/20 14:39 Active 2.5 ml FLUSH ASDIRECTED PRN Saline Lock Insert [OM.PC] Stat Oth 06/07/20 14:39 Ordered Medication Orders Sodium Chloride (Saline Flush) 10 ml FLUSH ASDIRECTED PRN PRN Reason: Keep Vein Open Sodium Chloride (Saline Flush) 2.5 ml FLUSH ASDIRECTED PRN PRN Reason: Keep Vein Open Labs: Laboratory Tests 06/07/20 06/07/20 06/07/20 Range/Units 15:10 15:10 15:54 WBC 10.52 (4.0-11.0) K/uL RBC 4.42 (4.30-5.90) M/uL Hgb 13.2 (12.0-16.0) g/dL Hct 38.8 (36.0-46.0) % MCV 87.8 (80.0-98.0) fL MCH 29.9 (27.0-32.0) pg MCHC 34.0 (31.0-37.0) g/dL RDW Std Deviation 45.6 (28.0-62.0) fl RDW Coeff of Renard 14 (11.0-15.0) % Plt Count 138 L (150-400) K/uL MPV 9.80 (7.40-12.00) fL Neut % (Auto) 83.8 H (48.0-80.0) % Lymph % (Auto) 11.1 L (16.0-40.0) % Rice % (Auto) 4.7 (0.0-15.0) % Eos % (Auto) 0.3 (0.0-7.0) % Baso % (Auto) 0.1 (0.0-1.5) % Neut # (Auto) 8.8 H (1.4-5.7) K/uL Lymph # (Auto) 1.2 (0.6-2.4) K/uL Rice # (Auto) 0.5 (0.0-0.8) K/uL Eos # (Auto) 0.0 (0.0-0.7) K/uL Baso # (Auto) 0.0 (0.0-0.1) K/uL Nucleated RBC % 0.0 /100WBC Nucleated RBCs # 0 K/uL Sodium 132 L (136-145) mmol/L Potassium 3.5 (3.5-5.1) mmol/L Chloride 91 L (98-107) mmol/L Carbon Dioxide 29.3 (21.0-32.0) mmol/L BUN 19 H (7.0-18.0) mg/dL Creatinine 1.1 H (0.6-1.0) mg/dL Est Cr Clr Drug Dosing 31.81 mL/min Estimated GFR (MDRD) 46.9 ml/min Glucose 265 H (74-106) mg/dL Calcium 10.3 H (8.5-10.1) mg/dL Total Bilirubin 0.5 (0.2-1.0) mg/dL AST 24 (15-37) IU/L ALT 24 (14-63) IU/L Alkaline Phosphatase 98 (46-116) U/L Troponin I < 0.050 (0.000-0.056) ng/mL Total Protein 7.3 (6.4-8.2) g/dL Albumin 3.7 (3.4-5.0) g/dL Globulin 3.6 (2.6-4.0) g/dL Albumin/Globulin Ratio 1.0 (0.9-1.6) Lipase 91 (73-393) U/L Urine Color YELLOW Urine Appearance CLEAR Urine pH 7.5 (5.0-8.0) Ur Specific [place] 1.020 (1.001-1.035) Urine Protein 100 H (NEGATIVE) mg/dL Urine Glucose (UA) 100 H (NEGATIVE) mg/dL Urine Ketones NEGATIVE (NEGATIVE) mg/dL Urine Occult Blood TRACE-INTACT H (NEGATIVE) Urine Nitrite NEGATIVE (NEGATIVE) Urine Bilirubin NEGATIVE (NEGATIVE) Urine Urobilinogen 0.2 (<2.0) EU/dL Ur Leukocyte Esterase NEGATIVE (NEGATIVE) Urine RBC 0-1 (0-2/HPF) Urine WBC 0-1 (0-5/HPF) Ur Epithelial Cells RARE (NONE-FEW) Urine Bacteria RARE (NEGATIVE) Meds: Medications Generic Name Dose Route Start Last Admin Trade Name Freq PRN Reason Stop Dose Admin Sodium Chloride 10 ml 06/07/20 14:39 Saline Flush FLUSH ASDIRECTED PRN Keep Vein Open Sodium Chloride 2.5 ml 06/07/20 14:39 Saline Flush FLUSH ASDIRECTED PRN Keep Vein Open Discontinued Medications Generic Name Dose Route Start Last Admin Trade Name Freq PRN Reason Stop Dose Admin Famotidine 20 mg 06/07/20 14:39 06/07/20 14:57 Pepcid IVPUSH 06/07/20 14:40 20 mg ONETIME ONE Administration Ondansetron HCl 4 mg 06/07/20 14:39 06/07/20 14:57 Zofran IVPUSH 06/07/20 14:40 4 mg ONETIME ONE Administration Departure - Departure Time of Disposition: 17:15 Disposition: Home, Self-Care 01 Condition: Good Clinical Impression: Vomiting - Discharge Information *PRESCRIPTION DRUG MONITORING PROGRAM REVIEWED*: Not Applicable *COPY OF PRESCRIPTION DRUG MONITORING REPORT IN PATIENT MEGHA[place]: Not Applicable Prescriptions: Ondansetron [Zofran ODT] 4 mg PO Q6H PRN 5 Days #12 tab.dis PRN Reason: Nausea/Vomiting Instructions: Nausea and Vomiting, Adult Forms: ED Department Discharge Additional Instructions: The following information is given to patients seen in the emergency department who are being discharged to home. This information is to outline your options for follow-up care. We provide all patients seen in our emergency department with a follow-up referral. The need for follow-up, as well as the timing and circumstances, are variable depending upon the specifics of your emergency department visit. If you don't have a primary care physician on staff, we will provide you with a referral. We always advise you to contact your personal physician following an emergency department visit to inform them of the circumstance of the visit and for follow-up with them and/or the need for any referrals to a consulting specialist. The emergency department will also refer you to a specialist when appropriate. This referral assures that you have the opportunity for follow-up care with a specialist. All of these measure are taken in an effort to provide you with optimal care, which includes your follow-up. Under all circumstances we always encourage you to contact your private physician who remains a resource for coordinating your care. When calling for follow-up care, please make the office aware that this follow-up is from your recent emergency room visit. If for any reason you are refused follow-up, please contact the [facility] Emergency Department at and asked to speak to the emergency department charge nurse. [facility] - General Surgery Professional [address], [address] [place] [address] Sepsis Event Note (ED) - Evaluation Sepsis Screening Result: No Definite Risk - Focused Exam Vital Signs: Vital Signs Temp Pulse Resp BP Pulse Ox 06/07/20 17:11 81 153/89 H 93 L 06/07/20 14:39 36.1 C 93 19 174/88 H 99 - My Orders Last 24 Hours: My Active Orders 06/07/20 14:39 Cardiac Monitoring [RC] . DIRECTED EKG Documentation Completion [RC] STAT Pulse Oximetry [RC] ASDIRECTED Sodium Chloride 0.9% [Saline Flush] 10 ml FLUSH ASDIRECTED PRN Sodium Chloride 0.9% [Saline Flush] 2.5 ml FLUSH ASDIRECTED PRN Saline Lock Insert [OM.PC] Stat - Assessment/Plan Last 24 Hours: My Active Orders 06/07/20 14:39 Cardiac Monitoring [RC] . DIRECTED EKG Documentation Completion [RC] STAT Pulse Oximetry [RC] ASDIRECTED Sodium Chloride 0.9% [Saline Flush] 10 ml FLUSH ASDIRECTED PRN Sodium Chloride 0.9% [Saline Flush] 2.5 ml FLUSH ASDIRECTED PRN Saline Lock Insert [OM.PC] Stat
[2020-06-07 15:46] LABS: BLOOD UREA NITROGEN,BUN 19 mg/dL (7.0-18.0); CARBON DIOXIDE,CO2 29.3 mmol/L (21.0-32.0); CHLORIDE,CL 91 mmol/L (98-107); GLUCOSE RANDOM 265 mg/dL (74-106); LIPASE 91 U/L (73-393); POTASSIUM,K 3.5 mmol/L (3.5-5.1); SODIUM,NA 132 mmol/L (136-145)
[2020-06-07 17:38] VITALS: BP 127/70; PULSE 91
== END 2020-06-07 18:00 | disposition home or self-care (01) ==
LOC: MW.ED 14:34
DX: R11.2 Nausea with vomiting, unspecified (principal)
CPT/HCPCS: 36415; 80053; 81001; 83690; 84484; 85025; 93005; 96374; 96375; 99285; J2405; J3490; 99283

== ENCOUNTER 2020-06-11 15:31 | Emergency (ER) | payer MEDICARE, MEDICAID, OTHER ==
--- NOTE | 2020-06-11 15:55 | EDM.PDOC ---
ED HPI GENERAL MEDICAL PROBLEM - General Chief Complaint: Trauma Stated Complaint: FALL Time Seen by Provider: 06/11/20 15:31 - History of Present Illness INITIAL COMMENTS - FREE TEXT/NARRATIVE: HISTORY AND PHYSICAL: History of present illness: This 89-year-old female with a recent history of choledocholithiasis was at home and working with a physical therapist when she got up from a seated position and had a near syncopal episode was assisted to the ground by the physical therapist. 911 was called. They activated a trauma alert given that the patient fell and is on blood thinners. She denies any pain other than abdominal pain. She has not been eating well secondary to her upcoming cholecystectomy that is planned and pain when she eats. She complains of diffuse abdominal pain that she feels like is worse after falling and also has some mild neck pain. Review of systems: A 10-point review of systems, other than pertinent positives and negatives as stated per HPI, is otherwise negative. Past medical history: As per history of present illness and as reviewed below otherwise noncontributory. Surgical history: As per history of present illness and as reviewed below otherwise noncontributory. Social history: No reported history of drug or alcohol abuse. Family history: As per history of present illness and as reviewed below otherwise noncontributory. Physical exam: VITAL SIGNS: Reviewed. GENERAL: Does not appear to be in acute pain and is pleasant. HEAD: No signs of head trauma. EYES: Pupils are equal. Extraocular motions intact. Scleral icterus is present. EARS: Hearing grossly intact. MOUTH: Oropharynx is normal. NECK: No adenopathy, no JVD. Some midline tenderness. CHEST: Chest with clear breath sounds bilaterally. No wheezes, rales, or rhonchi. CARDIAC: Regular rate and rhythm. Normal S1 and S2, without murmurs, gallops, or rubs. VASCULAR: Peripheral pulses normal and equal in all extremities. ABDOMEN: Soft, diffusely tender with the majority of tenderness in the right upper quadrant. No distention. No pulsatile or other masses. MUSCULOSKELETAL: Good range of motion of all major joints. Extremities without clubbing, cyanosis or edema. NEUROLOGIC EXAM: Alert and oriented x 3. No focal sensory or motor deficits. Speech normal. Follows commands. PSYCHIATRIC: Mood normal. SKIN: No rash or lesions. Initial Differential Diagnosis & Plan: Fall on blood thinners. Unlikely to have underlying head injury however I will obtain a head CT. Some mild neck pain so I will obtain a CT of the C-spine however the patient is distal neurovascular intact with no evidence of radicular symptoms or spinal injury at this point. Abdomen is soft but tender in the right upper quadrant especially. Given this I will obtain a CT without contrast. It sounds like from the history from the patient and EMS that the patient may have had an ERCP at our referral center secondary to her choledocholithiasis. Labs to evaluate current status. Definitive disposition and diagnosis as appropriate pending reevaluation and review of above. - Related Data Allergies Allergy/AdvReac Type Severity Reaction Status Date / Time fluorouracil Allergy Swelling Verified 06/11/20 10:34 strawberry Allergy Hives Verified 06/11/20 10:34 Home Meds: Home Meds Aspirin [[place]ave Aspirin EC] 81 mg PO DAILY 10/13/16 [History] Simvastatin [Zocor] 20 mg PO BEDTIME 10/13/16 [History] Celecoxib 200 mg PO DAILY 03/18/19 [History] rOPINIRole [Requip] 0.25 mg PO BEDTIME 03/18/19 [History] Furosemide 20 mg PO DAILY 08/08/19 [History] Metoprolol Succinate [Toprol XL] 25 mg PO QAM 04/01/20 [History] metFORMIN HCl [Metformin HCl] 1,000 mg PO BIDMEALS 05/22/20 [History] Calcium Carbonate [Calcium] 1,200 mg PO DAILY 06/11/20 [History] Diclofenac Sodium 1 dose TOP BID PRN 06/11/20 [History] Insulin Detemir [Levemir Flextouch] 7 units SUBCUT BEDTIME 06/11/20 [History] Losartan [Cozaar] 100 mg PO QAM 06/11/20 [History] Sertraline HCl 100 mg PO DAILY 06/11/20 [History] Past Medical History HEENT History: Reports: Impaired Vision, Other (See Below) Other HEENT History: wears glasses Cardiovascular History: Reports: High Cholesterol, Hypertension Respiratory History: Reports: None Gastrointestinal History: Reports: None Genitourinary History: Reports: None 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: Musculoskeletal History: Reports: Osteoarthritis Neurological History: Reports: None Psychiatric History: Reports: Depression Endocrine/Metabolic History: Reports: Diabetes, Type II Hematologic History: Reports: None Immunologic History: Reports: None Oncologic (Cancer) History: Reports: Basal Cell Carcinoma Dermatologic History: Reports: Other (See Below) Other Dermatologic History: basal cell carcinoma to face - Infectious Disease History Infectious Disease History: Reports: Chicken Pox, Measles - Past Surgical History GI Surgical History: Reports: Appendectomy Neurological Surgical History: Reports: Lumbar Spine Dermatological Surgical History: Reports: None Social & Family History - Family History Family Medical History: Noncontributory - Caffeine Use Caffeine Use: Reports: None Other Caffeine Use: 1/day Caffeine Use Comment: 1 bottle Dory Vaughan daily - Living Situation & Occupation Living situation: Reports: Alone Occupation: Retired Review of Systems - Review of Systems Review Of Systems: See Below (noted) ED EXAM, GENERAL - Physical Exam Exam: See Below (noted) EKG INTERPRETATION EKG Interpretation Comments: 12 lead EKG interpretation Obtained: June 11, 2020 at 1539 Rhythm: Sinus Rate: 82 [place]: Normal Intervals: Normal ST/T Segments: Nonspecific T wave abnormality Interpretation: This rhythm with nonspecific T wave abnormality Course - Vital Signs Text/Narrative:: My diagnostic impression: 1. Acute cholecystitis 2. Septic shock 3. Suspected a sending cholangitis 4. Syncopal episode causing fall 5. Trauma activation secondary to ground-level fall on anticoagulation Patient will be transferred to higher level of care where they have critical care beds open. Secondary to COVID-19 pandemic multiple hospitals are full and delayed transfer occurred secondary to no available hospital beds. The patient responded well to IV fluids and did not require Levophed. A central line was not placed yet. Last Recorded V/S: Last Vital Signs Temp 97.3 F 06/11/20 15:32 Pulse 100 06/11/20 15:32 Resp 20 06/11/20 15:32 BP 104/69 06/11/20 15:32 Pulse Ox 96 06/11/20 15:32 - Orders/Labs/Meds Orders: Active Orders 24 hr Category Date Time Status Blood Pressure Mgt: Sepsis [RC] Q15MX2 Care 06/11/20 17:01 Active EKG 12 Lead [EKG Documentation Completion] [RC] STAT Care 06/11/20 15:32 Active CORONAVIRUS COVID-19 RAPID [MOLEC] Stat Lab 06/11/20 18:06 Received CULTURE BLOOD [BC] Stat Lab 06/11/20 17:02 Received CULTURE BLOOD [BC] Stat Lab 06/11/20 17:28 Results UA W/MICROSCOPIC [URIN] Stat Lab 06/11/20 16:59 Ordered Lactated Ringers [Ringers, Lactated] 2,000 ml Med 06/11/20 17:00 Active IV ASDIRECTED Norepinephrine [Levophed] 4 mg Med 06/11/20 17:00 Active Dextrose 5% in Water 246 ml IV TITRATE Sodium Chloride 0.9% [Saline Flush] Med 06/11/20 16:58 Active 10 ml FLUSH ASDIRECTED PRN Sodium Chloride 0.9% [Saline Flush] Med 06/11/20 16:58 Active 2.5 ml FLUSH ASDIRECTED PRN Vancomycin 2 gm Med 06/11/20 17:00 Active Sodium Chloride 0.9% [Normal Saline] 500 ml IV Q24H Blood Culture x2 Reflex Set [OM.PC] Stat Oth 06/11/20 17:18 Ordered Saline Lock Insert [OM.PC] Stat Oth 06/11/20 16:59 Ordered Severe Sepsis Onset Time [OM.PC] Stat Oth 06/11/20 16:59 Ordered Medication Orders Vancomycin HCl 2 gm/ Sodium (Chloride) 500 mls @ 333 mls/hr IV Q24H SHEYLA Norepinephrine Bitartrate 4 mg (/ Dextrose/Water) 250 mls @ 7.5 mls/hr IV TITRATE SHEYLA; Protocol Lactated Ringer's (Ringers, Lactated) 2,000 mls @ 2,000 mls/hr IV ASDIRECTED SHEYLA Sodium Chloride (Saline Flush) 10 ml FLUSH ASDIRECTED PRN PRN Reason: Keep Vein Open Sodium Chloride (Saline Flush) 2.5 ml FLUSH ASDIRECTED PRN PRN Reason: Keep Vein Open Labs: Laboratory Tests 06/11/20 06/11/20 06/11/20 Range/Units 16:10 16:10 16:10 WBC 19.61 H (4.0-11.0) K/uL RBC 4.49 (4.30-5.90) M/uL Hgb 13.6 (12.0-16.0) g/dL Hct 40.2 (36.0-46.0) % MCV 89.5 (80.0-98.0) fL MCH 30.3 (27.0-32.0) pg MCHC 33.8 (31.0-37.0) g/dL RDW Std Deviation 46.8 (28.0-62.0) fl RDW Coeff of [place] 14 (11.0-15.0) % Plt Count 243 (150-400) K/uL MPV 9.90 (7.40-12.00) fL Neut % (Auto) 76.9 (48.0-80.0) % Lymph % (Auto) 14.1 L (16.0-40.0) % [place] % (Auto) 8.8 (0.0-15.0) % Eos % (Auto) 0.1 (0.0-7.0) % Baso % (Auto) 0.1 (0.0-1.5) % Neut # (Auto) 15.1 H (1.4-5.7) K/uL Lymph # (Auto) 2.8 H (0.6-2.4) K/uL [place] # (Auto) 1.7 H (0.0-0.8) K/uL Eos # (Auto) 0.0 (0.0-0.7) K/uL Baso # (Auto) 0.0 (0.0-0.1) K/uL Nucleated RBC % 0.0 /100WBC Nucleated RBCs # 0 K/uL INR APTT (18.6-31.3) SEC VBG pH 7.44 H (7.31-7.41) VBG pCO2 36 (35-45) mmHG VBG pO2 40 (30-40) mmHG VBG HCO3 25 (22-30) mEq/L VBG Total CO2 22 L (41-51) mmol/L VBG Base Excess 0.6 (-3.0-3.0) Lactate 7.3 H* (0.20-2.00) mmol/L Sodium (136-145) mmol/L Potassium (3.5-5.1) mmol/L Chloride (98-107) mmol/L Carbon Dioxide (21.0-32.0) mmol/L BUN (7.0-18.0) mg/dL Creatinine (0.6-1.0) mg/dL Est Cr Clr Drug Dosing mL/min Estimated GFR (MDRD) ml/min Glucose (74-106) mg/dL Calcium (8.5-10.1) mg/dL Total Bilirubin (0.2-1.0) mg/dL AST (15-37) IU/L ALT (14-63) IU/L Alkaline Phosphatase (46-116) U/L Troponin I (0.000-0.056) ng/mL Total Protein (6.4-8.2) g/dL Albumin (3.4-5.0) g/dL Globulin (2.6-4.0) g/dL Albumin/Globulin Ratio (0.9-1.6) Lipase (73-393) U/L Urine Color Urine Appearance Urine pH (5.0-8.0) Ur Specific [place] (1.001-1.035) Urine Protein (NEGATIVE) mg/dL Urine Glucose (UA) (NEGATIVE) mg/dL Urine Ketones (NEGATIVE) mg/dL Urine Occult Blood (NEGATIVE) Urine Nitrite (NEGATIVE) Urine Bilirubin (NEGATIVE) Urine Urobilinogen (<2.0) EU/dL Ur Leukocyte Esterase (NEGATIVE) Urine RBC (0-2/HPF) Urine WBC (0-5/HPF) Ur Epithelial Cells (NONE-FEW) Urine Bacteria (NEGATIVE) 06/11/20 06/11/20 06/11/20 Range/Units 16:10 16:10 16:45 WBC (4.0-11.0) K/uL RBC (4.30-5.90) M/uL Hgb (12.0-16.0) g/dL Hct (36.0-46.0) % MCV (80.0-98.0) fL MCH (27.0-32.0) pg MCHC (31.0-37.0) g/dL RDW Std Deviation (28.0-62.0) fl RDW Coeff of [place] (11.0-15.0) % Plt Count (150-400) K/uL MPV (7.40-12.00) fL Neut % (Auto) (48.0-80.0) % Lymph % (Auto) (16.0-40.0) % [place] % (Auto) (0.0-15.0) % Eos % (Auto) (0.0-7.0) % Baso % (Auto) (0.0-1.5) % Neut # (Auto) (1.4-5.7) K/uL Lymph # (Auto) (0.6-2.4) K/uL [place] # (Auto) (0.0-0.8) K/uL Eos # (Auto) (0.0-0.7) K/uL Baso # (Auto) (0.0-0.1) K/uL Nucleated RBC % /100WBC Nucleated RBCs # K/uL INR 1.17 APTT 24.7 (18.6-31.3) SEC VBG pH (7.31-7.41) VBG pCO2 (35-45) mmHG VBG pO2 (30-40) mmHG VBG HCO3 (22-30) mEq/L VBG Total CO2 (41-51) mmol/L VBG Base Excess (-3.0-3.0) Lactate (0.20-2.00) mmol/L Sodium 131 L (136-145) mmol/L Potassium 3.2 L (3.5-5.1) mmol/L Chloride 92 L (98-107) mmol/L Carbon Dioxide 24.3 (21.0-32.0) mmol/L BUN 43 H (7.0-18.0) mg/dL Creatinine 2.3 H (0.6-1.0) mg/dL Est Cr Clr Drug Dosing 15.21 mL/min Estimated GFR (MDRD) 20.0 ml/min Glucose 240 H (74-106) mg/dL Calcium 9.2 (8.5-10.1) mg/dL Total Bilirubin 0.5 (0.2-1.0) mg/dL AST 26 (15-37) IU/L ALT 20 (14-63) IU/L Alkaline Phosphatase 91 (46-116) U/L Troponin I < 0.050 (0.000-0.056) ng/mL Total Protein 7.0 (6.4-8.2) g/dL Albumin 3.4 (3.4-5.0) g/dL Globulin 3.6 (2.6-4.0) g/dL Albumin/Globulin Ratio 0.9 (0.9-1.6) Lipase (73-393) U/L Urine Color YELLOW Urine Appearance CLEAR Urine pH 7.0 (5.0-8.0) Ur Specific [place] 1.020 (1.001-1.035) Urine Protein 100 H (NEGATIVE) mg/dL Urine Glucose (UA) 250 H (NEGATIVE) mg/dL Urine Ketones TRACE H (NEGATIVE) mg/dL Urine Occult Blood TRACE-INTACT H (NEGATIVE) Urine Nitrite NEGATIVE (NEGATIVE) Urine Bilirubin NEGATIVE (NEGATIVE) Urine Urobilinogen 0.2 (<2.0) EU/dL Ur Leukocyte Esterase NEGATIVE (NEGATIVE) Urine RBC 0-2 (0-2/HPF) Urine WBC 0-1 (0-5/HPF) Ur Epithelial Cells FEW (NONE-FEW) Urine Bacteria RARE (NEGATIVE) 06/11/20 Range/Units 17:28 WBC (4.0-11.0) K/uL RBC (4.30-5.90) M/uL Hgb (12.0-16.0) g/dL Hct (36.0-46.0) % MCV (80.0-98.0) fL MCH (27.0-32.0) pg MCHC (31.0-37.0) g/dL RDW Std Deviation (28.0-62.0) fl RDW Coeff of [place] (11.0-15.0) % Plt Count (150-400) K/uL MPV (7.40-12.00) fL Neut % (Auto) (48.0-80.0) % Lymph % (Auto) (16.0-40.0) % [place] % (Auto) (0.0-15.0) % Eos % (Auto) (0.0-7.0) % Baso % (Auto) (0.0-1.5) % Neut # (Auto) (1.4-5.7) K/uL Lymph # (Auto) (0.6-2.4) K/uL [place] # (Auto) (0.0-0.8) K/uL Eos # (Auto) (0.0-0.7) K/uL Baso # (Auto) (0.0-0.1) K/uL Nucleated RBC % /100WBC Nucleated RBCs # K/uL INR APTT (18.6-31.3) SEC VBG pH (7.31-7.41) VBG pCO2 (35-45) mmHG VBG pO2 (30-40) mmHG VBG HCO3 (22-30) mEq/L VBG Total CO2 (41-51) mmol/L VBG Base Excess (-3.0-3.0) Lactate (0.20-2.00) mmol/L Sodium (136-145) mmol/L Potassium (3.5-5.1) mmol/L Chloride (98-107) mmol/L Carbon Dioxide (21.0-32.0) mmol/L BUN (7.0-18.0) mg/dL Creatinine (0.6-1.0) mg/dL Est Cr Clr Drug Dosing mL/min Estimated GFR (MDRD) ml/min Glucose (74-106) mg/dL Calcium (8.5-10.1) mg/dL Total Bilirubin (0.2-1.0) mg/dL AST (15-37) IU/L ALT (14-63) IU/L Alkaline Phosphatase (46-116) U/L Troponin I (0.000-0.056) ng/mL Total Protein (6.4-8.2) g/dL Albumin (3.4-5.0) g/dL Globulin (2.6-4.0) g/dL Albumin/Globulin Ratio (0.9-1.6) Lipase 106 (73-393) U/L Urine Color Urine Appearance Urine pH (5.0-8.0) Ur Specific [place] (1.001-1.035) Urine Protein (NEGATIVE) mg/dL Urine Glucose (UA) (NEGATIVE) mg/dL Urine Ketones (NEGATIVE) mg/dL Urine Occult Blood (NEGATIVE) Urine Nitrite (NEGATIVE) Urine Bilirubin (NEGATIVE) Urine Urobilinogen (<2.0) EU/dL Ur Leukocyte Esterase (NEGATIVE) Urine RBC (0-2/HPF) Urine WBC (0-5/HPF) Ur Epithelial Cells (NONE-FEW) Urine Bacteria (NEGATIVE) Meds: Medications Generic Name Dose Route Start Last Admin Trade Name Freq PRN Reason Stop Dose Admin Vancomycin HCl 2 gm/ Sodium 500 mls @ 333 mls/hr 06/11/20 17:00 Chloride IV Q24H SHEYLA Norepinephrine Bitartrate 4 mg 250 mls @ 7.5 mls/hr 06/11/20 17:00 / Dextrose/Water IV TITRATE SHEYLA Protocol 2 MCG/MIN Lactated Ringer's 2,000 mls @ 2,000 mls/hr 06/11/20 17:00 Ringers, Lactated IV ASDIRECTED SHEYLA Sodium Chloride 10 ml 06/11/20 16:58 Saline Flush FLUSH ASDIRECTED PRN Keep Vein Open Sodium Chloride 2.5 ml 06/11/20 16:58 Saline Flush FLUSH ASDIRECTED PRN Keep Vein Open Discontinued Medications Generic Name Dose Route Start Last Admin Trade Name Freq PRN Reason Stop Dose Admin Piperacillin Sod/Tazobactam 100 mls @ 100 mls/hr 06/11/20 16:57 06/11/20 17:36 Sod 4.5 gm/ Sodium Chloride IV 06/11/20 17:56 100 mls/hr ONETIME ONE Administration Prochlorperazine Edisylate 10 mg 06/11/20 16:25 06/11/20 16:37 Compazine IVPUSH 06/11/20 16:26 10 mg ONETIME ONE Administration - Re-Assessments/Exams Free Text/Narrative Re-Assessment/Exam: 06/11/20 17:24 While being observed in the emergency department the patient had an episode of hypotension again. It appears that the patient has septic shock. Just after her the labs began to result back showing a lactate of greater than 7, leuk ocytosis, mild hyponatremia, and acute renal failure. I began looking for transfer of this patient as it would need higher level of care around 1705. At 1707 I was able to speak to the [facility] ([facility]) and they are on [facility] in critical care diversion. I ended my conversation with them around 1713 hrs. and I called [facility] and spoke to the transfer center there. I let them know a comprehensive and detailed evaluation of my work-up and treatment and my desire to place a central line. I spoke to Dr. Nav Cordon and he has accepted. We will Send via air ambulance. The closest air ambulance resources currently being used for a child with an intra-abdominal emergency. This patient may have delayed transfer. Departure - Departure Time of Disposition: 18:15 Disposition: DC/Tfer to [facility] 02 Clinical Impression: Acute cholecystitis, Septic shock - Discharge Information *PRESCRIPTION DRUG MONITORING PROGRAM REVIEWED*: Not Applicable *COPY OF PRESCRIPTION DRUG MONITORING REPORT IN PATIENT [place]: Not Applicable Referrals: PCP,None [Primary Care Provider] - Forms: ED Department Discharge Critical Care Note - Critical Care Note Comments: Critical Care Note: The patient presented in critical status due to acute cholecystitis and septic shock The patient required rapid exam, decision making, and frequent re-evaluations during their time in the Emergency Department. Total Critical Care time exclusive of all other billable procedure time provided by myself 108 minutes Sepsis Event Note (ED) - Evaluation Current Stage of Sepsis: Septic Shock - Focused Exam Sepsis Event Note Statement: Focused Sepsis Exam Completed Vital Signs: Vital Signs Temp Pulse Resp BP Pulse Ox 06/11/20 15:32 97.3 F 100 20 104/69 96 - Bedside Monitoring CVP Measures: Less than 8 (not measured) ScvO2 Measures: Greater than or Equal to 70% (not measured) Bedside Ultrasound Performed: No Fluid Bolus Goal: At 6:12 PM I performed septic shock reevaluation. Patient's blood pressure is improved. IV fluids have been completed. Date Bedside Monitoring was Performed: 06/11/20 Time Bedside Monitoring was Performed: 18:17 - My Orders Last 24 Hours: My Active Orders 06/11/20 15:32 EKG 12 Lead [EKG Documentation Completion] [RC] STAT 06/11/20 16:58 Sodium Chloride 0.9% [Saline Flush] 10 ml FLUSH ASDIRECTED PRN Sodium Chloride 0.9% [Saline Flush] 2.5 ml FLUSH ASDIRECTED PRN 06/11/20 16:59 UA W/MICROSCOPIC [URIN] Stat Saline Lock Insert [OM.PC] Stat Severe Sepsis Onset Time [OM.PC] Stat 06/11/20 17:00 Lactated Ringers [Ringers, Lactated] 2,000 ml IV ASDIRECTED Norepinephrine [Levophed] 4 mg Dextrose 5% in Water 246 ml IV TITRATE Vancomycin 2 gm Sodium Chloride 0.9% [Normal Saline] 500 ml IV Q24H 06/11/20 17:01 Blood Pressure Mgt: Sepsis [RC] Q15MX2 06/11/20 17:02 CULTURE BLOOD [BC] Stat 06/11/20 17:18 Blood Culture x2 Reflex Set [OM.PC] Stat 06/11/20 17:28 CULTURE BLOOD [BC] Stat 06/11/20 18:06 CORONAVIRUS COVID-19 RAPID [MOLEC] Stat - Assessment/Plan Last 24 Hours: My Active Orders 06/11/20 15:32 EKG 12 Lead [EKG Documentation Completion] [RC] STAT 06/11/20 16:58 Sodium Chloride 0.9% [Saline Flush] 10 ml FLUSH ASDIRECTED PRN Sodium Chloride 0.9% [Saline Flush] 2.5 ml FLUSH ASDIRECTED PRN 06/11/20 16:59 UA W/MICROSCOPIC [URIN] Stat Saline Lock Insert [OM.PC] Stat Severe Sepsis Onset Time [OM.PC] Stat 06/11/20 17:00 Lactated Ringers [Ringers, Lactated] 2,000 ml IV ASDIRECTED Norepinephrine [Levophed] 4 mg Dextrose 5% in Water 246 ml IV TITRATE Vancomycin 2 gm Sodium Chloride 0.9% [Normal Saline] 500 ml IV Q24H 06/11/20 17:01 Blood Pressure Mgt: Sepsis [RC] Q15MX2 06/11/20 17:02 CULTURE BLOOD [BC] Stat 06/11/20 17:18 Blood Culture x2 Reflex Set [OM.PC] Stat 06/11/20 17:28 CULTURE BLOOD [BC] Stat 06/11/20 18:06 CORONAVIRUS COVID-19 RAPID [MOLEC] Stat
--- NOTE | 2020-06-11 16:14 | CT ---
Head CT Technique: Multiple axial sections through the brain were obtained. Intravenous contrast not utilized. Comparison: Prior head CT exam of 05/10/20. Findings: Mucosal thickening is seen within the maxillary sinus on left side and frontal sinus which appears stable from previous exam. Ventricles along with basal cisterns and sulci over the convexities are mildly prominent. Decreased density is noted within the periventricular white matter compatible with small vessel ischemic demyelination change. No other abnormal parenchymal densities are seen. No evidence of intracranial hemorrhage. No midline shift or mass-effect is seen. Atherosclerotic calcification is seen within the carotid siphon. Atherosclerotic change is noted within the vertebral vessels. Bone window settings were reviewed. No acute calvarial finding is seen. Impression: 1. Mucosal thickening within the left maxillary sinus and frontal sinus which appears stable from prior head CT exam. 2. Stable senescent change as noted above. 3. No acute intracranial abnormality is appreciated. Diagnostic code #2 This report was dictated in MDT
--- NOTE | 2020-06-11 16:22 | CT ---
CT cervical spine Technique: Multiple axial sections through the cervical spine were obtained. Study was obtained from above C1 inferiorly to the bottom of T4. Reconstructed sagittal and coronal images were reviewed. Comparison: Prior CT cervical spine exam of 05/10/20. Findings: Diffuse degenerative change is noted throughout the cervical spine and upper thoracic spine. Findings are fairly stable from previous study. No acute fracture is appreciated. Impression: 1. Diffuse degenerative change which is fairly stable from previous study. 2. Nothing acute is seen. Diagnostic code #2 This report was dictated in MDT
[2020-06-11] MEDS ORDERED: Prochlorperazine 10 MG/2 ML SDV IVPUSH ONE (16:25)
--- NOTE | 2020-06-11 16:25 | CT ---
CT abdomen and pelvis Technique: Multiple axial sections were obtained from above the dome of the diaphragm inferiorly through the pubic symphysis. Intravenous and oral contrast not utilized. Limitations: Artifact is noted from the patient's arms along the side. Comparison: Prior CT abdomen and pelvis exam of 05/10/20. Findings: Previous subcutaneous hematoma within the soft tissues around the right hip shows improvement from previous exam. No new areas of soft tissue contusion are seen. Noncontrast appearance of the liver and spleen shows no discrete abnormality. Adrenal glands show no nodule. Pancreas shows no discrete finding. Gallbladder contains no calcified gallstones. Kidneys show no abnormal calcifications or hydronephrosis. Aorta shows diffuse atherosclerotic calcification which continues in the iliac vessels. No retroperitoneal adenopathy or mesenteric abnormalities are seen. No pelvic mass or adenopathy is seen. Diffuse diverticuli are seen within the sigmoid colon without diverticulitis. Increased stool is noted within the rectum. Bone window settings were reviewed which shows diffuse degenerative change within the spine. This degenerative change appears fairly stable from previous exam. Nothing acute is appreciated. Impression: 1. Findings as noted above. 2. Nothing acute is seen on noncontrast CT study of the abdomen and pelvis. Diagnostic code #2 This report was dictated in MDT
[2020-06-11 16:36] VITALS: BP 104/69; PULSE 100
[2020-06-11 16:42] LABS: BLOOD UREA NITROGEN,BUN 43 mg/dL (7.0-18.0); CARBON DIOXIDE,CO2 24.3 mmol/L (21.0-32.0); CHLORIDE,CL 92 mmol/L (98-107); GLUCOSE RANDOM 240 mg/dL (74-106); POTASSIUM,K 3.2 mmol/L (3.5-5.1); SODIUM,NA 131 mmol/L (136-145)
[2020-06-11] MEDS ORDERED: Piperacillin/Tazobactam 4.5 GM in Sodium Chloride 0.9% 100 ML IV ONE (16:57)
[2020-06-11] MEDS ORDERED: Sodium Chloride 0.9% 2.5 ML Syringe FLUSH PRN (16:58)
[2020-06-11] MEDS ORDERED: Sodium Chloride 0.9% 10 ML Syringe FLUSH PRN (16:58)
[2020-06-11] MEDS ORDERED: Norepinephrine 4 MG in Dextrose 5% in Water 246 ML IV SCH ×2 (17:00)
[2020-06-11] MEDS ORDERED: Vancomycin 2 GM in Sodium Chloride 0.9% 500 ML IV SCH (17:00)
[2020-06-11] MEDS ORDERED: Lactated Ringers 2,000 ML IV SCH (17:00)
== END 2020-06-11 18:30 ==
LOC: MW.ED 15:31
DX: A41.9 Sepsis, unspecified organism (principal); R65.21 Severe sepsis with septic shock; K81.0 Acute cholecystitis; R55 Syncope and collapse; I10 Essential (primary) hypertension; E78.00 Pure hypercholesterolemia, unspecified; E11.9 Type 2 diabetes mellitus without complications; F32.9 Major depressive disorder, single episode, unspecified; M19.90 Unspecified osteoarthritis, unspecified site; Z20.828 Contact with and (suspected) exposure to other viral communicable diseases; Z88.8 Allergy status to other drugs, medicaments and biological substances; Z91.018 Allergy to other foods; Z90.49 Acquired absence of other specified parts of digestive tract; Z79.82 Long term (current) use of aspirin; Z79.4 Long term (current) use of insulin; Z79.899 Other long term (current) drug therapy
CPT/HCPCS: 36415; 70450; 72125; 74176; 80053; 81001; 82803; 83605; 83690; 84484; 85025; 85610; 85730; 87040; 93005; 96365; 96375; 99291; 99292; G0390; J0780; J2543; J7050; U0002

== ENCOUNTER 2021-01-04 14:24 | Observation (INO) | payer MEDICARE ==
[2021-01-04] MEDS ORDERED: 50% Dextrose in Water 50 ML Syringe IVPUSH ONE (14:30)
[2021-01-04] MEDS ORDERED: Sodium Chloride 0.9% 10 ML Syringe FLUSH PRN (14:33)
[2021-01-04] MEDS: Sodium Chloride 0.9% 2.5 ML Syringe FLUSH PRN (14:35)
--- NOTE | 2021-01-04 14:40 | EDM.PDOC ---
ED HPI GENERAL MEDICAL PROBLEM - General Chief Complaint: Diabetic Complaint Stated Complaint: EMS Time Seen by Provider: 01/04/21 14:25 Source of Information: Reports: Patient, EMS, Family History Limitations: Reports: No Limitations - History of Present Illness INITIAL COMMENTS - FREE TEXT/NARRATIVE: HISTORY AND PHYSICAL: History of present illness: Patient is an 89-year-old female presents to the ED today with EMS for concern of hypoglycemia. Patient states that when she went to bed last night, she remembers a canister of her insulin having insulin in it. Patient states that when she woke up, the insulin canister was empty and she had a needle sticking out of her abdomen as if she had injected herself with insulin. Patient states that she does not remember injecting herself with insulin and thinks that she "was asleep ". Patient states that she has a life alert button that she pressed this morning when she realized the mistake she had and states that she has been feeling shaky as if her blood sugar is low. Patient states she has type 2 diabetes and is on the long-acting and short acting insulin. EMS gave patient /2 amp of D50 and had her eat some honey and state upon arrival her blood sugar was 40 and she was confused. Patient states she also drank some juice waiting for EMS to come. States that this time she feels shaky but otherwise no symptoms or concerns. Patient denies fever, chills, chest pain, shortness of breath, or cough. Denies headache, neck stiff ness, change in vision, syncope, or near syncope. Denies nausea, vomiting, abdominal pain, diarrhea, constipation, or dysuria. Has not noted any blood in urine or stool. Patient has been eating and drinking appropriately. Review of systems: As per history of present illness and below otherwise all systems reviewed and negative. Past medical history: As per history of present illness and as reviewed below otherwise noncontributory. Surgical history: As per history of present illness and as reviewed below otherwise noncontributory. Social history: See social history for further information Family history: As per history of present illness and as reviewed below otherwise noncontributory. Physical exam: General: Patient is alert, oriented, and in no acute distress. Patient laying comfortably on exam table. Vitals stable and reviewed by me. HEENT: Atraumatic, normocephalic, pupils equal and reactive bilaterally, negative for conjunctival pallor or scleral icterus, mucous membranes moist, TMs normal bilaterally, throat clear, neck supple, nontender, trachea midline. No drooling or trismus noted. No meningeal signs. No hot potato voice noted. Lungs: Clear to auscultation, breath sounds equal bilaterally, chest nontender. Heart: S1S2, regular rate and rhythm without overt murmur Abdomen: Soft, nondistended, nontender. Negative for masses or hepatosplenomegaly. Negative for costovertebral tenderness. Pelvis: Stable nontender. Genitourinary: Deferred. Rectal: Deferred. Skin: Intact, warm, dry. No lesions or rashes noted. Extremities: Atraumatic, negative for cords or calf pain. Neurovascular unremarkable. Neuro: Awake, alert, oriented. Cranial nerves II through XII unremarkable. Cerebellum unremarkable. Motor and sensory unremarkable throughout. Exam nonfocal. Notes: On initial arrival to the ED, patient is vitally stable, alert and oriented x3, and in no acute distress. Her bedside glucose upon arrival is 50. We will give another one half amp of D50 and closely monitor glucose. BP 200/100 on arrival. Patient given a room tray and ate a full meal. Repeat blood glucose 80. BP 170/90 on reassessment without bp intervention. Dr. Tucker consulted on patient and will admit to observation. Voices understanding and is agreeable to plan of care. Denies any further questions or concerns at this time. Diagnostics: Bedside glucose, CBC, CMP, UA, EKG, COVID Therapeutics: 1/2 amp D50W Impression: Hypoglycemia Insulin overdose, accidental Type 2 diabetes Hypertension Plan: Admit to observation to Dr. Tucker. Definitive disposition and diagnosis as appropriate pending reevaluation and review of above. - Related Data Allergies Allergy/AdvReac Type Severity Reaction Status Date / Time fluorouracil Allergy Swelling Verified 01/04/21 14:26 strawberry Allergy Hives Verified 01/04/21 14:26 Home Meds: Home Meds Aspirin 81 mg PO DAILY 01/04/21 [History] Celecoxib 200 mg PO DAILY 01/04/21 [History] Furosemide 20 mg PO DAILY 01/04/21 [History] Gabapentin [Neurontin] 300 mg PO BEDTIME 01/04/21 [History] Insulin Aspart [NovoLOG] 1 dose INJECT ASDIRECTED 01/04/21 [History] Losartan Potassium [Cozaar] 100 mg PO DAILY 01/04/21 [History] Metoprolol Succinate 25 mg PO DAILY 01/04/21 [History] Pantoprazole [ProTONIX] 40 mg PO BID 01/04/21 [History] Sertraline HCl 100 mg PO DAILY 01/04/21 [History] Simvastatin [Zocor] 20 mg PO BEDTIME 01/04/21 [History] metFORMIN [Glucophage] 500 mg PO DAILY 01/04/21 [History] rOPINIRole [Requip] 0.25 mg PO BEDTIME 01/04/21 [History] Past Medical History HEENT History: Reports: Impaired Vision, Other (See Below) Other HEENT History: wears glasses Cardiovascular History: Reports: High Cholesterol, Hypertension Respiratory History: Reports: None Gastrointestinal History: Reports: None Genitourinary History: Reports: None [employer] History: Reports: Musculoskeletal History: Reports: Osteoarthritis Neurological History: Reports: None Psychiatric History: Reports: Depression Endocrine/Metabolic History: Reports: Diabetes, Type II Hematologic History: Reports: None Immunologic History: Reports: None Oncologic (Cancer) History: Reports: Basal Cell Carcinoma Dermatologic History: Reports: Other (See Below) Other Dermatologic History: basal cell carcinoma to face - Infectious Disease History Infectious Disease History: Reports: Chicken Pox, Measles - Past Surgical History GI Surgical History: Reports: Appendectomy Neurological Surgical History: Reports: Lumbar Spine Dermatological Surgical History: Reports: None Social & Family History - Family History Family Medical History: No Pertinent Family History - Caffeine Use Caffeine Use: Reports: None Other Caffeine Use: 1/day Caffeine Use Comment: 1 bottle Dory Vaughan daily - Living Situation & Occupation Living situation: Reports: Alone Occupation: Retired ED ROS GENERAL - Review of Systems Review Of Systems: Comprehensive ROS is negative, except as noted in HPI. ED EXAM GENERAL NO PERIP PULSE - Physical Exam Exam: See Below (see dictation) Course - Vital Signs Last Recorded V/S: Last Vital Signs Temp 99.2 F 01/04/21 18:28 Pulse 80 01/04/21 18:46 Resp 16 01/04/21 18:46 BP 158/68 H 01/04/21 18:46 Pulse Ox 96 01/04/21 18:46 - Orders/Labs/Meds Orders: Active Orders 24 hr Category Date Time Status Cardiac Monitoring [RC] . DIRECTED Care 01/04/21 14:33 Active EKG Documentation Completion [RC] STAT Care 01/04/21 14:33 Active CULTURE URINE [RM] Stat Lab 01/04/21 17:25 Received Sodium Chloride 0.9% [Saline Flush] Med 01/04/21 14:33 Active 10 ml FLUSH ASDIRECTED PRN Sodium Chloride 0.9% [Saline Flush] Med 01/04/21 14:33 Active 2.5 ml FLUSH ASDIRECTED PRN Saline Lock Insert [OM.PC] Stat Oth 01/04/21 14:33 Ordered Medication Orders Gabapentin (Gabapentin 300 Mg Cap) 300 mg PO BEDTIME [facility] Last Admin: 01/04/21 20:42 Dose: 300 mg Documented by: [email or web address] Non-Formulary Medication (Ropinirole) 0.25 mg PO BEDTIME [facility] Last Admin: 01/04/21 20:42 Dose: 0.25 mg Documented by: [email or web address] Sodium Chloride (Sodium Chloride 0.9% 10 Ml Syringe) 10 ml FLUSH ASDIRECTED PRN PRN Reason: Keep Vein Open Last Admin: 01/04/21 14:35 Dose: 10 ml Documented by: [email or web address] Sodium Chloride (Sodium Chloride 0.9% 2.5 Ml Syringe) 2.5 ml FLUSH ASDIRECTED PRN PRN Reason: Keep Vein Open Last Admin: 01/04/21 14:35 Dose: 2.5 ml Documented by: [email or web address] Labs: Laboratory Tests 01/04/21 01/04/21 01/04/21 Range/Units 14:48 14:48 14:48 WBC 9.51 (4.0-11.0) K/uL RBC 4.23 L (4.30-5.90) M/uL Hgb 12.0 (12.0-16.0) g/dL Hct 36.8 (36.0-46.0) % MCV 87.0 (80.0-98.0) fL MCH 28.4 (27.0-32.0) pg MCHC 32.6 (31.0-37.0) g/dL RDW Std Deviation 50.3 (28.0-62.0) fl RDW Coeff of Renard 16 H (11.0-15.0) % Plt Count 172 (150-400) K/uL MPV 9.70 (7.40-12.00) fL Neut % (Auto) 82.0 H (48.0-80.0) % Lymph % (Auto) 13.1 L (16.0-40.0) % [place] % (Auto) 4.7 (0.0-15.0) % Eos % (Auto) 0.1 (0.0-7.0) % Baso % (Auto) 0.1 (0.0-1.5) % Neut # (Auto) 7.8 H (1.4-5.7) K/uL Lymph # (Auto) 1.3 (0.6-2.4) K/uL [place] # (Auto) 0.5 (0.0-0.8) K/uL Eos # (Auto) 0.0 (0.0-0.7) K/uL Baso # (Auto) 0.0 (0.0-0.1) K/uL Nucleated RBC % 0.0 /100WBC Nucleated RBCs # 0 K/uL Sodium 138 (136-145) mmol/L Potassium 4.2 (3.5-5.1) mmol/L Chloride 99 (98-107) mmol/L Carbon Dioxide 24.2 (21.0-32.0) mmol/L BUN 27 H (7.0-18.0) mg/dL Creatinine 1.2 H (0.6-1.0) mg/dL Est Cr Clr Drug Dosing 28.60 mL/min Estimated GFR (MDRD) 42.3 ml/min Glucose 155 H (74-106) mg/dL POC Glucose 81 (60-110) mg/dL Hemoglobin A1c (4.5 - 6.2) % Calcium 10.1 (8.5-10.1) mg/dL Total Bilirubin 0.2 (0.2-1.0) mg/dL AST 23 (15-37) IU/L ALT 27 (14-63) IU/L Alkaline Phosphatase 61 (46-116) U/L Troponin I < 0.050 (0.000-0.056) ng/mL Total Protein 7.1 (6.4-8.2) g/dL Albumin 3.3 L (3.4-5.0) g/dL Globulin 3.8 (2.6-4.0) g/dL Albumin/Globulin Ratio 0.9 (0.9-1.6) Urine Color Urine Appearance Urine pH (5.0-8.0) Ur Specific [place] (1.001-1.035) Urine Protein (NEGATIVE) mg/dL Urine Glucose (UA) (NEGATIVE) mg/dL Urine Ketones (NEGATIVE) mg/dL Urine Occult Blood (NEGATIVE) Urine Nitrite (NEGATIVE) Urine Bilirubin (NEGATIVE) Urine Urobilinogen (<2.0) EU/dL Ur Leukocyte Esterase (NEGATIVE) Urine RBC (0-2/HPF) Urine WBC (0-5/HPF) Ur Epithelial Cells (NONE-FEW) Amorphous Sediment (NEGATIVE) Urine Bacteria (NEGATIVE) Urine Mucus (NONE-MOD) Influenza Type A RNA (NEGATIVE) Influenza Type B RNA (NEGATIVE) SARS-CoV-2 RNA (JEM) (NEGATIVE) 01/04/21 01/04/21 01/04/21 Range/Units 14:48 14:55 15:22 WBC (4.0-11.0) K/uL RBC (4.30-5.90) M/uL Hgb (12.0-16.0) g/dL Hct (36.0-46.0) % MCV (80.0-98.0) fL MCH (27.0-32.0) pg MCHC (31.0-37.0) g/dL RDW Std Deviation (28.0-62.0) fl RDW Coeff of Renard (11.0-15.0) % Plt Count (150-400) K/uL MPV (7.40-12.00) fL Neut % (Auto) (48.0-80.0) % Lymph % (Auto) (16.0-40.0) % [place] % (Auto) (0.0-15.0) % Eos % (Auto) (0.0-7.0) % Baso % (Auto) (0.0-1.5) % Neut # (Auto) (1.4-5.7) K/uL Lymph # (Auto) (0.6-2.4) K/uL [place] # (Auto) (0.0-0.8) K/uL Eos # (Auto) (0.0-0.7) K/uL Baso # (Auto) (0.0-0.1) K/uL Nucleated RBC % /100WBC Nucleated RBCs # K/uL Sodium (136-145) mmol/L Potassium (3.5-5.1) mmol/L Chloride (98-107) mmol/L Carbon Dioxide (21.0-32.0) mmol/L BUN (7.0-18.0) mg/dL Creatinine (0.6-1.0) mg/dL Est Cr Clr Drug Dosing mL/min Estimated GFR (MDRD) ml/min Glucose (74-106) mg/dL POC Glucose 107 (60-110) mg/dL Hemoglobin A1c 7.8 H (4.5 - 6.2) % Calcium (8.5-10.1) mg/dL Total Bilirubin (0.2-1.0) mg/dL AST (15-37) IU/L ALT (14-63) IU/L Alkaline Phosphatase (46-116) U/L Troponin I (0.000-0.056) ng/mL Total Protein (6.4-8.2) g/dL Albumin (3.4-5.0) g/dL Globulin (2.6-4.0) g/dL Albumin/Globulin Ratio (0.9-1.6) Urine Color Urine Appearance Urine pH (5.0-8.0) Ur Specific [place] (1.001-1.035) Urine Protein (NEGATIVE) mg/dL Urine Glucose (UA) (NEGATIVE) mg/dL Urine Ketones (NEGATIVE) mg/dL Urine Occult Blood (NEGATIVE) Urine Nitrite (NEGATIVE) Urine Bilirubin (NEGATIVE) Urine Urobilinogen (<2.0) EU/dL Ur Leukocyte Esterase (NEGATIVE) Urine RBC (0-2/HPF) Urine WBC (0-5/HPF) Ur Epithelial Cells (NONE-FEW) Amorphous Sediment (NEGATIVE) Urine Bacteria (NEGATIVE) Urine Mucus (NONE-MOD) Influenza Type A RNA NEGATIVE (NEGATIVE) Influenza Type B RNA NEGATIVE (NEGATIVE) SARS-CoV-2 RNA (JEM) NEGATIVE (NEGATIVE) 01/04/21 01/04/21 01/04/21 Range/Units 15:49 17:22 17:25 WBC (4.0-11.0) K/uL RBC (4.30-5.90) M/uL Hgb (12.0-16.0) g/dL Hct (36.0-46.0) % MCV (80.0-98.0) fL MCH (27.0-32.0) pg MCHC (31.0-37.0) g/dL RDW Std Deviation (28.0-62.0) fl RDW Coeff of Renard (11.0-15.0) % Plt Count (150-400) K/uL MPV (7.40-12.00) fL Neut % (Auto) (48.0-80.0) % Lymph % (Auto) (16.0-40.0) % [place] % (Auto) (0.0-15.0) % Eos % (Auto) (0.0-7.0) % Baso % (Auto) (0.0-1.5) % Neut # (Auto) (1.4-5.7) K/uL Lymph # (Auto) (0.6-2.4) K/uL [place] # (Auto) (0.0-0.8) K/uL Eos # (Auto) (0.0-0.7) K/uL Baso # (Auto) (0.0-0.1) K/uL Nucleated RBC % /100WBC Nucleated RBCs # K/uL Sodium (136-145) mmol/L Potassium (3.5-5.1) mmol/L Chloride (98-107) mmol/L Carbon Dioxide (21.0-32.0) mmol/L BUN (7.0-18.0) mg/dL Creatinine (0.6-1.0) mg/dL Est Cr Clr Drug Dosing mL/min Estimated GFR (MDRD) ml/min Glucose (74-106) mg/dL POC Glucose 221 H 80 (60-110) mg/dL Hemoglobin A1c (4.5 - 6.2) % Calcium (8.5-10.1) mg/dL Total Bilirubin (0.2-1.0) mg/dL AST (15-37) IU/L ALT (14-63) IU/L Alkaline Phosphatase (46-116) U/L Troponin I (0.000-0.056) ng/mL Total Protein (6.4-8.2) g/dL Albumin (3.4-5.0) g/dL Globulin (2.6-4.0) g/dL Albumin/Globulin Ratio (0.9-1.6) Urine Color YELLOW Urine Appearance CLEAR Urine pH 6.0 (5.0-8.0) Ur Specific [place] 1.025 (1.001-1.035) Urine Protein 100 H (NEGATIVE) mg/dL Urine Glucose (UA) NEGATIVE (NEGATIVE) mg/dL Urine Ketones NEGATIVE (NEGATIVE) mg/dL Urine Occult Blood NEGATIVE (NEGATIVE) Urine Nitrite NEGATIVE (NEGATIVE) Urine Bilirubin NEGATIVE (NEGATIVE) Urine Urobilinogen 0.2 (<2.0) EU/dL Ur Leukocyte Esterase TRACE H (NEGATIVE) Urine RBC 0-2 (0-2/HPF) Urine WBC 3-6 (0-5/HPF) Ur Epithelial Cells FEW (NONE-FEW) Amorphous Sediment FEW (NEGATIVE) Urine Bacteria FEW (NEGATIVE) Urine Mucus FEW (NONE-MOD) Influenza Type A RNA (NEGATIVE) Influenza Type B RNA (NEGATIVE) SARS-CoV-2 RNA (JEM) (NEGATIVE) Meds: Medications Generic Name Dose Route Start Last Admin Trade Name Freq PRN Reason Stop Dose Admin Gabapentin 300 mg 01/04/21 21:00 01/04/21 20:42 Gabapentin 300 Mg Cap PO 300 mg BEDTIME SHEYLA Administration Non-Formulary Medication 0.25 mg 01/04/21 21:00 01/04/21 20:42 Ropinirole PO 0.25 mg BEDTIME SHEYLA Administration Sodium Chloride 10 ml 01/04/21 14:33 01/04/21 14:35 Sodium Chloride 0.9% 10 Ml Syringe FLUSH 10 ml ASDIRECTED PRN Administration Keep Vein Open Sodium Chloride 2.5 ml 01/04/21 14:33 01/04/21 14:35 Sodium Chloride 0.9% 2.5 Ml Syringe FLUSH 2.5 ml ASDIRECTED PRN Administration Keep Vein Open Discontinued Medications Generic Name Dose Route Start Last Admin Trade Name Freq PRN Reason Stop Dose Admin Dextrose/Water 25 ml 01/04/21 14:30 01/04/21 14:33 50% Dextrose In Water 50 Ml Syringe IVPUSH 01/04/21 14:31 25 ml ONETIME ONE Administration Influenza Virus Vaccine 240 mcg 01/04/21 20:15 Flu Vacc [id number](65yr Up)/Pf 240 Mcg/0.7 Ml Syringe IM 01/04/21 20:16 .ONCE ONE Departure - Departure Time of Disposition: 17:54 Disposition: Refer to Observation Clinical Impression: Hypoglycemia Type 2 diabetes mellitus Qualifiers: 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: with halfway use Diabetes mellitus complication status: without complication Qualified Code(s): E11.9 - Type 2 diabetes mellitus without complications Insulin overdose Qualifiers: Encounter type: initial encounter Injury intent: accidental or unintentional Qualified Code(s): T38.3X1A - Poisoning by insulin and oral hypoglycemic [antidiabetic] drugs, accidental (unintentional), initial encounter Hypertension Qualifiers: Hypertension type: essential hypertension Qualified Code(s): I10 - Essential (primary) hypertension - Discharge Information Sepsis Event Note (ED) - Evaluation Sepsis Screening Result: No Definite Risk - Focused Exam Vital Signs: Vital Signs Temp Pulse Resp BP Pulse Ox 01/04/21 14:26 97.9 F 92 18 207/93 H 96 - My Orders Last 24 Hours: My Active Orders 01/04/21 14:33 Cardiac Monitoring [RC] . DIRECTED EKG Documentation Completion [RC] STAT Sodium Chloride 0.9% [Saline Flush] 10 ml FLUSH ASDIRECTED PRN Sodium Chloride 0.9% [Saline Flush] 2.5 ml FLUSH ASDIRECTED PRN Saline Lock Insert [OM.PC] Stat 01/04/21 17:25 CULTURE URINE [RM] Stat - Assessment/Plan Last 24 Hours: My Active Orders 01/04/21 14:33 Cardiac Monitoring [RC] . DIRECTED EKG Documentation Completion [RC] STAT Sodium Chloride 0.9% [Saline Flush] 10 ml FLUSH ASDIRECTED PRN Sodium Chloride 0.9% [Saline Flush] 2.5 ml FLUSH ASDIRECTED PRN Saline Lock Insert [OM.PC] Stat 01/04/21 17:25 CULTURE URINE [RM] Stat
--- NOTE | 2021-01-04 14:44 | PCM.EKG ---
#1 Interpretation EKG Date: 01/04/21 Time: 14:20 Rhythm: NSR Rate (Beats/Min): 92 ST-T: Normal
[2021-01-04 15:24] LABS: BLOOD UREA NITROGEN,BUN 27 mg/dL (7.0-18.0); CARBON DIOXIDE,CO2 24.2 mmol/L (21.0-32.0); CHLORIDE,CL 99 mmol/L (98-107); GLUCOSE RANDOM 155 mg/dL (74-106); POTASSIUM,K 4.2 mmol/L (3.5-5.1); SODIUM,NA 138 mmol/L (136-145)
--- NOTE | 2021-01-04 15:34 | CR ---
INDICATION: Pain and SOB. TECHNIQUE: Portable AP image of the chest. COMPARISON: 05/22/2020. FINDINGS: Lungs and pleural spaces clear. Heart, mediastinum and pulmonary vessels normal. No significant osseous abnormality. IMPRESSION: Negative chest. Dictated by Jorden Chaudhry MD @ Jan 04 2021 3:33PM Signed by Dr. Jorden Chaudhry @ Jan 04 2021 3:34PM
[2021-01-04 15:55] LABS: CORONAVIRUS COVID-19 NAA NEGATIVE (NEGATIVE); INFLUENZA A NAA NEGATIVE (NEGATIVE); INFLUENZA B NAA NEGATIVE (NEGATIVE)
[2021-01-04 18:20] LABS: HEMOGLOBIN A1C 7.8 %
--- NOTE | 2021-01-04 18:40 | PCM.HP.2 ---
H&P History of Present Illness - General Date of Service: 01/04/21 Admit Problem/Dx: Admission Diagnosis/Problem Admission Diagnosis/Problem Hypoglycemia - History of Present Illness Initial Comments - Free Text/Narative: 89 yo female with pmh of DM and HTN who this afternoon woke up not remembering this morning. She had an empty novolog needle in her lap. EMS arrived and found her blood glucose to be 40. She was given 1/2 amp of d50. In the ED her blood glucose was noted to be 50 and she was given another 1/2 amp. Her blood glucose taurus to 221 but has since dropped down to 80. She denies any fever, s hortness of breath or chest pain. - Related Data Allergies/Adverse Reactions: Allergies Allergy/AdvReac Type Severity Reaction Status Date / Time fluorouracil Allergy Swelling Verified 01/04/21 14:26 strawberry Allergy Hives Verified 01/04/21 14:26 Home Medications: Home Meds Aspirin 81 mg PO DAILY 01/04/21 [History] Celecoxib 200 mg PO DAILY 01/04/21 [History] Furosemide 20 mg PO DAILY 01/04/21 [History] Gabapentin [Neurontin] 300 mg PO BEDTIME 01/04/21 [History] Insulin Aspart [NovoLOG] 1 dose INJECT ASDIRECTED 01/04/21 [History] Losartan Potassium [Cozaar] 100 mg PO DAILY 01/04/21 [History] Metoprolol Succinate 25 mg PO DAILY 01/04/21 [History] Pantoprazole [ProTONIX] 40 mg PO BID 01/04/21 [History] Sertraline HCl 100 mg PO DAILY 01/04/21 [History] Simvastatin [Zocor] 20 mg PO BEDTIME 01/04/21 [History] metFORMIN [Glucophage] 500 mg PO DAILY 01/04/21 [History] rOPINIRole [Requip] 0.25 mg PO BEDTIME 01/04/21 [History] Past Medical History HEENT History: Reports: Impaired Vision, Other (See Below) Other HEENT History: wears glasses Cardiovascular History: Reports: High Cholesterol, Hypertension Respiratory History: Reports: None Gastrointestinal History: Reports: GERD Genitourinary History: Reports: None 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: Musculoskeletal History: Reports: Osteoarthritis Neurological History: Reports: None Psychiatric History: Reports: Depression Endocrine/Metabolic History: Reports: Diabetes, Type II Hematologic History: Reports: None Immunologic History: Reports: None Oncologic (Cancer) History: Reports: Basal Cell Carcinoma Dermatologic History: Reports: Other (See Below) Other Dermatologic History: basal cell carcinoma to face - Infectious Disease History Infectious Disease History: Reports: Chicken Pox, Measles - Past Surgical History GI Surgical History: Reports: Appendectomy Neurological Surgical History: Reports: Lumbar Spine Dermatological Surgical History: Reports: None Social & Family History - Family History Family Medical History: No Pertinent Family History - Tobacco Use Tobacco Use Status *Q: Unknown Ever Used Tobacco - Caffeine Use Caffeine Use: Reports: None Other Caffeine Use: 1/day Caffeine Use Comment: 1 bottle [employer] Mocha daily - Recreational Drug Use Recreational Drug Use: No - Living Situation & Occupation Living situation: Reports: Alone Occupation: Retired H&P Review of Systems - Review of Systems: Review Of Systems: Comprehensive ROS is negative, except as noted in HPI. Exam - Exam Exam: See Below - Vital Signs Vital Signs: Last Vital Signs Temp 36.6 C 01/04/21 14:26 Pulse 89 01/04/21 17:50 Resp 16 01/04/21 17:50 BP 173/58 H 01/04/21 17:50 Pulse Ox 96 01/04/21 17:50 Weight: 74.843 kg - Exam General: Alert, Oriented HEENT: Mucosa Moist & [place] Neck: Supple Lungs: Clear to Auscultation, Normal Respiratory Effort Cardiovascular: Regular Rate, Regular Rhythm GI/Abdominal Exam: Normal Bowel Sounds, Soft, Non-Tender Extremities: Non-Tender Skin: Warm, Dry, Intact - Patient Data Lab Results Last 24 hrs: Laboratory Results - last 24 hr 01/04/21 01/04/21 01/04/21 Range/Units 14:48 14:48 14:48 WBC 9.51 (4.0-11.0) K/uL RBC 4.23 L (4.30-5.90) M/uL Hgb 12.0 (12.0-16.0) g/dL Hct 36.8 (36.0-46.0) % MCV 87.0 (80.0-98.0) fL MCH 28.4 (27.0-32.0) pg MCHC 32.6 (31.0-37.0) g/dL RDW Std Deviation 50.3 (28.0-62.0) fl RDW Coeff of [place] 16 H (11.0-15.0) % Plt Count 172 (150-400) K/uL MPV 9.70 (7.40-12.00) fL Neut % (Auto) 82.0 H (48.0-80.0) % Lymph % (Auto) 13.1 L (16.0-40.0) % [place] % (Auto) 4.7 (0.0-15.0) % Eos % (Auto) 0.1 (0.0-7.0) % Baso % (Auto) 0.1 (0.0-1.5) % Neut # (Auto) 7.8 H (1.4-5.7) K/uL Lymph # (Auto) 1.3 (0.6-2.4) K/uL [place] # (Auto) 0.5 (0.0-0.8) K/uL Eos # (Auto) 0.0 (0.0-0.7) K/uL Baso # (Auto) 0.0 (0.0-0.1) K/uL Nucleated RBC % 0.0 /100WBC Nucleated RBCs # 0 K/uL Sodium 138 (136-145) mmol/L Potassium 4.2 (3.5-5.1) mmol/L Chloride 99 (98-107) mmol/L Carbon Dioxide 24.2 (21.0-32.0) mmol/L BUN 27 H (7.0-18.0) mg/dL Creatinine 1.2 H (0.6-1.0) mg/dL Est Cr Clr Drug Dosing 28.60 mL/min Estimated GFR (MDRD) 42.3 ml/min Glucose 155 H (74-106) mg/dL POC Glucose 81 (60-110) mg/dL Hemoglobin A1c (4.5 - 6.2) % Calcium 10.1 (8.5-10.1) mg/dL Total Bilirubin 0.2 (0.2-1.0) mg/dL AST 23 (15-37) IU/L ALT 27 (14-63) IU/L Alkaline Phosphatase 61 (46-116) U/L Troponin I < 0.050 (0.000-0.056) ng/mL Total Protein 7.1 (6.4-8.2) g/dL Albumin 3.3 L (3.4-5.0) g/dL Globulin 3.8 (2.6-4.0) g/dL Albumin/Globulin Ratio 0.9 (0.9-1.6) Urine Color Urine Appearance Urine pH (5.0-8.0) Ur Specific [place] (1.001-1.035) Urine Protein (NEGATIVE) mg/dL Urine Glucose (UA) (NEGATIVE) mg/dL Urine Ketones (NEGATIVE) mg/dL Urine Occult Blood (NEGATIVE) Urine Nitrite (NEGATIVE) Urine Bilirubin (NEGATIVE) Urine Urobilinogen (<2.0) EU/dL Ur Leukocyte Esterase (NEGATIVE) Urine RBC (0-2/HPF) Urine WBC (0-5/HPF) Ur Epithelial Cells (NONE-FEW) Amorphous Sediment (NEGATIVE) Urine Bacteria (NEGATIVE) Urine Mucus (NONE-MOD) Influenza Type A RNA (NEGATIVE) Influenza Type B RNA (NEGATIVE) SARS-CoV-2 RNA (JEM) (NEGATIVE) 01/04/21 01/04/21 01/04/21 Range/Units 14:48 14:55 15:22 WBC (4.0-11.0) K/uL RBC (4.30-5.90) M/uL Hgb (12.0-16.0) g/dL Hct (36.0-46.0) % MCV (80.0-98.0) fL MCH (27.0-32.0) pg MCHC (31.0-37.0) g/dL RDW Std Deviation (28.0-62.0) fl RDW Coeff of [place] (11.0-15.0) % Plt Count (150-400) K/uL MPV (7.40-12.00) fL Neut % (Auto) (48.0-80.0) % Lymph % (Auto) (16.0-40.0) % [place] % (Auto) (0.0-15.0) % Eos % (Auto) (0.0-7.0) % Baso % (Auto) (0.0-1.5) % Neut # (Auto) (1.4-5.7) K/uL Lymph # (Auto) (0.6-2.4) K/uL [place] # (Auto) (0.0-0.8) K/uL Eos # (Auto) (0.0-0.7) K/uL Baso # (Auto) (0.0-0.1) K/uL Nucleated RBC % /100WBC Nucleated RBCs # K/uL Sodium (136-145) mmol/L Potassium (3.5-5.1) mmol/L Chloride (98-107) mmol/L Carbon Dioxide (21.0-32.0) mmol/L BUN (7.0-18.0) mg/dL Creatinine (0.6-1.0) mg/dL Est Cr Clr Drug Dosing mL/min Estimated GFR (MDRD) ml/min Glucose (74-106) mg/dL POC Glucose 107 (60-110) mg/dL Hemoglobin A1c 7.8 H (4.5 - 6.2) % Calcium (8.5-10.1) mg/dL Total Bilirubin (0.2-1.0) mg/dL AST (15-37) IU/L ALT (14-63) IU/L Alkaline Phosphatase (46-116) U/L Troponin I (0.000-0.056) ng/mL Total Protein (6.4-8.2) g/dL Albumin (3.4-5.0) g/dL Globulin (2.6-4.0) g/dL Albumin/Globulin Ratio (0.9-1.6) Urine Color Urine Appearance Urine pH (5.0-8.0) Ur Specific [place] (1.001-1.035) Urine Protein (NEGATIVE) mg/dL Urine Glucose (UA) (NEGATIVE) mg/dL Urine Ketones (NEGATIVE) mg/dL Urine Occult Blood (NEGATIVE) Urine Nitrite (NEGATIVE) Urine Bilirubin (NEGATIVE) Urine Urobilinogen (<2.0) EU/dL Ur Leukocyte Esterase (NEGATIVE) Urine RBC (0-2/HPF) Urine WBC (0-5/HPF) Ur Epithelial Cells (NONE-FEW) Amorphous Sediment (NEGATIVE) Urine Bacteria (NEGATIVE) Urine Mucus (NONE-MOD) Influenza Type A RNA NEGATIVE (NEGATIVE) Influenza Type B RNA NEGATIVE (NEGATIVE) SARS-CoV-2 RNA (JEM) NEGATIVE (NEGATIVE) 01/04/21 01/04/21 01/04/21 Range/Units 15:49 17:22 17:25 WBC (4.0-11.0) K/uL RBC (4.30-5.90) M/uL Hgb (12.0-16.0) g/dL Hct (36.0-46.0) % MCV (80.0-98.0) fL MCH (27.0-32.0) pg MCHC (31.0-37.0) g/dL RDW Std Deviation (28.0-62.0) fl RDW Coeff of [place]ard (11.0-15.0) % Plt Count (150-400) K/uL MPV (7.40-12.00) fL Neut % (Auto) (48.0-80.0) % Lymph % (Auto) (16.0-40.0) % [place] % (Auto) (0.0-15.0) % Eos % (Auto) (0.0-7.0) % Baso % (Auto) (0.0-1.5) % Neut # (Auto) (1.4-5.7) K/uL Lymph # (Auto) (0.6-2.4) K/uL [place] # (Auto) (0.0-0.8) K/uL Eos # (Auto) (0.0-0.7) K/uL Baso # (Auto) (0.0-0.1) K/uL Nucleated RBC % /100WBC Nucleated RBCs # K/uL Sodium (136-145) mmol/L Potassium (3.5-5.1) mmol/L Chloride (98-107) mmol/L Carbon Dioxide (21.0-32.0) mmol/L BUN (7.0-18.0) mg/dL Creatinine (0.6-1.0) mg/dL Est Cr Clr Drug Dosing mL/min Estimated GFR (MDRD) ml/min Glucose (74-106) mg/dL POC Glucose 221 H 80 (60-110) mg/dL Hemoglobin A1c (4.5 - 6.2) % Calcium (8.5-10.1) mg/dL Total Bilirubin (0.2-1.0) mg/dL AST (15-37) IU/L ALT (14-63) IU/L Alkaline Phosphatase (46-116) U/L Troponin I (0.000-0.056) ng/mL Total Protein (6.4-8.2) g/dL Albumin (3.4-5.0) g/dL Globulin (2.6-4.0) g/dL Albumin/Globulin Ratio (0.9-1.6) Urine Color YELLOW Urine Appearance CLEAR Urine pH 6.0 (5.0-8.0) Ur Specific [place] 1.025 (1.001-1.035) Urine Protein 100 H (NEGATIVE) mg/dL Urine Glucose (UA) NEGATIVE (NEGATIVE) mg/dL Urine Ketones NEGATIVE (NEGATIVE) mg/dL Urine Occult Blood NEGATIVE (NEGATIVE) Urine Nitrite NEGATIVE (NEGATIVE) Urine Bilirubin NEGATIVE (NEGATIVE) Urine Urobilinogen 0.2 (<2.0) EU/dL Ur Leukocyte Esterase TRACE H (NEGATIVE) Urine RBC 0-2 (0-2/HPF) Urine WBC 3-6 (0-5/HPF) Ur Epithelial Cells FEW (NONE-FEW) Amorphous Sediment FEW (NEGATIVE) Urine Bacteria FEW (NEGATIVE) Urine Mucus FEW (NONE-MOD) Influenza Type A RNA (NEGATIVE) Influenza Type B RNA (NEGATIVE) SARS-CoV-2 RNA (JEM) (NEGATIVE) Result Diagrams: 01/04/21 14:48 01/04/21 14:48 Sepsis Event Note - Evaluation Sepsis Screening Result: No Definite Risk - Focused Exam Vital Signs: Vital Signs Temp Pulse Resp BP Pulse Ox 01/04/21 17:50 89 16 173/58 H 96 01/04/21 14:26 36.6 C 92 18 207/93 H 96 Problem List Initiated/Reviewed/Updated: Yes Orders Last 24hrs: Active Orders 24 hr Category Date Time Status Admission Status [Patient Status] [ADT] Stat ADT 01/04/21 17:50 Active Accu Check [Blood Glucose Check, Bedside] [RC] Q1HR Care 01/04/21 18:33 Ordered Antiembolic Devices [RC] PER UNIT ROUTINE Care 01/04/21 18:35 Ordered Cardiac Monitoring [RC] . DIRECTED Care 01/04/21 14:33 Active EKG Documentation Completion [RC] STAT Care 01/04/21 14:33 Active Oxygen Therapy [RC] PRN Care 01/04/21 18:35 Ordered Up ad Nehal [RC] ASDIRECTED Care 01/04/21 18:34 Ordered VTE/DVT Education [RC] PER UNIT ROUTINE Care 01/04/21 18:35 Ordered Vital Signs [RC] Q4H Care 01/04/21 18:35 Ordered Consult to Diabetic Nurse Specialist [CONS] Routine Cons 01/04/21 18:34 Ordered [employer] Diet [DIET] Diet 01/04/21 Breakfast Ordered BASIC METABOLIC PANEL,BMP [CHEM] AM Lab 01/05/21 05:11 Ordered CBC WITH AUTO DIFF [HEME] AM Lab 01/05/21 05:11 Ordered CULTURE URINE [RM] Stat Lab 01/04/21 17:25 Received Gabapentin [Neurontin] Med 01/04/21 21:00 Ordered 300 mg PO BEDTIME Sodium Chloride 0.9% [Saline Flush] Med 01/04/21 14:33 Active 10 ml FLUSH ASDIRECTED PRN Sodium Chloride 0.9% [Saline Flush] Med 01/04/21 14:33 Active 2.5 ml FLUSH ASDIRECTED PRN rOPINIRole Med 01/04/21 21:00 Ordered 0.25 mg PO BEDTIME Saline Lock Insert [OM.PC] Stat Oth 01/04/21 14:33 Ordered Sequential Compression Device [OM.PC] Per Unit Routine Oth 01/04/21 18:35 Ordered Resuscitation Status Routine Resus Stat 01/04/21 18:34 Ordered Medication Orders Gabapentin (Gabapentin 300 Mg Cap) 300 mg PO BEDTIME SHEYLA Non-Formulary Medication (Ropinirole) 0.25 mg PO BEDTIME SHEYLA Sodium Chloride (Sodium Chloride 0.9% 10 Ml Syringe) 10 ml FLUSH ASDIRECTED PRN PRN Reason: Keep Vein Open Last Admin: 01/04/21 14:35 Dose: 10 ml Documented by: [email or web address] Sodium Chloride (Sodium Chloride 0.9% 2.5 Ml Syringe) 2.5 ml FLUSH ASDIRECTED PRN PRN Reason: Keep Vein Open Last Admin: 01/04/21 14:35 Dose: 2.5 ml Documented by: [id number] Assessment/Plan Comment:: 89 yo female with pmh of DM admitted for hypoglycemia. We will observe overnight with frequent blood glucose checks.
[2021-01-04] MEDS ORDERED: FLU Vacc QV2020-21(65YR UP)/PF 240 MCG/0.7 ML Syringe IM ONE (20:15)
[2021-01-04] MEDS ORDERED: ROPINIROLE 0.25 MG PO SCH (21:00)
[2021-01-04] MEDS ORDERED: Gabapentin 300 MG Cap PO SCH (21:00)
[2021-01-05 05:59] LABS: CARBON DIOXIDE,CO2 25.6 mmol/L (21.0-32.0); POTASSIUM,K 4.2 mmol/L (3.5-5.1)
[2021-01-05] MEDS ORDERED: rOPINIRole 0.5 MG Tab PO SCH (07:41)
[2021-01-05] MEDS ORDERED: Losartan 50 MG Tab PO SCH (09:00)
[2021-01-05] MEDS ORDERED: 50% Dextrose in Water 50 ML Syringe IV PRN ×2 (11:41→11:42)
[2021-01-05] MEDS ORDERED: Glucagon,Human Recombinant 1 MG Vial IM PRN ×2 (11:41→11:42)
--- NOTE | 2021-01-05 14:12 | PCM.DCSUM1 ---
Discharge Summary - Hospital Course Free Text/Narrative:: 89 yo female admitted for hypoglycemia secondary to insulin overdose. Past medical history diabetes and hypertension. Patient's glucose was measured to be 40 when she arrived at the emergency department. Patient states that she cannot recall why her blood sugar was so low, and she also cannot recall if she had used too much NovoLog prior to her hypoglycemic event. Patient states that she uses 5 units long-acting insulin at nighttime and NovoLog sliding scale at home. During admission course patient did not have any hypoglycemic episodes. Patient also noted to have slight trace of leukocyte esterase in the urine. Patient does not complain of dysuria, abdominal pain, flank pain, suprapubic pain and thus will hold off on antibiotic treatment. Patient to follow-up with primary care physician if she develops any symptoms of fever, chills, flank pain, abdominal pain, dysuria. Patient understands and agrees. Patient advised at discharge to use 5 units long-acting insulin at bedtime and to discontinue NovoLog. Patient will follow up with primary care physician for further evaluation of insulin usage. Patient would also like to be transferred to [facility] as she is concerned about her ability to maintain her health on her own. Patient will be discharged and stay with her daughter prior to placement at [facility] and receive home health services. - Discharge Data Discharge Date: 01/05/21 Discharge Disposition: Home, Self-Care 01 Condition: Good - Referral to Home Health Date of Face to Face Encounter: 01/05/21 (INSULIN MONITORING, GLUCOSE CHECKS) Reason for Homebound Status: INSULIN OVERDOSE Primary Care Physician: PCP None Skilled Need: NURSING - Discharge Diagnosis/Problem(s) (1) Hypoglycemia SNOMED Code(s): 665757876 ICD Code: E16.2 - HYPOGLYCEMIA, UNSPECIFIED Status: Acute Current Visit: Yes (2) Insulin overdose SNOMED Code(s): 544966764 ICD Code: T38.3X1A - POISONING BY INSULIN AND ORAL HYPOGLYCEMIC DRUGS, ACC, INIT Status: Acute Current Visit: Yes Qualifiers: Encounter type: initial encounter Injury intent: accidental or unintentional Qualified Code(s): T38.3X1A - Poisoning by insulin and oral hypoglycemic [antidiabetic] drugs, accidental (unintentional), initial encounter (3) HTN (hypertension) SNOMED Code(s): 14913694 ICD Code: I10 - ESSENTIAL (PRIMARY) HYPERTENSION Status: Chronic Current Visit: Yes Qualifiers: Hypertension type: essential hypertension Qualified Code(s): I10 - Essential (primary) hypertension (4) Type 2 diabetes mellitus SNOMED Code(s): 96031153 ICD Code: E11.9 - TYPE 2 DIABETES MELLITUS WITHOUT COMPLICATIONS Status: Chronic Current Visit: Yes Qualifiers: Diabetes mellitus ocean transportation intermediary insulin use: with skilled nursing use Diabetes mellitus complication status: without complication Qualified Code(s): E11.9 - Type 2 diabetes mellitus without complications; Z79.4 - care home (current) use of insulin - Patient Summary/Data Consults: Consultations 01/04/21 18:34 Consult to Diabetic Nurse Specialist [CONS] Routine 01/05/21 10:18 Consult to Case Management/Customer Support Assistant [CONS] Routine - Patient Instructions Diet: Diabetic Diet Activity: As Tolerated Notify Provider of: Fever, Nausea and/or Vomiting Other/Special Instructions: Patient instructed to use nightime long lasting insulin only (5 units, per patient history) until she follows up with PCP. Patient advised not to use novolog until following up with PCP. HOME HEALTH REFERRAL - Discharge Plan Home Medications: Home Meds Aspirin 81 mg PO DAILY 01/04/21 [History] Celecoxib 200 mg PO DAILY 01/04/21 [History] Furosemide 20 mg PO DAILY 01/04/21 [History] Gabapentin [Neurontin] 300 mg PO BEDTIME 01/04/21 [History] Losartan Potassium [Cozaar] 100 mg PO DAILY 01/04/21 [History] Metoprolol Succinate 25 mg PO DAILY 01/04/21 [History] Pantoprazole [ProTONIX] 40 mg PO BID 01/04/21 [History] Sertraline HCl 100 mg PO DAILY 01/04/21 [History] Simvastatin [Zocor] 20 mg PO BEDTIME 01/04/21 [History] metFORMIN [Glucophage] 500 mg PO DAILY 01/04/21 [History] rOPINIRole [Requip] 0.25 mg PO BEDTIME 01/04/21 [History] Insulin Detemir [Levemir Flextouch] 5 unit SUBCUT BEDTIME 01/05/21 [History] Patient Handouts: Hypoglycemia Forms: ED Department Discharge Referrals: Cuate Lay MD [Physician] - 01/19/21 8:00 am - Discharge Summary/Plan Comment DC Time >30 min.: Yes - General Info Date of Service: 01/05/21 Subjective Update: Patient states that she feels fine. Denies dizziness, lightheadedness, nausea, vomiting, fever, chills, dysuria, abdominal pain, suprapubic pain. - Patient Data Vitals - Most Recent: Last Vital Signs Temp 98.3 F 01/05/21 12:00 Pulse 86 01/05/21 12:00 Resp 16 01/05/21 12:00 BP 158/60 H 01/05/21 12:00 Pulse Ox 98 01/05/21 12:00 Weight - Most Recent: 143 lb 8 oz I&O - Last 24 hours: Intake & Output 01/04/21 01/05/21 01/05/21 22:59 06:59 14:59 Intake Total 400 Output Total 1100 Balance -700 Lab Results - Last 24 hrs: Laboratory Results - last 24 hr 01/04/21 01/04/21 01/04/21 Range/Units 14:48 14:48 14:48 WBC 9.51 (4.0-11.0) K/uL RBC 4.23 L (4.30-5.90) M/uL Hgb 12.0 (12.0-16.0) g/dL Hct 36.8 (36.0-46.0) % MCV 87.0 (80.0-98.0) fL MCH 28.4 (27.0-32.0) pg MCHC 32.6 (31.0-37.0) g/dL RDW Std Deviation 50.3 (28.0-62.0) fl RDW Coeff of Renard 16 H (11.0-15.0) % Plt Count 172 (150-400) K/uL MPV 9.70 (7.40-12.00) fL Neut % (Auto) 82.0 H (48.0-80.0) % Lymph % (Auto) 13.1 L (16.0-40.0) % Perkins % (Auto) 4.7 (0.0-15.0) % Eos % (Auto) 0.1 (0.0-7.0) % Baso % (Auto) 0.1 (0.0-1.5) % Neut # (Auto) 7.8 H (1.4-5.7) K/uL Lymph # (Auto) 1.3 (0.6-2.4) K/uL Perkins # (Auto) 0.5 (0.0-0.8) K/uL Eos # (Auto) 0.0 (0.0-0.7) K/uL Baso # (Auto) 0.0 (0.0-0.1) K/uL Nucleated RBC % 0.0 /100WBC Nucleated RBCs # 0 K/uL Sodium 138 (136-145) mmol/L Potassium 4.2 (3.5-5.1) mmol/L Chloride 99 (98-107) mmol/L Carbon Dioxide 24.2 (21.0-32.0) mmol/L BUN 27 H (7.0-18.0) mg/dL Creatinine 1.2 H (0.6-1.0) mg/dL Est Cr Clr Drug Dosing 28.60 mL/min Estimated GFR (MDRD) 42.3 ml/min Glucose 155 H (74-106) mg/dL POC Glucose 81 (60-110) mg/dL Hemoglobin A1c (4.5 - 6.2) % Calcium 10.1 (8.5-10.1) mg/dL Total Bilirubin 0.2 (0.2-1.0) mg/dL AST 23 (15-37) IU/L ALT 27 (14-63) IU/L Alkaline Phosphatase 61 (46-116) U/L Troponin I < 0.050 (0.000-0.056) ng/mL Total Protein 7.1 (6.4-8.2) g/dL Albumin 3.3 L (3.4-5.0) g/dL Globulin 3.8 (2.6-4.0) g/dL Albumin/Globulin Ratio 0.9 (0.9-1.6) Urine Color Urine Appearance Urine pH (5.0-8.0) Ur Specific [place] (1.001-1.035) Urine Protein (NEGATIVE) mg/dL Urine Glucose (UA) (NEGATIVE) mg/dL Urine Ketones (NEGATIVE) mg/dL Urine Occult Blood (NEGATIVE) Urine Nitrite (NEGATIVE) Urine Bilirubin (NEGATIVE) Urine Urobilinogen (<2.0) EU/dL Ur Leukocyte Esterase (NEGATIVE) Urine RBC (0-2/HPF) Urine WBC (0-5/HPF) Ur Epithelial Cells (NONE-FEW) Amorphous Sediment (NEGATIVE) Urine Bacteria (NEGATIVE) Urine Mucus (NONE-MOD) Influenza Type A RNA (NEGATIVE) Influenza Type B RNA (NEGATIVE) SARS-CoV-2 RNA (JEM) (NEGATIVE) 01/04/21 01/04/21 01/04/21 Range/Units 14:48 14:55 15:22 WBC (4.0-11.0) K/uL RBC (4.30-5.90) M/uL Hgb (12.0-16.0) g/dL Hct (36.0-46.0) % MCV (80.0-98.0) fL MCH (27.0-32.0) pg MCHC (31.0-37.0) g/dL RDW Std Deviation (28.0-62.0) fl RDW Coeff of Renard (11.0-15.0) % Plt Count (150-400) K/uL MPV (7.40-12.00) fL Neut % (Auto) (48.0-80.0) % Lymph % (Auto) (16.0-40.0) % Perkins % (Auto) (0.0-15.0) % Eos % (Auto) (0.0-7.0) % Baso % (Auto) (0.0-1.5) % Neut # (Auto) (1.4-5.7) K/uL Lymph # (Auto) (0.6-2.4) K/uL Perkins # (Auto) (0.0-0.8) K/uL Eos # (Auto) (0.0-0.7) K/uL Baso # (Auto) (0.0-0.1) K/uL Nucleated RBC % /100WBC Nucleated RBCs # K/uL Sodium (136-145) mmol/L Potassium (3.5-5.1) mmol/L Chloride (98-107) mmol/L Carbon Dioxide (21.0-32.0) mmol/L BUN (7.0-18.0) mg/dL Creatinine (0.6-1.0) mg/dL Est Cr Clr Drug Dosing mL/min Estimated GFR (MDRD) ml/min Glucose (74-106) mg/dL POC Glucose 107 (60-110) mg/dL Hemoglobin A1c 7.8 H (4.5 - 6.2) % Calcium (8.5-10.1) mg/dL Total Bilirubin (0.2-1.0) mg/dL AST (15-37) IU/L ALT (14-63) IU/L Alkaline Phosphatase (46-116) U/L Troponin I (0.000-0.056) ng/mL Total Protein (6.4-8.2) g/dL Albumin (3.4-5.0) g/dL Globulin (2.6-4.0) g/dL Albumin/Globulin Ratio (0.9-1.6) Urine Color Urine Appearance Urine pH (5.0-8.0) Ur Specific [place] (1.001-1.035) Urine Protein (NEGATIVE) mg/dL Urine Glucose (UA) (NEGATIVE) mg/dL Urine Ketones (NEGATIVE) mg/dL Urine Occult Blood (NEGATIVE) Urine Nitrite (NEGATIVE) Urine Bilirubin (NEGATIVE) Urine Urobilinogen (<2.0) EU/dL Ur Leukocyte Esterase (NEGATIVE) Urine RBC (0-2/HPF) Urine WBC (0-5/HPF) Ur Epithelial Cells (NONE-FEW) Amorphous Sediment (NEGATIVE) Urine Bacteria (NEGATIVE) Urine Mucus (NONE-MOD) Influenza Type A RNA NEGATIVE (NEGATIVE) Influenza Type B RNA NEGATIVE (NEGATIVE) SARS-CoV-2 RNA (JEM) NEGATIVE (NEGATIVE) 01/04/21 01/04/21 01/04/21 Range/Units 15:49 17:22 17:25 WBC (4.0-11.0) K/uL RBC (4.30-5.90) M/uL Hgb (12.0-16.0) g/dL Hct (36.0-46.0) % MCV (80.0-98.0) fL MCH (27.0-32.0) pg MCHC (31.0-37.0) g/dL RDW Std Deviation (28.0-62.0) fl RDW Coeff of Renard (11.0-15.0) % Plt Count (150-400) K/uL MPV (7.40-12.00) fL Neut % (Auto) (48.0-80.0) % Lymph % (Auto) (16.0-40.0) % Perkins % (Auto) (0.0-15.0) % Eos % (Auto) (0.0-7.0) % Baso % (Auto) (0.0-1.5) % Neut # (Auto) (1.4-5.7) K/uL Lymph # (Auto) (0.6-2.4) K/uL Perkins # (Auto) (0.0-0.8) K/uL Eos # (Auto) (0.0-0.7) K/uL Baso # (Auto) (0.0-0.1) K/uL Nucleated RBC % /100WBC Nucleated RBCs # K/uL Sodium (136-145) mmol/L Potassium (3.5-5.1) mmol/L Chloride (98-107) mmol/L Carbon Dioxide (21.0-32.0) mmol/L BUN (7.0-18.0) mg/dL Creatinine (0.6-1.0) mg/dL Est Cr Clr Drug Dosing mL/min Estimated GFR (MDRD) ml/min Glucose (74-106) mg/dL POC Glucose 221 H 80 (60-110) mg/dL Hemoglobin A1c (4.5 - 6.2) % Calcium (8.5-10.1) mg/dL Total Bilirubin (0.2-1.0) mg/dL AST (15-37) IU/L ALT (14-63) IU/L Alkaline Phosphatase (46-116) U/L Troponin I (0.000-0.056) ng/mL Total Protein (6.4-8.2) g/dL Albumin (3.4-5.0) g/dL Globulin (2.6-4.0) g/dL Albumin/Globulin Ratio (0.9-1.6) Urine Color YELLOW Urine Appearance CLEAR Urine pH 6.0 (5.0-8.0) Ur Specific [place] 1.025 (1.001-1.035) Urine Protein 100 H (NEGATIVE) mg/dL Urine Glucose (UA) NEGATIVE (NEGATIVE) mg/dL Urine Ketones NEGATIVE (NEGATIVE) mg/dL Urine Occult Blood NEGATIVE (NEGATIVE) Urine Nitrite NEGATIVE (NEGATIVE) Urine Bilirubin NEGATIVE (NEGATIVE) Urine Urobilinogen 0.2 (<2.0) EU/dL Ur Leukocyte Esterase TRACE H (NEGATIVE) Urine RBC 0-2 (0-2/HPF) Urine WBC 3-6 (0-5/HPF) Ur Epithelial Cells FEW (NONE-FEW) Amorphous Sediment FEW (NEGATIVE) Urine Bacteria FEW (NEGATIVE) Urine Mucus FEW (NONE-MOD) Influenza Type A RNA (NEGATIVE) Influenza Type B RNA (NEGATIVE) SARS-CoV-2 RNA (JEM) (NEGATIVE) 01/04/21 01/04/21 01/05/21 Range/Units 20:39 23:05 02:08 WBC (4.0-11.0) K/uL RBC (4.30-5.90) M/uL Hgb (12.0-16.0) g/dL Hct (36.0-46.0) % MCV (80.0-98.0) fL MCH (27.0-32.0) pg MCHC (31.0-37.0) g/dL RDW Std Deviation (28.0-62.0) fl RDW Coeff of Renard (11.0-15.0) % Plt Count (150-400) K/uL MPV (7.40-12.00) fL Neut % (Auto) (48.0-80.0) % Lymph % (Auto) (16.0-40.0) % Perkins % (Auto) (0.0-15.0) % Eos % (Auto) (0.0-7.0) % Baso % (Auto) (0.0-1.5) % Neut # (Auto) (1.4-5.7) K/uL Lymph # (Auto) (0.6-2.4) K/uL Perkins # (Auto) (0.0-0.8) K/uL Eos # (Auto) (0.0-0.7) K/uL Baso # (Auto) (0.0-0.1) K/uL Nucleated RBC % /100WBC Nucleated RBCs # K/uL Sodium (136-145) mmol/L Potassium (3.5-5.1) mmol/L Chloride (98-107) mmol/L Carbon Dioxide (21.0-32.0) mmol/L BUN (7.0-18.0) mg/dL Creatinine (0.6-1.0) mg/dL Est Cr Clr Drug Dosing mL/min Estimated GFR (MDRD) ml/min Glucose (74-106) mg/dL POC Glucose 143 H 181 H 168 H (60-110) mg/dL Hemoglobin A1c (4.5 - 6.2) % Calcium (8.5-10.1) mg/dL Total Bilirubin (0.2-1.0) mg/dL AST (15-37) IU/L ALT (14-63) IU/L Alkaline Phosphatase (46-116) U/L Troponin I (0.000-0.056) ng/mL Total Protein (6.4-8.2) g/dL Albumin (3.4-5.0) g/dL Globulin (2.6-4.0) g/dL Albumin/Globulin Ratio (0.9-1.6) Urine Color Urine Appearance Urine pH (5.0-8.0) Ur Specific [place] (1.001-1.035) Urine Protein (NEGATIVE) mg/dL Urine Glucose (UA) (NEGATIVE) mg/dL Urine Ketones (NEGATIVE) mg/dL Urine Occult Blood (NEGATIVE) Urine Nitrite (NEGATIVE) Urine Bilirubin (NEGATIVE) Urine Urobilinogen (<2.0) EU/dL Ur Leukocyte Esterase (NEGATIVE) Urine RBC (0-2/HPF) Urine WBC (0-5/HPF) Ur Epithelial Cells (NONE-FEW) Amorphous Sediment (NEGATIVE) Urine Bacteria (NEGATIVE) Urine Mucus (NONE-MOD) Influenza Type A RNA (NEGATIVE) Influenza Type B RNA (NEGATIVE) SARS-CoV-2 RNA (JEM) (NEGATIVE) 01/05/21 01/05/21 01/05/21 Range/Units 04:51 05:18 05:18 WBC 7.87 (4.0-11.0) K/uL RBC 4.12 L (4.30-5.90) M/uL Hgb 11.6 L (12.0-16.0) g/dL Hct 35.6 L (36.0-46.0) % MCV 86.4 (80.0-98.0) fL MCH 28.2 (27.0-32.0) pg MCHC 32.6 (31.0-37.0) g/dL RDW Std Deviation 49.0 (28.0-62.0) fl RDW Coeff of Renard 16 H (11.0-15.0) % Plt Count 185 (150-400) K/uL MPV 10.30 (7.40-12.00) fL Neut % (Auto) 65.1 (48.0-80.0) % Lymph % (Auto) 21.7 (16.0-40.0) % Perkins % (Auto) 11.8 (0.0-15.0) % Eos % (Auto) 1.3 (0.0-7.0) % Baso % (Auto) 0.1 (0.0-1.5) % Neut # (Auto) 5.1 (1.4-5.7) K/uL Lymph # (Auto) 1.7 (0.6-2.4) K/uL Perkins # (Auto) 0.9 H (0.0-0.8) K/uL Eos # (Auto) 0.1 (0.0-0.7) K/uL Baso # (Auto) 0.0 (0.0-0.1) K/uL Nucleated RBC % 0.0 /100WBC Nucleated RBCs # 0 K/uL Sodium 137 (136-145) mmol/L Potassium 4.2 (3.5-5.1) mmol/L Chloride 100 (98-107) mmol/L Carbon Dioxide 25.6 (21.0-32.0) mmol/L BUN 21 H (7.0-18.0) mg/dL Creatinine 1.0 (0.6-1.0) mg/dL Est Cr Clr Drug Dosing 27.39 mL/min Estimated GFR (MDRD) 52.2 ml/min Glucose 175 H (74-106) mg/dL POC Glucose 194 H (60-110) mg/dL Hemoglobin A1c (4.5 - 6.2) % Calcium 9.3 (8.5-10.1) mg/dL Total Bilirubin (0.2-1.0) mg/dL AST (15-37) IU/L ALT (14-63) IU/L Alkaline Phosphatase (46-116) U/L Troponin I (0.000-0.056) ng/mL Total Protein (6.4-8.2) g/dL Albumin (3.4-5.0) g/dL Globulin (2.6-4.0) g/dL Albumin/Globulin Ratio (0.9-1.6) Urine Color Urine Appearance Urine pH (5.0-8.0) Ur Specific [place] (1.001-1.035) Urine Protein (NEGATIVE) mg/dL Urine Glucose (UA) (NEGATIVE) mg/dL Urine Ketones (NEGATIVE) mg/dL Urine Occult Blood (NEGATIVE) Urine Nitrite (NEGATIVE) Urine Bilirubin (NEGATIVE) Urine Urobilinogen (<2.0) EU/dL Ur Leukocyte Esterase (NEGATIVE) Urine RBC (0-2/HPF) Urine WBC (0-5/HPF) Ur Epithelial Cells (NONE-FEW) Amorphous Sediment (NEGATIVE) Urine Bacteria (NEGATIVE) Urine Mucus (NONE-MOD) Influenza Type A RNA (NEGATIVE) Influenza Type B RNA (NEGATIVE) SARS-CoV-2 RNA (JEM) (NEGATIVE) 01/05/21 01/05/21 Range/Units 08:26 11:15 WBC (4.0-11.0) K/uL RBC (4.30-5.90) M/uL Hgb (12.0-16.0) g/dL Hct (36.0-46.0) % MCV (80.0-98.0) fL MCH (27.0-32.0) pg MCHC (31.0-37.0) g/dL RDW Std Deviation (28.0-62.0) fl RDW Coeff of Renard (11.0-15.0) % Plt Count (150-400) K/uL MPV (7.40-12.00) fL Neut % (Auto) (48.0-80.0) % Lymph % (Auto) (16.0-40.0) % [place] % (Auto) (0.0-15.0) % Eos % (Auto) (0.0-7.0) % Baso % (Auto) (0.0-1.5) % Neut # (Auto) (1.4-5.7) K/uL Lymph # (Auto) (0.6-2.4) K/uL [place] # (Auto) (0.0-0.8) K/uL Eos # (Auto) (0.0-0.7) K/uL Baso # (Auto) (0.0-0.1) K/uL Nucleated RBC % /100WBC Nucleated RBCs # K/uL Sodium (136-145) mmol/L Potassium (3.5-5.1) mmol/L Chloride (98-107) mmol/L Carbon Dioxide (21.0-32.0) mmol/L BUN (7.0-18.0) mg/dL Creatinine (0.6-1.0) mg/dL Est Cr Clr Drug Dosing mL/min Estimated GFR (MDRD) ml/min Glucose (74-106) mg/dL POC Glucose 218 H 280 H (60-110) mg/dL Hemoglobin A1c (4.5 - 6.2) % Calcium (8.5-10.1) mg/dL Total Bilirubin (0.2-1.0) mg/dL AST (15-37) IU/L ALT (14-63) IU/L Alkaline Phosphatase (46-116) U/L Troponin I (0.000-0.056) ng/mL Total Protein (6.4-8.2) g/dL Albumin (3.4-5.0) g/dL Globulin (2.6-4.0) g/dL Albumin/Globulin Ratio (0.9-1.6) Urine Color Urine Appearance Urine pH (5.0-8.0) Ur Specific [place] (1.001-1.035) Urine Protein (NEGATIVE) mg/dL Urine Glucose (UA) (NEGATIVE) mg/dL Urine Ketones (NEGATIVE) mg/dL Urine Occult Blood (NEGATIVE) Urine Nitrite (NEGATIVE) Urine Bilirubin (NEGATIVE) Urine Urobilinogen (<2.0) EU/dL Ur Leukocyte Esterase (NEGATIVE) Urine RBC (0-2/HPF) Urine WBC (0-5/HPF) Ur Epithelial Cells (NONE-FEW) Amorphous Sediment (NEGATIVE) Urine Bacteria (NEGATIVE) Urine Mucus (NONE-MOD) Influenza Type A RNA (NEGATIVE) Influenza Type B RNA (NEGATIVE) SARS-CoV-2 RNA (JEM) (NEGATIVE) Med Orders - Current: Current Medications Dextrose/Water (50% Dextrose In Water 50 Ml Syringe) 50 ml IV ASDIRECTED PRN PRN Reason: Hypoglycemia Gabapentin (Gabapentin 300 Mg Cap) 300 mg PO BEDTIME SHEYLA Last Admin: 01/04/21 20:42 Dose: 300 mg Documented by: Glucagon (Glucagon,Human Recombinant 1 Mg Vial) 1 mg IM ASDIRECTED PRN PRN Reason: Hypoglycemia Insulin Aspart (Insulin Aspart 100 Units/Ml 3 Ml Pen) 0 unit SUBCUT TIDAC SHEYLA; Protocol Insulin Detemir (Insulin Detemir 100 Units/Ml 3 Ml Pen) 5 unit SUBCUT BEDTIME SHEYLA Losartan Potassium (Losartan 50 Mg Tab) 100 mg PO DAILY SHEYLA Last Admin: 01/05/21 10:42 Dose: 100 mg Documented by: Ropinirole HCl (Ropinirole 0.5 Mg Tab) 0.25 mg PO BEDTIME SHEYLA Sodium Chloride (Sodium Chloride 0.9% 10 Ml Syringe) 10 ml FLUSH ASDIRECTED PRN PRN Reason: Keep Vein Open Last Admin: 01/04/21 14:35 Dose: 10 ml Documented by: Sodium Chloride (Sodium Chloride 0.9% 2.5 Ml Syringe) 2.5 ml FLUSH ASDIRECTED PRN PRN Reason: Keep Vein Open Last Admin: 01/04/21 14:35 Dose: 2.5 ml Documented by: Discontinued Medications Dextrose/Water (50% Dextrose In Water 50 Ml Syringe) 25 ml IVPUSH ONETIME ONE Stop: 01/04/21 14:31 Last Admin: 01/04/21 14:33 Dose: 25 ml Documented by: Influenza Virus Vaccine (Flu Vacc [id number](65yr Up)/Pf 240 Mcg/0.7 Ml Syringe) 240 mcg IM .ONCE ONE Stop: 01/04/21 20:16 Non-Formulary Medication (Ropinirole) 0.25 mg PO BEDTIME SHEYLA Last Admin: 01/04/21 20:42 Dose: 0.25 mg Documented by: - Exam General: Reports: Alert, Oriented Lungs: Reports: Clear to Auscultation, Normal Respiratory Effort Cardiovascular: Reports: Regular Rate GI/Abdominal Exam: Normal Bowel Sounds, Soft, Non-Tender Back Exam: Denies: CVA Tenderness (L), CVA Tenderness (R) Psy/Mental Status: Reports: Alert
[2021-01-05 15:54] VITALS: BP 163/86; PULSE 91
[2021-01-05] MEDS: Sodium Chloride 0.9% 2.5 ML Syringe FLUSH PRN (15:54)
[2021-01-05] MEDS ORDERED: Insulin Aspart 100 Units/ML 3 ML Pen SUBCUT SCH (17:00)
[2021-01-05] MEDS ORDERED: Insulin Detemir 100 Units/ML 3 ML Pen SUBCUT SCH (21:00)
== END 2021-01-05 18:30 | disposition home or self-care (01) ==
LOC: MW.ED 14:24 → MW.MS 17:50
PROVIDERS: ADMIT Internal Medicine; ATTEND Internal Medicine
DX: E11.649 Type 2 diabetes mellitus with hypoglycemia without coma (principal); I10 Essential (primary) hypertension; E78.00 Pure hypercholesterolemia, unspecified; K21.9 Gastro-esophageal reflux disease without esophagitis; T38.3X1A Poisoning by insulin and oral hypoglycemic [antidiabetic] drugs, accidental (unintentional), initial encounter; Z20.822 Contact with and (suspected) exposure to COVID-19; Z88.8 Allergy status to other drugs, medicaments and biological substances; Z91.018 Allergy to other foods; Z79.899 Other long term (current) drug therapy; Z79.84 Long term (current) use of oral hypoglycemic drugs; Z90.49 Acquired absence of other specified parts of digestive tract; Z79.82 Long term (current) use of aspirin
CPT/HCPCS: 0240U; 36415; 71045; 80048; 80053; 81001; 82962; 83036; 84484; 85025; 87086; 93005; 96374; 99285; A9270; 93010; 99283

== ENCOUNTER 2021-04-20 16:53 | Inpatient (IN) | payer MEDICARE ==
--- NOTE | 2021-04-20 17:02 | EDM.PDOC ---
ED HPI GENERAL MEDICAL PROBLEM - General Source of Information: Reports: EMS History Limitations: Reports: Altered Mental Status <Reese Perez - Last Filed: 04/20/21 16:59> <Sree Anaya - Last Filed: 04/20/21 19:22> - General Chief Complaint: Neurological Problem Stated Complaint: CONFUSION Time Seen by Provider: 04/20/21 16:57 - History of Present Illness INITIAL COMMENTS - FREE TEXT/NARRATIVE: Patient is a 89-year-old female who was brought in today for possible altered mental status. EMS states that the patient's daughter told her she has not spoken to her in a few days but however when she spoke to her today the patient seen slightly all from her baseline. Normally the patient has some bouts of confusion on and off but today is different sometimes when she tries to speak she cannot get her words out clearly but at times she is clear and making sense. On exam patient states she feels fine is moving all extremities and is not sure what is going on. Patient has no signs of injury or distress. Patient does have elevated blood pressure 230/100. (Reese Perez) - Related Data Allergies Allergy/AdvReac Type Severity Reaction Status Date / Time fluorouracil Allergy Swelling Verified 04/20/21 17:22 strawberry Allergy Hives Verified 04/20/21 17:22 Home Meds: Home Meds Aspirin 81 mg PO DAILY 01/04/21 [History] Celecoxib 200 mg PO DAILY 01/04/21 [History] Furosemide 20 mg PO DAILY 01/04/21 [History] Gabapentin [Neurontin] 300 mg PO BEDTIME 01/04/21 [History] Losartan Potassium [Cozaar] 100 mg PO DAILY 01/04/21 [History] Metoprolol Succinate 25 mg PO DAILY 01/04/21 [History] Pantoprazole [ProTONIX] 40 mg PO BID 01/04/21 [History] Sertraline HCl 100 mg PO DAILY 01/04/21 [History] Simvastatin [Zocor] 20 mg PO BEDTIME 01/04/21 [History] metFORMIN [Glucophage] 1,000 mg PO BIDMEALS 01/04/21 [History] rOPINIRole [Requip] 0.25 mg PO BEDTIME 01/04/21 [History] Insulin Detemir [Levemir Flextouch] 7 unit SUBCUT BEDTIME 01/05/21 [History] Calcium Carbonate/Vitamin D3 [Calcium 600-Vit D3 500 Softgel] 1 each PO DAILY 04/20/21 [History] Diclofenac Sodium 1 appful TOP BID 04/20/21 [History] Insulin Aspart [NovoLOG] 0 unit SQ ASDIRECTED 04/20/21 [History] Magnesium Oxide 400 mg PO BID 04/20/21 [History] Ondansetron [Ondansetron ODT] 8 mg PO TID PRN 04/20/21 [History] Past Medical History HEENT History: Reports: Impaired Vision, Other (See Below) Other HEENT History: wears glasses Cardiovascular History: Reports: High Cholesterol, Hypertension Respiratory History: Reports: None Gastrointestinal History: Reports: GERD Genitourinary History: Reports: Urinary Incontinence [employer] History: Reports: Musculoskeletal History: Reports: Osteoarthritis Neurological History: Reports: None Psychiatric History: Reports: Depression Endocrine/Metabolic History: Reports: Diabetes, Type II Hematologic History: Reports: None Immunologic History: Reports: None Oncologic (Cancer) History: Reports: Basal Cell Carcinoma Dermatologic History: Reports: Other (See Below) Other Dermatologic History: basal cell carcinoma to face - Infectious Disease History Infectious Disease History: Reports: Chicken Pox, Measles - Past Surgical History GI Surgical History: Reports: Appendectomy Neurological Surgical History: Reports: Lumbar Spine Dermatological Surgical History: Reports: None <Reese Perez - Last Filed: 04/20/21 16:59> Social & Family History - Family History Family Medical History: No Pertinent Family History - Caffeine Use Caffeine Use: Reports: Coffee Other Caffeine Use: 1/day Caffeine Use Comment: daily - Living Situation & Occupation Living situation: Reports: Alone Occupation: Retired <Reese Perez - Last Filed: 04/20/21 16:59> ED ROS GENERAL - Review of Systems Review Of Systems: Unable To Obtain Reason Not Obtained: AMS <Reese Perez - Last Filed: 04/20/21 16:59> - Physical Exam Exam: See Below Exam Limited By: Altered Mental Status General Appearance: Alert Eye Exam: Bilateral Eye: EOMI, PERRL Head Exam: Atraumatic, Normocephalic Respiratory/Chest: No Respiratory Distress, Lungs Clear Cardiovascular: Normal Peripheral Pulses, Regular Rate, Rhythm GI/Abdominal: Normal Bowel Sounds, Soft, Non-Tender Neuro Exam (Abbreviated): Alert, CN II-XII Intact, No Motor/Sensory Deficits Extremities: Normal Inspection <Reese Perez - Last Filed: 04/20/21 16:59> Course <Sree Anaya - Last Filed: 04/20/21 19:22> - Vital Signs Text/Narrative:: 1918 hrs. accepted the patient in transfer when my partner shift ended at 1900 hrs. Blood pressure was controlled at this point Case discussed with Dr. Teixeira and patient admitted. (Sree Anaya) Last Recorded V/S: Last Vital Signs Temp 36.4 C 04/20/21 17:00 Pulse 107 H 04/20/21 19:09 Resp 16 04/20/21 19:09 BP 142/75 H 04/20/21 19:09 Pulse Ox 94 L 04/20/21 19:09 - Orders/Labs/Meds Orders: Active Orders 24 hr Category Date Time Status CORONAVIRUS COVID-19 JEM [MOLEC] Stat Lab 04/20/21 17:49 Ordered Labs: Laboratory Tests 04/20/21 04/20/21 04/20/21 Range/Units 16:58 17:00 17:00 WBC 8.19 (4.0-11.0) K/uL RBC 4.22 L (4.30-5.90) M/uL Hgb 12.1 (12.0-16.0) g/dL Hct 36.5 (36.0-46.0) % MCV 86.5 (80.0-98.0) fL MCH 28.7 (27.0-32.0) pg MCHC 33.2 (31.0-37.0) g/dL RDW Std Deviation 50.6 (28.0-62.0) fl RDW Coeff of Renard 16 H (11.0-15.0) % Plt Count 150 (150-400) K/uL Neut % (Auto) 62.2 (48.0-80.0) % Lymph % (Auto) 25.4 (16.0-40.0) % [place] % (Auto) 10.0 (0.0-15.0) % Eos % (Auto) 2.3 (0.0-7.0) % Baso % (Auto) 0.1 (0.0-1.5) % Neut # (Auto) 5.1 (1.4-5.7) K/uL Lymph # (Auto) 2.1 (0.6-2.4) K/uL [place] # (Auto) 0.8 (0.0-0.8) K/uL Eos # (Auto) 0.2 (0.0-0.7) K/uL Baso # (Auto) 0.0 (0.0-0.1) K/uL Nucleated RBC % 0.0 /100WBC Nucleated RBCs # 0 K/uL Sodium 136 (136-145) mmol/L Potassium 4.2 (3.5-5.1) mmol/L Chloride 100 (98-107) mmol/L Carbon Dioxide 31.5 (21.0-32.0) mmol/L BUN 16 (7.0-18.0) mg/dL Creatinine 1.0 (0.6-1.0) mg/dL Est Cr Clr Drug Dosing 37.09 mL/min Estimated GFR (MDRD) 52.2 ml/min Glucose 186 H (74-106) mg/dL POC Glucose 185 H (70-99) mg/dL Lactic Acid (0.4-2.0) mmol/L Calcium 9.6 (8.5-10.1) mg/dL Total Bilirubin 0.4 (0.2-1.0) mg/dL AST 21 (15-37) IU/L ALT 18 (14-63) IU/L Alkaline Phosphatase 135 H (46-116) U/L Troponin I <0.050 (0.000-0.056) ng/mL Total Protein 7.2 (6.4-8.2) g/dL Albumin 3.7 (3.4-5.0) g/dL Globulin 3.5 (2.6-4.0) g/dL Albumin/Globulin Ratio 1.1 (0.9-1.6) Urine Color Urine Appearance Urine pH (5.0-8.0) Ur Specific Luna (1.001-1.035) Urine Protein (NEGATIVE) mg/dL Urine Glucose (UA) (NEGATIVE) mg/dL Urine Ketones (NEGATIVE) mg/dL Urine Occult Blood (NEGATIVE) Urine Nitrite (NEGATIVE) Urine Bilirubin (NEGATIVE) Urine Urobilinogen (<2.0) EU/dL Ur Leukocyte Esterase (NEGATIVE) Urine RBC (0-2/HPF) Urine WBC (0-5/HPF) Ur Epithelial Cells (NONE-FEW) Urine Bacteria (NEGATIVE) Urine Opiates Screen (NEGATIVE) Ur Oxycodone Screen (NEGATIVE) Urine Methadone Screen (NEGATIVE) Ur Barbiturates Screen (NEGATIVE) Ur Phencyclidine Scrn (NEGATIVE) Ur Amphetamine Screen (NEGATIVE) U Methamphetamines Scrn (NEGATIVE) U Benzodiazepines Scrn (NEGATIVE) U Cocaine Metab Screen (NEGATIVE) U Marijuana (THC) Screen (NEGATIVE) Ethyl Alcohol 4 mg/dL 04/20/21 04/20/21 04/20/21 Range/Units 17:00 17:03 17:03 WBC (4.0-11.0) K/uL RBC (4.30-5.90) M/uL Hgb (12.0-16.0) g/dL Hct (36.0-46.0) % MCV (80.0-98.0) fL MCH (27.0-32.0) pg MCHC (31.0-37.0) g/dL RDW Std Deviation (28.0-62.0) fl RDW Coeff of Renard (11.0-15.0) % Plt Count (150-400) K/uL Neut % (Auto) (48.0-80.0) % Lymph % (Auto) (16.0-40.0) % [place] % (Auto) (0.0-15.0) % Eos % (Auto) (0.0-7.0) % Baso % (Auto) (0.0-1.5) % Neut # (Auto) (1.4-5.7) K/uL Lymph # (Auto) (0.6-2.4) K/uL [place] # (Auto) (0.0-0.8) K/uL Eos # (Auto) (0.0-0.7) K/uL Baso # (Auto) (0.0-0.1) K/uL Nucleated RBC % /100WBC Nucleated RBCs # K/uL Sodium (136-145) mmol/L Potassium (3.5-5.1) mmol/L Chloride (98-107) mmol/L Carbon Dioxide (21.0-32.0) mmol/L BUN (7.0-18.0) mg/dL Creatinine (0.6-1.0) mg/dL Est Cr Clr Drug Dosing mL/min Estimated GFR (MDRD) ml/min Glucose (74-106) mg/dL POC Glucose (70-99) mg/dL Lactic Acid 1.2 (0.4-2.0) mmol/L Calcium (8.5-10.1) mg/dL Total Bilirubin (0.2-1.0) mg/dL AST (15-37) IU/L ALT (14-63) IU/L Alkaline Phosphatase (46-116) U/L Troponin I (0.000-0.056) ng/mL Total Protein (6.4-8.2) g/dL Albumin (3.4-5.0) g/dL Globulin (2.6-4.0) g/dL Albumin/Globulin Ratio (0.9-1.6) Urine Color YELLOW Urine Appearance CLEAR Urine pH 7.5 (5.0-8.0) Ur Specific Luna 1.025 (1.001-1.035) Urine Protein 100 H (NEGATIVE) mg/dL Urine Glucose (UA) NEGATIVE (NEGATIVE) mg/dL Urine Ketones NEGATIVE (NEGATIVE) mg/dL Urine Occult Blood NEGATIVE (NEGATIVE) Urine Nitrite NEGATIVE (NEGATIVE) Urine Bilirubin NEGATIVE (NEGATIVE) Urine Urobilinogen 0.2 (<2.0) EU/dL Ur Leukocyte Esterase NEGATIVE (NEGATIVE) Urine RBC 0-2 (0-2/HPF) Urine WBC 0-2 (0-5/HPF) Ur Epithelial Cells RARE (NONE-FEW) Urine Bacteria RARE (NEGATIVE) Urine Opiates Screen NEGATIVE (NEGATIVE) Ur Oxycodone Screen NEGATIVE (NEGATIVE) Urine Methadone Screen NEGATIVE (NEGATIVE) Ur Barbiturates Screen NEGATIVE (NEGATIVE) Ur Phencyclidine Scrn NEGATIVE (NEGATIVE) Ur Amphetamine Screen NEGATIVE (NEGATIVE) U Methamphetamines Scrn NEGATIVE (NEGATIVE) U Benzodiazepines Scrn NEGATIVE (NEGATIVE) U Cocaine Metab Screen NEGATIVE (NEGATIVE) U Marijuana (THC) Screen NEGATIVE (NEGATIVE) Ethyl Alcohol mg/dL Meds: Medications Discontinued Medications Generic Name Dose Route Start Last Admin Trade Name Freq PRN Reason Stop Dose Admin Hydralazine HCl 5 mg 04/20/21 17:27 04/20/21 17:59 Hydralazine 20 Mg/Ml Sdv IVPUSH 04/20/21 17:28 5 mg ONETIME ONE Administration Losartan Potassium 100 mg 04/20/21 18:14 04/20/21 18:30 Losartan 50 Mg Tab PO 04/20/21 18:15 100 mg ONETIME ONE Administration Metoprolol Succinate 25 mg 04/20/21 18:14 04/20/21 18:30 Metoprolol Succinate 25 Mg Tab.Er PO 04/20/21 18:15 25 mg ONETIME ONE Administration Departure <Reese Perez - Last Filed: 04/20/21 16:59> - Departure Time of Disposition: 19:22 Condition: Good <Sree Anaya - Last Filed: 04/20/21 19:22> - Departure Disposition: Refer to Observation Clinical Impression: Altered mental status, Hypertensive urgency - Discharge Information Forms: ED Department Discharge Sepsis Event Note (ED) - Focused Exam Vital Signs: Vital Signs Temp Pulse Pulse Resp BP BP Pulse Ox 04/20/21 19:09 107 H 16 142/75 H 94 L 04/20/21 18:33 106 H 16 184/107 H 95 04/20/21 18:30 102 H 184/107 H 04/20/21 17:59 105 H 16 228/117 H 98 04/20/21 17:00 36.4 C 108 H 20 231/121 H 91 L <Reese Perez - Last Filed: 04/20/21 16:59> - Assessment/Plan Plan: Patient is a 89-year-old female presents today for possible altered mental status. On exam patient has some clear speech at times but seems to not answer certain questions appropriately. Will obtain CT head labs. Patient does have elevated blood pressure could be a likely related encephalopathy. (Reese Perez)
[2021-04-20] MEDS ORDERED: hydrALAZINE 20 MG/ML SDV IVPUSH ONE (17:27)
[2021-04-20 17:38] LABS: BLOOD UREA NITROGEN,BUN 16 mg/dL (7.0-18.0); CARBON DIOXIDE,CO2 31.5 mmol/L (21.0-32.0); CHLORIDE,CL 100 mmol/L (98-107); GLUCOSE RANDOM 186 mg/dL (74-106); POTASSIUM,K 4.2 mmol/L (3.5-5.1); SODIUM,NA 136 mmol/L (136-145)
--- NOTE | 2021-04-20 17:51 | CR ---
HISTORY: Altered mental status COMPARISON: Portable chest from 01/04/2021 FINDINGS: A portable erect AP view of the chest was obtained at 17 14 hours. Again seen is a small calcified granuloma in the right perihilar mid chest. The lungs otherwise remain clear. No focal or diffuse infiltrates are present. The heart remains normal in size. The mediastinum is normal in appearance. Again seen is moderate scoliosis of the thoracolumbar spine convex towards the left. IMPRESSION: No active disease seen in the chest. Dictated by Holger Bae MD @ 04/20/2021 5:48:[address] Holger Bae @ Apr 20 2021 5:48PM
--- NOTE | 2021-04-20 17:57 | CT ---
INDICATION: Altered mental status TECHNIQUE: CT head without contrast. COMPARISON: None. FINDINGS: CSF spaces: Within normal limits for age. Brain parenchyma: Diffuse cerebral atrophy with a moderate amount of low-density within the deep white matter. No intracranial bleed or mass effect. Skull base and calvarium: Atherosclerosis. Opacified left maxillary sinus, anterior left ethmoidal air cells and left frontal sinus. The visualized orbits are grossly unremarkable. No skull fractures. IMPRESSION: 1. No intracranial bleed or mass effect. 2. Cerebral atrophy with nonspecific white matter disease, likely microangiopathy. 3. 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 Please note that all CT scans at this facility use dose modulation, iterative reconstruction, and/or weight-based dosing when appropriate to reduce radiation dose to as low as reasonably achievable. Dictated by Galen Lopez MD @ 04/20/2021 5:55:[address] Galen Lopez @ Apr 20 2021 5:55PM
[2021-04-20] MEDS ORDERED: Losartan 50 MG Tab PO ONE (18:14)
[2021-04-20] MEDS ORDERED: Metoprolol Succinate 25 MG Tab.ER PO ONE (18:14)
[2021-04-20] MEDS ORDERED: Ondansetron 4 MG/2 ML SDV IVPUSH PRN (19:35)
[2021-04-20] MEDS ORDERED: Albuterol/Ipratropium 3.0-0.5 MG/3 ML Neb Soln NEB PRN (19:35)
[2021-04-20] MEDS ORDERED: Labetalol 100 MG/20 ML MDV IVPUSH PRN (19:39)
[2021-04-20] MEDS ORDERED: Glucagon,Human Recombinant 1 MG Vial IM PRN (19:41)
[2021-04-20] MEDS ORDERED: 50% Dextrose in Water 50 ML Syringe IVPUSH PRN (19:41)
[2021-04-20] MEDS: Lactated Ringers 1,000 ML IV SCH (22:35)
--- NOTE | 2021-04-20 22:55 | PCM.HP.2 ---
H&P History of Present Illness - General Date of Service: 04/20/21 Admit Problem/Dx: Admission Diagnosis/Problem Admission Diagnosis/Problem Altered mental status - History of Present Illness Initial Comments - Free Text/Narative: 89 yo female with pmh of DM and HTN who was brought to the ER due to concerns of confusion. Per ER reports, the daughter reported that she has been spoken to to the patient for the past 2 days but today when she called to check on her she realized she was more confused than her baseline. Reportedly patient does have on and off episodes of confusion. Patient was having hard time getting words out and was disoriented in all over the place. Although patient not a very reliable historian but she denied any chest pain, nausea, vomiting, abdominal pain, diarrhea. Patient seemed to be comfortable in the ER but confused. Patient states that she might have stumbled at home and fell but is not sure if she passed out. Patient was found to have extremely elevated blood pressure with systolic blood pressure in 230. Patient received oral as well as IV antihypertensives which helped improve her blood pressure slightly. CT scan of the head was done which was negative for any acute intracranial process. Patient was admitted to the hospital for further management. EKG was u nremarkable for acute ischemia and troponin was negative. Rest of the lab work looked benign. - Related Data Allergies/Adverse Reactions: Allergies Allergy/AdvReac Type Severity Reaction Status Date / Time fluorouracil Allergy Swelling Verified 04/20/21 21:38 strawberry Allergy Hives Verified 04/20/21 21:38 Home Medications: Home Meds Aspirin 81 mg PO DAILY 01/04/21 [History] Celecoxib 200 mg PO DAILY 01/04/21 [History] Furosemide 20 mg PO DAILY 01/04/21 [History] Gabapentin [Neurontin] 300 mg PO BEDTIME 01/04/21 [History] Losartan Potassium [Cozaar] 100 mg PO DAILY 01/04/21 [History] Metoprolol Succinate 25 mg PO DAILY 01/04/21 [History] Pantoprazole [ProTONIX] 40 mg PO BID 01/04/21 [History] Sertraline HCl 100 mg PO DAILY 01/04/21 [History] Simvastatin [Zocor] 20 mg PO BEDTIME 01/04/21 [History] metFORMIN [Glucophage] 1,000 mg PO BIDMEALS 01/04/21 [History] rOPINIRole [Requip] 0.25 mg PO BEDTIME 01/04/21 [History] Insulin Detemir [Levemir Flextouch] 7 unit SUBCUT BEDTIME 01/05/21 [History] Calcium Carbonate/Vitamin D3 [Calcium 600-Vit D3 500 Softgel] 1 each PO DAILY 04/20/21 [History] Diclofenac Sodium 1 appful TOP BID 04/20/21 [History] Insulin Aspart [NovoLOG] 0 unit SQ ASDIRECTED 04/20/21 [History] Magnesium Oxide 400 mg PO BID 04/20/21 [History] Ondansetron [Ondansetron ODT] 8 mg PO TID PRN 04/20/21 [History] Past Medical History HEENT History: Reports: Impaired Vision, Other (See Below) Other HEENT History: wears glasses Cardiovascular History: Reports: High Cholesterol, Hypertension Respiratory History: Reports: None Gastrointestinal History: Reports: GERD, Hemorrhoids, Other (See Below) Other Gastrointestinal History: Large protruding rectal hemorrhoid. Genitourinary History: Reports: Urinary Incontinence [employer] History: Reports: Musculoskeletal History: Reports: Osteoarthritis Neurological History: Reports: None Psychiatric History: Reports: Depression Endocrine/Metabolic History: Reports: Diabetes, Type II Hematologic History: Reports: None Immunologic History: Reports: None Oncologic (Cancer) History: Reports: Basal Cell Carcinoma Dermatologic History: Reports: Other (See Below) Other Dermatologic History: basal cell carcinoma to face - Infectious Disease History Infectious Disease History: Reports: Chicken Pox, Measles - Past Surgical History Head Surgeries/Procedures: Reports: None HEENT Surgical History: Reports: Cataract Surgery, Tonsillectomy Cardiovascular Surgical History: Reports: None Respiratory Surgical History: Reports: None GI Surgical History: Reports: Appendectomy Female Surgical History: Reports: Hysterectomy, Salpingo-Oophorectomy Endocrine Surgical History: Reports: None Neurological Surgical History: Reports: Lumbar Spine Other Neurological Surgeries/Procedures: hx back surgery Musculoskeletal Surgical History: Reports: Arthroscopic Knee Dermatological Surgical History: Reports: None Social & Family History - Family History Family Medical History: No Pertinent Family History - Tobacco Use Tobacco Use Status *Q: Never Tobacco User Second Hand Smoke Exposure: No - Caffeine Use Caffeine Use: Reports: Coffee Other Caffeine Use: 1 Caffeine Use Comment: daily - Recreational Drug Use Recreational Drug Use: No - Living Situation & Occupation Living situation: Reports: Alone Occupation: Retired H&P Review of Systems - Review of Systems: Review Of Systems: See Below General: Denies: Fever, Chills, Malaise Pulmonary: Denies: Shortness of Breath, Wheezing Gastrointestinal: Denies: Abdominal Pain, Anorexia, Black Stool Genitourinary: Denies: Dysuria, Frequency, Burning, Pain Musculoskeletal: Denies: Neck Pain, Shoulder Pain, Arm Pain Skin: Denies: Cyanosis, Jaundice, Mottled Psychiatric: Denies: Confusion, Depression, Mood Lability Neurological: Denies: Confusion, Dizziness, Headache Hematologic/Lymphatic: Denies: Anemia, Easy Bleeding, Easy Bruising Exam - Exam Exam: See Below - Vital Signs Vital Signs: Last Vital Signs Temp 36.3 C 04/20/21 21:16 Pulse 104 H 04/20/21 21:16 Resp 20 04/20/21 21:16 BP 188/93 H 04/20/21 21:16 Pulse Ox 94 L 04/20/21 21:16 Weight: 63 kg - Exam General: Alert, Cooperative, Mild Distress, Other (Oriented to time and place). No: Oriented Neck: Supple, Trachea Midline Lungs: Clear to Auscultation, Normal Respiratory Effort Cardiovascular: Regular Rate, Regular Rhythm, Normal S1, Normal S2 GI/Abdominal Exam: Normal Bowel Sounds, Soft, Non-Tender Skin: Warm, Intact Neurological: Cranial Nerves Intact, Reflexes Equal Bilateral, Strength Equal Bilateral, Normal Tone, Other (Expressive aphasia noted). No: Normal Gait Neuro Extensive - Mental Status: Alert, Normal Mood/Affect, Withdraws to Pain. No: Normal Cognition, Disorientation to Person, Disorientation to Place Neuro Extensive - Motor, Sensory, Reflexes: Expressive Aphasia. No: Abnormal Reflexes, Tongue Deviation (L), Facial palsy (L), Facial Palsy w Forehead, Facial Palsy wo Forehead, Hemeplagia (R), Hemeplagia (L) - Patient Data Lab Results Last 24 hrs: Laboratory Results - last 24 hr 04/20/21 04/20/21 04/20/21 Range/Units 16:58 17:00 17:00 WBC 8.19 (4.0-11.0) K/uL RBC 4.22 L (4.30-5.90) M/uL Hgb 12.1 (12.0-16.0) g/dL Hct 36.5 (36.0-46.0) % MCV 86.5 (80.0-98.0) fL MCH 28.7 (27.0-32.0) pg MCHC 33.2 (31.0-37.0) g/dL RDW Std Deviation 50.6 (28.0-62.0) fl RDW Coeff of Renard 16 H (11.0-15.0) % Plt Count 150 (150-400) K/uL Neut % (Auto) 62.2 (48.0-80.0) % Lymph % (Auto) 25.4 (16.0-40.0) % [place] % (Auto) 10.0 (0.0-15.0) % Eos % (Auto) 2.3 (0.0-7.0) % Baso % (Auto) 0.1 (0.0-1.5) % Neut # (Auto) 5.1 (1.4-5.7) K/uL Lymph # (Auto) 2.1 (0.6-2.4) K/uL [place] # (Auto) 0.8 (0.0-0.8) K/uL Eos # (Auto) 0.2 (0.0-0.7) K/uL Baso # (Auto) 0.0 (0.0-0.1) K/uL Nucleated RBC % 0.0 /100WBC Nucleated RBCs # 0 K/uL Sodium 136 (136-145) mmol/L Potassium 4.2 (3.5-5.1) mmol/L Chloride 100 (98-107) mmol/L Carbon Dioxide 31.5 (21.0-32.0) mmol/L BUN 16 (7.0-18.0) mg/dL Creatinine 1.0 (0.6-1.0) mg/dL Est Cr Clr Drug Dosing 37.09 mL/min Estimated GFR (MDRD) 52.2 ml/min Glucose 186 H (74-106) mg/dL POC Glucose 185 H (70-99) mg/dL Lactic Acid (0.4-2.0) mmol/L Calcium 9.6 (8.5-10.1) mg/dL Total Bilirubin 0.4 (0.2-1.0) mg/dL AST 21 (15-37) IU/L ALT 18 (14-63) IU/L Alkaline Phosphatase 135 H (46-116) U/L Troponin I <0.050 (0.000-0.056) ng/mL Total Protein 7.2 (6.4-8.2) g/dL Albumin 3.7 (3.4-5.0) g/dL Globulin 3.5 (2.6-4.0) g/dL Albumin/Globulin Ratio 1.1 (0.9-1.6) Urine Color Urine Appearance Urine pH (5.0-8.0) Ur Specific [place] (1.001-1.035) Urine Protein (NEGATIVE) mg/dL Urine Glucose (UA) (NEGATIVE) mg/dL Urine Ketones (NEGATIVE) mg/dL Urine Occult Blood (NEGATIVE) Urine Nitrite (NEGATIVE) Urine Bilirubin (NEGATIVE) Urine Urobilinogen (<2.0) EU/dL Ur Leukocyte Esterase (NEGATIVE) Urine RBC (0-2/HPF) Urine WBC (0-5/HPF) Ur Epithelial Cells (NONE-FEW) Urine Bacteria (NEGATIVE) Urine Opiates Screen (NEGATIVE) Ur Oxycodone Screen (NEGATIVE) Urine Methadone Screen (NEGATIVE) Ur Barbiturates Screen (NEGATIVE) Ur Phencyclidine Scrn (NEGATIVE) Ur Amphetamine Screen (NEGATIVE) U Methamphetamines Scrn (NEGATIVE) U Benzodiazepines Scrn (NEGATIVE) U Cocaine Metab Screen (NEGATIVE) U Marijuana (THC) Screen (NEGATIVE) Ethyl Alcohol 4 mg/dL 04/20/21 04/20/21 04/20/21 Range/Units 17:00 17:03 17:03 WBC (4.0-11.0) K/uL RBC (4.30-5.90) M/uL Hgb (12.0-16.0) g/dL Hct (36.0-46.0) % MCV (80.0-98.0) fL MCH (27.0-32.0) pg MCHC (31.0-37.0) g/dL RDW Std Deviation (28.0-62.0) fl RDW Coeff of Renard (11.0-15.0) % Plt Count (150-400) K/uL Neut % (Auto) (48.0-80.0) % Lymph % (Auto) (16.0-40.0) % [place] % (Auto) (0.0-15.0) % Eos % (Auto) (0.0-7.0) % Baso % (Auto) (0.0-1.5) % Neut # (Auto) (1.4-5.7) K/uL Lymph # (Auto) (0.6-2.4) K/uL [place] # (Auto) (0.0-0.8) K/uL Eos # (Auto) (0.0-0.7) K/uL Baso # (Auto) (0.0-0.1) K/uL Nucleated RBC % /100WBC Nucleated RBCs # K/uL Sodium (136-145) mmol/L Potassium (3.5-5.1) mmol/L Chloride (98-107) mmol/L Carbon Dioxide (21.0-32.0) mmol/L BUN (7.0-18.0) mg/dL Creatinine (0.6-1.0) mg/dL Est Cr Clr Drug Dosing mL/min Estimated GFR (MDRD) ml/min Glucose (74-106) mg/dL POC Glucose (70-99) mg/dL Lactic Acid 1.2 (0.4-2.0) mmol/L Calcium (8.5-10.1) mg/dL Total Bilirubin (0.2-1.0) mg/dL AST (15-37) IU/L ALT (14-63) IU/L Alkaline Phosphatase (46-116) U/L Troponin I (0.000-0.056) ng/mL Total Protein (6.4-8.2) g/dL Albumin (3.4-5.0) g/dL Globulin (2.6-4.0) g/dL Albumin/Globulin Ratio (0.9-1.6) Urine Color YELLOW Urine Appearance CLEAR Urine pH 7.5 (5.0-8.0) Ur Specific [place] 1.025 (1.001-1.035) Urine Protein 100 H (NEGATIVE) mg/dL Urine Glucose (UA) NEGATIVE (NEGATIVE) mg/dL Urine Ketones NEGATIVE (NEGATIVE) mg/dL Urine Occult Blood NEGATIVE (NEGATIVE) Urine Nitrite NEGATIVE (NEGATIVE) Urine Bilirubin NEGATIVE (NEGATIVE) Urine Urobilinogen 0.2 (<2.0) EU/dL Ur Leukocyte Esterase NEGATIVE (NEGATIVE) Urine RBC 0-2 (0-2/HPF) Urine WBC 0-2 (0-5/HPF) Ur Epithelial Cells RARE (NONE-FEW) Urine Bacteria RARE (NEGATIVE) Urine Opiates Screen NEGATIVE (NEGATIVE) Ur Oxycodone Screen NEGATIVE (NEGATIVE) Urine Methadone Screen NEGATIVE (NEGATIVE) Ur Barbiturates Screen NEGATIVE (NEGATIVE) Ur Phencyclidine Scrn NEGATIVE (NEGATIVE) Ur Amphetamine Screen NEGATIVE (NEGATIVE) U Methamphetamines Scrn NEGATIVE (NEGATIVE) U Benzodiazepines Scrn NEGATIVE (NEGATIVE) U Cocaine Metab Screen NEGATIVE (NEGATIVE) U Marijuana (THC) Screen NEGATIVE (NEGATIVE) Ethyl Alcohol mg/dL Result Diagrams: 04/20/21 17:00 04/20/21 17:00 Sepsis Event Note - Evaluation Sepsis Screening Result: No Definite Risk - Focused Exam Vital Signs: Vital Signs Temp Pulse Pulse Resp BP BP Pulse Ox 04/20/21 21:16 36.3 C 104 H 20 188/93 H 94 L 04/20/21 20:33 99 16 151/101 H 95 04/20/21 19:09 107 H 16 142/75 H 94 L 04/20/21 18:33 106 H 16 184/107 H 95 04/20/21 18:30 102 H 184/107 H 04/20/21 17:59 105 H 16 228/117 H 98 04/20/21 17:00 36.4 C 108 H 20 231/121 H 91 L - Problem List (1) AMS (altered mental status) SNOMED Code(s): 337504811 ICD Code: R41.82 - ALTERED MENTAL STATUS, UNSPECIFIED Status: Acute Current Visit: Yes (2) Hypertensive urgency SNOMED Code(s): 156755644 ICD Code: I16.0 - HYPERTENSIVE URGENCY Status: Acute Current Visit: Yes (3) HTN (hypertension) SNOMED Code(s): 96618491 ICD Code: I10 - ESSENTIAL (PRIMARY) HYPERTENSION Status: Chronic Current Visit: No Qualifiers: Hypertension type: essential hypertension Qualified Code(s): I10 - Essential (primary) hypertension (4) Type 2 diabetes mellitus SNOMED Code(s): 04769589 ICD Code: E11.9 - TYPE 2 DIABETES MELLITUS WITHOUT COMPLICATIONS Status: Chronic Current Visit: No Qualifiers: Diabetes mellitus long-term insulin use: with long-term use Diabetes mellitus complication status: without complication Qualified Code(s): E11.9 - Type 2 diabetes mellitus without complications; Z79.4 - halfway (current) use of insulin Problem List Initiated/Reviewed/Updated: Yes Orders Last 24hrs: Active Orders 24 hr Category Date Time Status Admission Status [Patient Status] [ADT] Stat ADT 04/20/21 19:20 Active Ambulate [RC] ASDIRECTED Care 04/20/21 19:35 Active Antiembolic Devices [RC] PER UNIT ROUTINE Care 04/20/21 19:36 Active Blood Glucose Check, Bedside [RC] QIDACANDBED Care 04/20/21 19:35 Active Oxygen Therapy [RC] PRN Care 04/20/21 19:35 Active Pulse Oximetry [RC] PRN Care 04/20/21 19:36 Active RT Aerosol Therapy [RC] ASDIRECTED Care 04/20/21 19:38 Active VTE/DVT Education [RC] PER UNIT ROUTINE Care 04/20/21 19:35 Active Vital Signs [RC] Q4H Care 04/20/21 19:35 Active [employer] Diet [DIET] Diet 04/21/21 Breakfast Active Low Sodium [Sodium Restricted Diet] [DIET] Diet 04/21/21 Breakfast Active Ang Head wo Cont [MR] Routine Exams 04/20/21 22:53 Ordered Ang Neck w Cont [MR] Routine Exams 04/20/21 22:53 Ordered Brain w wo Cont [MR] Routine Exams 04/20/21 22:53 Ordered CORONAVIRUS COVID-19 JEM [MOLEC] Stat Lab 04/20/21 17:49 Ordered Acetaminophen [TylenoL] Med 04/20/21 19:35 Active 650 mg PO Q4H PRN Albuterol/Ipratropium [DuoNeb 3.0-0.5 MG/3 ML] Med 04/20/21 19:35 Active 3 ml NEB Q4HRRT PRN Dextrose 50% in Water Med 04/20/21 19:41 Active 50 ml IVPUSH ASDIRECTED PRN Gabapentin [Neurontin] Med 04/21/21 21:00 Ordered 300 mg PO BEDTIME Glucagon,Human Recombinant [GlucaGen] Med 04/20/21 19:41 Active 1 mg IM ASDIRECTED PRN Insulin Aspart [NovoLOG] Med 04/21/21 07:30 Active See Protocol SUBCUT TIDAC Insulin Detemir [Levemir] Med 04/21/21 21:00 Ordered 7 unit SUBCUT BEDTIME Labetalol [Normodyne] Med 04/20/21 19:39 Active 20 mg IVPUSH Q4H PRN Lactated Ringers [Ringers, Lactated] 1,000 ml Med 04/20/21 19:45 Active IV ASDIRECTED Losartan Potassium Med 04/21/21 09:00 Ordered 100 mg PO DAILY Metoprolol Succinate [Toprol XL] Med 04/21/21 09:00 Ordered 25 mg PO DAILY Ondansetron [Zofran] Med 04/20/21 19:35 Active 4 mg IVPUSH Q4H PRN Pantoprazole [ProTONIX IV] Med 04/21/21 09:00 Active 40 mg IV DAILY Pantoprazole [ProTONIX] Med 04/21/21 09:00 Ordered 40 mg PO BID Sertraline [Zoloft] Med 04/21/21 09:00 Ordered 100 mg PO DAILY Simvastatin [Zocor] Med 04/21/21 21:00 Ordered 20 mg PO BEDTIME rOPINIRole Med 04/21/21 21:00 Ordered 0.25 mg PO BEDTIME Sequential Compression Device [OM.PC] Per Unit Routine Oth 04/20/21 19:36 Ordered Medication Orders Acetaminophen (Acetaminophen 325 Mg Tab) 650 mg PO Q4H PRN PRN Reason: Pain (Mild 1-3)/fever Albuterol/Ipratropium (Albuterol/Ipratropium 3.0-0.5 Mg/3 Ml Neb Soln) 3 ml NEB Q4HRRT PRN PRN Reason: Shortness Of Breath/wheezing Dextrose/Water (50% Dextrose In Water 50 Ml Syringe) 50 ml IVPUSH ASDIRECTED PRN PRN Reason: Hypoglycemia Gabapentin (Gabapentin 300 Mg Cap) 300 mg PO BEDTIME SHEYLA Glucagon (Glucagon,Human Recombinant 1 Mg Vial) 1 mg IM ASDIRECTED PRN PRN Reason: Hypoglycemia Lactated Ringer's (Ringers, Lactated) 1,000 mls @ 125 mls/hr IV ASDIRECTED SHEYLA Last Admin: 04/20/21 22:35 Dose: 125 mls/hr Documented by: [email or web address] Insulin Aspart (Insulin Aspart 100 Units/Ml 3 Ml Pen) 0 unit SUBCUT TIDAC SHEYLA; Protocol Insulin Detemir (Insulin Detemir 100 Units/Ml 3 Ml Pen) 7 unit SUBCUT BEDTIME SHEYLA Labetalol HCl (Labetalol 100 Mg/20 Ml Mdv) 20 mg IVPUSH Q4H PRN; Protocol PRN Reason: Hypertension Last Admin: 04/20/21 22:31 Dose: 20 mg Documented by: QASIM Metoprolol Succinate (Metoprolol Succinate 25 Mg Tab.Er) 25 mg PO DAILY SHEYLA Non-Formulary Medication (Losartan Potassium) 100 mg PO DAILY SHEYLA Non-Formulary Medication (Ropinirole) 0.25 mg PO BEDTIME SHEYLA Ondansetron HCl (Ondansetron 4 Mg/2 Ml Sdv) 4 mg IVPUSH Q4H PRN PRN Reason: Nausea/Vomiting Pantoprazole Sodium (Pantoprazole 40 Mg Vial) 40 mg IV DAILY SHEYLA Pantoprazole Sodium (Pantoprazole 40 Mg Tab.Cr) 40 mg PO BID HSEYLA Sertraline HCl (Sertraline 100 Mg Tab) 100 mg PO DAILY SHEYLA Simvastatin (Simvastatin 20 Mg Tab) 20 mg PO BEDTIME SHEYLA Assessment/Plan Comment:: 89-year-old female admitted to altered mental status likely secondary to hy pertensive encephalopathy versus stroke CT scan of the head ruled out any large infarct or bleed Lab work looks unremarkable no source infection was evident, UDS negative Continue telemetry monitoring IV labetalol as needed for systolic blood pressure more than 180 Will allow permissive hypertension in case there was ischemic stroke Will obtain MRI of the brain and MRA of the head and neck Physical therapy consult Resume home meds as appropriate Fall precautions Physical exam revealed rectal mass possible external hemorrhoid versus rectal prolapse, patient will probably need outpatient follow-up with surgery no pain or bleeding noted,
[2021-04-20] MEDS ORDERED: Labetalol 100 MG/20 ML MDV IVPUSH ONE (23:20)
[2021-04-21] MEDS ORDERED: Insulin Detemir 100 Units/ML 3 ML Pen SUBCUT ONE (00:09)
[2021-04-21] MEDS: Acetaminophen 325 MG Tab PO PRN (00:30)
[2021-04-21] MEDS: rOPINIRole 0.5 MG Tab PO SCH ×2 (01:39→21:24)
[2021-04-21 06:17] LABS: POTASSIUM,K 3.7 mmol/L (3.5-5.1)
[2021-04-21] MEDS: Lactated Ringers 1,000 ML IV SCH (06:52)
--- NOTE | 2021-04-21 08:12 | PCM.PN ---
- General Info Date of Service: 04/21/21 Admission Dx/Problem (Free Text): Admission Diagnosis/Problem Admission Diagnosis/Problem Altered mental status Subjective Update: Patient alert and oriented but continues to have some aphasia. Will trying to explain things at length or more in depth answers greater than yes or no patient has difficulty getting words out. Patient becomes very frustrated and attempts in speaking. Denies any pain denies any headache denies any chest pain or shortness of breath. No abdominal pain. No arm or leg weakness. Patient is ea ting and drinking well. Patient is somewhat impulsive and getting up out of bed with nursing staff. Functional Status: Reports: Pain Controlled, Tolerating Diet, Ambulating, Urinating - Review of Systems General: Reports: No Symptoms. Denies: Fatigue HEENT: Reports: No Symptoms. Denies: Headaches, Sore Throat Pulmonary: Reports: No Symptoms. Denies: Shortness of Breath Cardiovascular: Reports: No Symptoms. Denies: Chest Pain Gastrointestinal: Reports: No Symptoms. Denies: Abdominal Pain, Nausea, Vomiting Genitourinary: Reports: No Symptoms. Denies: Dysuria Musculoskeletal: Reports: No Symptoms Skin: Reports: No Symptoms Neurological: Reports: Trouble Speaking - Patient Data Vitals - Most Recent: Last Vital Signs Temp 98 F 04/21/21 03:40 Pulse 93 04/21/21 03:40 Resp 18 04/21/21 03:40 BP 155/73 H 04/21/21 03:40 Pulse Ox 93 L 04/21/21 03:40 Weight - Most Recent: 63 kg I&O - Last 24 Hours: Intake & Output 04/20/21 04/21/21 04/21/21 22:59 06:59 14:59 Intake Total 988 Output Total 1000 Balance -12 Lab Results Last 24 Hours: Laboratory Results - last 24 hr 04/20/21 04/20/21 04/20/21 Range/Units 16:58 17:00 17:00 WBC 8.19 (4.0-11.0) K/uL RBC 4.22 L (4.30-5.90) M/uL Hgb 12.1 (12.0-16.0) g/dL Hct 36.5 (36.0-46.0) % MCV 86.5 (80.0-98.0) fL MCH 28.7 (27.0-32.0) pg MCHC 33.2 (31.0-37.0) g/dL RDW Std Deviation 50.6 (28.0-62.0) fl RDW Coeff of Renard 16 H (11.0-15.0) % Plt Count 150 (150-400) K/uL MPV (7.40-12.00) fL Neut % (Auto) 62.2 (48.0-80.0) % Lymph % (Auto) 25.4 (16.0-40.0) % [place] % (Auto) 10.0 (0.0-15.0) % Eos % (Auto) 2.3 (0.0-7.0) % Baso % (Auto) 0.1 (0.0-1.5) % Neut # (Auto) 5.1 (1.4-5.7) K/uL Lymph # (Auto) 2.1 (0.6-2.4) K/uL [place] # (Auto) 0.8 (0.0-0.8) K/uL Eos # (Auto) 0.2 (0.0-0.7) K/uL Baso # (Auto) 0.0 (0.0-0.1) K/uL Nucleated RBC % 0.0 /100WBC Nucleated RBCs # 0 K/uL Sodium 136 (136-145) mmol/L Potassium 4.2 (3.5-5.1) mmol/L Chloride 100 (98-107) mmol/L Carbon Dioxide 31.5 (21.0-32.0) mmol/L BUN 16 (7.0-18.0) mg/dL Creatinine 1.0 (0.6-1.0) mg/dL Est Cr Clr Drug Dosing 37.09 mL/min Estimated GFR (MDRD) 52.2 ml/min Glucose 186 H (74-106) mg/dL POC Glucose 185 H (70-99) mg/dL Lactic Acid (0.4-2.0) mmol/L Calcium 9.6 (8.5-10.1) mg/dL Phosphorus (2.6-4.7) mg/dL Magnesium (1.8-2.4) mg/dL Total Bilirubin 0.4 (0.2-1.0) mg/dL AST 21 (15-37) IU/L ALT 18 (14-63) IU/L Alkaline Phosphatase 135 H (46-116) U/L Troponin I <0.050 (0.000-0.056) ng/mL Total Protein 7.2 (6.4-8.2) g/dL Albumin 3.7 (3.4-5.0) g/dL Globulin 3.5 (2.6-4.0) g/dL Albumin/Globulin Ratio 1.1 (0.9-1.6) Urine Color Urine Appearance Urine pH (5.0-8.0) Ur Specific [place] (1.001-1.035) Urine Protein (NEGATIVE) mg/dL Urine Glucose (UA) (NEGATIVE) mg/dL Urine Ketones (NEGATIVE) mg/dL Urine Occult Blood (NEGATIVE) Urine Nitrite (NEGATIVE) Urine Bilirubin (NEGATIVE) Urine Urobilinogen (<2.0) EU/dL Ur Leukocyte Esterase (NEGATIVE) Urine RBC (0-2/HPF) Urine WBC (0-5/HPF) Ur Epithelial Cells (NONE-FEW) Urine Bacteria (NEGATIVE) Urine Opiates Screen (NEGATIVE) Ur Oxycodone Screen (NEGATIVE) Urine Methadone Screen (NEGATIVE) Ur Barbiturates Screen (NEGATIVE) Ur Phencyclidine Scrn (NEGATIVE) Ur Amphetamine Screen (NEGATIVE) U Methamphetamines Scrn (NEGATIVE) U Benzodiazepines Scrn (NEGATIVE) U Cocaine Metab Screen (NEGATIVE) U Marijuana (THC) Screen (NEGATIVE) Ethyl Alcohol 4 mg/dL 04/20/21 04/20/21 04/20/21 Range/Units 17:00 17:03 17:03 WBC (4.0-11.0) K/uL RBC (4.30-5.90) M/uL Hgb (12.0-16.0) g/dL Hct (36.0-46.0) % MCV (80.0-98.0) fL MCH (27.0-32.0) pg MCHC (31.0-37.0) g/dL RDW Std Deviation (28.0-62.0) fl RDW Coeff of Renard (11.0-15.0) % Plt Count (150-400) K/uL MPV (7.40-12.00) fL Neut % (Auto) (48.0-80.0) % Lymph % (Auto) (16.0-40.0) % [place] % (Auto) (0.0-15.0) % Eos % (Auto) (0.0-7.0) % Baso % (Auto) (0.0-1.5) % Neut # (Auto) (1.4-5.7) K/uL Lymph # (Auto) (0.6-2.4) K/uL [place] # (Auto) (0.0-0.8) K/uL Eos # (Auto) (0.0-0.7) K/uL Baso # (Auto) (0.0-0.1) K/uL Nucleated RBC % /100WBC Nucleated RBCs # K/uL Sodium (136-145) mmol/L Potassium (3.5-5.1) mmol/L Chloride (98-107) mmol/L Carbon Dioxide (21.0-32.0) mmol/L BUN (7.0-18.0) mg/dL Creatinine (0.6-1.0) mg/dL Est Cr Clr Drug Dosing mL/min Estimated GFR (MDRD) ml/min Glucose (74-106) mg/dL POC Glucose (70-99) mg/dL Lactic Acid 1.2 (0.4-2.0) mmol/L Calcium (8.5-10.1) mg/dL Phosphorus (2.6-4.7) mg/dL Magnesium (1.8-2.4) mg/dL Total Bilirubin (0.2-1.0) mg/dL AST (15-37) IU/L ALT (14-63) IU/L Alkaline Phosphatase (46-116) U/L Troponin I (0.000-0.056) ng/mL Total Protein (6.4-8.2) g/dL Albumin (3.4-5.0) g/dL Globulin (2.6-4.0) g/dL Albumin/Globulin Ratio (0.9-1.6) Urine Color YELLOW Urine Appearance CLEAR Urine pH 7.5 (5.0-8.0) Ur Specific [place] 1.025 (1.001-1.035) Urine Protein 100 H (NEGATIVE) mg/dL Urine Glucose (UA) NEGATIVE (NEGATIVE) mg/dL Urine Ketones NEGATIVE (NEGATIVE) mg/dL Urine Occult Blood NEGATIVE (NEGATIVE) Urine Nitrite NEGATIVE (NEGATIVE) Urine Bilirubin NEGATIVE (NEGATIVE) Urine Urobilinogen 0.2 (<2.0) EU/dL Ur Leukocyte Esterase NEGATIVE (NEGATIVE) Urine RBC 0-2 (0-2/HPF) Urine WBC 0-2 (0-5/HPF) Ur Epithelial Cells RARE (NONE-FEW) Urine Bacteria RARE (NEGATIVE) Urine Opiates Screen NEGATIVE (NEGATIVE) Ur Oxycodone Screen NEGATIVE (NEGATIVE) Urine Methadone Screen NEGATIVE (NEGATIVE) Ur Barbiturates Screen NEGATIVE (NEGATIVE) Ur Phencyclidine Scrn NEGATIVE (NEGATIVE) Ur Amphetamine Screen NEGATIVE (NEGATIVE) U Methamphetamines Scrn NEGATIVE (NEGATIVE) U Benzodiazepines Scrn NEGATIVE (NEGATIVE) U Cocaine Metab Screen NEGATIVE (NEGATIVE) U Marijuana (THC) Screen NEGATIVE (NEGATIVE) Ethyl Alcohol mg/dL 04/20/21 04/21/21 04/21/21 Range/Units 22:51 04:53 04:53 WBC 9.15 (4.0-11.0) K/uL RBC 3.95 L (4.30-5.90) M/uL Hgb 11.4 L (12.0-16.0) g/dL Hct 33.9 L (36.0-46.0) % MCV 85.8 (80.0-98.0) fL MCH 28.9 (27.0-32.0) pg MCHC 33.6 (31.0-37.0) g/dL RDW Std Deviation 49.5 (28.0-62.0) fl RDW Coeff of Renard 16 H (11.0-15.0) % Plt Count 143 L (150-400) K/uL MPV 10.10 (7.40-12.00) fL Neut % (Auto) 72.6 (48.0-80.0) % Lymph % (Auto) 16.7 (16.0-40.0) % [place] % (Auto) 9.7 (0.0-15.0) % Eos % (Auto) 0.9 (0.0-7.0) % Baso % (Auto) 0.1 (0.0-1.5) % Neut # (Auto) 6.6 H (1.4-5.7) K/uL Lymph # (Auto) 1.5 (0.6-2.4) K/uL [place] # (Auto) 0.9 H (0.0-0.8) K/uL Eos # (Auto) 0.1 (0.0-0.7) K/uL Baso # (Auto) 0.0 (0.0-0.1) K/uL Nucleated RBC % 0.0 /100WBC Nucleated RBCs # 0 K/uL Sodium 136 (136-145) mmol/L Potassium 3.7 (3.5-5.1) mmol/L Chloride 102 (98-107) mmol/L Carbon Dioxide 28.0 (21.0-32.0) mmol/L BUN 13 (7.0-18.0) mg/dL Creatinine 0.9 (0.6-1.0) mg/dL Est Cr Clr Drug Dosing 38.13 mL/min Estimated GFR (MDRD) 59.0 ml/min Glucose 191 H (74-106) mg/dL POC Glucose 211 H (70-99) mg/dL Lactic Acid (0.4-2.0) mmol/L Calcium 9.1 (8.5-10.1) mg/dL Phosphorus 3.7 (2.6-4.7) mg/dL Magnesium 1.7 L (1.8-2.4) mg/dL Total Bilirubin (0.2-1.0) mg/dL AST (15-37) IU/L ALT (14-63) IU/L Alkaline Phosphatase (46-116) U/L Troponin I (0.000-0.056) ng/mL Total Protein (6.4-8.2) g/dL Albumin (3.4-5.0) g/dL Globulin (2.6-4.0) g/dL Albumin/Globulin Ratio (0.9-1.6) Urine Color Urine Appearance Urine pH (5.0-8.0) Ur Specific [place] (1.001-1.035) Urine Protein (NEGATIVE) mg/dL Urine Glucose (UA) (NEGATIVE) mg/dL Urine Ketones (NEGATIVE) mg/dL Urine Occult Blood (NEGATIVE) Urine Nitrite (NEGATIVE) Urine Bilirubin (NEGATIVE) Urine Urobilinogen (<2.0) EU/dL Ur Leukocyte Esterase (NEGATIVE) Urine RBC (0-2/HPF) Urine WBC (0-5/HPF) Ur Epithelial Cells (NONE-FEW) Urine Bacteria (NEGATIVE) Urine Opiates Screen (NEGATIVE) Ur Oxycodone Screen (NEGATIVE) Urine Methadone Screen (NEGATIVE) Ur Barbiturates Screen (NEGATIVE) Ur Phencyclidine Scrn (NEGATIVE) Ur Amphetamine Screen (NEGATIVE) U Methamphetamines Scrn (NEGATIVE) U Benzodiazepines Scrn (NEGATIVE) U Cocaine Metab Screen (NEGATIVE) U Marijuana (THC) Screen (NEGATIVE) Ethyl Alcohol mg/dL 04/21/21 Range/Units 06:59 WBC (4.0-11.0) K/uL RBC (4.30-5.90) M/uL Hgb (12.0-16.0) g/dL Hct (36.0-46.0) % MCV (80.0-98.0) fL MCH (27.0-32.0) pg MCHC (31.0-37.0) g/dL RDW Std Deviation (28.0-62.0) fl RDW Coeff of Renard (11.0-15.0) % Plt Count (150-400) K/uL MPV (7.40-12.00) fL Neut % (Auto) (48.0-80.0) % Lymph % (Auto) (16.0-40.0) % [place] % (Auto) (0.0-15.0) % Eos % (Auto) (0.0-7.0) % Baso % (Auto) (0.0-1.5) % Neut # (Auto) (1.4-5.7) K/uL Lymph # (Auto) (0.6-2.4) K/uL [place] # (Auto) (0.0-0.8) K/uL Eos # (Auto) (0.0-0.7) K/uL Baso # (Auto) (0.0-0.1) K/uL Nucleated RBC % /100WBC Nucleated RBCs # K/uL Sodium (136-145) mmol/L Potassium (3.5-5.1) mmol/L Chloride (98-107) mmol/L Carbon Dioxide (21.0-32.0) mmol/L BUN (7.0-18.0) mg/dL Creatinine (0.6-1.0) mg/dL Est Cr Clr Drug Dosing mL/min Estimated GFR (MDRD) ml/min Glucose (74-106) mg/dL POC Glucose 178 H (70-99) mg/dL Lactic Acid (0.4-2.0) mmol/L Calcium (8.5-10.1) mg/dL Phosphorus (2.6-4.7) mg/dL Magnesium (1.8-2.4) mg/dL Total Bilirubin (0.2-1.0) mg/dL AST (15-37) IU/L ALT (14-63) IU/L Alkaline Phosphatase (46-116) U/L Troponin I (0.000-0.056) ng/mL Total Protein (6.4-8.2) g/dL Albumin (3.4-5.0) g/dL Globulin (2.6-4.0) g/dL Albumin/Globulin Ratio (0.9-1.6) Urine Color Urine Appearance Urine pH (5.0-8.0) Ur Specific [place] (1.001-1.035) Urine Protein (NEGATIVE) mg/dL Urine Glucose (UA) (NEGATIVE) mg/dL Urine Ketones (NEGATIVE) mg/dL Urine Occult Blood (NEGATIVE) Urine Nitrite (NEGATIVE) Urine Bilirubin (NEGATIVE) Urine Urobilinogen (<2.0) EU/dL Ur Leukocyte Esterase (NEGATIVE) Urine RBC (0-2/HPF) Urine WBC (0-5/HPF) Ur Epithelial Cells (NONE-FEW) Urine Bacteria (NEGATIVE) Urine Opiates Screen (NEGATIVE) Ur Oxycodone Screen (NEGATIVE) Urine Methadone Screen (NEGATIVE) Ur Barbiturates Screen (NEGATIVE) Ur Phencyclidine Scrn (NEGATIVE) Ur Amphetamine Screen (NEGATIVE) U Methamphetamines Scrn (NEGATIVE) U Benzodiazepines Scrn (NEGATIVE) U Cocaine Metab Screen (NEGATIVE) U Marijuana (THC) Screen (NEGATIVE) Ethyl Alcohol mg/dL Med Orders - Current: Current Medications Acetaminophen (Acetaminophen 325 Mg Tab) 650 mg PO Q4H PRN PRN Reason: Pain (Mild 1-3)/fever Last Admin: 04/21/21 00:30 Dose: 650 mg Documented by: Albuterol/Ipratropium (Albuterol/Ipratropium 3.0-0.5 Mg/3 Ml Neb Soln) 3 ml NEB Q4HRRT PRN PRN Reason: Shortness Of Breath/wheezing Dextrose/Water (50% Dextrose In Water 50 Ml Syringe) 50 ml IVPUSH ASDIRECTED PRN PRN Reason: Hypoglycemia Gabapentin (Gabapentin 300 Mg Cap) 300 mg PO BEDTIME SHEYLA Glucagon (Glucagon,Human Recombinant 1 Mg Vial) 1 mg IM ASDIRECTED PRN PRN Reason: Hypoglycemia Lactated Ringer's (Ringers, Lactated) 1,000 mls @ 125 mls/hr IV ASDIRECTED SHEYLA Last Admin: 04/21/21 06:52 Dose: 125 mls/hr Documented by: Insulin Aspart (Insulin Aspart 100 Units/Ml 3 Ml Pen) 0 unit SUBCUT TIDAC SHEYLA; Protocol Insulin Detemir (Insulin Detemir 100 Units/Ml 3 Ml Pen) 7 unit SUBCUT BEDTIME SHEYLA Labetalol HCl (Labetalol 100 Mg/20 Ml Mdv) 20 mg IVPUSH Q3H PRN; Protocol PRN Reason: Hypertension Ondansetron HCl (Ondansetron 4 Mg/2 Ml Sdv) 4 mg IVPUSH Q4H PRN PRN Reason: Nausea/Vomiting Pantoprazole Sodium (Pantoprazole 40 Mg Tab.Cr) 40 mg PO BID SHEYLA Ropinirole HCl (Ropinirole 0.5 Mg Tab) 0.25 mg PO BEDTIME SHEYLA Last Admin: 04/21/21 01:39 Dose: 0.25 mg Documented by: Sertraline HCl (Sertraline 100 Mg Tab) 100 mg PO DAILY SHEYLA Simvastatin (Simvastatin 20 Mg Tab) 20 mg PO BEDTIME SHEYLA Discontinued Medications Hydralazine HCl (Hydralazine 20 Mg/Ml Sdv) 5 mg IVPUSH ONETIME ONE Stop: 04/20/21 17:28 Last Admin: 04/20/21 17:59 Dose: 5 mg Documented by: Insulin Detemir (Insulin Detemir 100 Units/Ml 3 Ml Pen) 7 unit SUBCUT ONETIME ONE Stop: 04/21/21 00:10 Last Admin: 04/21/21 00:25 Dose: 7 units Documented by: Labetalol HCl (Labetalol 100 Mg/20 Ml Mdv) 20 mg IVPUSH Q4H PRN; Protocol PRN Reason: Hypertension Last Admin: 04/20/21 22:31 Dose: 20 mg Documented by: Labetalol HCl (Labetalol 100 Mg/20 Ml Mdv) 20 mg IVPUSH ONETIME ONE; Protocol Stop: 04/20/21 23:21 Last Admin: 04/21/21 00:14 Dose: 20 mg Documented by: Losartan Potassium (Losartan 50 Mg Tab) 100 mg PO ONETIME ONE Stop: 04/20/21 18:15 Last Admin: 04/20/21 18:30 Dose: 100 mg Documented by: Losartan Potassium (Losartan 50 Mg Tab) 100 mg PO DAILY [facility] Metoprolol Succinate (Metoprolol Succinate 25 Mg Tab.Er) 25 mg PO ONETIME ONE Stop: 04/20/21 18:15 Last Admin: 04/20/21 18:30 Dose: 25 mg Documented by: Metoprolol Succinate (Metoprolol Succinate 25 Mg Tab.Er) 25 mg PO DAILY SHEYLA Ropinirole HCl (Ropinirole 0.5 Mg Tab) 0.25 mg PO BEDTIME SHEYLA - Exam Quality Assessment: DVT Prophylaxis. No: Supplemental Oxygen General: Alert, Oriented, Cooperative Neck: Supple Lungs: Clear to Auscultation, Normal Respiratory Effort Cardiovascular: Regular Rate, Regular Rhythm GI/Abdominal Exam: Normal Bowel Sounds, Soft, Non-Tender Extremities: Normal Inspection, Normal Range of Motion, Non-Tender, No Pedal Edema Skin: Warm, Dry Neurological: Other (Aphasia noted at times word salad) Psy/Mental Status: Alert, Normal Affect, Normal Mood - Patient Data Lab Results Last 24 hrs: Laboratory Results - last 24 hr 04/20/21 04/20/21 04/20/21 Range/Units 16:58 17:00 17:00 WBC 8.19 (4.0-11.0) K/uL RBC 4.22 L (4.30-5.90) M/uL Hgb 12.1 (12.0-16.0) g/dL Hct 36.5 (36.0-46.0) % MCV 86.5 (80.0-98.0) fL MCH 28.7 (27.0-32.0) pg MCHC 33.2 (31.0-37.0) g/dL RDW Std Deviation 50.6 (28.0-62.0) fl RDW Coeff of Renard 16 H (11.0-15.0) % Plt Count 150 (150-400) K/uL MPV (7.40-12.00) fL Neut % (Auto) 62.2 (48.0-80.0) % Lymph % (Auto) 25.4 (16.0-40.0) % [place] % (Auto) 10.0 (0.0-15.0) % Eos % (Auto) 2.3 (0.0-7.0) % Baso % (Auto) 0.1 (0.0-1.5) % Neut # (Auto) 5.1 (1.4-5.7) K/uL Lymph # (Auto) 2.1 (0.6-2.4) K/uL [place] # (Auto) 0.8 (0.0-0.8) K/uL Eos # (Auto) 0.2 (0.0-0.7) K/uL Baso # (Auto) 0.0 (0.0-0.1) K/uL Nucleated RBC % 0.0 /100WBC Nucleated RBCs # 0 K/uL Sodium 136 (136-145) mmol/L Potassium 4.2 (3.5-5.1) mmol/L Chloride 100 (98-107) mmol/L Carbon Dioxide 31.5 (21.0-32.0) mmol/L BUN 16 (7.0-18.0) mg/dL Creatinine 1.0 (0.6-1.0) mg/dL Est Cr Clr Drug Dosing 37.09 mL/min Estimated GFR (MDRD) 52.2 ml/min Glucose 186 H (74-106) mg/dL POC Glucose 185 H (70-99) mg/dL Lactic Acid (0.4-2.0) mmol/L Calcium 9.6 (8.5-10.1) mg/dL Phosphorus (2.6-4.7) mg/dL Magnesium (1.8-2.4) mg/dL Total Bilirubin 0.4 (0.2-1.0) mg/dL AST 21 (15-37) IU/L ALT 18 (14-63) IU/L Alkaline Phosphatase 135 H (46-116) U/L Troponin I <0.050 (0.000-0.056) ng/mL Total Protein 7.2 (6.4-8.2) g/dL Albumin 3.7 (3.4-5.0) g/dL Globulin 3.5 (2.6-4.0) g/dL Albumin/Globulin Ratio 1.1 (0.9-1.6) Urine Color Urine Appearance Urine pH (5.0-8.0) Ur Specific [place] (1.001-1.035) Urine Protein (NEGATIVE) mg/dL Urine Glucose (UA) (NEGATIVE) mg/dL Urine Ketones (NEGATIVE) mg/dL Urine Occult Blood (NEGATIVE) Urine Nitrite (NEGATIVE) Urine Bilirubin (NEGATIVE) Urine Urobilinogen (<2.0) EU/dL Ur Leukocyte Esterase (NEGATIVE) Urine RBC (0-2/HPF) Urine WBC (0-5/HPF) Ur Epithelial Cells (NONE-FEW) Urine Bacteria (NEGATIVE) Urine Opiates Screen (NEGATIVE) Ur Oxycodone Screen (NEGATIVE) Urine Methadone Screen (NEGATIVE) Ur Barbiturates Screen (NEGATIVE) Ur Phencyclidine Scrn (NEGATIVE) Ur Amphetamine Screen (NEGATIVE) U Methamphetamines Scrn (NEGATIVE) U Benzodiazepines Scrn (NEGATIVE) U Cocaine Metab Screen (NEGATIVE) U Marijuana (THC) Screen (NEGATIVE) Ethyl Alcohol 4 mg/dL 04/20/21 04/20/21 04/20/21 Range/Units 17:00 17:03 17:03 WBC (4.0-11.0) K/uL RBC (4.30-5.90) M/uL Hgb (12.0-16.0) g/dL Hct (36.0-46.0) % MCV (80.0-98.0) fL MCH (27.0-32.0) pg MCHC (31.0-37.0) g/dL RDW Std Deviation (28.0-62.0) fl RDW Coeff of Renard (11.0-15.0) % Plt Count (150-400) K/uL MPV (7.40-12.00) fL Neut % (Auto) (48.0-80.0) % Lymph % (Auto) (16.0-40.0) % [place] % (Auto) (0.0-15.0) % Eos % (Auto) (0.0-7.0) % Baso % (Auto) (0.0-1.5) % Neut # (Auto) (1.4-5.7) K/uL Lymph # (Auto) (0.6-2.4) K/uL [place] # (Auto) (0.0-0.8) K/uL Eos # (Auto) (0.0-0.7) K/uL Baso # (Auto) (0.0-0.1) K/uL Nucleated RBC % /100WBC Nucleated RBCs # K/uL Sodium (136-145) mmol/L Potassium (3.5-5.1) mmol/L Chloride (98-107) mmol/L Carbon Dioxide (21.0-32.0) mmol/L BUN (7.0-18.0) mg/dL Creatinine (0.6-1.0) mg/dL Est Cr Clr Drug Dosing mL/min Estimated GFR (MDRD) ml/min Glucose (74-106) mg/dL POC Glucose (70-99) mg/dL Lactic Acid 1.2 (0.4-2.0) mmol/L Calcium (8.5-10.1) mg/dL Phosphorus (2.6-4.7) mg/dL Magnesium (1.8-2.4) mg/dL Total Bilirubin (0.2-1.0) mg/dL AST (15-37) IU/L ALT (14-63) IU/L Alkaline Phosphatase (46-116) U/L Troponin I (0.000-0.056) ng/mL Total Protein (6.4-8.2) g/dL Albumin (3.4-5.0) g/dL Globulin (2.6-4.0) g/dL Albumin/Globulin Ratio (0.9-1.6) Urine Color YELLOW Urine Appearance CLEAR Urine pH 7.5 (5.0-8.0) Ur Specific [place] 1.025 (1.001-1.035) Urine Protein 100 H (NEGATIVE) mg/dL Urine Glucose (UA) NEGATIVE (NEGATIVE) mg/dL Urine Ketones NEGATIVE (NEGATIVE) mg/dL Urine Occult Blood NEGATIVE (NEGATIVE) Urine Nitrite NEGATIVE (NEGATIVE) Urine Bilirubin NEGATIVE (NEGATIVE) Urine Urobilinogen 0.2 (<2.0) EU/dL Ur Leukocyte Esterase NEGATIVE (NEGATIVE) Urine RBC 0-2 (0-2/HPF) Urine WBC 0-2 (0-5/HPF) Ur Epithelial Cells RARE (NONE-FEW) Urine Bacteria RARE (NEGATIVE) Urine Opiates Screen NEGATIVE (NEGATIVE) Ur Oxycodone Screen NEGATIVE (NEGATIVE) Urine Methadone Screen NEGATIVE (NEGATIVE) Ur Barbiturates Screen NEGATIVE (NEGATIVE) Ur Phencyclidine Scrn NEGATIVE (NEGATIVE) Ur Amphetamine Screen NEGATIVE (NEGATIVE) U Methamphetamines Scrn NEGATIVE (NEGATIVE) U Benzodiazepines Scrn NEGATIVE (NEGATIVE) U Cocaine Metab Screen NEGATIVE (NEGATIVE) U Marijuana (THC) Screen NEGATIVE (NEGATIVE) Ethyl Alcohol mg/dL 04/20/21 04/21/21 04/21/21 Range/Units 22:51 04:53 04:53 WBC 9.15 (4.0-11.0) K/uL RBC 3.95 L (4.30-5.90) M/uL Hgb 11.4 L (12.0-16.0) g/dL Hct 33.9 L (36.0-46.0) % MCV 85.8 (80.0-98.0) fL MCH 28.9 (27.0-32.0) pg MCHC 33.6 (31.0-37.0) g/dL RDW Std Deviation 49.5 (28.0-62.0) fl RDW Coeff of Renard 16 H (11.0-15.0) % Plt Count 143 L (150-400) K/uL MPV 10.10 (7.40-12.00) fL Neut % (Auto) 72.6 (48.0-80.0) % Lymph % (Auto) 16.7 (16.0-40.0) % [place] % (Auto) 9.7 (0.0-15.0) % Eos % (Auto) 0.9 (0.0-7.0) % Baso % (Auto) 0.1 (0.0-1.5) % Neut # (Auto) 6.6 H (1.4-5.7) K/uL Lymph # (Auto) 1.5 (0.6-2.4) K/uL [place] # (Auto) 0.9 H (0.0-0.8) K/uL Eos # (Auto) 0.1 (0.0-0.7) K/uL Baso # (Auto) 0.0 (0.0-0.1) K/uL Nucleated RBC % 0.0 /100WBC Nucleated RBCs # 0 K/uL Sodium 136 (136-145) mmol/L Potassium 3.7 (3.5-5.1) mmol/L Chloride 102 (98-107) mmol/L Carbon Dioxide 28.0 (21.0-32.0) mmol/L BUN 13 (7.0-18.0) mg/dL Creatinine 0.9 (0.6-1.0) mg/dL Est Cr Clr Drug Dosing 38.13 mL/min Estimated GFR (MDRD) 59.0 ml/min Glucose 191 H (74-106) mg/dL POC Glucose 211 H (70-99) mg/dL Lactic Acid (0.4-2.0) mmol/L Calcium 9.1 (8.5-10.1) mg/dL Phosphorus 3.7 (2.6-4.7) mg/dL Magnesium 1.7 L (1.8-2.4) mg/dL Total Bilirubin (0.2-1.0) mg/dL AST (15-37) IU/L ALT (14-63) IU/L Alkaline Phosphatase (46-116) U/L Troponin I (0.000-0.056) ng/mL Total Protein (6.4-8.2) g/dL Albumin (3.4-5.0) g/dL Globulin (2.6-4.0) g/dL Albumin/Globulin Ratio (0.9-1.6) Urine Color Urine Appearance Urine pH (5.0-8.0) Ur Specific [place] (1.001-1.035) Urine Protein (NEGATIVE) mg/dL Urine Glucose (UA) (NEGATIVE) mg/dL Urine Ketones (NEGATIVE) mg/dL Urine Occult Blood (NEGATIVE) Urine Nitrite (NEGATIVE) Urine Bilirubin (NEGATIVE) Urine Urobilinogen (<2.0) EU/dL Ur Leukocyte Esterase (NEGATIVE) Urine RBC (0-2/HPF) Urine WBC (0-5/HPF) Ur Epithelial Cells (NONE-FEW) Urine Bacteria (NEGATIVE) Urine Opiates Screen (NEGATIVE) Ur Oxycodone Screen (NEGATIVE) Urine Methadone Screen (NEGATIVE) Ur Barbiturates Screen (NEGATIVE) Ur Phencyclidine Scrn (NEGATIVE) Ur Amphetamine Screen (NEGATIVE) U Methamphetamines Scrn (NEGATIVE) U Benzodiazepines Scrn (NEGATIVE) U Cocaine Metab Screen (NEGATIVE) U Marijuana (THC) Screen (NEGATIVE) Ethyl Alcohol mg/dL 04/21/21 Range/Units 06:59 WBC (4.0-11.0) K/uL RBC (4.30-5.90) M/uL Hgb (12.0-16.0) g/dL Hct (36.0-46.0) % MCV (80.0-98.0) fL MCH (27.0-32.0) pg MCHC (31.0-37.0) g/dL RDW Std Deviation (28.0-62.0) fl RDW Coeff of Renard (11.0-15.0) % Plt Count (150-400) K/uL MPV (7.40-12.00) fL Neut % (Auto) (48.0-80.0) % Lymph % (Auto) (16.0-40.0) % [place] % (Auto) (0.0-15.0) % Eos % (Auto) (0.0-7.0) % Baso % (Auto) (0.0-1.5) % Neut # (Auto) (1.4-5.7) K/uL Lymph # (Auto) (0.6-2.4) K/uL [place] # (Auto) (0.0-0.8) K/uL Eos # (Auto) (0.0-0.7) K/uL Baso # (Auto) (0.0-0.1) K/uL Nucleated RBC % /100WBC Nucleated RBCs # K/uL Sodium (136-145) mmol/L Potassium (3.5-5.1) mmol/L Chloride (98-107) mmol/L Carbon Dioxide (21.0-32.0) mmol/L BUN (7.0-18.0) mg/dL Creatinine (0.6-1.0) mg/dL Est Cr Clr Drug Dosing mL/min Estimated GFR (MDRD) ml/min Glucose (74-106) mg/dL POC Glucose 178 H (70-99) mg/dL Lactic Acid (0.4-2.0) mmol/L Calcium (8.5-10.1) mg/dL Phosphorus (2.6-4.7) mg/dL Magnesium (1.8-2.4) mg/dL Total Bilirubin (0.2-1.0) mg/dL AST (15-37) IU/L ALT (14-63) IU/L Alkaline Phosphatase (46-116) U/L Troponin I (0.000-0.056) ng/mL Total Protein (6.4-8.2) g/dL Albumin (3.4-5.0) g/dL Globulin (2.6-4.0) g/dL Albumin/Globulin Ratio (0.9-1.6) Urine Color Urine Appearance Urine pH (5.0-8.0) Ur Specific [place] (1.001-1.035) Urine Protein (NEGATIVE) mg/dL Urine Glucose (UA) (NEGATIVE) mg/dL Urine Ketones (NEGATIVE) mg/dL Urine Occult Blood (NEGATIVE) Urine Nitrite (NEGATIVE) Urine Bilirubin (NEGATIVE) Urine Urobilinogen (<2.0) EU/dL Ur Leukocyte Esterase (NEGATIVE) Urine RBC (0-2/HPF) Urine WBC (0-5/HPF) Ur Epithelial Cells (NONE-FEW) Urine Bacteria (NEGATIVE) Urine Opiates Screen (NEGATIVE) Ur Oxycodone Screen (NEGATIVE) Urine Methadone Screen (NEGATIVE) Ur Barbiturates Screen (NEGATIVE) Ur Phencyclidine Scrn (NEGATIVE) Ur Amphetamine Screen (NEGATIVE) U Methamphetamines Scrn (NEGATIVE) U Benzodiazepines Scrn (NEGATIVE) U Cocaine Metab Screen (NEGATIVE) U Marijuana (THC) Screen (NEGATIVE) Ethyl Alcohol mg/dL Result Diagrams: 04/21/21 04:53 04/21/21 04:53 Sepsis Event Note - Evaluation Sepsis Screening Result: No Definite Risk - Focused Exam Vital Signs: Vital Signs Temp Pulse Resp BP Pulse Ox 04/21/21 03:40 98 F 93 18 155/73 H 93 L 04/21/21 00:48 97 125/90 04/20/21 23:01 97.2 F 90 20 198/89 H 92 L 04/20/21 21:16 97.3 F 104 H 20 188/93 H 94 L 04/20/21 20:33 99 16 151/101 H 95 - Problem List & Annotations (1) CVA (cerebral vascular accident) SNOMED Code(s): 796512635 Code(s): I63.9 - CEREBRAL INFARCTION, UNSPECIFIED Status: Suspected Current Visit: Yes (2) AMS (altered mental status) SNOMED Code(s): 285810961 Code(s): R41.82 - ALTERED MENTAL STATUS, UNSPECIFIED Status: Acute Current Visit: Yes (3) Hypertensive urgency SNOMED Code(s): 630364936 Code(s): I16.0 - HYPERTENSIVE URGENCY Status: Suspected Current Visit: Yes (4) HTN (hypertension) SNOMED Code(s): 18204451 Code(s): I10 - ESSENTIAL (PRIMARY) HYPERTENSION Status: Chronic Current Visit: No Qualifiers: Hypertension type: essential hypertension Qualified Code(s): I10 - Essential (primary) hypertension (5) Type 2 diabetes mellitus SNOMED Code(s): 85245728 Code(s): E11.9 - TYPE 2 DIABETES MELLITUS WITHOUT COMPLICATIONS Status: Chronic Current Visit: No Qualifiers: Diabetes mellitus oil heaterman insulin use: with detention use Diabetes mellitus complication status: without complication Qualified Code(s): E11.9 - Type 2 diabetes mellitus without complications; Z79.4 - long-term (current) use of insulin - Problem List Review Problem List Initiated/Reviewed/Updated: Yes - Plan Plan:: 89-year-old female admitted to altered mental status likely secondary to hypertensive encephalopathy versus stroke 1. Altered mental status -patient more alert today but continues to have aphasia and at times word salad -Head CT negative ruled out any large infarct or bleed -MRI and MRA of brain ordered today though patient unable to lie still even with Ativan. Patient family notified of this and they declined any conscious sedation. -Will attempt CTA of head and neck with a repeat head CT in a.m. to rule out infarct. -With continued symptoms along with blood pressure control patient likely suffered CVA. -Consult speech therapy as well as physical therapy. Occupational Therapy not needed at this time as no concerns with ADLs or upper extremities noted. -Obtain lipid panel, A1c and TSH. -Monitor on telemetry for any type of arrhythmia -We will need follow-up with neurology consider Zio patch on discharge -May need rehabilitation at [facility]. -Allow permissive hypertension labetalol for systolic blood pressure greater than 190 2. DM type II -NovoLog sliding scale with meals -ADA diet 3. Hypertension -Holding antihypertensives at this time to allow permissive hypertension. -Restart once CVA completely ruled out. Or when 48-hour period is over after initial evaluation. 4. Rectal mass -Possibly external hemorrhoid versus prolapse -Arrange outpatient follow-up with general surgery -No pain and no bleeding noted VTE prophylaxis: SCDs for now likely start heparin in a.m. CODE STATUS: Unable to confirm with patient. I did speak with Julianne, daughter who has advanced directives which they helped get set up with home health this past year. Reports that patient is full code but would not want long-term mechanical ventilation. Dispo: 1 to 2 days pending on improvement may need to consider [facility] facility if patient does not improve.
[2021-04-21] MEDS ORDERED: Pantoprazole 40 MG Vial IV SCH (09:00)
[2021-04-21] MEDS ORDERED: Pantoprazole 40 MG Tab.CR PO SCH (09:00)
[2021-04-21] MEDS ORDERED: Metoprolol Succinate 25 MG Tab.ER PO SCH (09:00)
[2021-04-21] MEDS ORDERED: Losartan 50 MG Tab PO SCH (09:00)
[2021-04-21] MEDS: Insulin Aspart 100 Units/ML 3 ML Pen SUBCUT SCH ×3 (09:36→17:47)
[2021-04-21] MEDS: Sertraline 100 MG Tab PO SCH (09:36)
[2021-04-21] MEDS: Pantoprazole 40 MG Tab.CR PO SCH ×2 (09:36→21:13)
[2021-04-21 10:20] LABS: HEMOGLOBIN A1C 7.6 %
[2021-04-21] MEDS ORDERED: LORazepam 2 MG/ML SDV IVPUSH ONE ×2 (13:19→15:01)
--- NOTE | 2021-04-21 14:06 | MR ---
Indication: AMS, APHASIA, PATIENT WAS VERY CONFUSED, DOCTORS ORDERED STROKE PROTOCOL, PATIENT WOULD NOT HOLD STILL EVEN AFTER ATIVAN, BEST IMAGES ATTAINABLE, VERY LIMITED STUDY Technique: 3D [id number] MR angiogram of the [id number] with 3-dimensional MIP projections were submitted. Diffusion weighted images were also obtained. Comparison: CT head 04/20/2021 Findings: Significant limited MRA head exam due to motion artifact. The intracranial vertebral arteries and proximal basilar artery are poorly evaluated. The bilateral petrous, cavernous, and supraclinoid ICA segments are widely patent. The communicating arteries are patent. Limited evaluation of the middle cerebral artery bifurcations and their branches. Limited evaluation of the posterior cerebral arteries. If there is further concern for stroke, CTA head could be obtained to diminish artifact from motion. No evidence of diffusion restriction to suggest acute ischemia. Moderate opacification of the left maxillary sinus. Impression: 1. No evidence of diffusion restriction to suggest acute ischemia. 2. Significant limited MRA head exam due to motion artifact. If there is further concern for stroke, CTA head could be obtained to diminish artifact from motion. Diminutive appearance of the bilateral MCA bifurcations and their branches and diminutive appearance of the bilateral intracranial vertebral arteries and proximal basilar artery. Diminutive appearance of the bilateral posterior cerebral arteries probably secondary to artifact. Dictated by Lokesh Mccann MD @ 04/21/2021 2:05:[address] Lokesh Mccann @ Apr 21 2021 2:05PM
[2021-04-21] MEDS: Labetalol 100 MG/20 ML MDV IVPUSH PRN (16:17)
[2021-04-21] MEDS ORDERED: rOPINIRole 0.5 MG Tab PO SCH (21:00)
[2021-04-21] MEDS ORDERED: Simvastatin 20 MG Tab PO SCH ×2 (21:00)
[2021-04-21] MEDS: atorvaSTATin 40 MG Tab PO SCH (21:26)
[2021-04-21] MEDS: Gabapentin 300 MG Cap PO SCH (21:28)
[2021-04-21] MEDS: Insulin Detemir 100 Units/ML 3 ML Pen SUBCUT SCH (21:31)
[2021-04-22 06:32] LABS: CARBON DIOXIDE,CO2 27.3 mmol/L (21.0-32.0); POTASSIUM,K 3.4 mmol/L (3.5-5.1)
[2021-04-22] MEDS: Labetalol 100 MG/20 ML MDV IVPUSH PRN ×2 (06:57→22:01)
[2021-04-22] MEDS ORDERED: Magnesium Sulfate/Water 2 GM in Premix Bag 1 BAG IV ONE (07:51)
[2021-04-22] MEDS: Insulin Aspart 100 Units/ML 3 ML Pen SUBCUT SCH ×3 (09:41→16:54)
--- NOTE | 2021-04-22 09:47 | PCM.PN ---
- General Info Date of Service: 04/22/21 Admission Dx/Problem (Free Text): Admission Diagnosis/Problem Admission Diagnosis/Problem Altered mental status Subjective Update: Patient sedated today after Ativan dosing yesterday for MRI attempts. Patient did wake up briefly during bed bath and spoke with nursing and SDC TEACHER but then was back to sleep. Functional Status: Reports: Pain Controlled, Tolerating Diet, Ambulating, Urinating - Patient Data Vitals - Most Recent: Last Vital Signs Temp 96.8 F L 04/22/21 07:45 Pulse 85 04/22/21 07:45 Resp 20 04/22/21 07:45 BP 106/70 04/22/21 09:15 Pulse Ox 92 L 04/22/21 07:45 Weight - Most Recent: 63 kg I&O - Last 24 Hours: Intake & Output 04/21/21 04/22/21 04/22/21 22:59 06:59 14:59 Intake Total 1723 140 Output Total 1500 Balance 223 140 Lab Results Last 24 Hours: Laboratory Results - last 24 hr 04/21/21 04/21/21 04/21/21 Range/Units 04:53 04:53 13:58 WBC (4.0-11.0) K/uL RBC (4.30-5.90) M/uL Hgb (12.0-16.0) g/dL Hct (36.0-46.0) % MCV (80.0-98.0) fL MCH (27.0-32.0) pg MCHC (31.0-37.0) g/dL RDW Std Deviation (28.0-62.0) fl RDW Coeff of Renard (11.0-15.0) % Plt Count (150-400) K/uL MPV (7.40-12.00) fL Neut % (Auto) (48.0-80.0) % Lymph % (Auto) (16.0-40.0) % Gillespie % (Auto) (0.0-15.0) % Eos % (Auto) (0.0-7.0) % Baso % (Auto) (0.0-1.5) % Neut # (Auto) (1.4-5.7) K/uL Lymph # (Auto) (0.6-2.4) K/uL Gillespie # (Auto) (0.0-0.8) K/uL Eos # (Auto) (0.0-0.7) K/uL Baso # (Auto) (0.0-0.1) K/uL Nucleated RBC % /100WBC Nucleated RBCs # K/uL Sodium (136-145) mmol/L Potassium (3.5-5.1) mmol/L Chloride (98-107) mmol/L Carbon Dioxide (21.0-32.0) mmol/L BUN (7.0-18.0) mg/dL Creatinine (0.6-1.0) mg/dL Est Cr Clr Drug Dosing mL/min Estimated GFR (MDRD) ml/min Glucose (74-106) mg/dL POC Glucose 238 H (70-99) mg/dL Hemoglobin A1c 7.6 H (4.5 - 6.2) % Calcium (8.5-10.1) mg/dL Magnesium (1.8-2.4) mg/dL Triglycerides (0-200) mg/dL Cholesterol (50-200) mg/dL LDL Cholesterol, Calc (60-180) mg/dL VLDL Cholesterol (5-55) mg/dL HDL Cholesterol (40-60) mg/dL Cholesterol/HDL Ratio (3.3-6.0) TSH 3rd Generation 1.71 (0.36-3.74) uIU/mL 04/21/21 04/21/21 04/22/21 Range/Units 17:36 21:05 05:17 WBC (4.0-11.0) K/uL RBC (4.30-5.90) M/uL Hgb (12.0-16.0) g/dL Hct (36.0-46.0) % MCV (80.0-98.0) fL MCH (27.0-32.0) pg MCHC (31.0-37.0) g/dL RDW Std Deviation (28.0-62.0) fl RDW Coeff of Renard (11.0-15.0) % Plt Count (150-400) K/uL MPV (7.40-12.00) fL Neut % (Auto) (48.0-80.0) % Lymph % (Auto) (16.0-40.0) % Gillespie % (Auto) (0.0-15.0) % Eos % (Auto) (0.0-7.0) % Baso % (Auto) (0.0-1.5) % Neut # (Auto) (1.4-5.7) K/uL Lymph # (Auto) (0.6-2.4) K/uL Gillespie # (Auto) (0.0-0.8) K/uL Eos # (Auto) (0.0-0.7) K/uL Baso # (Auto) (0.0-0.1) K/uL Nucleated RBC % /100WBC Nucleated RBCs # K/uL Sodium 139 (136-145) mmol/L Potassium 3.4 L (3.5-5.1) mmol/L Chloride 101 (98-107) mmol/L Carbon Dioxide 27.3 (21.0-32.0) mmol/L BUN 13 (7.0-18.0) mg/dL Creatinine 0.9 (0.6-1.0) mg/dL Est Cr Clr Drug Dosing 38.13 mL/min Estimated GFR (MDRD) 59.0 ml/min Glucose 215 H (74-106) mg/dL POC Glucose 143 H 191 H (70-99) mg/dL Hemoglobin A1c (4.5 - 6.2) % Calcium 9.0 (8.5-10.1) mg/dL Magnesium 1.6 L (1.8-2.4) mg/dL Triglycerides 88 (0-200) mg/dL Cholesterol 171 (50-200) mg/dL LDL Cholesterol, Calc 96 (60-180) mg/dL VLDL Cholesterol 17 (5-55) mg/dL HDL Cholesterol 57 (40-60) mg/dL Cholesterol/HDL Ratio 3.0 L (3.3-6.0) TSH 3rd Generation (0.36-3.74) uIU/mL 04/22/21 04/22/21 Range/Units 05:17 07:38 WBC 8.19 (4.0-11.0) K/uL RBC 3.92 L (4.30-5.90) M/uL Hgb 11.2 L (12.0-16.0) g/dL Hct 33.8 L (36.0-46.0) % MCV 86.2 (80.0-98.0) fL MCH 28.6 (27.0-32.0) pg MCHC 33.1 (31.0-37.0) g/dL RDW Std Deviation 50.3 (28.0-62.0) fl RDW Coeff of Renard 16 H (11.0-15.0) % Plt Count 150 (150-400) K/uL MPV 10.30 (7.40-12.00) fL Neut % (Auto) 73.8 (48.0-80.0) % Lymph % (Auto) 15.8 L (16.0-40.0) % Gillespie % (Auto) 9.6 (0.0-15.0) % Eos % (Auto) 0.7 (0.0-7.0) % Baso % (Auto) 0.1 (0.0-1.5) % Neut # (Auto) 6.0 H (1.4-5.7) K/uL Lymph # (Auto) 1.3 (0.6-2.4) K/uL Gillespie # (Auto) 0.8 (0.0-0.8) K/uL Eos # (Auto) 0.1 (0.0-0.7) K/uL Baso # (Auto) 0.0 (0.0-0.1) K/uL Nucleated RBC % 0.0 /100WBC Nucleated RBCs # 0 K/uL Sodium (136-145) mmol/L Potassium (3.5-5.1) mmol/L Chloride (98-107) mmol/L Carbon Dioxide (21.0-32.0) mmol/L BUN (7.0-18.0) mg/dL Creatinine (0.6-1.0) mg/dL Est Cr Clr Drug Dosing mL/min Estimated GFR (MDRD) ml/min Glucose (74-106) mg/dL POC Glucose 191 H (70-99) mg/dL Hemoglobin A1c (4.5 - 6.2) % Calcium (8.5-10.1) mg/dL Magnesium (1.8-2.4) mg/dL Triglycerides (0-200) mg/dL Cholesterol (50-200) mg/dL LDL Cholesterol, Calc (60-180) mg/dL VLDL Cholesterol (5-55) mg/dL HDL Cholesterol (40-60) mg/dL Cholesterol/HDL Ratio (3.3-6.0) TSH 3rd Generation (0.36-3.74) uIU/mL Med Orders - Current: Current Medications Acetaminophen (Acetaminophen 325 Mg Tab) 650 mg PO Q4H PRN PRN Reason: Pain (Mild 1-3)/fever Last Admin: 04/21/21 00:30 Dose: 650 mg Documented by: Albuterol/Ipratropium (Albuterol/Ipratropium 3.0-0.5 Mg/3 Ml Neb Soln) 3 ml NEB Q4HRRT PRN PRN Reason: Shortness Of Breath/wheezing Aspirin (Aspirin 81 Mg Tab.Chew) 81 mg PO DAILY [facility] Atorvastatin Calcium (Atorvastatin 40 Mg Tab) 80 mg PO BEDTIME [facility] Last Admin: 04/21/21 21:26 Dose: 80 mg Documented by: Dextrose/Water (50% Dextrose In Water 50 Ml Syringe) 50 ml IVPUSH ASDIRECTED PRN PRN Reason: Hypoglycemia Gabapentin (Gabapentin 300 Mg Cap) 300 mg PO BEDTIME [facility] Last Admin: 04/21/21 21:28 Dose: 300 mg Documented by: Glucagon (Glucagon,Human Recombinant 1 Mg Vial) 1 mg IM ASDIRECTED PRN PRN Reason: Hypoglycemia Magnesium Sulfate 2 gm/ Premix 50 mls @ 25 mls/hr IV ONETIME ONE Stop: 04/22/21 09:50 Last Admin: 04/22/21 09:25 Dose: 25 mls/hr Documented by: Insulin Aspart (Insulin Aspart 100 Units/Ml 3 Ml Pen) 0 unit SUBCUT TIDAC [facility]; Protocol Last Admin: 04/21/21 17:47 Dose: Not Given Documented by: Insulin Detemir (Insulin Detemir 100 Units/Ml 3 Ml Pen) 7 unit SUBCUT BEDTIME [facility] Last Admin: 04/21/21 21:31 Dose: 7 units Documented by: Labetalol HCl (Labetalol 100 Mg/20 Ml Mdv) 20 mg IVPUSH Q3H PRN PRN Reason: Hypertension SBP>190 Last Admin: 04/22/21 06:57 Dose: 20 mg Documented by: Ondansetron HCl (Ondansetron 4 Mg/2 Ml Sdv) 4 mg IVPUSH Q4H PRN PRN Reason: Nausea/Vomiting Pantoprazole Sodium (Pantoprazole 40 Mg Tab.Cr) 40 mg PO BID [facility] Last Admin: 04/21/21 21:13 Dose: 40 mg Documented by: Ropinirole HCl (Ropinirole 0.5 Mg Tab) 0.25 mg PO BEDTIME [facility] Last Admin: 04/21/21 21:24 Dose: 0.25 mg Documented by: Sertraline HCl (Sertraline 100 Mg Tab) 100 mg PO DAILY [facility] Last Admin: 04/21/21 09:36 Dose: 100 mg Documented by: Discontinued Medications Hydralazine HCl (Hydralazine 20 Mg/Ml Sdv) 5 mg IVPUSH ONETIME ONE Stop: 04/20/21 17:28 Last Admin: 04/20/21 17:59 Dose: 5 mg Documented by: Lactated Ringer's (Ringers, Lactated) 1,000 mls @ 125 mls/hr IV ASDIRECTED [facility] Last Admin: 04/21/21 06:52 Dose: 125 mls/hr Documented by: Insulin Detemir (Insulin Detemir 100 Units/Ml 3 Ml Pen) 7 unit SUBCUT ONETIME ONE Stop: 04/21/21 00:10 Last Admin: 04/21/21 00:25 Dose: 7 units Documented by: Labetalol HCl (Labetalol 100 Mg/20 Ml Mdv) 20 mg IVPUSH Q4H PRN; Protocol PRN Reason: Hypertension Last Admin: 04/20/21 22:31 Dose: 20 mg Documented by: Labetalol HCl (Labetalol 100 Mg/20 Ml Mdv) 20 mg IVPUSH ONETIME ONE; Protocol Stop: 04/20/21 23:21 Last Admin: 04/21/21 00:14 Dose: 20 mg Documented by: Lorazepam (Lorazepam 2 Mg/Ml Sdv) 1 mg IVPUSH ONETIME ONE Stop: 04/21/21 13:20 Last Admin: 04/21/21 13:41 Dose: 1 mg Documented by: Lorazepam (Lorazepam 2 Mg/Ml Sdv) 1 mg IVPUSH ONETIME ONE Stop: 04/21/21 15:02 Last Admin: 04/21/21 15:14 Dose: 1 mg Documented by: Losartan Potassium (Losartan 50 Mg Tab) 100 mg PO ONETIME ONE Stop: 04/20/21 18:15 Last Admin: 04/20/21 18:30 Dose: 100 mg Documented by: Losartan Potassium (Losartan 50 Mg Tab) 100 mg PO DAILY [facility] Metoprolol Succinate (Metoprolol Succinate 25 Mg Tab.Er) 25 mg PO ONETIME ONE Stop: 04/20/21 18:15 Last Admin: 04/20/21 18:30 Dose: 25 mg Documented by: Metoprolol Succinate (Metoprolol Succinate 25 Mg Tab.Er) 25 mg PO DAILY [facility] Ropinirole HCl (Ropinirole 0.5 Mg Tab) 0.25 mg PO BEDTIME [facility] Simvastatin (Simvastatin 20 Mg Tab) 20 mg PO BEDTIME [facility] Simvastatin (Simvastatin 20 Mg Tab) 80 mg PO BEDTIME [facility] - Exam Quality Assessment: Supplemental Oxygen General: Sedated Lungs: Clear to Auscultation, Normal Respiratory Effort Cardiovascular: Regular Rate, Regular Rhythm GI/Abdominal Exam: Normal Bowel Sounds, Soft, Non-Tender Extremities: Normal Inspection, Normal Range of Motion, Non-Tender, No Pedal Edema Neurological: No New Focal Deficit Psy/Mental Status: Alert, Normal Affect, Normal Mood - Patient Data Lab Results Last 24 hrs: Laboratory Results - last 24 hr 04/21/21 04/21/21 04/21/21 Range/Units 04:53 04:53 13:58 WBC (4.0-11.0) K/uL RBC (4.30-5.90) M/uL Hgb (12.0-16.0) g/dL Hct (36.0-46.0) % MCV (80.0-98.0) fL MCH (27.0-32.0) pg MCHC (31.0-37.0) g/dL RDW Std Deviation (28.0-62.0) fl RDW Coeff of Renard (11.0-15.0) % Plt Count (150-400) K/uL MPV (7.40-12.00) fL Neut % (Auto) (48.0-80.0) % Lymph % (Auto) (16.0-40.0) % Gillespie % (Auto) (0.0-15.0) % Eos % (Auto) (0.0-7.0) % Baso % (Auto) (0.0-1.5) % Neut # (Auto) (1.4-5.7) K/uL Lymph # (Auto) (0.6-2.4) K/uL Gillespie # (Auto) (0.0-0.8) K/uL Eos # (Auto) (0.0-0.7) K/uL Baso # (Auto) (0.0-0.1) K/uL Nucleated RBC % /100WBC Nucleated RBCs # K/uL Sodium (136-145) mmol/L Potassium (3.5-5.1) mmol/L Chloride (98-107) mmol/L Carbon Dioxide (21.0-32.0) mmol/L BUN (7.0-18.0) mg/dL Creatinine (0.6-1.0) mg/dL Est Cr Clr Drug Dosing mL/min Estimated GFR (MDRD) ml/min Glucose (74-106) mg/dL POC Glucose 238 H (70-99) mg/dL Hemoglobin A1c 7.6 H (4.5 - 6.2) % Calcium (8.5-10.1) mg/dL Magnesium (1.8-2.4) mg/dL Triglycerides (0-200) mg/dL Cholesterol (50-200) mg/dL LDL Cholesterol, Calc (60-180) mg/dL VLDL Cholesterol (5-55) mg/dL HDL Cholesterol (40-60) mg/dL Cholesterol/HDL Ratio (3.3-6.0) TSH 3rd Generation 1.71 (0.36-3.74) uIU/mL 04/21/21 04/21/21 04/22/21 Range/Units 17:36 21:05 05:17 WBC (4.0-11.0) K/uL RBC (4.30-5.90) M/uL Hgb (12.0-16.0) g/dL Hct (36.0-46.0) % MCV (80.0-98.0) fL MCH (27.0-32.0) pg MCHC (31.0-37.0) g/dL RDW Std Deviation (28.0-62.0) fl RDW Coeff of Renard (11.0-15.0) % Plt Count (150-400) K/uL MPV (7.40-12.00) fL Neut % (Auto) (48.0-80.0) % Lymph % (Auto) (16.0-40.0) % Gillespie % (Auto) (0.0-15.0) % Eos % (Auto) (0.0-7.0) % Baso % (Auto) (0.0-1.5) % Neut # (Auto) (1.4-5.7) K/uL Lymph # (Auto) (0.6-2.4) K/uL Gillespie # (Auto) (0.0-0.8) K/uL Eos # (Auto) (0.0-0.7) K/uL Baso # (Auto) (0.0-0.1) K/uL Nucleated RBC % /100WBC Nucleated RBCs # K/uL Sodium 139 (136-145) mmol/L Potassium 3.4 L (3.5-5.1) mmol/L Chloride 101 (98-107) mmol/L Carbon Dioxide 27.3 (21.0-32.0) mmol/L BUN 13 (7.0-18.0) mg/dL Creatinine 0.9 (0.6-1.0) mg/dL Est Cr Clr Drug Dosing 38.13 mL/min Estimated GFR (MDRD) 59.0 ml/min Glucose 215 H (74-106) mg/dL POC Glucose 143 H 191 H (70-99) mg/dL Hemoglobin A1c (4.5 - 6.2) % Calcium 9.0 (8.5-10.1) mg/dL Magnesium 1.6 L (1.8-2.4) mg/dL Triglycerides 88 (0-200) mg/dL Cholesterol 171 (50-200) mg/dL LDL Cholesterol, Calc 96 (60-180) mg/dL VLDL Cholesterol 17 (5-55) mg/dL HDL Cholesterol 57 (40-60) mg/dL Cholesterol/HDL Ratio 3.0 L (3.3-6.0) TSH 3rd Generation (0.36-3.74) uIU/mL 04/22/21 04/22/21 Range/Units 05:17 07:38 WBC 8.19 (4.0-11.0) K/uL RBC 3.92 L (4.30-5.90) M/uL Hgb 11.2 L (12.0-16.0) g/dL Hct 33.8 L (36.0-46.0) % MCV 86.2 (80.0-98.0) fL MCH 28.6 (27.0-32.0) pg MCHC 33.1 (31.0-37.0) g/dL RDW Std Deviation 50.3 (28.0-62.0) fl RDW Coeff of Renard 16 H (11.0-15.0) % Plt Count 150 (150-400) K/uL MPV 10.30 (7.40-12.00) fL Neut % (Auto) 73.8 (48.0-80.0) % Lymph % (Auto) 15.8 L (16.0-40.0) % Gillespie % (Auto) 9.6 (0.0-15.0) % Eos % (Auto) 0.7 (0.0-7.0) % Baso % (Auto) 0.1 (0.0-1.5) % Neut # (Auto) 6.0 H (1.4-5.7) K/uL Lymph # (Auto) 1.3 (0.6-2.4) K/uL Gillespie # (Auto) 0.8 (0.0-0.8) K/uL Eos # (Auto) 0.1 (0.0-0.7) K/uL Baso # (Auto) 0.0 (0.0-0.1) K/uL Nucleated RBC % 0.0 /100WBC Nucleated RBCs # 0 K/uL Sodium (136-145) mmol/L Potassium (3.5-5.1) mmol/L Chloride (98-107) mmol/L Carbon Dioxide (21.0-32.0) mmol/L BUN (7.0-18.0) mg/dL Creatinine (0.6-1.0) mg/dL Est Cr Clr Drug Dosing mL/min Estimated GFR (MDRD) ml/min Glucose (74-106) mg/dL POC Glucose 191 H (70-99) mg/dL Hemoglobin A1c (4.5 - 6.2) % Calcium (8.5-10.1) mg/dL Magnesium (1.8-2.4) mg/dL Triglycerides (0-200) mg/dL Cholesterol (50-200) mg/dL LDL Cholesterol, Calc (60-180) mg/dL VLDL Cholesterol (5-55) mg/dL HDL Cholesterol (40-60) mg/dL Cholesterol/HDL Ratio (3.3-6.0) TSH 3rd Generation (0.36-3.74) uIU/mL Result Diagrams: 04/22/21 05:17 04/22/21 05:17 Sepsis Event Note - Evaluation Sepsis Screening Result: No Definite Risk - Focused Exam Vital Signs: Vital Signs Temp Pulse Resp BP BP Pulse Ox 04/22/21 09:15 106/70 04/22/21 08:58 125/63 04/22/21 08:20 188/87 H 04/22/21 07:45 96.8 F L 85 20 171/81 H 92 L 04/22/21 07:12 88 157/79 H 04/22/21 07:00 97.5 F 89 20 196/83 H 95 04/22/21 06:53 97.5 F 89 20 196/83 H 95 04/22/21 03:57 97.0 F 97 20 179/83 H 94 L 04/21/21 23:02 97 96 04/21/21 23:00 100 16 183/84 H 87 L - Problem List & Annotations (1) CVA (cerebral vascular accident) SNOMED Code(s): 654523199 Code(s): I63.9 - CEREBRAL INFARCTION, UNSPECIFIED Status: Suspected Current Visit: Yes (2) AMS (altered mental status) SNOMED Code(s): 556342705 Code(s): R41.82 - ALTERED MENTAL STATUS, UNSPECIFIED Status: Acute Current Visit: Yes (3) Hypertensive urgency SNOMED Code(s): 188943141 Code(s): I16.0 - HYPERTENSIVE URGENCY Status: Suspected Current Visit: Yes (4) HTN (hypertension) SNOMED Code(s): 73973225 Code(s): I10 - ESSENTIAL (PRIMARY) HYPERTENSION Status: Chronic Current Visit: No Qualifiers: Hypertension type: essential hypertension (5) Type 2 diabetes mellitus SNOMED Code(s): 23771973 Code(s): E11.9 - TYPE 2 DIABETES MELLITUS WITHOUT COMPLICATIONS Status: Chronic Current Visit: No Qualifiers: Diabetes mellitus terminal manager insulin use: with terminal manager use Diabetes ramses eric complication status: without complication Qualified Code(s): E11.9 - Type 2 diabetes mellitus without complications; Z79.4 - terminal operator (current) use of insulin - Problem List Review Problem List Initiated/Reviewed/Updated: Yes - My Orders Last 24 Hours: My Active Orders 04/21/21 10:05 Echo Comp wo Cont [US] Urgent 04/21/21 10:06 Neuro Check [RC] Q4HR 04/21/21 12:59 Consult to Speech Language Pathology [LABEL DESIGNER Evaluation and Treatment] [CONS] Routine 04/21/21 13:00 PT Evaluation and Treatment [CONS] Routine 04/21/21 14:17 Resuscitation Status Routine 04/21/21 21:00 atorvaSTATin [Lipitor] 80 mg PO BEDTIME 04/22/21 07:51 Magnesium Sulfate/Water [Magnesium Sulfate in Water 2 GM/50 ML] 2 gm Premix Bag 1 bag IV ONETIME 04/22/21 07:54 Ang Head [CT] Urgent Ang Neck [CT] Urgent Head wo Cont [CT] Urgent 04/22/21 07:56 Patient Status [ADT] Stat 04/22/21 09:00 Aspirin 81 mg PO DAILY 04/23/21 05:11 BMP [BASIC METABOLIC PANEL,BMP] [CHEM] AM CBC WITH AUTO DIFF [HEME] AM MAGNESIUM [CHEM] AM - Plan Plan:: 89-year-old female admitted to altered mental status likely secondary to hypertensive encephalopathy versus stroke 1. Altered mental status -Continuing to have some sedation after Ativan given yesterday. We will continue monitor -Head CT negative ruled out any large infarct or bleed -Patient unable to complete MRIs yesterday. Patient also given Ativan for CTA but was not able to lie still. -Will reattempt CTA of head and neck today along with noncontrast head CT to evaluate for stroke. -With continued symptoms along with blood pressure control patient likely suff ered CVA. -Consult speech therapy as well as physical therapy. Occupational Therapy not needed at this time as no concerns with ADLs or upper extremities noted. -A1c 7.6. Triglycerides 88 total cholesterol 171 LDL 86 HDL 57. TSH 1.71 -Monitor on telemetry for any type of arrhythmia -We will need follow-up with neurology consider Zio patch on discharge -May need rehabilitation at intermediate facility. -Given that it has been over 48 hours from symptom onset patient did have stroke will restart home blood pressure medications. 2. DM type II -NovoLog sliding scale with meals -ADA diet 3. Hypertension -Restart antihypertensives 4. Rectal mass -Possibly external hemorrhoid versus prolapse -Arrange outpatient follow-up with general surgery -No pain and no bleeding noted VTE prophylaxis: SCDs for now likely start heparin in a.m. CODE STATUS: Unable to confirm with patient. I did speak with Julianne, daughter who has advanced directives which they helped get set up with home health this past year. Reports that patient is full code but would not want long-term mechanical ventilation. Dispo: We will make inpatient as patient likely need greater than 2 midnight stay. Possible placement needed after stay.
[2021-04-22] MEDS: Sertraline 100 MG Tab PO SCH (11:26)
[2021-04-22] MEDS: Pantoprazole 40 MG Tab.CR PO SCH ×2 (11:26→21:42)
[2021-04-22] MEDS: Aspirin 81 MG Tab.Chew PO SCH ×2 (11:26→18:56)
--- NOTE | 2021-04-22 17:38 | CT ---
DATE: 04/22/2021. CLINICAL HISTORY: Patient with neurological deficit. TECHNIQUE: Standard helical CT image acquisition of the brain following by standard helical CT image acquisition through the head and neck after intravenous contrast bolus enhancement. Multiplanar reconstructed images performed on a separate workstation. COMPARISON: Brain MRI dated 04/21/2021. FINDINGS: CT HEAD: There is no acute intracranial hemorrhage. No extra-axial collection, mass effect, or midline shift. Patchy hypoattenuation within the white matter of both hemispheres likely reflects sequela of chronic small vessel ischemia. Extensive intracranial atherosclerotic calcification. Mild generalized parenchymal volume loss with resulting prominence of cerebral sulci and the ventricular system. The calvarium is unremarkable. The orbits are unremarkable. 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 There is also partial opacification of the left sphenoid sinus. The mastoid air cells are unremarkable. The soft tissues are unremarkable. CT ANGIOGRAM HEAD AND NECK: The origins of the great vessels from the aortic arch are patent. The origins of the right and left vertebral arteries are patent. The common carotid arteries are patent. No significant stenoses at the origins of the proximal internal carotid arteries by NASCET criteria. The more distal cervical segments of the internal carotid arteries are patent and demonstrate a retropharyngeal course. The cervical segments of the vertebral arteries are patent. No intracranial proximal large vessel occlusion. There is multifocal intracranial atherosclerotic disease, with luminal irregularity and moderate to severe luminal stenosis of the distal M1 segment of the right middle cerebral artery and mild luminal stenosis of the distal M1 segment of the left middle cerebral artery. The visualized lung apices are unremarkable. The thyroid gland is unremarkable. There are advanced degenerative changes in the cervical spine. IMPRESSION: 1. No CT evidence of acute intracranial abnormality. 2. Senescent changes including generalized parenchymal volume loss and findings most consistent with sequela of chronic small vessel ischemia. 3. Paranasal sinus disease, as above. 4. No intracranial proximal large vessel occlusion. 5. Multifocal intracranial atherosclerotic disease with luminal irregularity and moderate to severe luminal stenosis of the distal M1 segment of the right middle cerebral artery and mild luminal stenosis of the distal M1 segment of the left middle cerebral artery. 6. Patent cervical arterial vasculature without hemodynamically significant luminal stenosis. Please note that all CT scans at this facility use dose modulation, iterative reconstruction, and/or weight-based dosing when appropriate to reduce radiation dose to as low as reasonably achievable. Dictated by Eliseo Wilson MD @ 04/22/2021 5:36:[address] Eliseo Wilson @ Apr 22 2021 5:36PM
[2021-04-22] MEDS: Clopidogrel 75 MG Tab PO SCH (18:56)
[2021-04-22] MEDS: atorvaSTATin 40 MG Tab PO SCH (21:41)
[2021-04-22] MEDS: rOPINIRole 0.5 MG Tab PO SCH (21:42)
[2021-04-22] MEDS: Gabapentin 300 MG Cap PO SCH (21:42)
[2021-04-22] MEDS: Insulin Detemir 100 Units/ML 3 ML Pen SUBCUT SCH (21:57)
--- NOTE | 2021-04-22 22:16 | PCM.SN.2 ---
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 Patent cervical arterial vasculature. Patient's aphasia has resolved at this point she is more awake and alert, unfortunately MRI could not be obtained because patient could not tolerate being in the MRI for long time in spite of angiolytics, conscious sedation was suggested by radiology but family refused conscious sedation. The findings of the CTA were discussed with patient as well as with patient's daughter in detail, the lesion does correlate with patient's symptoms of dysarthria and aphasia so there is a possibility that patient had a stroke. Patient and patient's daughter at this point would like purely Medical management for the stenosis and are not interested whatsoever in any surgical intervention. I will start patient on dual antiplatelet therapy and she will follow up with a neurologist on outpatient basis upon discharge.
[2021-04-23 06:40] LABS: CARBON DIOXIDE,CO2 30.3 mmol/L (21.0-32.0); POTASSIUM,K 3.5 mmol/L (3.5-5.1)
[2021-04-23] MEDS: Metoprolol Succinate 25 MG Tab.ER PO SCH (08:49)
[2021-04-23] MEDS: Sertraline 100 MG Tab PO SCH (08:49)
[2021-04-23] MEDS: Pantoprazole 40 MG Tab.CR PO SCH ×2 (08:50→21:09)
[2021-04-23] MEDS: Clopidogrel 75 MG Tab PO SCH (08:50)
[2021-04-23] MEDS: Aspirin 81 MG Tab.Chew PO SCH (08:50)
[2021-04-23] MEDS: Losartan 50 MG Tab PO SCH (08:50)
[2021-04-23] MEDS: Insulin Aspart 100 Units/ML 3 ML Pen SUBCUT SCH ×3 (08:59→17:48)
--- NOTE | 2021-04-23 12:24 | PCM.PN ---
- General Info Date of Service: 04/23/21 Admission Dx/Problem (Free Text): Admission Diagnosis/Problem Admission Diagnosis/Problem Altered mental status Subjective Update: Patient seen at bedside, no acute distress apparently patient had to be straight cathed once after she was retaining more than a liter of urine. Patient denies any abdominal pain chest pain nausea vomiting, speech is back to baseline her mentation is back to normal Functional Status: Reports: Tolerating Diet, Ambulating - Review of Systems General: Denies: Fever, Weakness Pulmonary: Denies: Shortness of Breath, Pleuritic Chest Pain Gastrointestinal: Denies: Abdominal Pain, Constipation, Decreased Appetite Genitourinary: Denies: Dysuria, Frequency, Burning Musculoskeletal: Denies: Neck Pain, Shoulder Pain, Arm Pain Skin: Denies: Cyanosis, Jaundice, Mottled - Patient Data Vitals - Most Recent: Last Vital Signs Temp 37 C 04/23/21 08:00 Pulse 86 04/23/21 08:49 Resp 16 04/23/21 08:00 BP 160/76 H 04/23/21 08:50 Pulse Ox 95 04/23/21 08:50 Weight - Most Recent: 63 kg I&O - Last 24 Hours: Intake & Output 04/22/21 04/23/21 04/23/21 22:59 06:59 14:59 Intake Total 1160 650 Output Total 736 1300 Balance 424 -650 Lab Results Last 24 Hours: Laboratory Results - last 24 hr 04/22/21 04/22/21 04/23/21 Range/Units 15:28 21:56 06:16 WBC 7.09 (4.0-11.0) K/uL RBC 4.35 (4.30-5.90) M/uL Hgb 12.5 (12.0-16.0) g/dL Hct 37.6 (36.0-46.0) % MCV 86.4 (80.0-98.0) fL MCH 28.7 (27.0-32.0) pg MCHC 33.2 (31.0-37.0) g/dL RDW Std Deviation 51.1 (28.0-62.0) fl RDW Coeff of Renard 16 H (11.0-15.0) % Plt Count 154 (150-400) K/uL MPV 9.60 (7.40-12.00) fL Neut % (Auto) 67.4 (48.0-80.0) % Lymph % (Auto) 20.7 (16.0-40.0) % [place] % (Auto) 8.9 (0.0-15.0) % Eos % (Auto) 2.7 (0.0-7.0) % Baso % (Auto) 0.3 (0.0-1.5) % Neut # (Auto) 4.8 (1.4-5.7) K/uL Lymph # (Auto) 1.5 (0.6-2.4) K/uL [place] # (Auto) 0.6 (0.0-0.8) K/uL Eos # (Auto) 0.2 (0.0-0.7) K/uL Baso # (Auto) 0.0 (0.0-0.1) K/uL Nucleated RBC % 0.0 /100WBC Nucleated RBCs # 0 K/uL Sodium (136-145) mmol/L Potassium (3.5-5.1) mmol/L Chloride (98-107) mmol/L Carbon Dioxide (21.0-32.0) mmol/L BUN (7.0-18.0) mg/dL Creatinine (0.6-1.0) mg/dL Est Cr Clr Drug Dosing mL/min Estimated GFR (MDRD) ml/min Glucose (74-106) mg/dL POC Glucose 159 H 180 H (70-99) mg/dL Calcium (8.5-10.1) mg/dL Magnesium (1.8-2.4) mg/dL 04/23/21 04/23/21 Range/Units 06:16 06:41 WBC (4.0-11.0) K/uL RBC (4.30-5.90) M/uL Hgb (12.0-16.0) g/dL Hct (36.0-46.0) % MCV (80.0-98.0) fL MCH (27.0-32.0) pg MCHC (31.0-37.0) g/dL RDW Std Deviation (28.0-62.0) fl RDW Coeff of Renard (11.0-15.0) % Plt Count (150-400) K/uL MPV (7.40-12.00) fL Neut % (Auto) (48.0-80.0) % Lymph % (Auto) (16.0-40.0) % [place] % (Auto) (0.0-15.0) % Eos % (Auto) (0.0-7.0) % Baso % (Auto) (0.0-1.5) % Neut # (Auto) (1.4-5.7) K/uL Lymph # (Auto) (0.6-2.4) K/uL [place] # (Auto) (0.0-0.8) K/uL Eos # (Auto) (0.0-0.7) K/uL Baso # (Auto) (0.0-0.1) K/uL Nucleated RBC % /100WBC Nucleated RBCs # K/uL Sodium 137 (136-145) mmol/L Potassium 3.5 (3.5-5.1) mmol/L Chloride 99 (98-107) mmol/L Carbon Dioxide 30.3 (21.0-32.0) mmol/L BUN 16 (7.0-18.0) mg/dL Creatinine 1.3 H (0.6-1.0) mg/dL Est Cr Clr Drug Dosing 26.40 mL/min Estimated GFR (MDRD) 38.6 ml/min Glucose 183 H (74-106) mg/dL POC Glucose 192 H (70-99) mg/dL Calcium 9.3 (8.5-10.1) mg/dL Magnesium 2.0 (1.8-2.4) mg/dL Med Orders - Current: Current Medications Acetaminophen (Acetaminophen 325 Mg Tab) 650 mg PO Q4H PRN PRN Reason: Pain (Mild 1-3)/fever Last Admin: 04/21/21 00:30 Dose: 650 mg Documented by: Albuterol/Ipratropium (Albuterol/Ipratropium 3.0-0.5 Mg/3 Ml Neb Soln) 3 ml NEB Q4HRRT PRN PRN Reason: Shortness Of Breath/wheezing Aspirin (Aspirin 81 Mg Tab.Chew) 81 mg PO DAILY [facility] Last Admin: 04/23/21 08:50 Dose: 81 mg Documented by: Atorvastatin Calcium (Atorvastatin 40 Mg Tab) 80 mg PO BEDTIME SHEYLA Last Admin: 04/22/21 21:41 Dose: 80 mg Documented by: Clopidogrel Bisulfate (Clopidogrel 75 Mg Tab) 75 mg PO DAILY [facility] Last Admin: 04/23/21 08:50 Dose: 75 mg Documented by: Dextrose/Water (50% Dextrose In Water 50 Ml Syringe) 50 ml IVPUSH ASDIRECTED PRN PRN Reason: Hypoglycemia Gabapentin (Gabapentin 300 Mg Cap) 300 mg PO BEDTIME [facility] Last Admin: 04/22/21 21:42 Dose: 300 mg Documented by: Glucagon (Glucagon,Human Recombinant 1 Mg Vial) 1 mg IM ASDIRECTED PRN PRN Reason: Hypoglycemia Lactated Ringer's (Ringers, Lactated) 1,000 mls @ 125 mls/hr IV ASDIRECTED SHEYLA Insulin Aspart (Insulin Aspart 100 Units/Ml 3 Ml Pen) 0 unit SUBCUT TIDAC [facility]; Protocol Last Admin: 04/23/21 08:59 Dose: 2 units Documented by: Insulin Detemir (Insulin Detemir 100 Units/Ml 3 Ml Pen) 7 unit SUBCUT BEDTIME [facility] Last Admin: 04/22/21 21:57 Dose: 7 units Documented by: Labetalol HCl (Labetalol 100 Mg/20 Ml Mdv) 20 mg IVPUSH Q3H PRN PRN Reason: Hypertension SBP>190 Last Admin: 04/22/21 22:01 Dose: 20 mg Documented by: Losartan Potassium (Losartan 50 Mg Tab) 100 mg PO DAILY [facility] Last Admin: 04/23/21 08:50 Dose: 100 mg Documented by: Metoprolol Succinate (Metoprolol Succinate 25 Mg Tab.Er) 25 mg PO DAILY [facility] Last Admin: 04/23/21 08:49 Dose: 25 mg Documented by: Ondansetron HCl (Ondansetron 4 Mg/2 Ml Sdv) 4 mg IVPUSH Q4H PRN PRN Reason: Nausea/Vomiting Pantoprazole Sodium (Pantoprazole 40 Mg Tab.Cr) 40 mg PO BID [facility] Last Admin: 04/23/21 08:50 Dose: 40 mg Documented by: Ropinirole HCl (Ropinirole 0.5 Mg Tab) 0.25 mg PO BEDTIME [facility] Last Admin: 04/22/21 21:42 Dose: 0.25 mg Documented by: Sertraline HCl (Sertraline 100 Mg Tab) 100 mg PO DAILY [facility] Last Admin: 04/23/21 08:49 Dose: 100 mg Documented by: Discontinued Medications Hydralazine HCl (Hydralazine 20 Mg/Ml Sdv) 5 mg IVPUSH ONETIME ONE Stop: 04/20/21 17:28 Last Admin: 04/20/21 17:59 Dose: 5 mg Documented by: Lactated Ringer's (Ringers, Lactated) 1,000 mls @ 125 mls/hr IV ASDIRECTED SHEYLA Last Admin: 04/21/21 06:52 Dose: 125 mls/hr Documented by: Magnesium Sulfate 2 gm/ Premix 50 mls @ 25 mls/hr IV ONETIME ONE Stop: 04/22/21 09:50 Last Admin: 04/22/21 09:25 Dose: 25 mls/hr Documented by: Insulin Detemir (Insulin Detemir 100 Units/Ml 3 Ml Pen) 7 unit SUBCUT ONETIME ONE Stop: 04/21/21 00:10 Last Admin: 04/21/21 00:25 Dose: 7 units Documented by: Labetalol HCl (Labetalol 100 Mg/20 Ml Mdv) 20 mg IVPUSH Q4H PRN; Protocol PRN Reason: Hypertension Last Admin: 04/20/21 22:31 Dose: 20 mg Documented by: Labetalol HCl (Labetalol 100 Mg/20 Ml Mdv) 20 mg IVPUSH ONETIME ONE; Protocol Stop: 04/20/21 23:21 Last Admin: 04/21/21 00:14 Dose: 20 mg Documented by: Lorazepam (Lorazepam 2 Mg/Ml Sdv) 1 mg IVPUSH ONETIME ONE Stop: 04/21/21 13:20 Last Admin: 04/21/21 13:41 Dose: 1 mg Documented by: Lorazepam (Lorazepam 2 Mg/Ml Sdv) 1 mg IVPUSH ONETIME ONE Stop: 04/21/21 15:02 Last Admin: 04/21/21 15:14 Dose: 1 mg Documented by: Losartan Potassium (Losartan 50 Mg Tab) 100 mg PO ONETIME ONE Stop: 04/20/21 18:15 Last Admin: 04/20/21 18:30 Dose: 100 mg Documented by: Losartan Potassium (Losartan 50 Mg Tab) 100 mg PO DAILY [facility] Metoprolol Succinate (Metoprolol Succinate 25 Mg Tab.Er) 25 mg PO ONETIME ONE Stop: 04/20/21 18:15 Last Admin: 04/20/21 18:30 Dose: 25 mg Documented by: Metoprolol Succinate (Metoprolol Succinate 25 Mg Tab.Er) 25 mg PO DAILY [facility] Ropinirole HCl (Ropinirole 0.5 Mg Tab) 0.25 mg PO BEDTIME [facility] Simvastatin (Simvastatin 20 Mg Tab) 20 mg PO BEDTIME [facility] Simvastatin (Simvastatin 20 Mg Tab) 80 mg PO BEDTIME SHEYLA - Exam Urinary Catheter Total Time: 0Days 0Hours General: Alert, Oriented Lungs: Clear to Auscultation, Normal Respiratory Effort Cardiovascular: Regular Rate, Regular Rhythm GI/Abdominal Exam: Normal Bowel Sounds, Soft, Non-Tender Extremities: Normal Inspection, Normal Range of Motion - Patient Data Lab Results Last 24 hrs: Laboratory Results - last 24 hr 04/22/21 04/22/21 04/23/21 Range/Units 15:28 21:56 06:16 WBC 7.09 (4.0-11.0) K/uL RBC 4.35 (4.30-5.90) M/uL Hgb 12.5 (12.0-16.0) g/dL Hct 37.6 (36.0-46.0) % MCV 86.4 (80.0-98.0) fL MCH 28.7 (27.0-32.0) pg MCHC 33.2 (31.0-37.0) g/dL RDW Std Deviation 51.1 (28.0-62.0) fl RDW Coeff of Renard 16 H (11.0-15.0) % Plt Count 154 (150-400) K/uL MPV 9.60 (7.40-12.00) fL Neut % (Auto) 67.4 (48.0-80.0) % Lymph % (Auto) 20.7 (16.0-40.0) % [place] % (Auto) 8.9 (0.0-15.0) % Eos % (Auto) 2.7 (0.0-7.0) % Baso % (Auto) 0.3 (0.0-1.5) % Neut # (Auto) 4.8 (1.4-5.7) K/uL Lymph # (Auto) 1.5 (0.6-2.4) K/uL [place] # (Auto) 0.6 (0.0-0.8) K/uL Eos # (Auto) 0.2 (0.0-0.7) K/uL Baso # (Auto) 0.0 (0.0-0.1) K/uL Nucleated RBC % 0.0 /100WBC Nucleated RBCs # 0 K/uL Sodium (136-145) mmol/L Potassium (3.5-5.1) mmol/L Chloride (98-107) mmol/L Carbon Dioxide (21.0-32.0) mmol/L BUN (7.0-18.0) mg/dL Creatinine (0.6-1.0) mg/dL Est Cr Clr Drug Dosing mL/min Estimated GFR (MDRD) ml/min Glucose (74-106) mg/dL POC Glucose 159 H 180 H (70-99) mg/dL Calcium (8.5-10.1) mg/dL Magnesium (1.8-2.4) mg/dL 04/23/21 04/23/21 Range/Units 06:16 06:41 WBC (4.0-11.0) K/uL RBC (4.30-5.90) M/uL Hgb (12.0-16.0) g/dL Hct (36.0-46.0) % MCV (80.0-98.0) fL MCH (27.0-32.0) pg MCHC (31.0-37.0) g/dL RDW Std Deviation (28.0-62.0) fl RDW Coeff of Renard (11.0-15.0) % Plt Count (150-400) K/uL MPV (7.40-12.00) fL Neut % (Auto) (48.0-80.0) % Lymph % (Auto) (16.0-40.0) % [place] % (Auto) (0.0-15.0) % Eos % (Auto) (0.0-7.0) % Baso % (Auto) (0.0-1.5) % Neut # (Auto) (1.4-5.7) K/uL Lymph # (Auto) (0.6-2.4) K/uL [place] # (Auto) (0.0-0.8) K/uL Eos # (Auto) (0.0-0.7) K/uL Baso # (Auto) (0.0-0.1) K/uL Nucleated RBC % /100WBC Nucleated RBCs # K/uL Sodium 137 (136-145) mmol/L Potassium 3.5 (3.5-5.1) mmol/L Chloride 99 (98-107) mmol/L Carbon Dioxide 30.3 (21.0-32.0) mmol/L BUN 16 (7.0-18.0) mg/dL Creatinine 1.3 H (0.6-1.0) mg/dL Est Cr Clr Drug Dosing 26.40 mL/min Estimated GFR (MDRD) 38.6 ml/min Glucose 183 H (74-106) mg/dL POC Glucose 192 H (70-99) mg/dL Calcium 9.3 (8.5-10.1) mg/dL Magnesium 2.0 (1.8-2.4) mg/dL Result Diagrams: 04/23/21 06:16 04/23/21 06:16 Sepsis Event Note - Evaluation Sepsis Screening Result: No Definite Risk - Focused Exam Vital Signs: Vital Signs Temp Pulse Pulse Resp BP BP Pulse Ox 04/23/21 08:50 160/76 H 95 04/23/21 08:49 86 160/76 H 04/23/21 08:00 37 C 86 16 160/76 H 96 04/23/21 03:51 36.6 C 77 16 167/67 H 92 L - Problem List & Annotations (1) AMS (altered mental status) SNOMED Code(s): 150993496 Code(s): R41.82 - ALTERED MENTAL STATUS, UNSPECIFIED Status: Acute Current Visit: Yes (2) Hypertensive urgency SNOMED Code(s): 710064415 Code(s): I16.0 - HYPERTENSIVE URGENCY Status: Suspected Current Visit: Yes (3) HTN (hypertension) SNOMED Code(s): 53265269 Code(s): I10 - ESSENTIAL (PRIMARY) HYPERTENSION Status: Chronic Current Visit: No Qualifiers: Hypertension type: essential hypertension (4) Type 2 diabetes mellitus SNOMED Code(s): 60575147 Code(s): E11.9 - TYPE 2 DIABETES MELLITUS WITHOUT COMPLICATIONS Status: Chronic Current Visit: No Qualifiers: Diabetes mellitus correction insulin use: with intermodal dispatcher use Diabetes mellitus complication status: without complication Qualified Code(s): E11.9 - Type 2 diabetes mellitus without complications; Z79.4 - FDC (current) use of insulin - Problem List Review Problem List Initiated/Reviewed/Updated: Yes - My Orders Last 24 Hours: My Active Orders 04/22/21 18:45 Clopidogrel [Plavix] 75 mg PO DAILY 04/23/21 09:15 Lactated Ringers [Ringers, Lactated] 1,000 ml IV ASDIRECTED - Plan Plan:: 89-year-old female admitted to altered mental status likely secondary to hypertensive encephalopathy versus stroke 1. 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 Occupational Therapy not needed at this time as no concerns with ADLs or upper extremities noted. -A1c 7.6. Triglycerides 88 total cholesterol 171 LDL 86 HDL 57. TSH 1.71 -Monitor on telemetry for any type of arrhythmia -We will need follow-up with neurology, consider Zio patch on discharge -[facility] -Given that it has been over 48 hours from symptom onset patient did have stroke will restart home blood pressure medications. 2. DM type II -NovoLog sliding scale with meals -ADA diet 3. Hypertension -Restart antihypertensives 4. Rectal mass -Possibly external hemorrhoid versus prolapse -Arrange outpatient follow-up with general surgery -No pain and no bleeding noted VTE prophylaxis: SCDs for now likely start heparin in a.m. CODE STATUS: Unable to confirm with patient. I did speak with Julianne, daughter who has advanced directives which they helped get set up with home health this past year. Reports that patient is full code but would not want long-term mechanical ventilation. Dispo: We will make inpatient as patient likely need greater than 2 midnight stay. Possible placement needed after stay.
[2021-04-23] MEDS: Lactated Ringers 1,000 ML IV SCH ×2 (14:07→22:43)
[2021-04-23] MEDS ORDERED: cefTRIAXone 1 GM Vial IVPUSH SCH (19:30)
[2021-04-23] MEDS: cefTRIAXone 1 GM in Premix Bag 1 BAG IV SCH (21:00)
[2021-04-23] MEDS: Gabapentin 300 MG Cap PO SCH (21:08)
[2021-04-23] MEDS: rOPINIRole 0.5 MG Tab PO SCH (21:09)
[2021-04-23] MEDS: atorvaSTATin 40 MG Tab PO SCH (21:09)
[2021-04-23] MEDS: Insulin Detemir 100 Units/ML 3 ML Pen SUBCUT SCH (21:13)
[2021-04-23] MEDS: Acetaminophen 325 MG Tab PO PRN (23:57)
[2021-04-24] MEDS: Labetalol 100 MG/20 ML MDV IVPUSH PRN (06:03)
[2021-04-24 07:21] LABS: POTASSIUM,K 3.2 mmol/L (3.5-5.1)
[2021-04-24] MEDS: Clopidogrel 75 MG Tab PO SCH (09:43)
[2021-04-24] MEDS: Metoprolol Succinate 25 MG Tab.ER PO SCH (09:43)
[2021-04-24] MEDS: Sertraline 100 MG Tab PO SCH (09:43)
[2021-04-24] MEDS: Aspirin 81 MG Tab.Chew PO SCH (09:43)
[2021-04-24] MEDS: Pantoprazole 40 MG Tab.CR PO SCH ×2 (09:43→20:48)
[2021-04-24] MEDS: Losartan 50 MG Tab PO SCH (09:43)
[2021-04-24] MEDS: Insulin Aspart 100 Units/ML 3 ML Pen SUBCUT SCH ×3 (09:43→18:48)
[2021-04-24] MEDS ORDERED: Magnesium Sulfate/Water 2 GM in Premix Bag 1 BAG IV ONE (10:29)
[2021-04-24] MEDS ORDERED: Potassium Chloride 10% 20 MEQ/15 ML Soln 30 ML UD Cup PO ONE (10:34)
[2021-04-24] MEDS: amLODIPine 5 MG Tab PO SCH (11:02)
--- NOTE | 2021-04-24 13:16 | PCM.PN ---
- General Info Date of Service: 04/24/21 Admission Dx/Problem (Free Text): Admission Diagnosis/Problem Admission Diagnosis/Problem Altered mental status Subjective Update: Patient seen at bedside, sitting in chair, coloring her book, no acute distress , feels much better, Functional Status: Reports: Tolerating Diet, Ambulating, Urinating - Review of Systems General: Denies: Fever, Weakness Pulmonary: Denies: Shortness of Breath, Pleuritic Chest Pain Cardiovascular: Denies: Chest Pain, Palpitations, Dyspnea on Exertion Gastrointestinal: Denies: Abdominal Pain, Constipation, Decreased Appetite Genitourinary: Denies: Dysuria, Frequency, Burning Musculoskeletal: Denies: Neck Pain, Shoulder Pain, Arm Pain Skin: Denies: Cyanosis, Jaundice, Mottled - Patient Data Vitals - Most Recent: Last Vital Signs Temp 36.2 C 04/24/21 12:00 Pulse 85 04/24/21 12:00 Resp 17 04/24/21 12:00 BP 169/90 H 04/24/21 12:00 Pulse Ox 94 L 04/24/21 12:00 Weight - Most Recent: 63 kg I&O - Last 24 Hours: Intake & Output 04/23/21 04/24/21 04/24/21 22:59 06:59 14:59 Intake Total 2056 1354 Output Total 0 1150 Balance 2056 204 Lab Results Last 24 Hours: Laboratory Results - last 24 hr 04/23/21 04/23/21 04/23/21 Range/Units 17:09 18:30 21:06 WBC (4.0-11.0) K/uL RBC (4.30-5.90) M/uL Hgb (12.0-16.0) g/dL Hct (36.0-46.0) % MCV (80.0-98.0) fL MCH (27.0-32.0) pg MCHC (31.0-37.0) g/dL RDW Std Deviation (28.0-62.0) fl RDW Coeff of Renard (11.0-15.0) % Plt Count (150-400) K/uL MPV (7.40-12.00) fL Neut % (Auto) (48.0-80.0) % Lymph % (Auto) (16.0-40.0) % [place] % (Auto) (0.0-15.0) % Eos % (Auto) (0.0-7.0) % Baso % (Auto) (0.0-1.5) % Neut # (Auto) (1.4-5.7) K/uL Lymph # (Auto) (0.6-2.4) K/uL [place] # (Auto) (0.0-0.8) K/uL Eos # (Auto) (0.0-0.7) K/uL Baso # (Auto) (0.0-0.1) K/uL Sodium (136-145) mmol/L Potassium (3.5-5.1) mmol/L Chloride (98-107) mmol/L Carbon Dioxide (21.0-32.0) mmol/L BUN (7.0-18.0) mg/dL Creatinine (0.6-1.0) mg/dL Est Cr Clr Drug Dosing mL/min Estimated GFR (MDRD) ml/min Glucose (74-106) mg/dL POC Glucose 219 H 212 H (70-99) mg/dL Calcium (8.5-10.1) mg/dL Phosphorus (2.6-4.7) mg/dL Magnesium (1.8-2.4) mg/dL Urine Color YELLOW Urine Appearance SLT CLOUDY Urine pH 6.5 (5.0-8.0) Ur Specific [place] 1.015 (1.001-1.035) Urine Protein 100 H (NEGATIVE) mg/dL Urine Glucose (UA) NEGATIVE (NEGATIVE) mg/dL Urine Ketones NEGATIVE (NEGATIVE) mg/dL Urine Occult Blood TRACE-INTACT H (NEGATIVE) Urine Nitrite NEGATIVE (NEGATIVE) Urine Bilirubin NEGATIVE (NEGATIVE) Urine Urobilinogen 0.2 (<2.0) EU/dL Ur Leukocyte Esterase SMALL H (NEGATIVE) Urine RBC 1-3 (0-2/HPF) Urine WBC 1-3 (0-5/HPF) Ur Epithelial Cells FEW (NONE-FEW) Urine Bacteria FEW (NEGATIVE) Urine Yeast RARE 04/24/21 04/24/21 04/24/21 Range/Units 06:44 06:46 06:46 WBC 5.46 (4.0-11.0) K/uL RBC 3.99 L (4.30-5.90) M/uL Hgb 11.6 L (12.0-16.0) g/dL Hct 34.4 L (36.0-46.0) % MCV 86.2 (80.0-98.0) fL MCH 29.1 (27.0-32.0) pg MCHC 33.7 (31.0-37.0) g/dL RDW Std Deviation 48.1 (28.0-62.0) fl RDW Coeff of Renard 16 H (11.0-15.0) % Plt Count 143 L (150-400) K/uL MPV 9.70 (7.40-12.00) fL Neut % (Auto) 59.1 (48.0-80.0) % Lymph % (Auto) 24.7 (16.0-40.0) % [place] % (Auto) 12.5 (0.0-15.0) % Eos % (Auto) 3.5 (0.0-7.0) % Baso % (Auto) 0.2 (0.0-1.5) % Neut # (Auto) 3.2 (1.4-5.7) K/uL Lymph # (Auto) 1.4 (0.6-2.4) K/uL [place] # (Auto) 0.7 (0.0-0.8) K/uL Eos # (Auto) 0.2 (0.0-0.7) K/uL Baso # (Auto) 0.0 (0.0-0.1) K/uL Sodium 141 (136-145) mmol/L Potassium 3.2 L (3.5-5.1) mmol/L Chloride 104 (98-107) mmol/L Carbon Dioxide 30.0 (21.0-32.0) mmol/L BUN 13 (7.0-18.0) mg/dL Creatinine 1.0 (0.6-1.0) mg/dL Est Cr Clr Drug Dosing 34.32 mL/min Estimated GFR (MDRD) 52.2 ml/min Glucose 184 H (74-106) mg/dL POC Glucose 179 H (70-99) mg/dL Calcium 8.9 (8.5-10.1) mg/dL Phosphorus 3.1 (2.6-4.7) mg/dL Magnesium 1.7 L (1.8-2.4) mg/dL Urine Color Urine Appearance Urine pH (5.0-8.0) Ur Specific [place] (1.001-1.035) Urine Protein (NEGATIVE) mg/dL Urine Glucose (UA) (NEGATIVE) mg/dL Urine Ketones (NEGATIVE) mg/dL Urine Occult Blood (NEGATIVE) Urine Nitrite (NEGATIVE) Urine Bilirubin (NEGATIVE) Urine Urobilinogen (<2.0) EU/dL Ur Leukocyte Esterase (NEGATIVE) Urine RBC (0-2/HPF) Urine WBC (0-5/HPF) Ur Epithelial Cells (NONE-FEW) Urine Bacteria (NEGATIVE) Urine Yeast Med Orders - Current: Current Medications Acetaminophen (Acetaminophen 325 Mg Tab) 650 mg PO Q4H PRN PRN Reason: Pain (Mild 1-3)/fever Last Admin: 04/23/21 23:57 Dose: 650 mg Documented by: Albuterol/Ipratropium (Albuterol/Ipratropium 3.0-0.5 Mg/3 Ml Neb Soln) 3 ml NEB Q4HRRT PRN PRN Reason: Shortness Of Breath/wheezing Amlodipine Besylate (Amlodipine 5 Mg Tab) 10 mg PO DAILY [facility] Last Admin: 04/24/21 11:02 Dose: 10 mg Documented by: Aspirin (Aspirin 81 Mg Tab.Chew) 81 mg PO DAILY [facility] Last Admin: 04/24/21 09:43 Dose: 81 mg Documented by: Atorvastatin Calcium (Atorvastatin 40 Mg Tab) 80 mg PO BEDTIME [facility] Last Admin: 04/23/21 21:09 Dose: 80 mg Documented by: Clopidogrel Bisulfate (Clopidogrel 75 Mg Tab) 75 mg PO DAILY [facility] Last Admin: 04/24/21 09:43 Dose: 75 mg Documented by: Dextrose/Water (50% Dextrose In Water 50 Ml Syringe) 50 ml IVPUSH ASDIRECTED PRN PRN Reason: Hypoglycemia Gabapentin (Gabapentin 300 Mg Cap) 300 mg PO BEDTIME [facility] Last Admin: 04/23/21 21:08 Dose: 300 mg Documented by: Glucagon (Glucagon,Human Recombinant 1 Mg Vial) 1 mg IM ASDIRECTED PRN PRN Reason: Hypoglycemia Lactated Ringer's (Ringers, Lactated) 1,000 mls @ 125 mls/hr IV ASDIRECTED [facility] Last Infusion: 04/24/21 06:01 Dose: 0 mls/hr Documented by: Ceftriaxone Sodium/Dextrose 1 (gm/ Premix) 50 mls @ 100 mls/hr IV Q24H [facility] Last Admin: 04/23/21 21:00 Dose: 100 mls/hr Documented by: Magnesium Sulfate 2 gm/ Premix 50 mls @ 12.5 mls/hr IV ONETIME ONE Stop: 04/24/21 14:28 Last Admin: 04/24/21 11:02 Dose: 12.5 mls/hr Documented by: Insulin Aspart (Insulin Aspart 100 Units/Ml 3 Ml Pen) 0 unit SUBCUT TIDAC [facility]; Protocol Last Admin: 04/24/21 09:43 Dose: 2 units Documented by: Insulin Detemir (Insulin Detemir 100 Units/Ml 3 Ml Pen) 7 unit SUBCUT BEDTIME [facility] Last Admin: 04/23/21 21:13 Dose: 7 units Documented by: Labetalol HCl (Labetalol 100 Mg/20 Ml Mdv) 20 mg IVPUSH Q3H PRN PRN Reason: Hypertension SBP>190 Last Admin: 04/24/21 06:03 Dose: 20 mg Documented by: Losartan Potassium (Losartan 50 Mg Tab) 100 mg PO DAILY [facility] Last Admin: 04/24/21 09:43 Dose: 100 mg Documented by: Metoprolol Succinate (Metoprolol Succinate 25 Mg Tab.Er) 25 mg PO DAILY [facility] Last Admin: 04/24/21 09:43 Dose: 25 mg Documented by: Ondansetron HCl (Ondansetron 4 Mg/2 Ml Sdv) 4 mg IVPUSH Q4H PRN PRN Reason: Nausea/Vomiting Pantoprazole Sodium (Pantoprazole 40 Mg Tab.Cr) 40 mg PO BID [facility] Last Admin: 04/24/21 09:43 Dose: 40 mg Documented by: Ropinirole HCl (Ropinirole 0.5 Mg Tab) 0.25 mg PO BEDTIME [facility] Last Admin: 04/23/21 21:09 Dose: 0.25 mg Documented by: Sertraline HCl (Sertraline 100 Mg Tab) 100 mg PO DAILY [facility] Last Admin: 04/24/21 09:43 Dose: 100 mg Documented by: Discontinued Medications Hydralazine HCl (Hydralazine 20 Mg/Ml Sdv) 5 mg IVPUSH ONETIME ONE Stop: 04/20/21 17:28 Last Admin: 04/20/21 17:59 Dose: 5 mg Documented by: Lactated Ringer's (Ringers, Lactated) 1,000 mls @ 125 mls/hr IV ASDIRECTED [facility]YLA Last Admin: 04/21/21 06:52 Dose: 125 mls/hr Documented by: Magnesium Sulfate 2 gm/ Premix 50 mls @ 25 mls/hr IV ONETIME ONE Stop: 04/22/21 09:50 Last Admin: 04/22/21 09:25 Dose: 25 mls/hr Documented by: Insulin Detemir (Insulin Detemir 100 Units/Ml 3 Ml Pen) 7 unit SUBCUT ONETIME ONE Stop: 04/21/21 00:10 Last Admin: 04/21/21 00:25 Dose: 7 units Documented by: Labetalol HCl (Labetalol 100 Mg/20 Ml Mdv) 20 mg IVPUSH Q4H PRN; Protocol PRN Reason: Hypertension Last Admin: 04/20/21 22:31 Dose: 20 mg Documented by: Labetalol HCl (Labetalol 100 Mg/20 Ml Mdv) 20 mg IVPUSH ONETIME ONE; Protocol Stop: 04/20/21 23:21 Last Admin: 04/21/21 00:14 Dose: 20 mg Documented by: Lorazepam (Lorazepam 2 Mg/Ml Sdv) 1 mg IVPUSH ONETIME ONE Stop: 04/21/21 13:20 Last Admin: 04/21/21 13:41 Dose: 1 mg Documented by: Lorazepam (Lorazepam 2 Mg/Ml Sdv) 1 mg IVPUSH ONETIME ONE Stop: 04/21/21 15:02 Last Admin: 04/21/21 15:14 Dose: 1 mg Documented by: Losartan Potassium (Losartan 50 Mg Tab) 100 mg PO ONETIME ONE Stop: 04/20/21 18:15 Last Admin: 04/20/21 18:30 Dose: 100 mg Documented by: Losartan Potassium (Losartan 50 Mg Tab) 100 mg PO DAILY [facility] Metoprolol Succinate (Metoprolol Succinate 25 Mg Tab.Er) 25 mg PO ONETIME ONE Stop: 04/20/21 18:15 Last Admin: 04/20/21 18:30 Dose: 25 mg Documented by: Metoprolol Succinate (Metoprolol Succinate 25 Mg Tab.Er) 25 mg PO DAILY [facility] Potassium Chloride (Potassium Chloride 10% 20 Meq/15 Ml Soln 30 Ml Ud Cup) 40 meq PO ONETIME ONE Stop: 04/24/21 10:35 Last Admin: 04/24/21 11:03 Dose: 40 meq Documented by: Ropinirole HCl (Ropinirole 0.5 Mg Tab) 0.25 mg PO BEDTIME [facility] Simvastatin (Simvastatin 20 Mg Tab) 20 mg PO BEDTIME [facility] Simvastatin (Simvastatin 20 Mg Tab) 80 mg PO BEDTIME [facility]YLA - Exam Quality Assessment: Supplemental Oxygen Urinary Catheter Total Time: 0Days 0Hours General: Alert, Oriented Neck: Supple Lungs: Clear to Auscultation, Normal Respiratory Effort Cardiovascular: Regular Rate, Regular Rhythm GI/Abdominal Exam: Normal Bowel Sounds, Soft, Non-Tender Skin: Warm, Dry Neurological: No New Focal Deficit, Normal Speech, Normal Tone, Strength Equal Bilateral, Sensation Intact, Cranial Nerves Intact - Patient Data Lab Results Last 24 hrs: Laboratory Results - last 24 hr 04/23/21 04/23/21 04/23/21 Range/Units 17:09 18:30 21:06 WBC (4.0-11.0) K/uL RBC (4.30-5.90) M/uL Hgb (12.0-16.0) g/dL Hct (36.0-46.0) % MCV (80.0-98.0) fL MCH (27.0-32.0) pg MCHC (31.0-37.0) g/dL RDW Std Deviation (28.0-62.0) fl RDW Coeff of Renard (11.0-15.0) % Plt Count (150-400) K/uL MPV (7.40-12.00) fL Neut % (Auto) (48.0-80.0) % Lymph % (Auto) (16.0-40.0) % [place] % (Auto) (0.0-15.0) % Eos % (Auto) (0.0-7.0) % Baso % (Auto) (0.0-1.5) % Neut # (Auto) (1.4-5.7) K/uL Lymph # (Auto) (0.6-2.4) K/uL [place] # (Auto) (0.0-0.8) K/uL Eos # (Auto) (0.0-0.7) K/uL Baso # (Auto) (0.0-0.1) K/uL Sodium (136-145) mmol/L Potassium (3.5-5.1) mmol/L Chloride (98-107) mmol/L Carbon Dioxide (21.0-32.0) mmol/L BUN (7.0-18.0) mg/dL Creatinine (0.6-1.0) mg/dL Est Cr Clr Drug Dosing mL/min Estimated GFR (MDRD) ml/min Glucose (74-106) mg/dL POC Glucose 219 H 212 H (70-99) mg/dL Calcium (8.5-10.1) mg/dL Phosphorus (2.6-4.7) mg/dL Magnesium (1.8-2.4) mg/dL Urine Color YELLOW Urine Appearance SLT CLOUDY Urine pH 6.5 (5.0-8.0) Ur Specific [place] 1.015 (1.001-1.035) Urine Protein 100 H (NEGATIVE) mg/dL Urine Glucose (UA) NEGATIVE (NEGATIVE) mg/dL Urine Ketones NEGATIVE (NEGATIVE) mg/dL Urine Occult Blood TRACE-INTACT H (NEGATIVE) Urine Nitrite NEGATIVE (NEGATIVE) Urine Bilirubin NEGATIVE (NEGATIVE) Urine Urobilinogen 0.2 (<2.0) EU/dL Ur Leukocyte Esterase SMALL H (NEGATIVE) Urine RBC 1-3 (0-2/HPF) Urine WBC 1-3 (0-5/HPF) Ur Epithelial Cells FEW (NONE-FEW) Urine Bacteria FEW (NEGATIVE) Urine Yeast RARE 04/24/21 04/24/21 04/24/21 Range/Units 06:44 06:46 06:46 WBC 5.46 (4.0-11.0) K/uL RBC 3.99 L (4.30-5.90) M/uL Hgb 11.6 L (12.0-16.0) g/dL Hct 34.4 L (36.0-46.0) % MCV 86.2 (80.0-98.0) fL MCH 29.1 (27.0-32.0) pg MCHC 33.7 (31.0-37.0) g/dL RDW Std Deviation 48.1 (28.0-62.0) fl RDW Coeff of Renard 16 H (11.0-15.0) % Plt Count 143 L (150-400) K/uL MPV 9.70 (7.40-12.00) fL Neut % (Auto) 59.1 (48.0-80.0) % Lymph % (Auto) 24.7 (16.0-40.0) % [place] % (Auto) 12.5 (0.0-15.0) % Eos % (Auto) 3.5 (0.0-7.0) % Baso % (Auto) 0.2 (0.0-1.5) % Neut # (Auto) 3.2 (1.4-5.7) K/uL Lymph # (Auto) 1.4 (0.6-2.4) K/uL [place] # (Auto) 0.7 (0.0-0.8) K/uL Eos # (Auto) 0.2 (0.0-0.7) K/uL Baso # (Auto) 0.0 (0.0-0.1) K/uL Sodium 141 (136-145) mmol/L Potassium 3.2 L (3.5-5.1) mmol/L Chloride 104 (98-107) mmol/L Carbon Dioxide 30.0 (21.0-32.0) mmol/L BUN 13 (7.0-18.0) mg/dL Creatinine 1.0 (0.6-1.0) mg/dL Est Cr Clr Drug Dosing 34.32 mL/min Estimated GFR (MDRD) 52.2 ml/min Glucose 184 H (74-106) mg/dL POC Glucose 179 H (70-99) mg/dL Calcium 8.9 (8.5-10.1) mg/dL Phosphorus 3.1 (2.6-4.7) mg/dL Magnesium 1.7 L (1.8-2.4) mg/dL Urine Color Urine Appearance Urine pH (5.0-8.0) Ur Specific [place] (1.001-1.035) Urine Protein (NEGATIVE) mg/dL Urine Glucose (UA) (NEGATIVE) mg/dL Urine Ketones (NEGATIVE) mg/dL Urine Occult Blood (NEGATIVE) Urine Nitrite (NEGATIVE) Urine Bilirubin (NEGATIVE) Urine Urobilinogen (<2.0) EU/dL Ur Leukocyte Esterase (NEGATIVE) Urine RBC (0-2/HPF) Urine WBC (0-5/HPF) Ur Epithelial Cells (NONE-FEW) Urine Bacteria (NEGATIVE) Urine Yeast Result Diagrams: 04/24/21 06:46 04/24/21 06:46 Sepsis Event Note - Evaluation Sepsis Screening Result: No Definite Risk - Focused Exam Vital Signs: Vital Signs Temp Pulse Pulse Resp BP BP Pulse Ox 04/24/21 12:00 36.2 C 85 17 169/90 H 94 L 04/24/21 11:02 108/66 04/24/21 09:43 84 178/78 H 04/24/21 09:36 36.4 C 84 16 178/78 H 91 L 04/24/21 08:08 79 156/79 H 04/24/21 06:48 84 191/87 H 04/24/21 05:43 37.1 C 77 16 197/93 H 94 L - Problem List & Annotations (1) AMS (altered mental status) SNOMED Code(s): 493946340 Code(s): R41.82 - ALTERED MENTAL STATUS, UNSPECIFIED Status: Acute Current Visit: Yes (2) Hypertensive urgency SNOMED Code(s): 566239583 Code(s): I16.0 - HYPERTENSIVE URGENCY Status: Suspected Current Visit: Yes (3) HTN (hypertension) SNOMED Code(s): 50537690 Code(s): I10 - ESSENTIAL (PRIMARY) HYPERTENSION Status: Chronic Current Visit: No Qualifiers: Hypertension type: essential hypertension (4) Type 2 diabetes mellitus SNOMED Code(s): 83414181 Code(s): E11.9 - TYPE 2 DIABETES MELLITUS WITHOUT COMPLICATIONS Status: Chronic Current Visit: No Qualifiers: Diabetes mellitus custodial insulin use: with custodial use Diabetes mellitus complication status: without complication Qualified Code(s): E11.9 - Type 2 diabetes mellitus without complications; Z79.4 - 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 (5) UTI (urinary tract infection) SNOMED Code(s): 71020628 Code(s): N39.0 - URINARY TRACT INFECTION, SITE NOT SPECIFIED Status: Acute Current Visit: Yes - Problem List Review Problem List Initiated/Reviewed/Updated: Yes - My Orders Last 24 Hours: My Active Orders 04/23/21 18:30 CULTURE URINE [MREF] Routine 04/23/21 20:00 cefTRIAXone [Rocephin in Dextrose,Iso-Osm 1 GM/50 ML] 1 gm Premix Bag 1 bag IV Q24H 04/24/21 10:15 amLODIPine [Norvasc] 10 mg PO DAILY 04/24/21 10:29 Magnesium Sulfate/Water [Magnesium Sulfate in Water 2 GM/50 ML] 2 gm Premix Bag 1 bag IV ONETIME - Plan Plan:: 89-year-old female admitted to altered mental status likely secondary to hypertensive encephalopathy versus stroke 1. 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 Occupational Therapy not needed at this time as no concerns with ADLs or upper extremities noted. -A1c 7.6. Triglycerides 88 total cholesterol 171 LDL 86 HDL 57. TSH 1.71 -Monitor on telemetry for any type of arrhythmia -We will need follow-up with neurology, consider Zio patch on discharge -cont PT 2. DM type II -NovoLog sliding scale with meals -ADA diet 3. Hypertension -cont antihypertensives, add amlodipine 4. Rectal mass -Possibly external hemorrhoid versus prolapse -Arrange outpatient follow-up with general surgery -No pain and no bleeding noted 5. UTI: cont Rocephin, awaiting UC . VTE prophylaxis: SCDs for now likely start heparin in a.m. CODE STATUS: full code Dispo: dispo pending PT SNF vs Home health with home PT
[2021-04-24] MEDS: cefTRIAXone 1 GM in Premix Bag 1 BAG IV SCH (20:03)
[2021-04-24] MEDS: Insulin Detemir 100 Units/ML 3 ML Pen SUBCUT SCH (20:47)
[2021-04-24] MEDS: atorvaSTATin 40 MG Tab PO SCH (20:48)
[2021-04-24] MEDS: Gabapentin 300 MG Cap PO SCH (21:55)
[2021-04-24] MEDS: rOPINIRole 0.5 MG Tab PO SCH (21:55)
[2021-04-25 06:17] LABS: CARBON DIOXIDE,CO2 29.1 mmol/L (21.0-32.0); POTASSIUM,K 3.8 mmol/L (3.5-5.1)
[2021-04-25] MEDS: Insulin Aspart 100 Units/ML 3 ML Pen SUBCUT SCH ×3 (09:05→16:34)
[2021-04-25] MEDS: Pantoprazole 40 MG Tab.CR PO SCH (09:06)
[2021-04-25] MEDS: Metoprolol Succinate 25 MG Tab.ER PO SCH (09:06)
[2021-04-25] MEDS: Aspirin 81 MG Tab.Chew PO SCH (09:06)
[2021-04-25] MEDS: amLODIPine 5 MG Tab PO SCH (09:07)
[2021-04-25] MEDS: Clopidogrel 75 MG Tab PO SCH (09:07)
[2021-04-25] MEDS: Losartan 50 MG Tab PO SCH (09:08)
[2021-04-25] MEDS: Sertraline 100 MG Tab PO SCH (09:08)
[2021-04-25] MEDS ORDERED: Metoprolol Succinate 25 MG Tab.ER PO ONE (11:47)
--- NOTE | 2021-04-25 13:40 | PCM.PN ---
- General Info Date of Service: 04/25/21 Admission Dx/Problem (Free Text): Admission Diagnosis/Problem Admission Diagnosis/Problem Altered mental status Subjective Update: Much more alert today. Denies any chest pain or shortness of breath. Denies any visual concerns or headache. Otherwise feeling improved, having no concerns but is concerned that if we feel she needs to go to group home facility she is willing. But she is wanting to know from our standpoint if we feel this is appropriate. Functional Status: Reports: Pain Controlled, Tolerating Diet, Ambulating, Urinating - Review of Systems General: Reports: Weakness (Generalized), Fatigue HEENT: Reports: No Symptoms. Denies: Headaches, Sore Throat, Visual Changes Pulmonary: Reports: No Symptoms. Denies: Shortness of Breath Cardiovascular: Reports: No Symptoms. Denies: Chest Pain Gastrointestinal: Reports: No Symptoms. Denies: Abdominal Pain, Nausea, Vomiting Genitourinary: Reports: No Symptoms. Denies: Dysuria, Frequency Musculoskeletal: Reports: No Symptoms Skin: Reports: No Symptoms Neurological: Reports: No Symptoms Psychiatric: Reports: No Symptoms - Patient Data Vitals - Most Recent: Last Vital Signs Temp 96.6 F L 04/25/21 12:15 Pulse 70 04/25/21 12:15 Resp 20 04/25/21 12:15 BP 197/72 H 04/25/21 12:15 Pulse Ox 98 04/25/21 12:15 Weight - Most Recent: 63 kg I&O - Last 24 Hours: Intake & Output 04/24/21 04/25/21 04/25/21 22:59 06:59 14:59 Intake Total 1200 970 Output Total 900 1050 Balance 300 -80 Lab Results Last 24 Hours: Laboratory Results - last 24 hr 04/24/21 04/24/21 04/24/21 Range/Units 16:29 17:16 20:40 WBC (4.0-11.0) K/uL RBC (4.30-5.90) M/uL Hgb (12.0-16.0) g/dL Hct (36.0-46.0) % MCV (80.0-98.0) fL MCH (27.0-32.0) pg MCHC (31.0-37.0) g/dL RDW Std Deviation (28.0-62.0) fl RDW Coeff of Renard (11.0-15.0) % Plt Count (150-400) K/uL MPV (7.40-12.00) fL Neut % (Auto) (48.0-80.0) % Lymph % (Auto) (16.0-40.0) % Carlton % (Auto) (0.0-15.0) % Eos % (Auto) (0.0-7.0) % Baso % (Auto) (0.0-1.5) % Neut # (Auto) (1.4-5.7) K/uL Lymph # (Auto) (0.6-2.4) K/uL Carlton # (Auto) (0.0-0.8) K/uL Eos # (Auto) (0.0-0.7) K/uL Baso # (Auto) (0.0-0.1) K/uL Nucleated RBC % /100WBC Nucleated RBCs # K/uL Sodium (136-145) mmol/L Potassium (3.5-5.1) mmol/L Chloride (98-107) mmol/L Carbon Dioxide (21.0-32.0) mmol/L BUN (7.0-18.0) mg/dL Creatinine (0.6-1.0) mg/dL Est Cr Clr Drug Dosing mL/min Estimated GFR (MDRD) ml/min Glucose (74-106) mg/dL POC Glucose 259 H 207 H 239 H (70-99) mg/dL Calcium (8.5-10.1) mg/dL 04/25/21 04/25/21 04/25/21 Range/Units 05:30 05:30 07:34 WBC 6.67 (4.0-11.0) K/uL RBC 3.97 L (4.30-5.90) M/uL Hgb 11.5 L (12.0-16.0) g/dL Hct 34.2 L (36.0-46.0) % MCV 86.1 (80.0-98.0) fL MCH 29.0 (27.0-32.0) pg MCHC 33.6 (31.0-37.0) g/dL RDW Std Deviation 50.4 (28.0-62.0) fl RDW Coeff of Renard 16 H (11.0-15.0) % Plt Count 141 L (150-400) K/uL MPV 10.00 (7.40-12.00) fL Neut % (Auto) 65.2 (48.0-80.0) % Lymph % (Auto) 19.8 (16.0-40.0) % Carlton % (Auto) 11.2 (0.0-15.0) % Eos % (Auto) 3.7 (0.0-7.0) % Baso % (Auto) 0.1 (0.0-1.5) % Neut # (Auto) 4.3 (1.4-5.7) K/uL Lymph # (Auto) 1.3 (0.6-2.4) K/uL Carlton # (Auto) 0.8 (0.0-0.8) K/uL Eos # (Auto) 0.3 (0.0-0.7) K/uL Baso # (Auto) 0.0 (0.0-0.1) K/uL Nucleated RBC % 0.0 /100WBC Nucleated RBCs # 0 K/uL Sodium 139 (136-145) mmol/L Potassium 3.8 (3.5-5.1) mmol/L Chloride 104 (98-107) mmol/L Carbon Dioxide 29.1 (21.0-32.0) mmol/L BUN 9 (7.0-18.0) mg/dL Creatinine 0.9 (0.6-1.0) mg/dL Est Cr Clr Drug Dosing 38.13 mL/min Estimated GFR (MDRD) 59.0 ml/min Glucose 185 H (74-106) mg/dL POC Glucose 172 H (70-99) mg/dL Calcium 9.1 (8.5-10.1) mg/dL 04/25/21 Range/Units 12:09 WBC (4.0-11.0) K/uL RBC (4.30-5.90) M/uL Hgb (12.0-16.0) g/dL Hct (36.0-46.0) % MCV (80.0-98.0) fL MCH (27.0-32.0) pg MCHC (31.0-37.0) g/dL RDW Std Deviation (28.0-62.0) fl RDW Coeff of Renard (11.0-15.0) % Plt Count (150-400) K/uL MPV (7.40-12.00) fL Neut % (Auto) (48.0-80.0) % Lymph % (Auto) (16.0-40.0) % Carlton % (Auto) (0.0-15.0) % Eos % (Auto) (0.0-7.0) % Baso % (Auto) (0.0-1.5) % Neut # (Auto) (1.4-5.7) K/uL Lymph # (Auto) (0.6-2.4) K/uL Carlton # (Auto) (0.0-0.8) K/uL Eos # (Auto) (0.0-0.7) K/uL Baso # (Auto) (0.0-0.1) K/uL Nucleated RBC % /100WBC Nucleated RBCs # K/uL Sodium (136-145) mmol/L Potassium (3.5-5.1) mmol/L Chloride (98-107) mmol/L Carbon Dioxide (21.0-32.0) mmol/L BUN (7.0-18.0) mg/dL Creatinine (0.6-1.0) mg/dL Est Cr Clr Drug Dosing mL/min Estimated GFR (MDRD) ml/min Glucose (74-106) mg/dL POC Glucose 284 H (70-99) mg/dL Calcium (8.5-10.1) mg/dL Kirk Results Last 24 Hours: Microbiology 04/23/21 18:30 Urine Culture - Preliminary Urine Gram Negative Rods Med Orders - Current: Current Medications Acetaminophen (Acetaminophen 325 Mg Tab) 650 mg PO Q4H PRN PRN Reason: Pain (Mild 1-3)/fever Last Admin: 04/23/21 23:57 Dose: 650 mg Documented by: Albuterol/Ipratropium (Albuterol/Ipratropium 3.0-0.5 Mg/3 Ml Neb Soln) 3 ml NEB Q4HRRT PRN PRN Reason: Shortness Of Breath/wheezing Amlodipine Besylate (Amlodipine 5 Mg Tab) 10 mg PO DAILY [facility] Last Admin: 04/25/21 09:07 Dose: 10 mg Documented by: Aspirin (Aspirin 81 Mg Tab.Chew) 81 mg PO DAILY [facility] Last Admin: 04/25/21 09:06 Dose: 81 mg Documented by: Atorvastatin Calcium (Atorvastatin 40 Mg Tab) 80 mg PO BEDTIME [facility] Last Admin: 04/24/21 20:48 Dose: 80 mg Documented by: Clopidogrel Bisulfate (Clopidogrel 75 Mg Tab) 75 mg PO DAILY [facility] Last Admin: 04/25/21 09:07 Dose: 75 mg Documented by: Dextrose/Water (50% Dextrose In Water 50 Ml Syringe) 50 ml IVPUSH ASDIRECTED PRN PRN Reason: Hypoglycemia Gabapentin (Gabapentin 300 Mg Cap) 300 mg PO BEDTIME [facility] Last Admin: 04/24/21 21:55 Dose: 300 mg Documented by: Glucagon (Glucagon,Human Recombinant 1 Mg Vial) 1 mg IM ASDIRECTED PRN PRN Reason: Hypoglycemia Ceftriaxone Sodium/Dextrose 1 (gm/ Premix) 50 mls @ 100 mls/hr IV Q24H [facility] Last Admin: 04/24/21 20:03 Dose: 100 mls/hr Documented by: Insulin Aspart (Insulin Aspart 100 Units/Ml 3 Ml Pen) 0 unit SUBCUT TIDAC [facility]; Protocol Last Admin: 04/25/21 12:09 Dose: 2 units Documented by: Insulin Detemir (Insulin Detemir 100 Units/Ml 3 Ml Pen) 7 unit SUBCUT BEDTIME [facility] Last Admin: 04/24/21 20:47 Dose: 7 units Documented by: Labetalol HCl (Labetalol 100 Mg/20 Ml Mdv) 20 mg IVPUSH Q3H PRN PRN Reason: Hypertension SBP>190 Last Admin: 04/24/21 06:03 Dose: 20 mg Documented by: Losartan Potassium (Losartan 50 Mg Tab) 100 mg PO DAILY [facility] Last Admin: 04/25/21 09:08 Dose: 100 mg Documented by: Metoprolol Succinate (Metoprolol Succinate 25 Mg Tab.Er) 25 mg PO DAILY [facility] Last Admin: 04/25/21 09:06 Dose: 25 mg Documented by: Ondansetron HCl (Ondansetron 4 Mg/2 Ml Sdv) 4 mg IVPUSH Q4H PRN PRN Reason: Nausea/Vomiting Pantoprazole Sodium (Pantoprazole 40 Mg Tab.Cr) 40 mg PO BID [facility] Last Admin: 04/25/21 09:06 Dose: 40 mg Documented by: Ropinirole HCl (Ropinirole 0.5 Mg Tab) 0.25 mg PO BEDTIME [facility] Last Admin: 04/24/21 21:55 Dose: 0.25 mg Documented by: Sertraline HCl (Sertraline 100 Mg Tab) 100 mg PO DAILY [facility] Last Admin: 04/25/21 09:08 Dose: 100 mg Documented by: Discontinued Medications Hydralazine HCl (Hydralazine 20 Mg/Ml Sdv) 5 mg IVPUSH ONETIME ONE Stop: 04/20/21 17:28 Last Admin: 04/20/21 17:59 Dose: 5 mg Documented by: Lactated Ringer's (Ringers, Lactated) 1,000 mls @ 125 mls/hr IV ASDIRECTED [facility] Last Admin: 04/21/21 06:52 Dose: 125 mls/hr Documented by: Magnesium Sulfate 2 gm/ Premix 50 mls @ 25 mls/hr IV ONETIME ONE Stop: 04/22/21 09:50 Last Admin: 04/22/21 09:25 Dose: 25 mls/hr Documented by: Lactated Ringer's (Ringers, Lactated) 1,000 mls @ 125 mls/hr IV ASDIRECTED [facility] Last Infusion: 04/24/21 06:01 Dose: 0 mls/hr Documented by: Magnesium Sulfate 2 gm/ Premix 50 mls @ 12.5 mls/hr IV ONETIME ONE Stop: 04/24/21 14:28 Last Admin: 04/24/21 11:02 Dose: 12.5 mls/hr Documented by: Insulin Detemir (Insulin Detemir 100 Units/Ml 3 Ml Pen) 7 unit SUBCUT ONETIME ONE Stop: 04/21/21 00:10 Last Admin: 04/21/21 00:25 Dose: 7 units Documented by: Labetalol HCl (Labetalol 100 Mg/20 Ml Mdv) 20 mg IVPUSH Q4H PRN; Protocol PRN Reason: Hypertension Last Admin: 04/20/21 22:31 Dose: 20 mg Documented by: Labetalol HCl (Labetalol 100 Mg/20 Ml Mdv) 20 mg IVPUSH ONETIME ONE; Protocol Stop: 04/20/21 23:21 Last Admin: 04/21/21 00:14 Dose: 20 mg Documented by: Lorazepam (Lorazepam 2 Mg/Ml Sdv) 1 mg IVPUSH ONETIME ONE Stop: 04/21/21 13:20 Last Admin: 04/21/21 13:41 Dose: 1 mg Documented by: Lorazepam (Lorazepam 2 Mg/Ml Sdv) 1 mg IVPUSH ONETIME ONE Stop: 04/21/21 15:02 Last Admin: 04/21/21 15:14 Dose: 1 mg Documented by: Losartan Potassium (Losartan 50 Mg Tab) 100 mg PO ONETIME ONE Stop: 04/20/21 18:15 Last Admin: 04/20/21 18:30 Dose: 100 mg Documented by: Losartan Potassium (Losartan 50 Mg Tab) 100 mg PO DAILY [facility] Metoprolol Succinate (Metoprolol Succinate 25 Mg Tab.Er) 25 mg PO ONETIME ONE Stop: 04/20/21 18:15 Last Admin: 04/20/21 18:30 Dose: 25 mg Documented by: Metoprolol Succinate (Metoprolol Succinate 25 Mg Tab.Er) 25 mg PO DAILY [facility] Metoprolol Succinate (Metoprolol Succinate 25 Mg Tab.Er) 25 mg PO ONETIME ONE Stop: 04/25/21 11:48 Last Admin: 04/25/21 12:10 Dose: 25 mg Documented by: Potassium Chloride (Potassium Chloride 10% 20 Meq/15 Ml Soln 30 Ml Ud Cup) 40 meq PO ONETIME ONE Stop: 04/24/21 10:35 Last Admin: 04/24/21 11:03 Dose: 40 meq Documented by: Ropinirole HCl (Ropinirole 0.5 Mg Tab) 0.25 mg PO BEDTIME [facility] Simvastatin (Simvastatin 20 Mg Tab) 20 mg PO BEDTIME [facility] Simvastatin (Simvastatin 20 Mg Tab) 80 mg PO BEDTIME [facility] - Exam Quality Assessment: DVT Prophylaxis. No: Supplemental Oxygen Urinary Catheter Total Time: 0Days 0Hours General: Alert, Oriented Neck: Supple Lungs: Clear to Auscultation, Normal Respiratory Effort Cardiovascular: Regular Rate, Regular Rhythm GI/Abdominal Exam: Normal Bowel Sounds, Soft, Non-Tender Extremities: Normal Inspection, Normal Range of Motion, Non-Tender, No Pedal Edema Neurological: No New Focal Deficit, Normal Speech (No longer aphasic) Psy/Mental Status: Alert, Normal Affect, Normal Mood - Patient Data Lab Results Last 24 hrs: Laboratory Results - last 24 hr 04/24/21 04/24/21 04/24/21 Range/Units 16:29 17:16 20:40 WBC (4.0-11.0) K/uL RBC (4.30-5.90) M/uL Hgb (12.0-16.0) g/dL Hct (36.0-46.0) % MCV (80.0-98.0) fL MCH (27.0-32.0) pg MCHC (31.0-37.0) g/dL RDW Std Deviation (28.0-62.0) fl RDW Coeff of Renard (11.0-15.0) % Plt Count (150-400) K/uL MPV (7.40-12.00) fL Neut % (Auto) (48.0-80.0) % Lymph % (Auto) (16.0-40.0) % Carlton % (Auto) (0.0-15.0) % Eos % (Auto) (0.0-7.0) % Baso % (Auto) (0.0-1.5) % Neut # (Auto) (1.4-5.7) K/uL Lymph # (Auto) (0.6-2.4) K/uL Carlton # (Auto) (0.0-0.8) K/uL Eos # (Auto) (0.0-0.7) K/uL Baso # (Auto) (0.0-0.1) K/uL Nucleated RBC % /100WBC Nucleated RBCs # K/uL Sodium (136-145) mmol/L Potassium (3.5-5.1) mmol/L Chloride (98-107) mmol/L Carbon Dioxide (21.0-32.0) mmol/L BUN (7.0-18.0) mg/dL Creatinine (0.6-1.0) mg/dL Est Cr Clr Drug Dosing mL/min Estimated GFR (MDRD) ml/min Glucose (74-106) mg/dL POC Glucose 259 H 207 H 239 H (70-99) mg/dL Calcium (8.5-10.1) mg/dL 04/25/21 04/25/21 04/25/21 Range/Units 05:30 05:30 07:34 WBC 6.67 (4.0-11.0) K/uL RBC 3.97 L (4.30-5.90) M/uL Hgb 11.5 L (12.0-16.0) g/dL Hct 34.2 L (36.0-46.0) % MCV 86.1 (80.0-98.0) fL MCH 29.0 (27.0-32.0) pg MCHC 33.6 (31.0-37.0) g/dL RDW Std Deviation 50.4 (28.0-62.0) fl RDW Coeff of Renard 16 H (11.0-15.0) % Plt Count 141 L (150-400) K/uL MPV 10.00 (7.40-12.00) fL Neut % (Auto) 65.2 (48.0-80.0) % Lymph % (Auto) 19.8 (16.0-40.0) % Carlton % (Auto) 11.2 (0.0-15.0) % Eos % (Auto) 3.7 (0.0-7.0) % Baso % (Auto) 0.1 (0.0-1.5) % Neut # (Auto) 4.3 (1.4-5.7) K/uL Lymph # (Auto) 1.3 (0.6-2.4) K/uL Carlton # (Auto) 0.8 (0.0-0.8) K/uL Eos # (Auto) 0.3 (0.0-0.7) K/uL Baso # (Auto) 0.0 (0.0-0.1) K/uL Nucleated RBC % 0.0 /100WBC Nucleated RBCs # 0 K/uL Sodium 139 (136-145) mmol/L Potassium 3.8 (3.5-5.1) mmol/L Chloride 104 (98-107) mmol/L Carbon Dioxide 29.1 (21.0-32.0) mmol/L BUN 9 (7.0-18.0) mg/dL Creatinine 0.9 (0.6-1.0) mg/dL Est Cr Clr Drug Dosing 38.13 mL/min Estimated GFR (MDRD) 59.0 ml/min Glucose 185 H (74-106) mg/dL POC Glucose 172 H (70-99) mg/dL Calcium 9.1 (8.5-10.1) mg/dL 04/25/21 Range/Units 12:09 WBC (4.0-11.0) K/uL RBC (4.30-5.90) M/uL Hgb (12.0-16.0) g/dL Hct (36.0-46.0) % MCV (80.0-98.0) fL MCH (27.0-32.0) pg MCHC (31.0-37.0) g/dL RDW Std Deviation (28.0-62.0) fl RDW Coeff of Renard (11.0-15.0) % Plt Count (150-400) K/uL MPV (7.40-12.00) fL Neut % (Auto) (48.0-80.0) % Lymph % (Auto) (16.0-40.0) % Carlton % (Auto) (0.0-15.0) % Eos % (Auto) (0.0-7.0) % Baso % (Auto) (0.0-1.5) % Neut # (Auto) (1.4-5.7) K/uL Lymph # (Auto) (0.6-2.4) K/uL Carlton # (Auto) (0.0-0.8) K/uL Eos # (Auto) (0.0-0.7) K/uL Baso # (Auto) (0.0-0.1) K/uL Nucleated RBC % /100WBC Nucleated RBCs # K/uL Sodium (136-145) mmol/L Potassium (3.5-5.1) mmol/L Chloride (98-107) mmol/L Carbon Dioxide (21.0-32.0) mmol/L BUN (7.0-18.0) mg/dL Creatinine (0.6-1.0) mg/dL Est Cr Clr Drug Dosing mL/min Estimated GFR (MDRD) ml/min Glucose (74-106) mg/dL POC Glucose 284 H (70-99) mg/dL Calcium (8.5-10.1) mg/dL Result Diagrams: 04/25/21 05:30 04/25/21 05:30 Kirk Results Last 24 hrs: Microbiology 04/23/21 18:30 Urine Culture - Preliminary Urine Gram Negative Rods Sepsis Event Note - Evaluation Sepsis Screening Result: No Definite Risk - Focused Exam Vital Signs: Vital Signs Temp Pulse Pulse Resp BP BP Pulse Ox 04/25/21 12:15 96.6 F L 70 20 197/72 H 98 04/25/21 12:10 96 197/72 H 04/25/21 09:08 181/93 H 04/25/21 09:07 181/93 H 04/25/21 09:06 100 181/93 H 04/25/21 07:49 96.7 F L 100 22 H 181/93 H 95 04/25/21 02:48 97.8 F 88 16 177/81 H 97 - Problem List & Annotations (1) CVA (cerebral vascular accident) SNOMED Code(s): 889869788 Code(s): I63.9 - CEREBRAL INFARCTION, UNSPECIFIED Status: Suspected Current Visit: Yes (2) AMS (altered mental status) SNOMED Code(s): 891317393 Code(s): R41.82 - ALTERED MENTAL STATUS, UNSPECIFIED Status: Acute Current Visit: Yes (3) Hypertensive urgency SNOMED Code(s): 455972039 Code(s): I16.0 - HYPERTENSIVE URGENCY Status: Suspected Current Visit: Yes (4) HTN (hypertension) SNOMED Code(s): 55103455 Code(s): I10 - ESSENTIAL (PRIMARY) HYPERTENSION Status: Chronic Current Visit: No Qualifiers: Hypertension type: essential hypertension (5) Type 2 diabetes mellitus SNOMED Code(s): 70833531 Code(s): E11.9 - TYPE 2 DIABETES MELLITUS WITHOUT COMPLICATIONS Status: Chronic Current Visit: No Qualifiers: Diabetes mellitus termite control representative insulin use: with termite control representative use Diabetes mellitus complication status: without complication Qualified Code(s): E11.9 - Type 2 diabetes mellitus without complications; Z79.4 - manager long term care (current) use of insulin (6) UTI (urinary tract infection) SNOMED Code(s): 87381274 Code(s): N39.0 - URINARY TRACT INFECTION, SITE NOT SPECIFIED Status: Acute Current Visit: Yes - Problem List Review Problem List Initiated/Reviewed/Updated: Yes - Plan Plan:: 89-year-old female admitted to altered mental status likely secondary to hypertensive encephalopathy versus stroke 1. Suspected acute CVA -Altered mental status resolved -Aphasia has resolved - CTA findings noted. 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 Occupational Therapy not needed at this time as no concerns with ADLs or upper extremities noted. -A1c 7.6. Triglycerides 88 total cholesterol 171 LDL 86 HDL 57. TSH 1.71 -Monitor on telemetry for any type of arrhythmia -We will need follow-up with neurology, consider Zio patch on discharge -cont PT, patient does not appear to need group home facility at this time but would recommend home health physical therapy along with occupational therapy for home safety evaluation 2. DM type II -NovoLog sliding scale with meals -ADA diet 3. Hypertension -Continue home losartan and metoprolol -Amlodipine 10 mg started -Blood pressure remains elevated will increase metoprolol to 50 mg p.o. daily and monitor. 4. Rectal mass -Possibly external hemorrhoid versus prolapse -Arrange outpatient follow-up with general surgery -No pain and no bleeding noted 5. UTI: - cont Rocephin -UC shows gram-negative rods await KIRK and sensitivities for safe discharge home VTE prophylaxis: Lovenox CODE STATUS: full code Dispo: Likely home in the next 1 to 2 days awaiting urine cultures for safe discharge as well as control blood pressure.
[2021-04-25] MEDS ORDERED: Enoxaparin 40 MG/0.4 ML Syringe SUBCUT SCH (15:00)
--- NOTE | 2021-04-25 16:18 | ECHO ---
The echocardiogram report can be seen in this patient's EMR (Electronic Medical Record) in the Reports section. The report has also been scanned into PACS. LORRIE
[2021-04-25] MEDS: Insulin Detemir 100 Units/ML 3 ML Pen SUBCUT SCH (21:20)
[2021-04-26] MEDS: cefTRIAXone 1 GM in Premix Bag 1 BAG IV SCH (05:19)
[2021-04-26] MEDS: atorvaSTATin 40 MG Tab PO SCH (05:21)
[2021-04-26] MEDS: Gabapentin 300 MG Cap PO SCH (05:21)
[2021-04-26] MEDS: Pantoprazole 40 MG Tab.CR PO SCH ×2 (05:21→09:32)
[2021-04-26] MEDS: rOPINIRole 0.5 MG Tab PO SCH (05:22)
[2021-04-26 05:49] LABS: CARBON DIOXIDE,CO2 27.6 mmol/L (21.0-32.0)
[2021-04-26] MEDS ORDERED: Magnesium Sulfate/Water 2 GM in Premix Bag 1 BAG IV ONE (08:01)
[2021-04-26] MEDS ORDERED: Metoprolol Succinate 50 MG Tab.ER PO SCH (09:00)
[2021-04-26] MEDS: Losartan 50 MG Tab PO SCH (09:27)
[2021-04-26] MEDS: Sertraline 100 MG Tab PO SCH (09:31)
[2021-04-26] MEDS: amLODIPine 5 MG Tab PO SCH (09:31)
[2021-04-26] MEDS: Aspirin 81 MG Tab.Chew PO SCH (09:31)
[2021-04-26] MEDS: Clopidogrel 75 MG Tab PO SCH (09:31)
[2021-04-26] MEDS: Potassium Chloride 20 MEQ Tab.ER PO SCH ×2 (09:31→12:18)
[2021-04-26] MEDS: Insulin Aspart 100 Units/ML 3 ML Pen SUBCUT SCH ×2 (09:32→12:16)
[2021-04-26 09:34] VITALS: PULSE 66
--- NOTE | 2021-04-26 13:05 | PCM.DCSUM1 ---
Discharge Summary - Hospital Course Brief History: 89 yo female with pmh of DM and HTN who was brought to the ER due to concerns of confusion. Per ER reports, the daughter reported that she has been spoken to to the patient for the past 2 days but today when she called to check on her she realized she was more confused than her baseline. Reportedly patient does have on and off episodes of confusion. Patient was having hard time getting words out and was disoriented in all over the place. Although patient not a very reliable historian but she denied any chest pain, nausea, vomiting, abdominal pain, diarrhea. Patient seemed to be comfortable in the ER but confused. Patient states that she might have stumbled at home and fell but is not sure if she passed out. Patient was found to have extremely elevated blood pressure with systolic blood pressure in 230. Patient received oral as well as IV antihypertensives which helped improve her blood pressure slightly. CT scan of the head was done which was negative for any acute intracranial process. Patient was admitted to the hospital for further management. EKG was unremarkable for acute ischemia and troponin was negative. Rest of the lab work looked benign. Diagnosis: Stroke: No - Discharge Data Discharge Date: 04/26/21 Discharge Disposition: Home, W Home Health Agency 06 Condition: Good - Referral to Home Health Date of Face to Face Encounter: 04/26/21 Reason for Homebound Status: Uziel is homebound in need of caregiver or daughter to help her leave the home along with assistance of walker due to unstady gait and inability to drive. Primary Care Physician: PCP None Skilled Need: Uziel is in need of correction care to monitor vital signs along with help with ADLS such as bathing. She is in need of PT to evaluate and treat due to unsteady gait along with OT to evaluate ability to completed ADLS and home safety evaluation. - Discharge Diagnosis/Problem(s) (1) CVA (cerebral vascular accident) SNOMED Code(s): 263426638 ICD Code: I63.9 - CEREBRAL INFARCTION, UNSPECIFIED Status: Suspected Current Visit: Yes (2) AMS (altered mental status) SNOMED Code(s): 413562344 ICD Code: R41.82 - ALTERED MENTAL STATUS, UNSPECIFIED Status: Acute Current Visit: Yes (3) Hypertensive urgency SNOMED Code(s): 482515388 ICD Code: I16.0 - HYPERTENSIVE URGENCY Status: Suspected Current Visit: Yes (4) HTN (hypertension) SNOMED Code(s): 32166376 ICD Code: I10 - ESSENTIAL (PRIMARY) HYPERTENSION Status: Chronic Current Visit: No Qualifiers: Hypertension type: essential hypertension (5) Type 2 diabetes mellitus SNOMED Code(s): 76758876 ICD Code: E11.9 - TYPE 2 DIABETES MELLITUS WITHOUT COMPLICATIONS Status: Chronic Current Visit: No Qualifiers: Diabetes mellitus intermission coordinator insulin use: with intermission coordinator use Diabetes mellitus complication status: without complication Qualified Code(s): E11.9 - Type 2 diabetes mellitus without complications; Z79.4 - senior care (current) use of insulin (6) UTI (urinary tract infection) SNOMED Code(s): 81051961 ICD Code: N39.0 - URINARY TRACT INFECTION, SITE NOT SPECIFIED Status: Acute Current Visit: Yes - Patient Summary/Data Consults: Consultations 04/21/21 12:59 Consult to Speech Language Pathology [DINING MANAGER Evaluation and Treatment] [CONS] Routine 04/21/21 13:00 PT Evaluation and Treatment [CONS] Routine Hospital Course: Admission diagnoses Altered mental status Aphasia Suspected CVA Hypertension Discharge diagnoses CVA Aphasia resolved Altered mental status resolved Hypertension E. coli UTI Other PMH DM type II Uziel was admitted secondary to fusion and open up status noted by her daughter over the phone. Patient noted to be aphasic when she presented to the ER. Initial head CT negative. Patient blood pressure significantly elevated on arrival. Patient allowed permissive hypertension but treated intermittently with labetalol IV. MRI as well as MRA of head and neck were attempted but patient was unable to lay still even with dose of Ativan this was discussed with daughter who felt she did not want to be overly aggressive do any type of co nsultation for GA. We then attempted CTA of head neck again patient unable to tolerate this. The following day we were able to get repeat head CT as well as CTA head and neck which revealed multifocal intracranial atherosclerotic disease with luminal irregularity and moderate to severe luminal stenosis of distal M1 segment of the right middle cerebral artery and mild luminal stenosis of distal M1 segment of the left middle cerebral artery. Patent cervical arterial vasculature. No CT evidence of intracranial abnormality and no proximal large vessel occlusions. This was discussed with daughter who again reiterated no aggressive management and was okay with medical management and palliative care. Patient was started on dual antiplatelet therapy with aspirin and Plavix. Blood pressure was maintained with home medications of metoprolol increased to 50 mg daily along with losartan 100 mg. Amlodipine 10 mg was also added to help maintain blood pressure. Blood pressures have ranged from 130s to 180s systolically. Blood pressures ultimately are improved. Patient over the weekend is significantly improved and is back to baseline. Patient was monitored on telemetry for no arrhythmias noted. Echo obtained which shows no intracardiac source of embolism. Left ventricular ejection fraction 55 to 60% normal right ventricular systolic function. Mild aortic valve sclerosis without stenosis, mild aortic valve regurgitation, trace mitral and tricuspid valve regurgitation noted. She is alert and oriented and conversing appropriately. She was evaluated by physical therapy who felt patient was safe to return home. Daughter is in town who is willing to help along with home health services to include correction, PT and OT. She is noted to have UTI and started on Rocephin. Today UC revealed E. coli. She will continue on 2 more days of Keflex for complete 5-day course. Patient will be discharged home today on home medications of metoprolol, losartan. She also continue amlodipine 10 mg daily along with her home dose Lasix 20 mg daily. She was also started on high-dose atorvastatin 80 mg she is to hold her home dose of simvastatin. She will also continue aspirin and Plavix along with other home medications. She will have follow-up with PCP in 7 to 10 days she will also have follow-up with Dr. Young, neurology which appointment will be made when Dr. Young's office notifies patient and family. Patient to continue home health. I attempted to speak with patient's daughter but she was unavailable. She was given hospital number to call back if she had any questions or concerns with discharge plans. Patient and family encouraged to return to the ER clinic if concerns should arise sooner. - Patient Instructions Diet: Heart Healthy Diet, Diabetic Diet Activity: No Strenuous Activities, Rest and Relax Today Driving: Do Not Drive Showering/Bathing: May Shower Notify Provider of: Fever, Increased Pain, Swelling and Redness, Drainage, Nausea and/or Vomiting - Discharge Plan *PRESCRIPTION DRUG MONITORING PROGRAM REVIEWED*: Not Applicable *COPY OF PRESCRIPTION DRUG MONITORING REPORT IN PATIENT MEGHANA: Not Applicable Prescriptions/Med Rec: cephALEXin [Keflex] 500 mg PO BID #4 cap atorvaSTATin [Lipitor] 80 mg PO BEDTIME #60 tablet Metoprolol Succinate 50 mg PO DAILY #60 tab amLODIPine [Norvasc] 10 mg PO DAILY #60 tablet Clopidogrel [Plavix] 75 mg PO DAILY #30 tablet Home Medications: Home Meds Aspirin 81 mg PO DAILY 01/04/21 [History] Furosemide 20 mg PO DAILY 01/04/21 [History] Gabapentin [Neurontin] 300 mg PO BEDTIME 01/04/21 [History] Losartan Potassium [Cozaar] 100 mg PO DAILY 01/04/21 [History] Pantoprazole [ProTONIX] 40 mg PO BID 01/04/21 [History] Sertraline HCl 100 mg PO DAILY 01/04/21 [History] metFORMIN [Glucophage] 1,000 mg PO BIDMEALS 01/04/21 [History] rOPINIRole [Requip] 0.25 mg PO BEDTIME 01/04/21 [History] Insulin Detemir [Levemir Flextouch] 7 unit SUBCUT BEDTIME 01/05/21 [History] Calcium Carbonate/Vitamin D3 [Calcium 600-Vit D3 500 Softgel] 1 each PO DAILY 04/20/21 [History] Diclofenac Sodium 1 appful TOP BID 04/20/21 [History] Insulin Aspart [NovoLOG] 0 unit SQ ASDIRECTED 04/20/21 [History] Magnesium Oxide 400 mg PO BID 04/20/21 [History] Ondansetron [Ondansetron ODT] 8 mg PO TID PRN 04/20/21 [History] Clopidogrel [Plavix] 75 mg PO DAILY #30 tablet 04/26/21 [Rx] Metoprolol Succinate 50 mg PO DAILY #60 tab 04/26/21 [Rx] amLODIPine [Norvasc] 10 mg PO DAILY #60 tablet 04/26/21 [Rx] atorvaSTATin [Lipitor] 80 mg PO BEDTIME #60 tablet 04/26/21 [Rx] cephALEXin [Keflex] 500 mg PO BID #4 cap 04/26/21 [Rx] Oxygen Therapy Mode: Room Air Patient Handouts: Stroke Prevention, [id number], Metoprolol tablets, Eating Plan After Stroke, Ischemic Stroke, [id number], Clopidogrel tablets, Warning Signs of a Stroke, Cephalexin Tablets or Capsules, Atorvastatin tablets, Amlodipine Oral Tablets Referrals: Terra Young MD [Physician] - 07/04/21 1:00 pm Sherri Simeon PA [Physician Comber Setter] - 05/02/21 1:00 pm - Discharge Summary/Plan Comment DC Time >30 min.: No - Patient Data Vitals - Most Recent: Last Vital Signs Temp 97.3 F 04/26/21 07:59 Pulse 66 04/26/21 09:30 Resp 16 04/26/21 07:59 BP 154/71 H 04/26/21 09:31 Pulse Ox 95 04/26/21 07:59 Weight - Most Recent: 63 kg I&O - Last 24 hours: Intake & Output 04/25/21 04/26/21 04/26/21 22:59 06:59 14:59 Intake Total 1150 740 Output Total 1490 1200 Balance -340 -460 Lab Results - Last 24 hrs: Laboratory Results - last 24 hr 04/25/21 04/25/21 04/26/21 Range/Units 16:32 20:46 05:12 WBC 5.64 (4.0-11.0) K/uL RBC 3.91 L (4.30-5.90) M/uL Hgb 11.3 L (12.0-16.0) g/dL Hct 33.6 L (36.0-46.0) % MCV 85.9 (80.0-98.0) fL MCH 28.9 (27.0-32.0) pg MCHC 33.6 (31.0-37.0) g/dL RDW Std Deviation 50.1 (28.0-62.0) fl RDW Coeff of Renard 16 H (11.0-15.0) % Plt Count 130 L (150-400) K/uL MPV 9.70 (7.40-12.00) fL Neut % (Auto) 54.9 (48.0-80.0) % Lymph % (Auto) 30.5 (16.0-40.0) % Walsh % (Auto) 11.2 (0.0-15.0) % Eos % (Auto) 3.0 (0.0-7.0) % Baso % (Auto) 0.4 (0.0-1.5) % Neut # (Auto) 3.1 (1.4-5.7) K/uL Lymph # (Auto) 1.7 (0.6-2.4) K/uL Walsh # (Auto) 0.6 (0.0-0.8) K/uL Eos # (Auto) 0.2 (0.0-0.7) K/uL Baso # (Auto) 0.0 (0.0-0.1) K/uL Nucleated RBC % 0.0 /100WBC Nucleated RBCs # 0 K/uL Sodium (136-145) mmol/L Potassium (3.5-5.1) mmol/L Chloride (98-107) mmol/L Carbon Dioxide (21.0-32.0) mmol/L BUN (7.0-18.0) mg/dL Creatinine (0.6-1.0) mg/dL Est Cr Clr Drug Dosing mL/min Estimated GFR (MDRD) ml/min Glucose (74-106) mg/dL POC Glucose 258 H 156 H (70-99) mg/dL Calcium (8.5-10.1) mg/dL Magnesium (1.8-2.4) mg/dL 04/26/21 04/26/21 04/26/21 Range/Units 05:12 06:35 11:50 WBC (4.0-11.0) K/uL RBC (4.30-5.90) M/uL Hgb (12.0-16.0) g/dL Hct (36.0-46.0) % MCV (80.0-98.0) fL MCH (27.0-32.0) pg MCHC (31.0-37.0) g/dL RDW Std Deviation (28.0-62.0) fl RDW Coeff of Renard (11.0-15.0) % Plt Count (150-400) K/uL MPV (7.40-12.00) fL Neut % (Auto) (48.0-80.0) % Lymph % (Auto) (16.0-40.0) % Walsh % (Auto) (0.0-15.0) % Eos % (Auto) (0.0-7.0) % Baso % (Auto) (0.0-1.5) % Neut # (Auto) (1.4-5.7) K/uL Lymph # (Auto) (0.6-2.4) K/uL Walsh # (Auto) (0.0-0.8) K/uL Eos # (Auto) (0.0-0.7) K/uL Baso # (Auto) (0.0-0.1) K/uL Nucleated RBC % /100WBC Nucleated RBCs # K/uL Sodium 138 (136-145) mmol/L Potassium 3.0 L (3.5-5.1) mmol/L Chloride 103 (98-107) mmol/L Carbon Dioxide 27.6 (21.0-32.0) mmol/L BUN 14 (7.0-18.0) mg/dL Creatinine 1.0 (0.6-1.0) mg/dL Est Cr Clr Drug Dosing 34.32 mL/min Estimated GFR (MDRD) 52.2 ml/min Glucose 191 H (74-106) mg/dL POC Glucose 163 H 302 H (70-99) mg/dL Calcium 9.0 (8.5-10.1) mg/dL Magnesium 1.7 L (1.8-2.4) mg/dL NORMA Results - Last 24 hrs: Microbiology 04/23/21 18:30 Urine Culture - Preliminary Urine Escherichia Coli Enterococcus Species Mixed Gp And Gn Addl Isolates Med Orders - Current: Current Medications Acetaminophen (Acetaminophen 325 Mg Tab) 650 mg PO Q4H PRN PRN Reason: Pain (Mild 1-3)/fever Last Admin: 04/23/21 23:57 Dose: 650 mg Documented by: Albuterol/Ipratropium (Albuterol/Ipratropium 3.0-0.5 Mg/3 Ml Neb Soln) 3 ml NEB Q4HRRT PRN PRN Reason: Shortness Of Breath/wheezing Amlodipine Besylate (Amlodipine 5 Mg Tab) 10 mg PO DAILY [facility] Last Admin: 04/26/21 09:31 Dose: 10 mg Documented by: Aspirin (Aspirin 81 Mg Tab.Chew) 81 mg PO DAILY [facility] Last Admin: 04/26/21 09:31 Dose: 81 mg Documented by: Atorvastatin Calcium (Atorvastatin 40 Mg Tab) 80 mg PO BEDTIME [facility] Last Admin: 04/26/21 05:21 Dose: Not Given Documented by: Clopidogrel Bisulfate (Clopidogrel 75 Mg Tab) 75 mg PO DAILY [facility] Last Admin: 04/26/21 09:31 Dose: 75 mg Documented by: Dextrose/Water (50% Dextrose In Water 50 Ml Syringe) 50 ml IVPUSH ASDIRECTED PRN PRN Reason: Hypoglycemia Enoxaparin Sodium (Enoxaparin 40 Mg/0.4 Ml Syringe) 40 mg SUBCUT Q24H [facility] Last Admin: 04/25/21 15:40 Dose: 40 mg Documented by: Gabapentin (Gabapentin 300 Mg Cap) 300 mg PO BEDTIME [facility] Last Admin: 04/26/21 05:21 Dose: Not Given Documented by: Glucagon (Glucagon,Human Recombinant 1 Mg Vial) 1 mg IM ASDIRECTED PRN PRN Reason: Hypoglycemia Ceftriaxone Sodium/Dextrose 1 (gm/ Premix) 50 mls @ 100 mls/hr IV Q24H [facility] Last Admin: 04/26/21 05:19 Dose: Not Given Documented by: Insulin Aspart (Insulin Aspart 100 Units/Ml 3 Ml Pen) 0 unit SUBCUT TIDAC [facility]; Protocol Last Admin: 04/26/21 12:16 Dose: 8 units Documented by: Insulin Detemir (Insulin Detemir 100 Units/Ml 3 Ml Pen) 7 unit SUBCUT BEDTIME [facility] Last Admin: 04/25/21 21:20 Dose: Not Given Documented by: Labetalol HCl (Labetalol 100 Mg/20 Ml Mdv) 20 mg IVPUSH Q3H PRN PRN Reason: Hypertension SBP>190 Last Admin: 04/24/21 06:03 Dose: 20 mg Documented by: Losartan Potassium (Losartan 50 Mg Tab) 100 mg PO DAILY [facility] Last Admin: 04/26/21 09:27 Dose: 100 mg Documented by: Metoprolol Succinate (Metoprolol Succinate 50 Mg Tab.Er) 50 mg PO DAILY [facility] Last Admin: 04/26/21 09:30 Dose: 50 mg Documented by: Ondansetron HCl (Ondansetron 4 Mg/2 Ml Sdv) 4 mg IVPUSH Q4H PRN PRN Reason: Nausea/Vomiting Pantoprazole Sodium (Pantoprazole 40 Mg Tab.Cr) 40 mg PO BID [facility] Last Admin: 04/26/21 09:32 Dose: 40 mg Documented by: Ropinirole HCl (Ropinirole 0.5 Mg Tab) 0.25 mg PO BEDTIME [facility] Last Admin: 04/26/21 05:22 Dose: Not Given Documented by: Sertraline HCl (Sertraline 100 Mg Tab) 100 mg PO DAILY [facility] Last Admin: 04/26/21 09:31 Dose: 100 mg Documented by: Discontinued Medications Hydralazine HCl (Hydralazine 20 Mg/Ml Sdv) 5 mg IVPUSH ONETIME ONE Stop: 04/20/21 17:28 Last Admin: 04/20/21 17:59 Dose: 5 mg Documented by: Lactated Ringer's (Ringers, Lactated) 1,000 mls @ 125 mls/hr IV ASDIRECTED [facility] Last Admin: 04/21/21 06:52 Dose: 125 mls/hr Documented by: Magnesium Sulfate 2 gm/ Premix 50 mls @ 25 mls/hr IV ONETIME ONE Stop: 04/22/21 09:50 Last Admin: 04/22/21 09:25 Dose: 25 mls/hr Documented by: Lactated Ringer's (Ringers, Lactated) 1,000 mls @ 125 mls/hr IV ASDIRECTED [facility] Last Infusion: 04/24/21 06:01 Dose: 0 mls/hr Documented by: Magnesium Sulfate 2 gm/ Premix 50 mls @ 12.5 mls/hr IV ONETIME ONE Stop: 04/24/21 14:28 Last Admin: 04/24/21 11:02 Dose: 12.5 mls/hr Documented by: Magnesium Sulfate 2 gm/ Premix 50 mls @ 12.5 mls/hr IV ONETIME ONE Stop: 04/26/21 12:00 Last Admin: 04/26/21 09:22 Dose: 12.5 mls/hr Documented by: Insulin Detemir (Insulin Detemir 100 Units/Ml 3 Ml Pen) 7 unit SUBCUT ONETIME ONE Stop: 04/21/21 00:10 Last Admin: 04/21/21 00:25 Dose: 7 units Documented by: Labetalol HCl (Labetalol 100 Mg/20 Ml Mdv) 20 mg IVPUSH Q4H PRN; Protocol PRN Reason: Hypertension Last Admin: 04/20/21 22:31 Dose: 20 mg Documented by: Labetalol HCl (Labetalol 100 Mg/20 Ml Mdv) 20 mg IVPUSH ONETIME ONE; Protocol Stop: 04/20/21 23:21 Last Admin: 04/21/21 00:14 Dose: 20 mg Documented by: Lorazepam (Lorazepam 2 Mg/Ml Sdv) 1 mg IVPUSH ONETIME ONE Stop: 04/21/21 13:20 Last Admin: 04/21/21 13:41 Dose: 1 mg Documented by: Lorazepam (Lorazepam 2 Mg/Ml Sdv) 1 mg IVPUSH ONETIME ONE Stop: 04/21/21 15:02 Last Admin: 04/21/21 15:14 Dose: 1 mg Documented by: Losartan Potassium (Losartan 50 Mg Tab) 100 mg PO ONETIME ONE Stop: 04/20/21 18:15 Last Admin: 04/20/21 18:30 Dose: 100 mg Documented by: Losartan Potassium (Losartan 50 Mg Tab) 100 mg PO DAILY [facility] Metoprolol Succinate (Metoprolol Succinate 25 Mg Tab.Er) 25 mg PO ONETIME ONE Stop: 04/20/21 18:15 Last Admin: 04/20/21 18:30 Dose: 25 mg Documented by: Metoprolol Succinate (Metoprolol Succinate 25 Mg Tab.Er) 25 mg PO DAILY [facility] Metoprolol Succinate (Metoprolol Succinate 25 Mg Tab.Er) 25 mg PO DAILY [facility] Last Admin: 04/25/21 09:06 Dose: 25 mg Documented by: Metoprolol Succinate (Metoprolol Succinate 25 Mg Tab.Er) 25 mg PO ONETIME ONE Stop: 04/25/21 11:48 Last Admin: 04/25/21 12:10 Dose: 25 mg Documented by: Potassium Chloride (Potassium Chloride 10% 20 Meq/15 Ml Soln 30 Ml Ud Cup) 40 meq PO ONETIME ONE Stop: 04/24/21 10:35 Last Admin: 04/24/21 11:03 Dose: 40 meq Documented by: Potassium Chloride (Potassium Chloride 20 Meq Tab.Er) 40 meq PO BID@0830,1200 [facility] Stop: 04/26/21 12:01 Last Admin: 04/26/21 12:18 Dose: 40 meq Documented by: Ropinirole HCl (Ropinirole 0.5 Mg Tab) 0.25 mg PO BEDTIME [facility] Simvastatin (Simvastatin 20 Mg Tab) 20 mg PO BEDTIME [facility] Simvastatin (Simvastatin 20 Mg Tab) 80 mg PO BEDTIME [facility]
[2021-04-26 14:51] VITALS: BP 141/70
== END 2021-04-26 14:15 | disposition home health service (06) | DRG 65 ==
LOC: MW.ED 16:53 → MW.MS 19:20 → OBSVTOIN 04-22 07:56
PROVIDERS: ADMIT Student in an Organized Health Care Education/Training Program; ATTEND Student in an Organized Health Care Education/Training Program
DX: I63.9 Cerebral infarction, unspecified (principal); N39.0 Urinary tract infection, site not specified; E11.9 Type 2 diabetes mellitus without complications; E78.00 Pure hypercholesterolemia, unspecified; R47.01 Aphasia; Z79.4 Long term (current) use of insulin; I10 Essential (primary) hypertension; M19.90 Unspecified osteoarthritis, unspecified site; I16.0 Hypertensive urgency; E78.5 Hyperlipidemia, unspecified; B96.20 Unspecified Escherichia coli [E. coli] as the cause of diseases classified elsewhere; Z85.828 Personal history of other malignant neoplasm of skin; Z88.8 Allergy status to other drugs, medicaments and biological substances; Z91.018 Allergy to other foods; R41.82 Altered mental status, unspecified; K21.9 Gastro-esophageal reflux disease without esophagitis; F32.9 Major depressive disorder, single episode, unspecified; K62.9 Disease of anus and rectum, unspecified; K64.4 Residual hemorrhoidal skin tags; H54.7 Unspecified visual loss; R32 Unspecified urinary incontinence; Z97.3 Presence of spectacles and contact lenses; Z87.19 Personal history of other diseases of the digestive system; Z90.710 Acquired absence of both cervix and uterus; Z90.89 Acquired absence of other organs; Z98.890 Other specified postprocedural states; Z90.722 Acquired absence of ovaries, bilateral; Z98.42 Cataract extraction status, left eye; Z98.41 Cataract extraction status, right eye; Z90.49 Acquired absence of other specified parts of digestive tract; Z79.82 Long term (current) use of aspirin; Z79.899 Other long term (current) drug therapy
CPT/HCPCS: 36415 ×3; 70450 ×2; 70496; 70498; 70544; 71045; 80048 ×2; 80053; 80061; 80305; 80307; 81001; 82947 ×7; 83036; 83605; 83735 ×2; 84100; 84443; 84484; 85025 ×3; 93306; 96374; 99285; A9270 ×10; J0360; J1815 ×2; J2060 ×2; J3490 ×2; J7120 ×2; 51701; 51798; 87086; 87088; 87186; 92523-GN-52; 96375; 96376; 97110-GP; 97116-GP; 97161-GP; G0378; J0696; J1650; J3475